=== PATIENT | male | born 1960 | race Caucasian/White ===

== ENCOUNTER 2017-03-04 19:22 | Inpatient (IN) | payer SELFPAY ==
--- NOTE | 2017-03-04 19:57 | C.PDOC ---
History Of Present Illness 56 year old male presents to the ER after family called 911. As per EMS, family states patient has not been taking care of himself for the past few months, only drinking water and ETOH. Patient is awake but not answering any questions. Pt was sen immediately upon arrival fro abnormal vital signs- therefore life threatening illness. Hypoxia with pulse ox 92% on NRB. Heart rate 125. BP 100/ 60. Pt was uncooperative with interview. Family reports to EMS that pt was not eating much for the pat month and drinking etoh and water. Chief Complaint (Nursing): Shortness Of Breath History Per: EMS History/Exam Limitations: clinical condition Onset/Duration Of Symptoms: Days Current Symptoms Are (Timing): Still Present Initiating Event: Other (No known) Past Medical History Reviewed: Historical Data, Nursing Documentation, Vital Signs Vital Signs: Last Vital Signs Temp 98.2 F 03/04/17 22:50 Pulse 91 H 03/05/17 01:00 Resp 26 H 03/05/17 01:00 BP 75/51 L 03/05/17 00:24 Pulse Ox 100 03/05/17 01:00 Surgical History: No Surg Hx Family History: States: Unknown Family Hx - Social History Hx Alcohol Use: Yes Hx Substance Use: (unknown) - Immunization History Hx Tetanus Toxoid Vaccination: (unknown) Hx Influenza Vaccination: (unknown) Hx Pneumococcal Vaccination: (unknown) Review Of Systems Review Of Systems: ROS cannot be obtained secondary to pt's inabilty to answer questions. Physical Exam - Physical Exam Appears: Toxic, Unkempt, Chronically Ill, Other (Cachetic, Poorly kept) Skin: Dry Head: Normacephalic, Abrasion (chin and forehead), Other (Ecchymosis to frontal scalp) Eye(s): bilateral: Normal Inspection, EOMI Ear(s): Left: Normal, Right: Normal Nose: Normal Oral Mucosa: Moist, Dry Tongue: Normal Appearing Lips: Normal Appearing Teeth: Other (poor dentition) Gingiva: Normal Appearing Neck: Normal ROM, Supple Chest: Symmetrical Cardiovascular: Rhythm Regular (Tachycardic) Respiratory: No Rales, Rhonchi (Throughout), No Wheezing Gastrointestinal/Abdominal: Soft, No Tenderness, No Distention Extremity: Normal ROM Extremity: Bilateral: Atraumatic Neurological/Psych: Oriented x3, Normal Speech, Slow To Respond With Command, Other (Awake) ED Course And Treatment - Laboratory Results Result Diagrams: 03/04/17 20:15 03/04/17 20:15 ECG Rhythm: Sinus Rhythm, Sinus Tachycardia ECG Interpretation: Normal, No Acute Changes O2 Sat by Pulse Oximetry: 92 (Non rebreather) Pulse Ox Interpretation: Abnormal Interpretation Of Abnormal: hypoxia - Radiology CXR: Interpreted by Me, Viewed By Me CXR Interpretation: Yes: Other (Right upper lobe pneumonia with cavitary lesion) Progress Note: pt was placed on hi flow nasal cannula with improvement of pulse ox to 100%. abg reviewed. labs reviewed-prerenal azotemia and wbc 41,000 Reassessment Condition: Improved Critical Care Time - Critical Care Note Total Time (in mins): 45 Documented critical care: time excludes all time spent performing seperately billable procedures. Medical Decision Making Medical Decision Making: Plan: * ABG * BNF * CMP * UDS * Mag * TSH * Trop I * CBC * PTT * PT * Flu swab * CXR * EKG * UA * Albuterol neb * Peak flow pre/post CXR showed a right upper lobe pneumonia and white count of 41, will cover with clinda and zosyn. Patient will be admitted to ICU under hospitalist service, Dr. Torres and Dr. Hollingsworth are aware.Pt was evaluated by ICU team. Pt is critically ill. CT chest with contrast ordered and ct head non con ordered. Disposition - Disposition Disposition: HOSPITALIZED Disposition Time: 12:00 Condition: CRITICAL - Clinical Impression Clinical Impression: Dyspnea, Shortness of breath, Right upper lobe pneumonia, Respiratory distress - Scribe Statement The provider has reviewed the documentation as recorded by the Scribyovany Eagle All medical record entries made by the Rubenibyovany were at my direction and personally dictated by me. I have reviewed the chart and agree that the record accurately reflects my personal performance of the history, physical exam, medical decision making, and the department course for this patient. I have also personally directed, reviewed, and agree with the discharge instructions and disposition.
[2017-03-04] MEDS ORDERED: Piperacill/Tazo 4.5gm in Dex 4.5 GM/100 ML BAG IVPB STA (20:07)
[2017-03-04] MEDS ORDERED: Lactated Ringer's 1,000 ML IV ONE (20:08)
[2017-03-04] MEDS ORDERED: Clindamycin 600 MG in Sodium Chloride 0.9% 100 ML IV SCH (20:15)
[2017-03-04 20:18] LABS: BASO # 0.1 K/uL (0.0-0.2); BASO % 0.2 % (0.0-2.0); HEMATOCRIT 40.1 % (35.0-51.0); LYMPH % 4.9 % (20.0-40.0); MEAN CELL VOLUME 80.7 fL (80.0-94.0); MEAN CORPUSCULAR HEMOGLOBIN 25.4 pg (27.0-31.0); MEAN CORPUSCULAR HGB CONC 31.5 g/dL (33.0-37.0); MEAN PLATELET VOLUME 7.4 fL (7.2-11.7); MONO # 1.2 K/uL (0.0-0.8); PLATELET COUNT 457 K/uL (130-400); RED CELL DISTRIBUTION WIDTH 15.4 % (11.5-14.5)
[2017-03-04] MEDS ORDERED: Lactated Ringer's 1,000 ML ONE (20:20)
[2017-03-04] MEDS ORDERED: Clindamycin 600mg/50ml NS 600 MG/50 ML BAG IVPB ONE (20:20)
[2017-03-04] MEDS: Albuterol-Ipratrop 3 mg / 0.5 (3 ml) UD IH SCH ×3 (20:20→20:57)
[2017-03-04 20:33] LABS: WHITE BLOOD COUNT 41.2 K/uL (4.8-10.8)
[2017-03-04 20:34] LABS: ALB/GLOB RATIO 0.7 (1.0-2.1); ALKALINE PHOSPHATASE 93 U/L (38-126); ALT/SGPT 25 U/L (21-72); AST/SGOT 13 U/L (17-59); BILIRUBIN,TOTAL 0.8 mg/dL (0.2-1.3); BLOOD UREA NITROGEN 23 mg/dL (9-20); CALCIUM 12.8 mg/dl (8.6-10.4); CARBON DIOXIDE 29 mmol/L (22-30); CHLORIDE 92 mmol/L (98-107); GFR AFRICAN-AMERICAN > 60; GLUCOSE,RANDOM 106 mg/dL (75-110); MAGNESIUM 2.4 mg/dL (1.6-2.3); POTASSIUM 4.4 mmol/L (3.6-5.2); SODIUM 130 mmol/L (132-148); TOTAL PROTEIN 7.6 g/dL (6.3-8.3)
[2017-03-04] MEDS ORDERED: Albuterol-Ipratrop 3 mg / 0.5 (3 ml) UD ONE (20:36)
[2017-03-04 20:41] LABS: INR 1.3
[2017-03-04 20:54] LABS: ABG ALLEN TEST POS; DRAW SITE RRA
[2017-03-04 21:01] LABS: THYROID STIMULATING HORMONE 2.28 mIU/L (0.46-4.68)
[2017-03-04] MEDS ORDERED: Thiamine 100 mg/ml Inj IV ONE (21:21)
[2017-03-04 21:22] LABS: EOSINOPHIL 1 % (0-4); NEUTROPHIL 86 % (50-75); REACTIVE LYMPHOCYTES 1 % (0-0); TOTAL CELLS COUNTED 100
[2017-03-04] MEDS ORDERED: Iodixanol 320 MG/ML 100 ML BOTTLE IV ONE (21:30)
[2017-03-04] MEDS ORDERED: Potassium Ch 20mEq in D5-1/2NS 1,000 ML IV SCH (21:45)
[2017-03-04] MEDS: Cefepime IV 1 gm in Dextrose 1 GM/50 ML BAG IVPB SCH (22:43)
[2017-03-04 22:51] LABS: RBC URINE < 1 /hpf (0-3); URINE BILIRUBIN NEGATIVE (NEGATIVE); URINE BLOOD NEGATIVE (NEGATIVE); URINE COLOR Yellow (YELLOW); URINE GLUCOSE (UA) NORMAL (Normal); URINE KETONE TRACE mg/dL (NEGATIVE); URINE LEUKOCYTE ESTERASE NEG Leu/uL (Negative); URINE PROTEIN NEGATIVE (NEGATIVE); URINE UROBILINOGEN NORMAL mg/dL (0.2-1.0); WBC URINE 4 /hpf (0-5)
[2017-03-04] MEDS: Clindamycin 600mg/50ml NS 600 MG/50 ML BAG IVPB SCH (22:54)
--- NOTE | 2017-03-04 23:00 | CP.PCM.CON ---
History of Present Illness - History of Present Illness History of Present Illness: 56 M with h/o alcoholism and tobacco abuse, lives alone with his brother's family living upstairs was brought in to the hospital by EMS after he had a fall at home and was too weak to get up and called his nephew to help him. Patient was found short of breath, cachectic, confused, coughing in ER, further w/u showed hypoxia, needing about 50% O2, right upper lobe infiltrate/cavity/ lession, leucocytosis, dehydrated with hypercalcemia,hyponatremia. History obtained from patient's family/ ER notes.Unable to obtain information from patient h/o heavy drinking and smoking . Patient had h/o poor eating and borrowed food from the brother but last few weeks stopped asking for food and not eat the food provided, would recently only drink water and as much as beer available. CT head,Chest and Abdomen- head-mild atrophy,small vessel disease,age indeterminate ischemic changes R basal ganglia.Acute on chronic subdural collection on the left,subacute subdural hygroma right Chest/abdomen-Large 14 x 7.6 RUL mass with infiltration/invasion of chest wall and ribs.Right hilar and mediastinal adenopathy.Splenic lesion probably metastatic Review of Systems - Review of Systems Review of Systems: unable to get history from patient Past Patient History - Past Social History Smoking Status: Heavy Smoker > 10 Cigarettes Daily - CARDIAC Hx Cardiac Disorders: (unknown) - PULMONARY Hx Respiratory Disorders: (unknown) - PSYCHIATRIC Hx Substance Use: (unknown) - SURGICAL HISTORY Hx Surgeries: (unable to obtain) - ANESTHESIA Hx Anesthesia: (unknown) Meds Allergies/Adverse Reactions: Allergies Allergy/AdvReac Type Severity Reaction Status Date / Time No Known Allergies Allergy Verified 03/04/17 21:07 - Medications Medications: Current Medications Heparin Sodium (Porcine) (Heparin) 5,000 units SC Q12 JACK Last Admin: 03/04/17 22:15 Dose: 5,000 units Potassium Chloride/Dextrose/Sod Cl (Potassium Chl 20 Meq In D5-1/2ns) 1,000 mls @ 50 mls/hr IV .Q20H JACK Cefepime HCl (Maxipime Iv 1 Gm Premix) 1 gm in 50 mls @ 100 mls/hr IVPB Q12 JACK Last Admin: 03/04/17 22:43 Dose: 100 mls/hr Clindamycin Phosphate (Cleocin In Normal Saline) 600 mg in 50 mls @ 100 mls/hr IVPB Q8H JACK Last Admin: 03/04/17 22:54 Dose: Not Given Pantoprazole Sodium (Protonix Inj) 40 mg IVP DAILY JACK Thiamine HCl (Vitamin B1 Inj) 100 mg IV DAILY JACK Physical Exam - Constitutional Appears: Unkempt, Cachectic, Chronically Ill Additional comments: coughing unco-operative during exam - Head Exam Head Exam: NORMAL INSPECTION, NORMOCEPHALIC Additional comments: abrasions on forehead/head - Eye Exam Eye Exam: Normal appearance, PERRL. absent: Scleral icterus - ENT Exam ENT Exam: Mucous Membranes Dry, Normal External Ear Exam - Neck Exam Neck exam: Positive for: Normal Inspection - Respiratory Exam Respiratory Exam: absent: Accessory Muscle Use Additional comments: tachypnea on mild exertion bilateral transmitted sounds - Cardiovascular Exam Cardiovascular Exam: REGULAR RHYTHM. absent: JVD - GI/Abdominal Exam GI & Abdominal Exam: Normal Bowel Sounds, Soft. absent: Tenderness - Extremities Exam Extremities exam: Positive for: normal inspection, pedal pulses present. Negative for: calf tenderness, pedal edema - Back Exam Back exam: NORMAL INSPECTION - Neurological Exam Neurological exam: Altered - Skin Skin Exam: Dry, Warm Results - Vital Signs Recent Vital Signs: Last Vital Signs Temp 98.2 F 03/04/17 19:46 Pulse 123 H 03/04/17 19:46 Resp 28 H 03/04/17 21:00 BP 104/66 03/04/17 19:46 Pulse Ox 100 03/04/17 21:09 - Labs Result Diagrams: 03/04/17 20:15 03/04/17 20:15 Labs: Laboratory Results - last 24 hr 03/04/17 03/04/17 03/04/17 19:37 20:05 20:15 WBC 41.2 H* RBC 4.97 Hgb 12.6 Hct 40.1 MCV 80.7 MCH 25.4 L MCHC 31.5 L RDW 15.4 H Plt Count 457 H MPV 7.4 Neut % (Auto) 91.9 H Lymph % (Auto) 4.9 L Pender % (Auto) 3.0 Eos % (Auto) 0.0 Baso % (Auto) 0.2 Neut # 37.8 H Lymph # 2.0 Pender # 1.2 H Eos # 0.0 Baso # 0.1 Neutrophils % (Manual) 86 H Lymphocytes % (Manual) 7 L Reactive Lymphs % 1 H Monocytes % (Manual) 5 Eosinophils % (Manual) 1 Platelet Estimate Normal Poikilocytosis (manual Slight Anisocytosis (manual) Slight Ovalocytes Slight PT INR APTT Puncture Site pCO2 pO2 HCO3 ABG pH ABG Total CO2 ABG O2 Saturation ABG Base Excess Jorge Test ABG Potassium A-a O2 Difference Respiratory Index Glucose Lactate Liter Flow FiO2 Sodium Potassium Chloride Carbon Dioxide Anion Gap BUN Creatinine Est GFR ( Amer) Est GFR (Non-Af Amer) POC Glucose (mg/dL) 94 Random Glucose Calcium Phosphorus Magnesium Total Bilirubin AST ALT Alkaline Phosphatase Troponin I NT-Pro-B Natriuret Pep Total Protein Albumin Globulin Albumin/Globulin Ratio TSH 3rd Generation Arterial Blood Potassium Urine Color Urine Clarity Urine pH Ur Specific [place] Urine Protein Urine Glucose (UA) Urine Ketones Urine Blood Urine Nitrate Urine Bilirubin Urine Urobilinogen Ur Leukocyte Esterase Urine WBC (Auto) Urine RBC (Auto) Ur Squamous Epith Cells Influenza Typ A,B (EIA) Negative for flu a/b 03/04/17 03/04/17 03/04/17 20:15 20:15 20:50 WBC RBC Hgb Hct MCV MCH MCHC RDW Plt Count MPV Neut % (Auto) Lymph % (Auto) Pender % (Auto) Eos % (Auto) Baso % (Auto) Neut # Lymph # Pender # Eos # Baso # Neutrophils % (Manual) Lymphocytes % (Manual) Reactive Lymphs % Monocytes % (Manual) Eosinophils % (Manual) Platelet Estimate Poikilocytosis (manual Anisocytosis (manual) Ovalocytes PT 14.1 H INR 1.3 APTT 35 H Puncture Site Rra pCO2 34 L pO2 160 H HCO3 25.6 ABG pH 7.46 H ABG Total CO2 25.2 ABG O2 Saturation 100.2 H ABG Base Excess 0.8 Jorge Test Pos ABG Potassium 3.2 L A-a O2 Difference 511.0 Respiratory Index 3.2 Glucose 88 Lactate 2.1 Liter Flow 25.0 FiO2 100.0 Sodium 130 L 134.0 Potassium 4.4 Chloride 92 L 102.0 Carbon Dioxide 29 Anion Gap 14 BUN 23 H Creatinine 0.8 Est GFR ( Amer) > 60 Est GFR (Non-Af Amer) > 60 POC Glucose (mg/dL) Random Glucose 106 Calcium 12.8 H Phosphorus Magnesium 2.4 H Total Bilirubin 0.8 AST 13 L ALT 25 Alkaline Phosphatase 93 Troponin I < 0.0120 NT-Pro-B Natriuret Pep 1670 H Total Protein 7.6 Albumin 3.1 L Globulin 4.5 H Albumin/Globulin Ratio 0.7 L TSH 3rd Generation 2.28 Arterial Blood Potassium 3.2 L Urine Color Urine Clarity Urine pH Ur Specific [place] Urine Protein Urine Glucose (UA) Urine Ketones Urine Blood Urine Nitrate Urine Bilirubin Urine Urobilinogen Ur Leukocyte Esterase Urine WBC (Auto) Urine RBC (Auto) Ur Squamous Epith Cells Influenza Typ A,B (EIA) 03/04/17 03/04/17 21:09 22:32 WBC RBC Hgb Hct MCV MCH MCHC RDW Plt Count MPV Neut % (Auto) Lymph % (Auto) Pender % (Auto) Eos % (Auto) Baso % (Auto) Neut # Lymph # Pender # Eos # Baso # Neutrophils % (Manual) Lymphocytes % (Manual) Reactive Lymphs % Monocytes % (Manual) Eosinophils % (Manual) Platelet Estimate Poikilocytosis (manual Anisocytosis (manual) Ovalocytes PT INR APTT Puncture Site pCO2 pO2 HCO3 ABG pH ABG Total CO2 ABG O2 Saturation ABG Base Excess Jorge Test ABG Potassium A-a O2 Difference Respiratory Index Glucose Lactate Liter Flow FiO2 Sodium Potassium Chloride Carbon Dioxide Anion Gap BUN Creatinine Est GFR ( Amer) Est GFR (Non-Af Amer) POC Glucose (mg/dL) Random Glucose Calcium Phosphorus 3.3 Magnesium Total Bilirubin AST ALT Alkaline Phosphatase Troponin I NT-Pro-B Natriuret Pep Total Protein Albumin Globulin Albumin/Globulin Ratio TSH 3rd Generation Arterial Blood Potassium Urine Color Yellow Urine Clarity Clear Urine pH 5.0 Ur Specific [place] 1.017 Urine Protein Negative Urine Glucose (UA) Normal Urine Ketones Trace Urine Blood Negative Urine Nitrate Negative Urine Bilirubin Negative Urine Urobilinogen Normal Ur Leukocyte Esterase Neg Urine WBC (Auto) 4 Urine RBC (Auto) < 1 Ur Squamous Epith Cells < 1 Influenza Typ A,B (EIA) - Imaging and Cardiology Chest x-ray Status: Image reviewed by me CT scan - chest Status: Image reviewed by me, Report reviewed by me CT scan - head Status: Image reviewed by me, Report reviewed by me CT scan - abdomen Status: Image reviewed by me, Report reviewed by me Assessment & Plan - Assessment and Plan (Free Text) Assessment: 89 y/o cachectic male with no known PMH presenting with cough,loss of weight, confusion,Right Upperlobe infiltrate with leucocytosis, thrombocytosishyponatremia,hypercalcemia and dehydration. Most probably has lung malignancy and r/o possible pneumonia /lung abscess. IV antibiotics and IV hydration RUL lesion with cough and loss of weight will place on AFB isolation. will require tissue diagnosis for further management.Family(sister in law) aware of condition and poor prognosis CT head,Chest and Abdomen- head-mild atrophy,small vessel disease,age indeterminate ischemic changes R basal ganglia.Acute on chronic subdural collection on the left,subacute subdural hygroma right Chest/abdomen-Large 14 x 7.6 RUL mass with infiltration/invasion of chest wall and ribs.Right hilar and mediastinal adenopathy.Splenic lesion probably metastatic
[2017-03-04] MEDS ORDERED: Tuberculin 5 Units/0.1 ml Inj ID ONE (23:15)
--- NOTE | 2017-03-04 23:49 | CT ---
EXAM: CT Head Without Intravenous Contrast EXAM DATE/TIME: 03/04/2017 9:21 PM CLINICAL HISTORY: 56 years old, male; Pain and signs and symptoms; Other: Confused; Headache; Additional info: Confusion TECHNIQUE: Axial computed tomography images of the head/brain without intravenous contrast. All CT scans at this facility use one or more dose reduction techniques, viz.: automated exposure control; ma/kV adjustment per patient size (including targeted exams where dose is matched to indication; i.e. head); or iterative reconstruction technique. Coronal and sagittal reformatted images were created and reviewed. COMPARISON: There are no prior studies for comparison. FINDINGS: Artifacts: Motion artifact degrades image quality. Brain: There is prominence of sulci gyri and ventricles. There is no midline shift. There is decreased attenuation in periventricular white matter. There is age-indeterminate ischemic change in the right basal ganglia. There are no focal masses. There are no intra-axial hemorrhages. There is a subacute subdural hygroma on the right. There is acute and subacute/chronic subdural collection on the left.. Bethea-white differentiation is visualized. Ventricles: See above Bones: Cranial vault is intact. Soft tissues: unremarkable Sinuses: There is opacification of the left maxillary sinus. Ears and mastoids: Middle ears and mastoids are unremarkable. Orbits: Orbital contents are unremarkable. IMPRESSION: Mild atrophy and small vessel disease; age indeterminate ischemic changes right basal ganglia; acute on chronic subdural collection on the left; subacute subdural hygroma on the right, no midline shift
[2017-03-05] MEDS ORDERED: Sodium Chloride 0.9% 500 ML IV ONE ×2 (00:15→05:48)
--- NOTE | 2017-03-05 00:26 | CT ---
EXAM: CT Abdomen and Pelvis With Intravenous Contrast EXAM DATE/TIME: 03/04/2017 9:24 PM CLINICAL HISTORY: 56 years old, male; Pain; Abdominal pain; Additional info: Cachexia TECHNIQUE: Axial computed tomography images of the abdomen and pelvis with intravenous contrast. All CT scans at this facility use one or more dose reduction techniques, viz.: automated exposure control; ma/kV adjustment per patient size (including targeted exams where dose is matched to indication; i.e. head); or iterative reconstruction technique. Coronal and sagittal reformatted images were created and reviewed. CONTRAST: 75 mL of [id number] administered intravenously. COMPARISON: There are no prior studies for comparison. FINDINGS: Artifacts: Streak artifact degrades image quality.Motion artifact degrades image quality. Lower thorax: There is a partially imaged cavitary right upper lobe mass. There are multiple right middle and lower lobe nodules. Left base is clear. Heart size is normal. There is hiatal hernia. ABDOMEN: Liver: Streak limits evaluation of the liver. Gallbladder and bile ducts: unremarkable Pancreas: Pancreas is not optimally demonstrated. There is mild prominence of the pancreatic tail. Pancreatic head is difficult to evaluate. Spleen: There is a low attenuation lesion in the spleen. Adrenals: There is diffuse thickening of both adrenals. Kidneys and ureters: unremarkable Stomach and bowel: The stomach is partially distended with an air-fluid level. Rotation is normal. There is no obstruction. There is terminal ileal wall thickening. Appendix is not visualized.Colon is incompletely distended which limits evaluation. There is sigmoid diverticulosis. There is a fecal bolus in the rectum. Appendix: See stomach and bowel PELVIS: Bladder: Bladder is almost empty. Reproductive: Seminal vesicles and prostate are unremarkable. ABDOMEN and PELVIS: Intraperitoneal space: There is no free air. There is no significant fluid. Bones/joints: Bony structures are osteopenic.There are degenerative changes in the osseus structures. Soft tissues: There is a paucity of body fat. There is wasting of soft tissues. Vasculature: There are multiple phleboliths.There are vascular calcifications. Lymph nodes: There is no pathologic adenopathy. IMPRESSION: Partially imaged right upper lobe mass with nodular opacities right middle and lower lobes suspicious for malignancy; splenic lesion possibly metastatic; severe cachexia
--- NOTE | 2017-03-05 00:28 | CT ---
EXAM: CT Angiography Chest With Intravenous Contrast EXAM DATE/TIME: 03/04/2017 9:17 PM CLINICAL HISTORY: 56 years old, male; Pain; Chest pain; Additional info: SOB; malignancy; alcoholism; short of breath TECHNIQUE: Axial computed tomographic angiography images of the chest with intravenous contrast using pulmonary embolism protocol. All CT scans at this facility use one or more dose reduction techniques, viz.: automated exposure control; ma/kV adjustment per patient size (including targeted exams where dose is matched to indication; i.e. head); or iterative reconstruction technique. MIP reconstructed images were created and reviewed. Coronal and sagittal reformatted images were created and reviewed. CONTRAST: 75 mL of [id number] administered intravenously. COMPARISON: There are no prior studies for comparison. FINDINGS: Heart, aorta and Pulmonary arteries: Heart is normal in size. There is no pericardial effusion.There is no aneurysm or dissection. There is perfusion of the 3 arch vessels.There are vascular calcifications. There are no central pulmonary emboli. There are no pulmonary emboli on the left. There is encasement and narrowing of the right upper lobe pulmonary artery. There are no right middle or lower lobe pulmonary emboli. Lungs and pleural spaces: Trachea and main bronchi are patent. Right upper lobe bronchus is difficult to identify. There is distortion of the right hilum. There is mild narrowing of the bronchus intermedius. Left upper and lower lobe bronchi are unremarkable. There is scarring and patchy groundglass opacity in the aerated portions of the right upper lobe. There is a thickwalled large right upper lobe mass with multiple cavities. The mass abuts the major and minor fissures and extends to the right chest wall. Mass measures at least 14 x 7.6 cm in oblique superior-inferior by AP dimension. There is infiltration of the chest wall. There is infiltration and destructive change in the adjacent right upper ribs. There are multiple nodular opacities in the superior segment of the right lower lobe. There are multiple small nodular opacities in the right middle lobe. Left lung is well inflated. There are mild centrilobular emphysematous changes in the left upper lobe. There are no effusions. Thyroid: Thyroid is not optimally demonstrated. Bones/joints: Bony structures are osteopenic. There are degenerative changes in the spine. There are destructive changes in the anterolateral portions of the right third and fourth ribs. Infiltrative change in the adjacent ribs is difficult to exclude. Soft tissues: There is a paucity of subcutaneous fat and tissue. Mediastinum: There is a 3.7 x 2.7 cm poorly defined right hilar mass. There is mediastinal adenopathy. There is no left hilar adenopathy. The esophagus is unremarkable. There is a small hiatal hernia. Upper abdomen: Refer to CT abdomen and pelvis for abdominal findings IMPRESSION: Large cavitary right upper lobe mass with infiltration/invasion of the chest wall and destruction of adjacent ribs, findings are consistent with malignancy; right hilar and mediastinal adenopathy; no aneurysm, dissection or pulmonary embolus
--- NOTE | 2017-03-05 02:36 | CP.PCM.HP ---
History of Present Illness - History of Present Illness History of Present Illness: 56 M with h/o alcoholism and tobacco abuse, lives alone with his brother's family living upstairs was brought in to the hospital by EMS after he had a fall at home and was too wk to get up and called his nephew to help him. Patient was found sob, cachectic, confused in ER, further w/u showed hypoxia, needing about 50% fiow, right upper lobe infiltrate/cavity/lession, leucocytosis , dehydrated. Patient was wk, confused and trying to refuse most of the care being offered. Knew he was in hospital but not which, he knew his name, unsure of his age. Further history obtained from patient's sister in law on phone. As per her he had h/o heavy drinking about 1.75lit vodca bottle 4/wk, active smoking. Patient had h/o poor eating and borrowed food from the brother but last few wks stopped asking for food and not eat the food provided, would recently only drink water and as much as beer available. PMH as above PSH none as per the sister in law Meds none Social lived alone, but brother's family lived upstairs, alcohol and smoking as above Allergies nkda BERGER CT was ordered, started on iv abx and ICU transfer requested. D/w sister in law poor prognosis and survival due to severe cachexia CT done showed left small subdural hemorrhage, lession in lung right upper lobe likely mass as engulfing the ribs, some right lower lobe disease, emphysema Present on Admission - Present on Admission Any Indicators Present on Admission: No History of DVT/PE: No History of Uncontrolled Diabetes: No Urinary Catheter: No Decubitus Ulcer Present: No Review of Systems - Review of Systems All systems: reviewed and no additional remarkable complaints except (HPI) Past Patient History - Past Medical History & Family History Past Medical History?: Yes - Past Social History Smoking Status: Heavy Smoker > 10 Cigarettes Daily Alcohol: > 2 Drinks/Day Home Situation {Lives}: Alone - CARDIAC Hx Cardiac Disorders: (unknown) - PULMONARY Hx Respiratory Disorders: (unknown) - MUSCULOSKELETAL/RHEUMATOLOGICAL Hx Falls: Yes - PSYCHIATRIC Hx Substance Use: (unknown) - SURGICAL HISTORY Hx Surgeries: (unable to obtain) - ANESTHESIA Hx Anesthesia: (unknown) Hx Anesthesia Reactions: No Hx Malignant Hyperthermia: No Has any member of the family had a problem w/ anesthesia?: No Meds Allergies/Adverse Reactions: Allergies Allergy/AdvReac Type Severity Reaction Status Date / Time No Known Allergies Allergy Verified 03/04/17 21:07 Physical Exam - Additional Findings Additional findings: * HEENT ELÍAS, areas of brusies on the head * Neck supple * Chest rattling sound b/l r>l * CVS regular, tachycardia * PA soft, nt bs present * Ext no edema * Skin dry poor turgor * [employer] confused, moving all limbs Results - Vital Signs Recent Vital Signs: Last Vital Signs Temp 98.2 F 03/04/17 22:50 Pulse 91 H 03/05/17 01:00 Resp 26 H 03/05/17 01:00 BP 75/51 L 03/05/17 00:24 Pulse Ox 92 L 03/05/17 01:41 - Labs Result Diagrams: 03/04/17 20:15 03/04/17 20:15 Labs: Laboratory Results - last 24 hr 03/04/17 03/04/17 03/04/17 19:37 20:05 20:15 WBC 41.2 H* RBC 4.97 Hgb 12.6 Hct 40.1 MCV 80.7 MCH 25.4 L MCHC 31.5 L RDW 15.4 H Plt Count 457 H MPV 7.4 Neut % (Auto) 91.9 H Lymph % (Auto) 4.9 L [place] % (Auto) 3.0 Eos % (Auto) 0.0 Baso % (Auto) 0.2 Neut # 37.8 H Lymph # 2.0 [place] # 1.2 H Eos # 0.0 Baso # 0.1 Neutrophils % (Manual) 86 H Lymphocytes % (Manual) 7 L Reactive Lymphs % 1 H Monocytes % (Manual) 5 Eosinophils % (Manual) 1 Platelet Estimate Normal Poikilocytosis (manual Slight Anisocytosis (manual) Slight Ovalocytes Slight PT INR APTT Puncture Site pCO2 pO2 HCO3 ABG pH ABG Total CO2 ABG O2 Saturation ABG Base Excess Jorge Test ABG Potassium A-a O2 Difference Respiratory Index Glucose Lactate Liter Flow FiO2 Sodium Potassium Chloride Carbon Dioxide Anion Gap BUN Creatinine Est GFR ( Amer) Est GFR (Non-Af Amer) POC Glucose (mg/dL) 94 Random Glucose Calcium Phosphorus Magnesium Total Bilirubin AST ALT Alkaline Phosphatase Troponin I NT-Pro-B Natriuret Pep Total Protein Albumin Globulin Albumin/Globulin Ratio TSH 3rd Generation Arterial Blood Potassium Urine Color Urine Clarity Urine pH Ur Specific [place] Urine Protein Urine Glucose (UA) Urine Ketones Urine Blood Urine Nitrate Urine Bilirubin Urine Urobilinogen Ur Leukocyte Esterase Urine WBC (Auto) Urine RBC (Auto) Ur Squamous Epith Cells Urine Opiates Screen Urine Methadone Screen Ur Barbiturates Screen Ur Phencyclidine Scrn Ur Amphetamines Screen U Benzodiazepines Scrn U Oth Cocaine Metabols U Cannabinoids Screen Alcohol, Quantitative Influenza Typ A,B (EIA) Negative for flu a/b 03/04/17 03/04/17 03/04/17 20:15 20:15 20:50 WBC RBC Hgb Hct MCV MCH MCHC RDW Plt Count MPV Neut % (Auto) Lymph % (Auto) [place] % (Auto) Eos % (Auto) Baso % (Auto) Neut # Lymph # [place] # Eos # Baso # Neutrophils % (Manual) Lymphocytes % (Manual) Reactive Lymphs % Monocytes % (Manual) Eosinophils % (Manual) Platelet Estimate Poikilocytosis (manual Anisocytosis (manual) Ovalocytes PT 14.1 H INR 1.3 APTT 35 H Puncture Site Rra pCO2 34 L pO2 160 H HCO3 25.6 ABG pH 7.46 H ABG Total CO2 25.2 ABG O2 Saturation 100.2 H ABG Base Excess 0.8 Jorge Test Pos ABG Potassium 3.2 L A-a O2 Difference 511.0 Respiratory Index 3.2 Glucose 88 Lactate 2.1 Liter Flow 25.0 FiO2 100.0 Sodium 130 L 134.0 Potassium 4.4 Chloride 92 L 102.0 Carbon Dioxide 29 Anion Gap 14 BUN 23 H Creatinine 0.8 Est GFR ( Amer) > 60 Est GFR (Non-Af Amer) > 60 POC Glucose (mg/dL) Random Glucose 106 Calcium 12.8 H Phosphorus Magnesium 2.4 H Total Bilirubin 0.8 AST 13 L ALT 25 Alkaline Phosphatase 93 Troponin I < 0.0120 NT-Pro-B Natriuret Pep 1670 H Total Protein 7.6 Albumin 3.1 L Globulin 4.5 H Albumin/Globulin Ratio 0.7 L TSH 3rd Generation 2.28 Arterial Blood Potassium 3.2 L Urine Color Urine Clarity Urine pH Ur Specific [place] Urine Protein Urine Glucose (UA) Urine Ketones Urine Blood Urine Nitrate Urine Bilirubin Urine Urobilinogen Ur Leukocyte Esterase Urine WBC (Auto) Urine RBC (Auto) Ur Squamous Epith Cells Urine Opiates Screen Urine Methadone Screen Ur Barbiturates Screen Ur Phencyclidine Scrn Ur Amphetamines Screen U Benzodiazepines Scrn U Oth Cocaine Metabols U Cannabinoids Screen Alcohol, Quantitative Influenza Typ A,B (EIA) 03/04/17 03/04/17 03/04/17 21:09 22:32 22:32 WBC RBC Hgb Hct MCV MCH MCHC RDW Plt Count MPV Neut % (Auto) Lymph % (Auto) [place] % (Auto) Eos % (Auto) Baso % (Auto) Neut # Lymph # [place] # Eos # Baso # Neutrophils % (Manual) Lymphocytes % (Manual) Reactive Lymphs % Monocytes % (Manual) Eosinophils % (Manual) Platelet Estimate Poikilocytosis (manual Anisocytosis (manual) Ovalocytes PT INR APTT Puncture Site pCO2 pO2 HCO3 ABG pH ABG Total CO2 ABG O2 Saturation ABG Base Excess Jorge Test ABG Potassium A-a O2 Difference Respiratory Index Glucose Lactate Liter Flow FiO2 Sodium Potassium Chloride Carbon Dioxide Anion Gap BUN Creatinine Est GFR ( Amer) Est GFR (Non-Af Amer) POC Glucose (mg/dL) Random Glucose Calcium Phosphorus 3.3 Magnesium Total Bilirubin AST ALT Alkaline Phosphatase Troponin I NT-Pro-B Natriuret Pep Total Protein Albumin Globulin Albumin/Globulin Ratio TSH 3rd Generation Arterial Blood Potassium Urine Color Yellow Urine Clarity Clear Urine pH 5.0 Ur Specific [place] 1.017 Urine Protein Negative Urine Glucose (UA) Normal Urine Ketones Trace Urine Blood Negative Urine Nitrate Negative Urine Bilirubin Negative Urine Urobilinogen Normal Ur Leukocyte Esterase Neg Urine WBC (Auto) 4 Urine RBC (Auto) < 1 Ur Squamous Epith Cells < 1 Urine Opiates Screen Negative Urine Methadone Screen Negative Ur Barbiturates Screen Negative Ur Phencyclidine Scrn Negative Ur Amphetamines Screen Negative U Benzodiazepines Scrn Negative U Oth Cocaine Metabols Negative U Cannabinoids Screen Negative Alcohol, Quantitative Influenza Typ A,B (EIA) 03/04/17 23:55 WBC RBC Hgb Hct MCV MCH MCHC RDW Plt Count MPV Neut % (Auto) Lymph % (Auto) [place] % (Auto) Eos % (Auto) Baso % (Auto) Neut # Lymph # [place] # Eos # Baso # Neutrophils % (Manual) Lymphocytes % (Manual) Reactive Lymphs % Monocytes % (Manual) Eosinophils % (Manual) Platelet Estimate Poikilocytosis (manual Anisocytosis (manual) Ovalocytes PT INR APTT Puncture Site pCO2 pO2 HCO3 ABG pH ABG Total CO2 ABG O2 Saturation ABG Base Excess Jorge Test ABG Potassium A-a O2 Difference Respiratory Index Glucose Lactate Liter Flow FiO2 Sodium Potassium Chloride Carbon Dioxide Anion Gap BUN Creatinine Est GFR ( Amer) Est GFR (Non-Af Amer) POC Glucose (mg/dL) Random Glucose Calcium Phosphorus Magnesium Total Bilirubin AST ALT Alkaline Phosphatase Troponin I NT-Pro-B Natriuret Pep Total Protein Albumin Globulin Albumin/Globulin Ratio TSH 3rd Generation Arterial Blood Potassium Urine Color Urine Clarity Urine pH Ur Specific [place] Urine Protein Urine Glucose (UA) Urine Ketones Urine Blood Urine Nitrate Urine Bilirubin Urine Urobilinogen Ur Leukocyte Esterase Urine WBC (Auto) Urine RBC (Auto) Ur Squamous Epith Cells Urine Opiates Screen Urine Methadone Screen Ur Barbiturates Screen Ur Phencyclidine Scrn Ur Amphetamines Screen U Benzodiazepines Scrn U Oth Cocaine Metabols U Cannabinoids Screen Alcohol, Quantitative < 20 H Influenza Typ A,B (EIA) Assessment & Plan - Assessment and Plan (Free Text) Assessment: Assessment * Right upper lobe cavity lession, likely lung cancer, right LL pna, emphysema * Cachexia * Severe dehydration * Hypercalcimia * Left subdural hematoma * Spoke to the sister in law about the poor prognosis prior to CT, but CT confirms it due to above Plan: * Clinda, cefepime * IVF * AFB isolation * Hold on anticoagulation due to subdural hematoma * Thiamine * Watch for alcohol withdrawal * Poor prognosis * Will d/w family about poor prognosis and would benefit with palliative care see orders for detail.
[2017-03-05] MEDS ORDERED: Sodium Chloride 0.9% 250 ML IV ONE (03:45)
[2017-03-05] MEDS ORDERED: Potassium Chloride 10 MEQ in Dextrose 5%/0.9% NS 1,000 ML IV ONE (06:10)
[2017-03-05] MEDS: Clindamycin 600mg/50ml NS 600 MG/50 ML BAG IVPB SCH ×3 (06:13→22:30)
[2017-03-05 06:41] LABS: EOS # 0.1 K/uL (0.0-0.7); EOS % 0.4 % (0.0-4.0); HEMATOCRIT 30.5 % (35.0-51.0); LYMPH # 2.3 K/uL (1.0-4.3); LYMPH % 9.7 % (20.0-40.0); MEAN CELL VOLUME 80.8 fL (80.0-94.0); MEAN CORPUSCULAR HEMOGLOBIN 26.1 pg (27.0-31.0); MEAN CORPUSCULAR HGB CONC 32.3 g/dL (33.0-37.0); MEAN PLATELET VOLUME 7.6 fL (7.2-11.7); MONO # 0.8 K/uL (0.0-0.8); MONO % 3.4 % (0.0-10.0); NRBC % 0.1 % (0.0-2.0); PLATELET COUNT 324 K/uL (130-400); RED CELL DISTRIBUTION WIDTH 15.4 % (11.5-14.5); WHITE BLOOD COUNT 23.6 K/uL (4.8-10.8)
[2017-03-05 06:57] LABS: ALB/GLOB RATIO 0.8 (1.0-2.1); ALKALINE PHOSPHATASE 60 U/L (38-126); ALT/SGPT 23 U/L (21-72); AST/SGOT 13 U/L (17-59); BILIRUBIN,TOTAL 0.5 mg/dL (0.2-1.3); BLOOD UREA NITROGEN 18 mg/dL (9-20); CALCIUM 10.6 mg/dl (8.6-10.4); CARBON DIOXIDE 32 mmol/L (22-30); CHLORIDE 99 mmol/L (98-107); GFR AFRICAN-AMERICAN > 60; GLUCOSE,RANDOM 101 mg/dL (75-110); MAGNESIUM 1.9 mg/dL (1.6-2.3); PHOSPHOROUS 2.7 mg/dL (2.5-4.5); SODIUM 132 mmol/L (132-148); TOTAL PROTEIN 4.7 g/dL (6.3-8.3)
[2017-03-05 07:01] LABS: VITAMIN D 25 OH TOTAL < 12.8 NG/ML (30.0-100.0)
[2017-03-05] MEDS ORDERED: Sodium Chloride 0.9% 1,000 ML IV ONE (07:13)
--- NOTE | 2017-03-05 08:29 | RAD ---
HISTORY: Shortness of breath COMPARISON: No prior. FINDINGS: LUNGS: Large cavitary right upper lung mass with a suggestion of infiltration/ invasion of the chest wall and destruction of adjacent ribs concerning for malignancy. Right hilar and suprahilar prominence. Further evaluation with chest CT recommended. PLEURA: As above. CARDIOVASCULAR: Normal. OSSEOUS STRUCTURES: No significant abnormalities. VISUALIZED UPPER ABDOMEN: Normal. OTHER FINDINGS: None. IMPRESSION: Large cavitary right upper lung mass with a suggestion of infiltration/ invasion of the chest wall and destruction of adjacent ribs concerning for malignancy. Right hilar and suprahilar prominence. Further evaluation with chest CT recommended.
[2017-03-05 09:19] LABS: NEUTROPHIL 87 % (50-75); TOTAL CELLS COUNTED 100
[2017-03-05] MEDS ORDERED: Etomidate 20 mg/10ml Inj IV ONE (09:41)
[2017-03-05] MEDS ORDERED: Thiamine 100 mg/ml Inj IV SCH (10:00)
--- NOTE | 2017-03-05 10:15 | CP.PCM.PN ---
Subjective - Date & Time of Evaluation Date of Evaluation: 03/05/17 Time of Evaluation: 10:00 - Subjective Subjective: Hospitalist Progress Note Patient was seen and examined at 10:00 AM 03/05/17 ICU Bed 10. 56 year old male who was brought into ER via EMS on 03/04/17 after he fell at home. Upon arrival to the ER he was found to be confused, cachectic, hypoxic. CT Head showed age indeterminate ischemic changes in righ basal ganglia, acute on chronic subdural collection on left, subdural hygroma on the right. CT Chest showed large cavitary RUL mass with infiltrative/invasion on chest wall and destruction of adjacent ribs consistent with malignancy, right hilar and mediastinal adenopathy. CT Abdomen/Pelvis showed RUL mass with nodular opacities , RML and RLL suspicious for malignancy, splenic lesions possibly metastatic. His respiratory status shortly before my exam declined and he was intubated by the ICU Team after informing patient's brother Holden Abarca [phone] and [id number] Sarah Abarca [phone], both of whom requested that patient be FULL CODE for the time being. Poor prognosis based upon current patient status and workup was explained to both Holden and Sarah. Holden will be by to see patient at 5:30 PM today and Palliative Care Team will be notified. ROS is NOT possible as patient is nonresponsive and intubated. Exam: General: intubated and on vent, cachectic appearance, likely fecal matter found underneath fingernails as per Nurse Red prior to my exam HEENT: Abrasions present on the frontal scalp, Left Pupil is dilated and Right Pupil is pinpoint and both sluggishly reactive to light, Nasal turbinates are dry, NO cervical lymphadenopathy, NO thyromegaly Cardio: NS1 and NS2, NO M/R/G however limited due to loud course breath sounds Resp: Course breath sounds diffusely GI: BSx4, soft, ND, NO HSM Ext: Pulses are strong and equal, NO edema, Capillary Refill is 2 seconds Neuro: NOT possible due to current patient state Assessment and Plan: 1). Acute Respiratory Failure Patient is intubated and on ventilator Status: Acute 2). Lung Cavitary Lesion Likely secondary to malignancy but rule out TB Respiratory Isolation Cefepime 1 gm IV Q12H Clindamycin 600 mg I VQ8H F/U Blood Culture F/U Urine Culture F/U PPD F/U HIV Ab F/U Hepatitis Panel F/U Sputum Culture and AFB F/U MRSA Screen Consult Heme/Onc Dr. Fabienne Pantoja Consult Palliative Care Nurse Reyna Consult ID Dr. Wilberto Sanches Considering findings on HEENT exam, will have to reconsider repeating the CT Head. Poor prognosis explained to both brother Holden Abarca [phone] and Sister- in-Law Sarah Abarca [phone]. He is currently FULL CODE as per their wishes. Holden Abarca will be by at 5:30 today. Obed Anguiano D.O. Objective - Vital Signs/Intake and Output Vital Signs (last 24 hours): Temp Pulse Resp BP Pulse Ox 97.5 F L 97 H 24 150/89 100 03/05/17 08:00 03/05/17 10:00 03/05/17 10:00 03/05/17 10:00 03/05/17 10:00 Intake and Output: 03/05/17 03/05/17 06:59 18:59 Intake Total 1550 1200 Output Total 0 5 Balance 1550 1195 - Medications Medications: Current Medications Cefepime HCl (Maxipime Iv 1 Gm Premix) 1 gm in 50 mls @ 100 mls/hr IVPB Q12 [facility] Last Admin: 03/04/17 22:43 Dose: 100 mls/hr Clindamycin Phosphate (Cleocin In Normal Saline) 600 mg in 50 mls @ 100 mls/hr IVPB Q8H [facility] Last Admin: 03/05/17 06:13 Dose: 100 mls/hr Potassium Chloride 10 meq/ (Dextrose/Sodium Chloride) 1,005 mls @ 50 mls/hr IV .Q20H6M ONE Stop: 03/06/17 02:15 Last Admin: 03/05/17 06:44 Dose: 50 mls/hr Pantoprazole Sodium (Protonix Inj) 40 mg IVP DAILY [facility] Thiamine HCl (Vitamin B1 Inj) 100 mg IV DAILY [facility] - Labs Labs: 03/05/17 06:22 03/05/17 06:22 PT 14.1 SECONDS (9.7-12.2) H 03/04/17 20:15 INR 1.3 03/04/17 20:15 APTT 35 SECONDS (21-34) H 03/04/17 20:15
--- NOTE | 2017-03-05 10:31 | RAD ---
Chest x-ray single frontal view History: Intubated. Comparison: 03/04/2017 Findings: Persistent large cavitary right upper lung mass with a suggestion of infiltration of the right chest wall and destruction of adjacent ribs concerning for malignancy. Right hilar and suprahilar prominence. Interval near complete opacification of the right upper to mid lung zone. Endotracheal tube extending into the mid thoracic trachea. Degenerative changes in the spine and shoulders. Impression: Persistent large cavitary right upper lung mass with a suggestion of infiltration of the right chest wall and destruction of adjacent ribs concerning for malignancy. Right hilar and suprahilar prominence. Interval near complete opacification of the right upper to mid lung zone. Endotracheal tube extending into the mid thoracic trachea.
[2017-03-05] MEDS: Cefepime IV 1 gm in Dextrose 1 GM/50 ML BAG IVPB SCH ×2 (10:55→21:26)
[2017-03-05] MEDS ORDERED: DOPamine 400mg/250ml D5W 400 MG/250 ML BAG IV PRN (11:06)
[2017-03-05] MEDS: Propofol 10 mg/ml 1,000 MG/100 ML VIAL IV PRN (11:17)
[2017-03-05 11:34] LABS: ABG ALLEN TEST P; ARTERIAL BLOOD GAS MODE PRVC; ARTERIAL BLOOD HGB O2 SAT 97.1 % (95.0-98.0); ATERIAL BLOOD GAS PEEP 5; CARBOXYHEMOGLOBIN 1.4 % (0.5-1.5); DRAW SITE LRA; HHB 0.1 % (0.0-5.0); METHEMOGLOBIN 1.4 % (0.0-3.0)
--- NOTE | 2017-03-05 11:34 | CP.PCM.CON ---
History of Present Illness - History of Present Illness History of Present Illness: seen in ICU full consult to follow Past Patient History - Past Medical History & Family History Past Medical History?: Yes - Past Social History Smoking Status: Heavy Smoker > 10 Cigarettes Daily - CARDIAC Hx Cardiac Disorders: (unknown) - PULMONARY Hx Respiratory Disorders: (unknown) - MUSCULOSKELETAL/RHEUMATOLOGICAL Hx Falls: Yes - PSYCHIATRIC Hx Substance Use: (unknown) - SURGICAL HISTORY Hx Surgeries: (unable to obtain) - ANESTHESIA Hx Anesthesia: (unknown) Meds Allergies/Adverse Reactions: Allergies Allergy/AdvReac Type Severity Reaction Status Date / Time No Known Allergies Allergy Verified 03/04/17 21:07 - Medications Medications: Current Medications Cefepime HCl (Maxipime Iv 1 Gm Premix) 1 gm in 50 mls @ 100 mls/hr IVPB Q12 [facility] Last Admin: 03/05/17 10:55 Dose: 100 mls/hr Clindamycin Phosphate (Cleocin In Normal Saline) 600 mg in 50 mls @ 100 mls/hr IVPB Q8H [facility] Last Admin: 03/05/17 06:13 Dose: 100 mls/hr Potassium Chloride 10 meq/ (Dextrose/Sodium Chloride) 1,005 mls @ 50 mls/hr IV .Q20H6M ONE Stop: 03/06/17 02:15 Last Admin: 03/05/17 06:44 Dose: 50 mls/hr Propofol (Diprivan) 1,000 mg in 100 mls @ 0.966 mls/hr IV .Q24H PRN; Protocol; 5 MCG/KG/MIN PRN Reason: TITRATE PER MD ORDER Last Admin: 03/05/17 11:17 Dose: 5 mcg/kg/min, 0.966 mls/hr Dopamine HCl/Dextrose (Dopamine 400mg/250ml D5w) 400 mg in 250 mls @ 6.038 mls/ hr IV .Q24H PRN; Protocol; 5 MCG/KG/MIN PRN Reason: TITRATE PER MD ORDER Last Admin: 03/05/17 11:13 Dose: 5 mcg/kg/min, 6.038 mls/hr Pantoprazole Sodium (Protonix Inj) 40 mg IVP DAILY [facility] Last Admin: 03/05/17 10:54 Dose: 40 mg Thiamine HCl (Vitamin B1 Inj) 100 mg IV DAILY [facility] Last Admin: 03/05/17 10:54 Dose: 100 mg Results - Vital Signs Recent Vital Signs: Last Vital Signs Temp 97.5 F L 03/05/17 08:00 Pulse 94 H 03/05/17 11:13 Resp 20 03/05/17 11:13 BP 74/58 L 03/05/17 11:13 Pulse Ox 100 03/05/17 10:00 - Labs Result Diagrams: 03/05/17 06:22 03/05/17 06:22 Labs: Laboratory Results - last 24 hr 03/04/17 03/04/17 03/04/17 19:37 20:05 20:15 WBC 41.2 H* RBC 4.97 Hgb 12.6 Hct 40.1 MCV 80.7 MCH 25.4 L MCHC 31.5 L RDW 15.4 H Plt Count 457 H MPV 7.4 Neut % (Auto) 91.9 H Lymph % (Auto) 4.9 L [place] % (Auto) 3.0 Eos % (Auto) 0.0 Baso % (Auto) 0.2 Neut # 37.8 H Lymph # 2.0 [place] # 1.2 H Eos # 0.0 Baso # 0.1 Neutrophils % (Manual) 86 H Lymphocytes % (Manual) 7 L Reactive Lymphs % 1 H Monocytes % (Manual) 5 Eosinophils % (Manual) 1 Platelet Estimate Normal Polychromasia Hypochromasia (manual) Poikilocytosis (manual Slight Anisocytosis (manual) Slight Ovalocytes Slight PT INR APTT Puncture Site pCO2 pO2 HCO3 ABG pH ABG Total CO2 ABG O2 Saturation ABG Base Excess Jorge Test ABG Potassium A-a O2 Difference Respiratory Index Glucose Lactate Liter Flow FiO2 Sodium Potassium Chloride Carbon Dioxide Anion Gap BUN Creatinine Est GFR ( Amer) Est GFR (Non-Af Amer) POC Glucose (mg/dL) 94 Random Glucose Calcium Phosphorus Magnesium Total Bilirubin AST ALT Alkaline Phosphatase Troponin I NT-Pro-B Natriuret Pep Total Protein Albumin Globulin Albumin/Globulin Ratio 25-OH Vitamin D Total TSH 3rd Generation Arterial Blood Potassium Urine Color Urine Clarity Urine pH Ur Specific [place] Urine Protein Urine Glucose (UA) Urine Ketones Urine Blood Urine Nitrate Urine Bilirubin Urine Urobilinogen Ur Leukocyte Esterase Urine WBC (Auto) Urine RBC (Auto) Ur Squamous Epith Cells Urine Opiates Screen Urine Methadone Screen Ur Barbiturates Screen Ur Phencyclidine Scrn Ur Amphetamines Screen U Benzodiazepines Scrn U Oth Cocaine Metabols U Cannabinoids Screen Alcohol, Quantitative Hepatitis A IgM Ab Hep Bs Antigen Hep B Core IgM Ab Hepatitis C Antibody HIV 1&2 Antibody Screen Influenza Typ A,B (EIA) Negative for flu a/b 03/04/17 03/04/17 03/04/17 20:15 20:15 20:50 WBC RBC Hgb Hct MCV MCH MCHC RDW Plt Count MPV Neut % (Auto) Lymph % (Auto) [place] % (Auto) Eos % (Auto) Baso % (Auto) Neut # Lymph # [place] # Eos # Baso # Neutrophils % (Manual) Lymphocytes % (Manual) Reactive Lymphs % Monocytes % (Manual) Eosinophils % (Manual) Platelet Estimate Polychromasia Hypochromasia (manual) Poikilocytosis (manual Anisocytosis (manual) Ovalocytes PT 14.1 H INR 1.3 APTT 35 H Puncture Site Rra pCO2 34 L pO2 160 H HCO3 25.6 ABG pH 7.46 H ABG Total CO2 25.2 ABG O2 Saturation 100.2 H ABG Base Excess 0.8 Jorge Test Pos ABG Potassium 3.2 L A-a O2 Difference 511.0 Respiratory Index 3.2 Glucose 88 Lactate 2.1 Liter Flow 25.0 FiO2 100.0 Sodium 130 L 134.0 Potassium 4.4 Chloride 92 L 102.0 Carbon Dioxide 29 Anion Gap 14 BUN 23 H Creatinine 0.8 Est GFR ( Amer) > 60 Est GFR (Non-Af Amer) > 60 POC Glucose (mg/dL) Random Glucose 106 Calcium 12.8 H Phosphorus Magnesium 2.4 H Total Bilirubin 0.8 AST 13 L ALT 25 Alkaline Phosphatase 93 Troponin I < 0.0120 NT-Pro-B Natriuret Pep 1670 H Total Protein 7.6 Albumin 3.1 L Globulin 4.5 H Albumin/Globulin Ratio 0.7 L 25-OH Vitamin D Total TSH 3rd Generation 2.28 Arterial Blood Potassium 3.2 L Urine Color Urine Clarity Urine pH Ur Specific [place] Urine Protein Urine Glucose (UA) Urine Ketones Urine Blood Urine Nitrate Urine Bilirubin Urine Urobilinogen Ur Leukocyte Esterase Urine WBC (Auto) Urine RBC (Auto) Ur Squamous Epith Cells Urine Opiates Screen Urine Methadone Screen Ur Barbiturates Screen Ur Phencyclidine Scrn Ur Amphetamines Screen U Benzodiazepines Scrn U Oth Cocaine Metabols U Cannabinoids Screen Alcohol, Quantitative Hepatitis A IgM Ab Hep Bs Antigen Hep B Core IgM Ab Hepatitis C Antibody HIV 1&2 Antibody Screen Influenza Typ A,B (EIA) 03/04/17 03/04/17 03/04/17 21:09 22:32 22:32 WBC RBC Hgb Hct MCV MCH MCHC RDW Plt Count MPV Neut % (Auto) Lymph % (Auto) [place] % (Auto) Eos % (Auto) Baso % (Auto) Neut # Lymph # [place] # Eos # Baso # Neutrophils % (Manual) Lymphocytes % (Manual) Reactive Lymphs % Monocytes % (Manual) Eosinophils % (Manual) Platelet Estimate Polychromasia Hypochromasia (manual) Poikilocytosis (manual Anisocytosis (manual) Ovalocytes PT INR APTT Puncture Site pCO2 pO2 HCO3 ABG pH ABG Total CO2 ABG O2 Saturation ABG Base Excess Jorge Test ABG Potassium A-a O2 Difference Respiratory Index Glucose Lactate Liter Flow FiO2 Sodium Potassium Chloride Carbon Dioxide Anion Gap BUN Creatinine Est GFR ( Amer) Est GFR (Non-Af Amer) POC Glucose (mg/dL) Random Glucose Calcium Phosphorus 3.3 Magnesium Total Bilirubin AST ALT Alkaline Phosphatase Troponin I NT-Pro-B Natriuret Pep Total Protein Albumin Globulin Albumin/Globulin Ratio 25-OH Vitamin D Total TSH 3rd Generation Arterial Blood Potassium Urine Color Yellow Urine Clarity Clear Urine pH 5.0 Ur Specific [place] 1.017 Urine Protein Negative Urine Glucose (UA) Normal Urine Ketones Trace Urine Blood Negative Urine Nitrate Negative Urine Bilirubin Negative Urine Urobilinogen Normal Ur Leukocyte Esterase Neg Urine WBC (Auto) 4 Urine RBC (Auto) < 1 Ur Squamous Epith Cells < 1 Urine Opiates Screen Negative Urine Methadone Screen Negative Ur Barbiturates Screen Negative Ur Phencyclidine Scrn Negative Ur Amphetamines Screen Negative U Benzodiazepines Scrn Negative U Oth Cocaine Metabols Negative U Cannabinoids Screen Negative Alcohol, Quantitative Hepatitis A IgM Ab Hep Bs Antigen Hep B Core IgM Ab Hepatitis C Antibody HIV 1&2 Antibody Screen Influenza Typ A,B (EIA) 03/04/17 03/05/17 03/05/17 23:55 06:22 06:22 WBC 23.6 H RBC 3.77 L Hgb 9.8 L D Hct 30.5 L MCV 80.8 MCH 26.1 L MCHC 32.3 L RDW 15.4 H Plt Count 324 D MPV 7.6 Neut % (Auto) 86.5 H Lymph % (Auto) 9.7 L [place] % (Auto) 3.4 Eos % (Auto) 0.4 Baso % (Auto) 0.0 Neut # 20.4 H Lymph # 2.3 [place] # 0.8 Eos # 0.1 Baso # 0.0 Neutrophils % (Manual) 87 H Lymphocytes % (Manual) 9 L Reactive Lymphs % Monocytes % (Manual) 4 Eosinophils % (Manual) Platelet Estimate Normal Polychromasia Slight Hypochromasia (manual) Slight Poikilocytosis (manual Anisocytosis (manual) Slight Ovalocytes PT INR APTT Puncture Site pCO2 pO2 HCO3 ABG pH ABG Total CO2 ABG O2 Saturation ABG Base Excess Jorge Test ABG Potassium A-a O2 Difference Respiratory Index Glucose Lactate Liter Flow FiO2 Sodium 132 Potassium 3.0 L Chloride 99 Carbon Dioxide 32 H Anion Gap 4 L BUN 18 Creatinine 0.8 Est GFR ( Amer) > 60 Est GFR (Non-Af Amer) > 60 POC Glucose (mg/dL) Random Glucose 101 Calcium 10.6 H Phosphorus 2.7 Magnesium 1.9 Total Bilirubin 0.5 AST 13 L ALT 23 Alkaline Phosphatase 60 Troponin I NT-Pro-B Natriuret Pep Total Protein 4.7 L Albumin 2.1 L D Globulin 2.6 Albumin/Globulin Ratio 0.8 L 25-OH Vitamin D Total TSH 3rd Generation Arterial Blood Potassium Urine Color Urine Clarity Urine pH Ur Specific [place] Urine Protein Urine Glucose (UA) Urine Ketones Urine Blood Urine Nitrate Urine Bilirubin Urine Urobilinogen Ur Leukocyte Esterase Urine WBC (Auto) Urine RBC (Auto) Ur Squamous Epith Cells Urine Opiates Screen Urine Methadone Screen Ur Barbiturates Screen Ur Phencyclidine Scrn Ur Amphetamines Screen U Benzodiazepines Scrn U Oth Cocaine Metabols U Cannabinoids Screen Alcohol, Quantitative < 20 H Hepatitis A IgM Ab Hep Bs Antigen Hep B Core IgM Ab Hepatitis C Antibody HIV 1&2 Antibody Screen Influenza Typ A,B (EIA) 03/05/17 03/05/17 06:22 06:22 WBC RBC Hgb Hct MCV MCH MCHC RDW Plt Count MPV Neut % (Auto) Lymph % (Auto) [place] % (Auto) Eos % (Auto) Baso % (Auto) Neut # Lymph # [place] # Eos # Baso # Neutrophils % (Manual) Lymphocytes % (Manual) Reactive Lymphs % Monocytes % (Manual) Eosinophils % (Manual) Platelet Estimate Polychromasia Hypochromasia (manual) Poikilocytosis (manual Anisocytosis (manual) Ovalocytes PT INR APTT Puncture Site pCO2 pO2 HCO3 ABG pH ABG Total CO2 ABG O2 Saturation ABG Base Excess Jorge Test ABG Potassium A-a O2 Difference Respiratory Index Glucose Lactate Liter Flow FiO2 Sodium Potassium Chloride Carbon Dioxide Anion Gap BUN Creatinine Est GFR ( Amer) Est GFR (Non-Af Amer) POC Glucose (mg/dL) Random Glucose Calcium Phosphorus Magnesium Total Bilirubin AST ALT Alkaline Phosphatase Troponin I NT-Pro-B Natriuret Pep Total Protein Albumin Globulin Albumin/Globulin Ratio 25-OH Vitamin D Total < 12.8 L TSH 3rd Generation Arterial Blood Potassium Urine Color Urine Clarity Urine pH Ur Specific [place] Urine Protein Urine Glucose (UA) Urine Ketones Urine Blood Urine Nitrate Urine Bilirubin Urine Urobilinogen Ur Leukocyte Esterase Urine WBC (Auto) Urine RBC (Auto) Ur Squamous Epith Cells Urine Opiates Screen Urine Methadone Screen Ur Barbiturates Screen Ur Phencyclidine Scrn Ur Amphetamines Screen U Benzodiazepines Scrn U Oth Cocaine Metabols U Cannabinoids Screen Alcohol, Quantitative Hepatitis A IgM Ab Negative Hep Bs Antigen Negative Hep B Core IgM Ab Negative Hepatitis C Antibody Negative HIV 1&2 Antibody Screen Negative Influenza Typ A,B (EIA)
--- NOTE | 2017-03-05 11:40 | CP.PCM.CON ---
History of Present Illness - History of Present Illness History of Present Illness: Palliative consult requested for goals of care discussion Patient is a 56 yo male admitted from home post fall when he could not get up and called his nephew for help. Patient's brother who lives in the same house called 911. Upon admission, patient was found with O2Sat of 92 %, HR 125, looking very sick and cachectic, only 70 lb. per patient's brother [place] [phone], patient has been drinking extensively for a long time and was smoking as well. Per brother, patient stopped eating the food given to him, and was only drinking water, in addition to drinking alcohol. The brother had called EMS multiple times, as he felt patient needed medical attention, but patient had refused those services. The CT chest suspicious for malignancy, as large mas to RUQ noted, extending to the spleen. WBC of 41.2 dropped to 23.6 after the IV antibiotics. The urine analysis was negative opiates but positive for alcohol. Patient was intubated this morning in respiratory distress and Dopamine drip started for low BP. PMH: unknown Soc. Hx: lives alone , single, brother and sister in law live in same house Fam. Hx: denied Review of Systems - Review of Systems All systems: reviewed and no additional remarkable complaints except Review of Systems: Per nursing, patient was in respiratory distress this moning requireing the assistance from MV. Past Patient History - Past Medical History & Family History Past Medical History?: Yes - Past Social History Smoking Status: Heavy Smoker > 10 Cigarettes Daily - CARDIAC Hx Cardiac Disorders: (unknown) - PULMONARY Hx Respiratory Disorders: (unknown) - MUSCULOSKELETAL/RHEUMATOLOGICAL Hx Falls: Yes - PSYCHIATRIC Hx Substance Use: (unknown) - SURGICAL HISTORY Hx Surgeries: (unable to obtain) - ANESTHESIA Hx Anesthesia: (unknown) Meds Allergies/Adverse Reactions: Allergies Allergy/AdvReac Type Severity Reaction Status Date / Time No Known Allergies Allergy Verified 03/04/17 21:07 - Medications Medications: Current Medications Cefepime HCl (Maxipime Iv 1 Gm Premix) 1 gm in 50 mls @ 100 mls/hr IVPB Q12 JACK Last Admin: 03/05/17 10:55 Dose: 100 mls/hr Clindamycin Phosphate (Cleocin In Normal Saline) 600 mg in 50 mls @ 100 mls/hr IVPB Q8H JACK Last Admin: 03/05/17 06:13 Dose: 100 mls/hr Potassium Chloride 10 meq/ (Dextrose/Sodium Chloride) 1,005 mls @ 50 mls/hr IV .Q20H6M ONE Stop: 03/06/17 02:15 Last Admin: 03/05/17 06:44 Dose: 50 mls/hr Propofol (Diprivan) 1,000 mg in 100 mls @ 0.966 mls/hr IV .Q24H PRN; Protocol; 5 MCG/KG/MIN PRN Reason: TITRATE PER MD ORDER Last Admin: 03/05/17 11:17 Dose: 5 mcg/kg/min, 0.966 mls/hr Dopamine HCl/Dextrose (Dopamine 400mg/250ml D5w) 400 mg in 250 mls @ 6.038 mls/ hr IV .Q24H PRN; Protocol; 5 MCG/KG/MIN PRN Reason: TITRATE PER MD ORDER Last Admin: 03/05/17 11:13 Dose: 5 mcg/kg/min, 6.038 mls/hr Pantoprazole Sodium (Protonix Inj) 40 mg IVP DAILY COUNTS INCLUDE 234 BEDS AT THE [facility] Last Admin: 03/05/17 10:54 Dose: 40 mg Thiamine HCl (Vitamin B1 Inj) 100 mg IV DAILY COUNTS INCLUDE 234 BEDS AT THE [facility] Last Admin: 03/05/17 10:54 Dose: 100 mg Physical Exam - Constitutional Appears: Cachectic, Chronically Ill - Head Exam Head Exam: ATRAUMATIC, NORMAL INSPECTION, NORMOCEPHALIC - Eye Exam Pupil Exam: Fixed, Irregular - ENT Exam ENT Exam: Mucous Membranes Dry Additional comments: ETT tube - Respiratory Exam Respiratory Exam: Respiratory Distress - Cardiovascular Exam Cardiovascular Exam: Tachycardia - GI/Abdominal Exam GI & Abdominal Exam: Diminished Bowel Sounds - Rectal Exam Rectal Exam: Deferred - Extremities Exam Extremities exam: Positive for: normal inspection - Back Exam Back exam: NORMAL INSPECTION - Neurological Exam Neurological exam: Motor Sensory Deficit - Psychiatric Exam Psychiatric exam: Flat Affect - Skin Skin Exam: Pallor Results - Vital Signs Recent Vital Signs: Last Vital Signs Temp 97.5 F L 03/05/17 08:00 Pulse 94 H 03/05/17 11:13 Resp 20 03/05/17 11:13 BP 74/58 L 03/05/17 11:13 Pulse Ox 100 03/05/17 10:00 - Labs Result Diagrams: 03/05/17 06:22 03/05/17 06:22 Labs: Laboratory Results - last 24 hr 03/04/17 03/04/17 03/04/17 19:37 20:05 20:15 WBC 41.2 H* RBC 4.97 Hgb 12.6 Hct 40.1 MCV 80.7 MCH 25.4 L MCHC 31.5 L RDW 15.4 H Plt Count 457 H MPV 7.4 Neut % (Auto) 91.9 H Lymph % (Auto) 4.9 L Jackson % (Auto) 3.0 Eos % (Auto) 0.0 Baso % (Auto) 0.2 Neut # 37.8 H Lymph # 2.0 Jackson # 1.2 H Eos # 0.0 Baso # 0.1 Neutrophils % (Manual) 86 H Lymphocytes % (Manual) 7 L Reactive Lymphs % 1 H Monocytes % (Manual) 5 Eosinophils % (Manual) 1 Platelet Estimate Normal Polychromasia Hypochromasia (manual) Poikilocytosis (manual Slight Anisocytosis (manual) Slight Ovalocytes Slight PT INR APTT Puncture Site pCO2 pO2 HCO3 ABG pH ABG Total CO2 ABG O2 Saturation ABG Base Excess Jorge Test ABG Potassium A-a O2 Difference Respiratory Index Glucose Lactate Liter Flow FiO2 Sodium Potassium Chloride Carbon Dioxide Anion Gap BUN Creatinine Est GFR ( Amer) Est GFR (Non-Af Amer) POC Glucose (mg/dL) 94 Random Glucose Calcium Phosphorus Magnesium Total Bilirubin AST ALT Alkaline Phosphatase Troponin I NT-Pro-B Natriuret Pep Total Protein Albumin Globulin Albumin/Globulin Ratio 25-OH Vitamin D Total TSH 3rd Generation Arterial Blood Potassium Urine Color Urine Clarity Urine pH Ur Specific [place] Urine Protein Urine Glucose (UA) Urine Ketones Urine Blood Urine Nitrate Urine Bilirubin Urine Urobilinogen Ur Leukocyte Esterase Urine WBC (Auto) Urine RBC (Auto) Ur Squamous Epith Cells Urine Opiates Screen Urine Methadone Screen Ur Barbiturates Screen Ur Phencyclidine Scrn Ur Amphetamines Screen U Benzodiazepines Scrn U Oth Cocaine Metabols U Cannabinoids Screen Alcohol, Quantitative Hepatitis A IgM Ab Hep Bs Antigen Hep B Core IgM Ab Hepatitis C Antibody HIV 1&2 Antibody Screen Influenza Typ A,B (EIA) Negative for flu a/b 03/04/17 03/04/17 03/04/17 20:15 20:15 20:50 WBC RBC Hgb Hct MCV MCH MCHC RDW Plt Count MPV Neut % (Auto) Lymph % (Auto) Jackson % (Auto) Eos % (Auto) Baso % (Auto) Neut # Lymph # Jackson # Eos # Baso # Neutrophils % (Manual) Lymphocytes % (Manual) Reactive Lymphs % Monocytes % (Manual) Eosinophils % (Manual) Platelet Estimate Polychromasia Hypochromasia (manual) Poikilocytosis (manual Anisocytosis (manual) Ovalocytes PT 14.1 H INR 1.3 APTT 35 H Puncture Site Rra pCO2 34 L pO2 160 H HCO3 25.6 ABG pH 7.46 H ABG Total CO2 25.2 ABG O2 Saturation 100.2 H ABG Base Excess 0.8 Jorge Test Pos ABG Potassium 3.2 L A-a O2 Difference 511.0 Respiratory Index 3.2 Glucose 88 Lactate 2.1 Liter Flow 25.0 FiO2 100.0 Sodium 130 L 134.0 Potassium 4.4 Chloride 92 L 102.0 Carbon Dioxide 29 Anion Gap 14 BUN 23 H Creatinine 0.8 Est GFR ( Amer) > 60 Est GFR (Non-Af Amer) > 60 POC Glucose (mg/dL) Random Glucose 106 Calcium 12.8 H Phosphorus Magnesium 2.4 H Total Bilirubin 0.8 AST 13 L ALT 25 Alkaline Phosphatase 93 Troponin I < 0.0120 NT-Pro-B Natriuret Pep 1670 H Total Protein 7.6 Albumin 3.1 L Globulin 4.5 H Albumin/Globulin Ratio 0.7 L 25-OH Vitamin D Total TSH 3rd Generation 2.28 Arterial Blood Potassium 3.2 L Urine Color Urine Clarity Urine pH Ur Specific [place] Urine Protein Urine Glucose (UA) Urine Ketones Urine Blood Urine Nitrate Urine Bilirubin Urine Urobilinogen Ur Leukocyte Esterase Urine WBC (Auto) Urine RBC (Auto) Ur Squamous Epith Cells Urine Opiates Screen Urine Methadone Screen Ur Barbiturates Screen Ur Phencyclidine Scrn Ur Amphetamines Screen U Benzodiazepines Scrn U Oth Cocaine Metabols U Cannabinoids Screen Alcohol, Quantitative Hepatitis A IgM Ab Hep Bs Antigen Hep B Core IgM Ab Hepatitis C Antibody HIV 1&2 Antibody Screen Influenza Typ A,B (EIA) 03/04/17 03/04/17 03/04/17 21:09 22:32 22:32 WBC RBC Hgb Hct MCV MCH MCHC RDW Plt Count MPV Neut % (Auto) Lymph % (Auto) Jackson % (Auto) Eos % (Auto) Baso % (Auto) Neut # Lymph # Jackson # Eos # Baso # Neutrophils % (Manual) Lymphocytes % (Manual) Reactive Lymphs % Monocytes % (Manual) Eosinophils % (Manual) Platelet Estimate Polychromasia Hypochromasia (manual) Poikilocytosis (manual Anisocytosis (manual) Ovalocytes PT INR APTT Puncture Site pCO2 pO2 HCO3 ABG pH ABG Total CO2 ABG O2 Saturation ABG Base Excess Jorge Test ABG Potassium A-a O2 Difference Respiratory Index Glucose Lactate Liter Flow FiO2 Sodium Potassium Chloride Carbon Dioxide Anion Gap BUN Creatinine Est GFR ( Amer) Est GFR (Non-Af Amer) POC Glucose (mg/dL) Random Glucose Calcium Phosphorus 3.3 Magnesium Total Bilirubin AST ALT Alkaline Phosphatase Troponin I NT-Pro-B Natriuret Pep Total Protein Albumin Globulin Albumin/Globulin Ratio 25-OH Vitamin D Total TSH 3rd Generation Arterial Blood Potassium Urine Color Yellow Urine Clarity Clear Urine pH 5.0 Ur Specific [place] 1.017 Urine Protein Negative Urine Glucose (UA) Normal Urine Ketones Trace Urine Blood Negative Urine Nitrate Negative Urine Bilirubin Negative Urine Urobilinogen Normal Ur Leukocyte Esterase Neg Urine WBC (Auto) 4 Urine RBC (Auto) < 1 Ur Squamous Epith Cells < 1 Urine Opiates Screen Negative Urine Methadone Screen Negative Ur Barbiturates Screen Negative Ur Phencyclidine Scrn Negative Ur Amphetamines Screen Negative U Benzodiazepines Scrn Negative U Oth Cocaine Metabols Negative U Cannabinoids Screen Negative Alcohol, Quantitative Hepatitis A IgM Ab Hep Bs Antigen Hep B Core IgM Ab Hepatitis C Antibody HIV 1&2 Antibody Screen Influenza Typ A,B (EIA) 03/04/17 03/05/17 03/05/17 23:55 06:22 06:22 WBC 23.6 H RBC 3.77 L Hgb 9.8 L D Hct 30.5 L MCV 80.8 MCH 26.1 L MCHC 32.3 L RDW 15.4 H Plt Count 324 D MPV 7.6 Neut % (Auto) 86.5 H Lymph % (Auto) 9.7 L Jackson % (Auto) 3.4 Eos % (Auto) 0.4 Baso % (Auto) 0.0 Neut # 20.4 H Lymph # 2.3 Jackson # 0.8 Eos # 0.1 Baso # 0.0 Neutrophils % (Manual) 87 H Lymphocytes % (Manual) 9 L Reactive Lymphs % Monocytes % (Manual) 4 Eosinophils % (Manual) Platelet Estimate Normal Polychromasia Slight Hypochromasia (manual) Slight Poikilocytosis (manual Anisocytosis (manual) Slight Ovalocytes PT INR APTT Puncture Site pCO2 pO2 HCO3 ABG pH ABG Total CO2 ABG O2 Saturation ABG Base Excess Jorge Test ABG Potassium A-a O2 Difference Respiratory Index Glucose Lactate Liter Flow FiO2 Sodium 132 Potassium 3.0 L Chloride 99 Carbon Dioxide 32 H Anion Gap 4 L BUN 18 Creatinine 0.8 Est GFR ( Amer) > 60 Est GFR (Non-Af Amer) > 60 POC Glucose (mg/dL) Random Glucose 101 Calcium 10.6 H Phosphorus 2.7 Magnesium 1.9 Total Bilirubin 0.5 AST 13 L ALT 23 Alkaline Phosphatase 60 Troponin I NT-Pro-B Natriuret Pep Total Protein 4.7 L Albumin 2.1 L D Globulin 2.6 Albumin/Globulin Ratio 0.8 L 25-OH Vitamin D Total TSH 3rd Generation Arterial Blood Potassium Urine Color Urine Clarity Urine pH Ur Specific [place] Urine Protein Urine Glucose (UA) Urine Ketones Urine Blood Urine Nitrate Urine Bilirubin Urine Urobilinogen Ur Leukocyte Esterase Urine WBC (Auto) Urine RBC (Auto) Ur Squamous Epith Cells Urine Opiates Screen Urine Methadone Screen Ur Barbiturates Screen Ur Phencyclidine Scrn Ur Amphetamines Screen U Benzodiazepines Scrn U Oth Cocaine Metabols U Cannabinoids Screen Alcohol, Quantitative < 20 H Hepatitis A IgM Ab Hep Bs Antigen Hep B Core IgM Ab Hepatitis C Antibody HIV 1&2 Antibody Screen Influenza Typ A,B (EIA) 03/05/17 03/05/17 06:22 06:22 WBC RBC Hgb Hct MCV MCH MCHC RDW Plt Count MPV Neut % (Auto) Lymph % (Auto) Jackson % (Auto) Eos % (Auto) Baso % (Auto) Neut # Lymph # Jackson # Eos # Baso # Neutrophils % (Manual) Lymphocytes % (Manual) Reactive Lymphs % Monocytes % (Manual) Eosinophils % (Manual) Platelet Estimate Polychromasia Hypochromasia (manual) Poikilocytosis (manual Anisocytosis (manual) Ovalocytes PT INR APTT Puncture Site pCO2 pO2 HCO3 ABG pH ABG Total CO2 ABG O2 Saturation ABG Base Excess Jorge Test ABG Potassium A-a O2 Difference Respiratory Index Glucose Lactate Liter Flow FiO2 Sodium Potassium Chloride Carbon Dioxide Anion Gap BUN Creatinine Est GFR ( Amer) Est GFR (Non-Af Amer) POC Glucose (mg/dL) Random Glucose Calcium Phosphorus Magnesium Total Bilirubin AST ALT Alkaline Phosphatase Troponin I NT-Pro-B Natriuret Pep Total Protein Albumin Globulin Albumin/Globulin Ratio 25-OH Vitamin D Total < 12.8 L TSH 3rd Generation Arterial Blood Potassium Urine Color Urine Clarity Urine pH Ur Specific [place] Urine Protein Urine Glucose (UA) Urine Ketones Urine Blood Urine Nitrate Urine Bilirubin Urine Urobilinogen Ur Leukocyte Esterase Urine WBC (Auto) Urine RBC (Auto) Ur Squamous Epith Cells Urine Opiates Screen Urine Methadone Screen Ur Barbiturates Screen Ur Phencyclidine Scrn Ur Amphetamines Screen U Benzodiazepines Scrn U Oth Cocaine Metabols U Cannabinoids Screen Alcohol, Quantitative Hepatitis A IgM Ab Negative Hep Bs Antigen Negative Hep B Core IgM Ab Negative Hepatitis C Antibody Negative HIV 1&2 Antibody Screen Negative Influenza Typ A,B (EIA) Assessment & Plan - Assessment and Plan (Free Text) Assessment: Palliative consult Code status prior to consult was Full Code, no Advance directive, no living will on chart, PPS 0 % I reviewed medical records, all diagnostic studies, examined patient in the bed and discussed goals of care with his brother Елена. Patient is intubated on life support and Dopamine for BP support, unresponsive to tactile nor verbal stimuli. Patient looks cachectic and very sick. per Doctor Silvio Strauss. on yesterday's exam , pupils were equal and reactive to light, while today, pupils are unequal and one pupil is fixed. Skin is pale, Hb 9.8. BP 72/49, on Dopamine currently. The rest of physical exam reveals chronically ill man with high risks of declining. In phone discussion with patient's brother Holden, I reviewed patient's clinical presentation and cinthia concerns regarding our findings and poor prognosis. Holden stated understanding, as he had a detailed discussion with Doctor Silvio last night. He cried and talked about all actions he put in place to help his brother, but unfortunately, he never accepted it. We discussed quality of life concerns. Code status discussed. Holden was concerned with his brother's comfort. he feels that his brother is not strong any more to fight, and he would like him to be allowed natural if his condition worsens. I discussed the DNR and he said that he would not want his bother to be resuscitated if his heart stops. Елена also said he would be coming in at 5 : 30 pm and will sign the POLST. I shared these with Doctor Clyde Anguiano. Impression * This is a very unfortunate young man, who for unknown reason choose very unhealthy life style, bringing him to very critical condition * Adult failure to thrive * Cachexia * Full dependence of life support with poor prognosis * Patient's wishes for the end of life of care are not known * Patient's brother is concerned with patient's comfort and does not want him to suffer * Patient's brother Holden [phone], chose DNR and is coming this PM to sign POLST Suggestion * Patient would benefit from comfort measures only * Agree with DNR * Would discuss terminal extubation within 72 hr of admission and allow natural Thank you very much for consulting Palliative Care
--- NOTE | 2017-03-05 14:54 | PCM.PROC ---
Procedures Attestation:: I certify that I have explained the specified Operation(s) or Procedure(s), risks, benefits and reasonable alternatives to the Patient and/or other person responsible. The opportunity was given to ask questions and all questions answered - Central Line Placement Right Internal Jugular Triple Lumen Catheter Aseptic technique was employed throughout the procedure: Hand Hygiene done prior to procedure, Full sterile barriers (mask, hair cover, sterile gown, sterile gloves), Full body sterile drape, Chloraprep Antiseptic: 30 second prep for IJ or SC sites CVP Time Out Performed: Yes Pt. Placed on Pulse Ox Monitor: Yes Central Line Prep: Chlorhexidine-Alcohol Combination Local Anesthesia Used: Lidocaine 1% Amount of Anesthesia Used (mls): 3 Ultrasound Used for Placement: Yes Central Line Lumen Inserted: triple Central Line Length: 16 cm Post Procedure: Sutured in Place, Good Blood Return, All Ports Aspirated, Flushed, Capped, Sterile Dressing Applied Secured by: Suture Post procedure dressing: Clear vapor permeable, Chlorhexidine disc (Biopatch) Post Procedure X-Ray: Yes Patient Tolerated Procedure: Well
--- NOTE | 2017-03-05 14:57 | PCM.PROC ---
Procedures Attestation:: I certify that I have explained the specified Operation(s) or Procedure(s), risks, benefits and reasonable alternatives to the Patient and/or other person responsible. The opportunity was given to ask questions and all questions answered - Intubation Time Out Performed: Yes Sedative: Etomidate Mg Given: 20 Laryngoscope: Valorie ET Tube Size: 7.5 ET Tube Uncuffed: No ET Tube Secured at Depth: 22 ET Tube Secured Locarion: Lips ET Tube Placement Confirmation: Visualized Passing Through Cords, Breath Sounds Equal Bilaterally, No Breath Sounds Over Epigastrum, Confirmation w/Capnometry Patient Tolerated Procedure: Well Procedure Immediate Complications: None
--- NOTE | 2017-03-05 15:49 | RAD ---
HISTORY: Right IJ central line COMPARISON: 03/05/2017 at 09:51 hour portable semi-erect chest x-ray ; CT angio chest PE study 03/04/2017 FINDINGS: LUNGS: Large irregular cavitary mass -right upper lobe with contiguous right rib destruction -compatible with malignancy Left lung clear ; right lung base clear PLEURA: No significant pleural effusion identified, no pneumothorax apparent. Cavitary mass -contiguous with right upper lobe pleural surfaces and medial visceral surfaces CARDIOVASCULAR: Normal heart size. Right peritracheal/right hilar nodular coalescing soft tissue opacities compatible with CT referenced lymphadenopathy OSSEOUS STRUCTURES: Right upper lobe rib destruction -associated malignant appearing cavitary right upper lobe lung mass. VISUALIZED UPPER ABDOMEN: Normal. OTHER FINDINGS: Endotracheal tube tip 5 cm cephalad to megan - grossly similar. Right internal jugular vein PICC line insertion- an interval change - tip in superior vena cava. No pneumothorax appreciated. NG tube/ orogastric tube insertion tip in stomach -interval change. 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 Associated right hilar/ right mediastinal lymphadenopathy. No gross pleural effusion. No gross left lung pathology Interval insertions -right PICC line and NG tube/ orogastric tube . Endotracheal tube position - similar
[2017-03-05] MEDS: Phenylephrine 30 MG in Sodium Chloride 0.9% 250 ML IV PRN (17:02)
--- NOTE | 2017-03-05 19:06 | CP.PCM.CON ---
History of Present Illness - History of Present Illness History of Present Illness: 56 year old male with a history of tobacco/alcohol abuse, admitted s/p fall, currently intubated, with cachexia, radiographic evidence of stage IV malignancy. Per the patients brothers, he has been depressed and drinking heavily for several years. He has not been eating much and has lost a lot of weight. Imaging revealed a RUL pulmonary mass, mediastinal lymphadenopathy, and splenic lesions. Past medical, surgical, family, social history cannot be obtained from the patient. Allergies: NKA pr documentation Review of systems cannot be obtained from the patient. Past Patient History - Past Medical History & Family History Past Medical History?: Yes - Past Social History Smoking Status: Heavy Smoker > 10 Cigarettes Daily - CARDIAC Hx Cardiac Disorders: (unknown) - PULMONARY Hx Respiratory Disorders: (unknown) - MUSCULOSKELETAL/RHEUMATOLOGICAL Hx Falls: Yes - PSYCHIATRIC Hx Substance Use: (unknown) - SURGICAL HISTORY Hx Surgeries: (unable to obtain) - ANESTHESIA Hx Anesthesia: (unknown) Meds Allergies/Adverse Reactions: Allergies Allergy/AdvReac Type Severity Reaction Status Date / Time No Known Allergies Allergy Verified 03/04/17 21:07 - Medications Medications: Current Medications Cefepime HCl (Maxipime Iv 1 Gm Premix) 1 gm in 50 mls @ 100 mls/hr IVPB Q12 JACK Last Admin: 03/05/17 10:55 Dose: 100 mls/hr Clindamycin Phosphate (Cleocin In Normal Saline) 600 mg in 50 mls @ 100 mls/hr IVPB Q8H JACK Last Admin: 03/05/17 15:45 Dose: 100 mls/hr Potassium Chloride 10 meq/ (Dextrose/Sodium Chloride) 1,005 mls @ 50 mls/hr IV .Q20H6M ONE Stop: 03/06/17 02:15 Last Admin: 03/05/17 06:44 Dose: 50 mls/hr Propofol (Diprivan) 1,000 mg in 100 mls @ 0.966 mls/hr IV .Q24H PRN; Protocol; 5 MCG/KG/MIN PRN Reason: TITRATE PER MD ORDER Last Titration: 03/05/17 18:42 Dose: 30 mcg/kg/min, 5.797 mls/hr Phenylephrine HCl 30 mg/ (Sodium Chloride) 253 mls @ 10.12 mls/hr IV .Q24H PRN ; Protocol; 20 MCG/MIN PRN Reason: TITRATE PER MD ORDER Last Titration: 03/05/17 18:44 Dose: 50 mcg/min, 25.3 mls/hr Pantoprazole Sodium (Protonix Inj) 40 mg IVP DAILY [facility] Last Admin: 03/05/17 10:54 Dose: 40 mg Thiamine HCl (Vitamin B1 Inj) 100 mg IV DAILY [facility] Last Admin: 03/05/17 10:54 Dose: 100 mg Physical Exam - Constitutional Appears: Cachectic - Head Exam Head Exam: ATRAUMATIC - ENT Exam ENT Exam: Mucous Membranes Dry - Respiratory Exam Respiratory Exam: Decreased Breath Sounds - Cardiovascular Exam Cardiovascular Exam: +S1, +S2 - GI/Abdominal Exam GI & Abdominal Exam: Normal Bowel Sounds - Extremities Exam Extremities exam: Positive for: normal inspection - Skin Skin Exam: Warm Results - Vital Signs Recent Vital Signs: Last Vital Signs Temp 98.3 F 03/05/17 16:00 Pulse 112 H 03/05/17 18:00 Resp 18 03/05/17 18:00 BP 85/49 L 03/05/17 18:00 Pulse Ox 100 03/05/17 18:00 - Labs Result Diagrams: 03/05/17 06:22 03/05/17 06:22 Labs: Laboratory Results - last 24 hr 03/04/17 03/04/17 03/04/17 19:37 20:05 20:15 WBC 41.2 H* RBC 4.97 Hgb 12.6 Hct 40.1 MCV 80.7 MCH 25.4 L MCHC 31.5 L RDW 15.4 H Plt Count 457 H MPV 7.4 Neut % (Auto) 91.9 H Lymph % (Auto) 4.9 L [place] % (Auto) 3.0 Eos % (Auto) 0.0 Baso % (Auto) 0.2 Neut # 37.8 H Lymph # 2.0 [place] # 1.2 H Eos # 0.0 Baso # 0.1 Neutrophils % (Manual) 86 H Lymphocytes % (Manual) 7 L Reactive Lymphs % 1 H Monocytes % (Manual) 5 Eosinophils % (Manual) 1 Platelet Estimate Normal Polychromasia Hypochromasia (manual) Poikilocytosis (manual Slight Anisocytosis (manual) Slight Ovalocytes Slight PT INR APTT Puncture Site pCO2 pO2 HCO3 ABG pH ABG Total CO2 ABG O2 Saturation ABG Base Excess ABG Hemoglobin ABG Carboxyhemoglobin POC ABG HHb (Measured) ABG Methemoglobin Jorge Test ABG Potassium A-a O2 Difference Respiratory Index Hgb O2 Saturation Glucose Lactate Liter Flow Vent Mode FiO2 Tidal Volume PEEP Sodium Potassium Chloride Carbon Dioxide Anion Gap BUN Creatinine Est GFR ( Amer) Est GFR (Non-Af Amer) POC Glucose (mg/dL) 94 Random Glucose Calcium Phosphorus Magnesium Total Bilirubin AST ALT Alkaline Phosphatase Troponin I NT-Pro-B Natriuret Pep Total Protein Albumin Globulin Albumin/Globulin Ratio 25-OH Vitamin D Total TSH 3rd Generation Arterial Blood Potassium Urine Color Urine Clarity Urine pH Ur Specific [place] Urine Protein Urine Glucose (UA) Urine Ketones Urine Blood Urine Nitrate Urine Bilirubin Urine Urobilinogen Ur Leukocyte Esterase Urine WBC (Auto) Urine RBC (Auto) Ur Squamous Epith Cells Urine Opiates Screen Urine Methadone Screen Ur Barbiturates Screen Ur Phencyclidine Scrn Ur Amphetamines Screen U Benzodiazepines Scrn U Oth Cocaine Metabols U Cannabinoids Screen Alcohol, Quantitative Hepatitis A IgM Ab Hep Bs Antigen Hep B Core IgM Ab Hepatitis C Antibody HIV 1&2 Antibody Screen Influenza Typ A,B (EIA) Negative for flu a/b 03/04/17 03/04/17 03/04/17 20:15 20:15 20:50 WBC RBC Hgb Hct MCV MCH MCHC RDW Plt Count MPV Neut % (Auto) Lymph % (Auto) [place] % (Auto) Eos % (Auto) Baso % (Auto) Neut # Lymph # [place] # Eos # Baso # Neutrophils % (Manual) Lymphocytes % (Manual) Reactive Lymphs % Monocytes % (Manual) Eosinophils % (Manual) Platelet Estimate Polychromasia Hypochromasia (manual) Poikilocytosis (manual Anisocytosis (manual) Ovalocytes PT 14.1 H INR 1.3 APTT 35 H Puncture Site Rra pCO2 34 L pO2 160 H HCO3 25.6 ABG pH 7.46 H ABG Total CO2 25.2 ABG O2 Saturation 100.2 H ABG Base Excess 0.8 ABG Hemoglobin ABG Carboxyhemoglobin POC ABG HHb (Measured) ABG Methemoglobin Jorge Test Pos ABG Potassium 3.2 L A-a O2 Difference 511.0 Respiratory Index 3.2 Hgb O2 Saturation Glucose 88 Lactate 2.1 Liter Flow 25.0 Vent Mode FiO2 100.0 Tidal Volume PEEP Sodium 130 L 134.0 Potassium 4.4 Chloride 92 L 102.0 Carbon Dioxide 29 Anion Gap 14 BUN 23 H Creatinine 0.8 Est GFR ( Amer) > 60 Est GFR (Non-Af Amer) > 60 POC Glucose (mg/dL) Random Glucose 106 Calcium 12.8 H Phosphorus Magnesium 2.4 H Total Bilirubin 0.8 AST 13 L ALT 25 Alkaline Phosphatase 93 Troponin I < 0.0120 NT-Pro-B Natriuret Pep 1670 H Total Protein 7.6 Albumin 3.1 L Globulin 4.5 H Albumin/Globulin Ratio 0.7 L 25-OH Vitamin D Total TSH 3rd Generation 2.28 Arterial Blood Potassium 3.2 L Urine Color Urine Clarity Urine pH Ur Specific [place] Urine Protein Urine Glucose (UA) Urine Ketones Urine Blood Urine Nitrate Urine Bilirubin Urine Urobilinogen Ur Leukocyte Esterase Urine WBC (Auto) Urine RBC (Auto) Ur Squamous Epith Cells Urine Opiates Screen Urine Methadone Screen Ur Barbiturates Screen Ur Phencyclidine Scrn Ur Amphetamines Screen U Benzodiazepines Scrn U Oth Cocaine Metabols U Cannabinoids Screen Alcohol, Quantitative Hepatitis A IgM Ab Hep Bs Antigen Hep B Core IgM Ab Hepatitis C Antibody HIV 1&2 Antibody Screen Influenza Typ A,B (EIA) 03/04/17 03/04/17 03/04/17 21:09 22:32 22:32 WBC RBC Hgb Hct MCV MCH MCHC RDW Plt Count MPV Neut % (Auto) Lymph % (Auto) [place] % (Auto) Eos % (Auto) Baso % (Auto) Neut # Lymph # [place] # Eos # Baso # Neutrophils % (Manual) Lymphocytes % (Manual) Reactive Lymphs % Monocytes % (Manual) Eosinophils % (Manual) Platelet Estimate Polychromasia Hypochromasia (manual) Poikilocytosis (manual Anisocytosis (manual) Ovalocytes PT INR APTT Puncture Site pCO2 pO2 HCO3 ABG pH ABG Total CO2 ABG O2 Saturation ABG Base Excess ABG Hemoglobin ABG Carboxyhemoglobin POC ABG HHb (Measured) ABG Methemoglobin Jorge Test ABG Potassium A-a O2 Difference Respiratory Index Hgb O2 Saturation Glucose Lactate Liter Flow Vent Mode FiO2 Tidal Volume PEEP Sodium Potassium Chloride Carbon Dioxide Anion Gap BUN Creatinine Est GFR ( Amer) Est GFR (Non-Af Amer) POC Glucose (mg/dL) Random Glucose Calcium Phosphorus 3.3 Magnesium Total Bilirubin AST ALT Alkaline Phosphatase Troponin I NT-Pro-B Natriuret Pep Total Protein Albumin Globulin Albumin/Globulin Ratio 25-OH Vitamin D Total TSH 3rd Generation Arterial Blood Potassium Urine Color Yellow Urine Clarity Clear Urine pH 5.0 Ur Specific [place] 1.017 Urine Protein Negative Urine Glucose (UA) Normal Urine Ketones Trace Urine Blood Negative Urine Nitrate Negative Urine Bilirubin Negative Urine Urobilinogen Normal Ur Leukocyte Esterase Neg Urine WBC (Auto) 4 Urine RBC (Auto) < 1 Ur Squamous Epith Cells < 1 Urine Opiates Screen Negative Urine Methadone Screen Negative Ur Barbiturates Screen Negative Ur Phencyclidine Scrn Negative Ur Amphetamines Screen Negative U Benzodiazepines Scrn Negative U Oth Cocaine Metabols Negative U Cannabinoids Screen Negative Alcohol, Quantitative Hepatitis A IgM Ab Hep Bs Antigen Hep B Core IgM Ab Hepatitis C Antibody HIV 1&2 Antibody Screen Influenza Typ A,B (EIA) 03/04/17 03/05/17 03/05/17 23:55 06:22 06:22 WBC 23.6 H RBC 3.77 L Hgb 9.8 L D Hct 30.5 L MCV 80.8 MCH 26.1 L MCHC 32.3 L RDW 15.4 H Plt Count 324 D MPV 7.6 Neut % (Auto) 86.5 H Lymph % (Auto) 9.7 L [place] % (Auto) 3.4 Eos % (Auto) 0.4 Baso % (Auto) 0.0 Neut # 20.4 H Lymph # 2.3 [place] # 0.8 Eos # 0.1 Baso # 0.0 Neutrophils % (Manual) 87 H Lymphocytes % (Manual) 9 L Reactive Lymphs % Monocytes % (Manual) 4 Eosinophils % (Manual) Platelet Estimate Normal Polychromasia Slight Hypochromasia (manual) Slight Poikilocytosis (manual Anisocytosis (manual) Slight Ovalocytes PT INR APTT Puncture Site pCO2 pO2 HCO3 ABG pH ABG Total CO2 ABG O2 Saturation ABG Base Excess ABG Hemoglobin ABG Carboxyhemoglobin POC ABG HHb (Measured) ABG Methemoglobin Jorge Test ABG Potassium A-a O2 Difference Respiratory Index Hgb O2 Saturation Glucose Lactate Liter Flow Vent Mode FiO2 Tidal Volume PEEP Sodium 132 Potassium 3.0 L Chloride 99 Carbon Dioxide 32 H Anion Gap 4 L BUN 18 Creatinine 0.8 Est GFR ( Amer) > 60 Est GFR (Non-Af Amer) > 60 POC Glucose (mg/dL) Random Glucose 101 Calcium 10.6 H Phosphorus 2.7 Magnesium 1.9 Total Bilirubin 0.5 AST 13 L ALT 23 Alkaline Phosphatase 60 Troponin I NT-Pro-B Natriuret Pep Total Protein 4.7 L Albumin 2.1 L D Globulin 2.6 Albumin/Globulin Ratio 0.8 L 25-OH Vitamin D Total TSH 3rd Generation Arterial Blood Potassium Urine Color Urine Clarity Urine pH Ur Specific [place] Urine Protein Urine Glucose (UA) Urine Ketones Urine Blood Urine Nitrate Urine Bilirubin Urine Urobilinogen Ur Leukocyte Esterase Urine WBC (Auto) Urine RBC (Auto) Ur Squamous Epith Cells Urine Opiates Screen Urine Methadone Screen Ur Barbiturates Screen Ur Phencyclidine Scrn Ur Amphetamines Screen U Benzodiazepines Scrn U Oth Cocaine Metabols U Cannabinoids Screen Alcohol, Quantitative < 20 H Hepatitis A IgM Ab Hep Bs Antigen Hep B Core IgM Ab Hepatitis C Antibody HIV 1&2 Antibody Screen Influenza Typ A,B (EIA) 03/05/17 03/05/17 03/05/17 06:22 06:22 11:32 WBC RBC Hgb Hct MCV MCH MCHC RDW Plt Count MPV Neut % (Auto) Lymph % (Auto) [place] % (Auto) Eos % (Auto) Baso % (Auto) Neut # Lymph # [place] # Eos # Baso # Neutrophils % (Manual) Lymphocytes % (Manual) Reactive Lymphs % Monocytes % (Manual) Eosinophils % (Manual) Platelet Estimate Polychromasia Hypochromasia (manual) Poikilocytosis (manual Anisocytosis (manual) Ovalocytes PT INR APTT Puncture Site Lra pCO2 40 pO2 285 H HCO3 23.4 ABG pH 7.37 ABG Total CO2 24.3 ABG O2 Saturation 99.9 H ABG Base Excess -2.0 ABG Hemoglobin 9.7 L ABG Carboxyhemoglobin 1.4 POC ABG HHb (Measured) 0.1 ABG Methemoglobin 1.4 Jorge Test P ABG Potassium A-a O2 Difference 378.0 Respiratory Index 1.3 Hgb O2 Saturation 97.1 Glucose Lactate Liter Flow Vent Mode Prvc FiO2 100.0 Tidal Volume 500 PEEP 5 Sodium Potassium Chloride Carbon Dioxide Anion Gap BUN Creatinine Est GFR ( Amer) Est GFR (Non-Af Amer) POC Glucose (mg/dL) Random Glucose Calcium Phosphorus Magnesium Total Bilirubin AST ALT Alkaline Phosphatase Troponin I NT-Pro-B Natriuret Pep Total Protein Albumin Globulin Albumin/Globulin Ratio 25-OH Vitamin D Total < 12.8 L TSH 3rd Generation Arterial Blood Potassium Urine Color Urine Clarity Urine pH Ur Specific [place] Urine Protein Urine Glucose (UA) Urine Ketones Urine Blood Urine Nitrate Urine Bilirubin Urine Urobilinogen Ur Leukocyte Esterase Urine WBC (Auto) Urine RBC (Auto) Ur Squamous Epith Cells Urine Opiates Screen Urine Methadone Screen Ur Barbiturates Screen Ur Phencyclidine Scrn Ur Amphetamines Screen U Benzodiazepines Scrn U Oth Cocaine Metabols U Cannabinoids Screen Alcohol, Quantitative Hepatitis A IgM Ab Negative Hep Bs Antigen Negative Hep B Core IgM Ab Negative Hepatitis C Antibody Negative HIV 1&2 Antibody Screen Negative Influenza Typ A,B (EIA) Assessment & Plan (1) Lung mass Assessment and Plan: imaging concerning for metastatic lung primary cancer cont. supportive care DNR Status: Acute (2) Hypercalcemia Assessment and Plan: ? paraneoplastic from lung cancer improving with hydration will consider bisphosphonate if remains elevated Status: Acute (3) Leukocytosis Assessment and Plan: improving with antibiotics Status: Acute (4) Anemia Assessment and Plan: likely chronic disease will check ferritin, retic count, b12, folate to further characterize Status: Acute (5) Coagulopathy Assessment and Plan: likely nutritional Thank you for this interesting consult. Status: Acute
--- NOTE | 2017-03-05 19:09 | CP.CCUPN ---
<Willian Krishnan - Last Filed: 03/05/17 19:06> CCU Subjective - Physician Review Subjective (Free Text): PGY1 ICU progress note for Dr. Espitia Patient seen and examined at bedside this morning. Patient saturating dropping to low 80's-70's. Decision was made to intubate the patient. His blood pressure dropped and a right IJ central line was placed. He was started on pressers. CCU Objective - Vital Signs / Intake & Output Vital Signs (Last 4 hours): Vital Signs Temp Pulse Resp BP Pulse Ox 03/05/17 19:00 111 H 82/46 L 100 03/05/17 18:00 112 H 18 85/49 L 100 03/05/17 17:02 135 H 19 94/56 L 100 03/05/17 17:00 124 H 19 95/62 L 100 03/05/17 16:00 98.3 F 138 H 20 96/56 L 100 Intake and Output (Last 8hrs): Intake & Output 03/05/17 03/05/17 03/05/17 06:59 14:59 22:59 Intake Total 1550 2497.6 559.9 Output Total 0 65 50 Balance 1550 2432.6 509.9 Weight 71 lb Intake: IV 103 Intake, IV Amount 1550 2477.6 251.9 Left Antecubital 1250 2027.6 Right Antecubital 300 450 Right Distal Port 7.5 Internal Jugular Right Medial Port 200 Internal Jugular Right Proximal Port 44.4 Internal Jugular Oral 0 0 Tube Feeding 20 80 Other 125 Output: Urine 0 65 50 Urethral (Mercedes) 0 65 50 Stool 0 0 Other: Voiding Method Incontinent - Physical Exam Head: Positive for: Abrasion (top of head, heal. no erythema) Pupils: Positive for: Other Conjunctiva: Positive for: Normal Mouth: Positive for: Other (intubated) Respiratory/Chest: Positive for: Decreased Breath Sounds (RUL) Cardiovascular: Positive for: Tachycardic Abdomen: Negative for: Tenderness, Distention, Peritoneal Signs Upper Extremity: Positive for: Normal Inspection, NORMAL PULSES. Negative for: Edema Lower Extremity: Positive for: Normal Inspection, NORMAL PULSES. Negative for: Edema, CALF TENDERNESS Neurological: Positive for: Other (intubated) Skin: Positive for: Warm, Dry Psychiatric: Positive for: Other (intubated) - Medications Active Medications: Active Medications Generic Name Dose Route Start Last Admin Trade Name Freq PRN Reason Stop Dose Admin Cefepime HCl 1 gm in 50 mls @ 100 mls/hr 03/04/17 22:00 03/05/17 10:55 Maxipime Iv 1 Gm Premix IVPB 100 mls/hr Q12 JACK Administration Clindamycin Phosphate 600 mg in 50 mls @ 100 mls/hr 03/04/17 22:45 03/05/17 15:45 Cleocin In Normal Saline IVPB 100 mls/hr Q8H JACK Administration Potassium Chloride 10 meq/ 1,005 mls @ 50 mls/hr 03/05/17 06:10 03/05/17 06: 44 Dextrose/Sodium Chloride IV 03/06/17 02:15 50 mls/hr .[id number] ONE Administration Propofol 1,000 mg in 100 mls @ 0.966 mls/hr 03/05/17 10:56 03/05/17 18:42 Diprivan IV 30 mcg/kg/min .Q24H PRN 5.797 mls/hr TITRATE PER MD ORDER Titration Protocol 5 MCG/KG/MIN Phenylephrine HCl 30 mg/ 253 mls @ 10.12 mls/hr 03/05/17 16:45 03/05/17 18:44 Sodium Chloride IV 50 mcg/min .Q24H PRN 25.3 mls/hr TITRATE PER MD ORDER Titration Protocol 20 MCG/MIN Pantoprazole Sodium 40 mg 03/05/17 10:00 03/05/17 10:54 Protonix Inj IVP 40 mg DAILY JACK Administration Thiamine HCl 100 mg 03/05/17 10:00 03/05/17 10:54 Vitamin B1 Inj IV 100 mg DAILY JACK Administration - Patient Studies Lab Studies: Lab Studies 03/05/17 03/05/17 03/05/17 Range/Units 11:32 06:22 06:22 WBC (4.8-10.8) K/uL RBC (4.40-5.90) Mil/uL Hgb (12.0-18.0) g/dL Hct (35.0-51.0) % MCV (80.0-94.0) fL MCH (27.0-31.0) pg MCHC (33.0-37.0) g/dL RDW (11.5-14.5) % Plt Count (130-400) K/uL MPV (7.2-11.7) fL Neut % (Auto) (50.0-75.0) % Lymph % (Auto) (20.0-40.0) % Cloud % (Auto) (0.0-10.0) % Eos % (Auto) (0.0-4.0) % Baso % (Auto) (0.0-2.0) % Neut # (1.8-7.0) K/uL Lymph # (1.0-4.3) K/uL Cloud # (0.0-0.8) K/uL Eos # (0.0-0.7) K/uL Baso # (0.0-0.2) K/uL Neutrophils % (Manual) (50-75) % Lymphocytes % (Manual) (20-40) % Reactive Lymphs % (0-0) % Monocytes % (Manual) (0-10) % Eosinophils % (Manual) (0-4) % Platelet Estimate (NORMAL) Polychromasia Hypochromasia (manual) Poikilocytosis (manual Anisocytosis (manual) Ovalocytes PT (9.7-12.2) SECONDS INR APTT (21-34) SECONDS Puncture Site Lra pCO2 40 (35-45) mm/Hg pO2 285 H (80-100) mm/Hg HCO3 23.4 (21-28) mmol/L ABG pH 7.37 (7.35-7.45) ABG Total CO2 24.3 (22-28) mmol/L ABG O2 Saturation 99.9 H (95-98) % ABG Base Excess -2.0 (-2.0-3.0) mmol/L ABG Hemoglobin 9.7 L (11.7-17.4) g/dL ABG Carboxyhemoglobin 1.4 (0.5-1.5) % POC ABG HHb (Measured) 0.1 (0.0-5.0) % ABG Methemoglobin 1.4 (0.0-3.0) % Jorge Test P ABG Potassium (3.6-5.2) mmol/L A-a O2 Difference 378.0 mm/Hg Respiratory Index 1.3 Hgb O2 Saturation 97.1 (95.0-98.0) % Glucose (75-110) mg/dl Lactate (0.7-2.1) mmol/L Liter Flow Vent Mode Prvc FiO2 100.0 % Tidal Volume 500 PEEP 5 Sodium (132-148) mmol/L Potassium (3.6-5.2) mmol/L Chloride (98-107) mmol/L Carbon Dioxide (22-30) mmol/L Anion Gap (10-20) BUN (9-20) mg/dL Creatinine (0.8-1.5) mg/dL Est GFR ( Amer) Est GFR (Non-Af Amer) POC Glucose (mg/dL) (65-110) mg/dL Random Glucose (75-110) mg/dL Calcium (8.6-10.4) mg/dl Phosphorus (2.5-4.5) mg/dL Magnesium (1.6-2.3) mg/dL Total Bilirubin (0.2-1.3) mg/dL AST (17-59) U/L ALT (21-72) U/L Alkaline Phosphatase (38-126) U/L Troponin I (0.00-0.120) ng/mL NT-Pro-B Natriuret Pep (0-900) pg/mL Total Protein (6.3-8.3) g/dL Albumin (3.5-5.0) g/dL Globulin (2.2-3.9) gm/dL Albumin/Globulin Ratio (1.0-2.1) 25-OH Vitamin D Total < 12.8 L (30.0-100.0) NG/ML TSH 3rd Generation (0.46-4.68) mIU/L Arterial Blood Potassium (3.6-5.2) mmol/L Urine Color (YELLOW) Urine Clarity (Clear) Urine pH (5.0-8.0) Ur Specific Wilson (1.003-1.030) Urine Protein (NEGATIVE) mg/dL Urine Glucose (UA) (Normal) mg/dL Urine Ketones (NEGATIVE) mg/dL Urine Blood (NEGATIVE) Urine Nitrate (NEGATIVE) Urine Bilirubin (NEGATIVE) Urine Urobilinogen (0.2-1.0) mg/dL Ur Leukocyte Esterase (Negative) Peggy/uL Urine WBC (Auto) (0-5) /hpf Urine RBC (Auto) (0-3) /hpf Ur Squamous Epith Cells (0-5) /hpf Urine Opiates Screen (NEGATIVE) Urine Methadone Screen (NEGATIVE) Ur Barbiturates Screen (NEGATIVE) Ur Phencyclidine Scrn (NEGATIVE) Ur Amphetamines Screen (NEGATIVE) U Benzodiazepines Scrn (NEGATIVE) U Oth Cocaine Metabols (NEGATIVE) U Cannabinoids Screen (NEGATIVE) Alcohol, Quantitative (0-10) mg/dl Hepatitis A IgM Ab Negative (NEGATIVE) Hep Bs Antigen Negative (NEGATIVE) Hep B Core IgM Ab Negative (NEGATIVE) Hepatitis C Antibody Negative (NEGATIVE) HIV 1&2 Antibody Screen Negative (NEGATIVE) Influenza Typ A,B (EIA) (NEGATIVE) 03/05/17 03/05/17 03/04/17 Range/Units 06:22 06:22 23:55 WBC 23.6 H (4.8-10.8) K/uL RBC 3.77 L (4.40-5.90) Mil/uL Hgb 9.8 L D (12.0-18.0) g/dL Hct 30.5 L (35.0-51.0) % MCV 80.8 (80.0-94.0) fL MCH 26.1 L (27.0-31.0) pg MCHC 32.3 L (33.0-37.0) g/dL RDW 15.4 H (11.5-14.5) % Plt Count 324 D (130-400) K/uL MPV 7.6 (7.2-11.7) fL Neut % (Auto) 86.5 H (50.0-75.0) % Lymph % (Auto) 9.7 L (20.0-40.0) % Cloud % (Auto) 3.4 (0.0-10.0) % Eos % (Auto) 0.4 (0.0-4.0) % Baso % (Auto) 0.0 (0.0-2.0) % Neut # 20.4 H (1.8-7.0) K/uL Lymph # 2.3 (1.0-4.3) K/uL Cloud # 0.8 (0.0-0.8) K/uL Eos # 0.1 (0.0-0.7) K/uL Baso # 0.0 (0.0-0.2) K/uL Neutrophils % (Manual) 87 H (50-75) % Lymphocytes % (Manual) 9 L (20-40) % Reactive Lymphs % (0-0) % Monocytes % (Manual) 4 (0-10) % Eosinophils % (Manual) (0-4) % Platelet Estimate Normal (NORMAL) Polychromasia Slight Hypochromasia (manual) Slight Poikilocytosis (manual Anisocytosis (manual) Slight Ovalocytes PT (9.7-12.2) SECONDS INR APTT (21-34) SECONDS Puncture Site pCO2 (35-45) mm/Hg pO2 (80-100) mm/Hg HCO3 (21-28) mmol/L ABG pH (7.35-7.45) ABG Total CO2 (22-28) mmol/L ABG O2 Saturation (95-98) % ABG Base Excess (-2.0-3.0) mmol/L ABG Hemoglobin (11.7-17.4) g/dL ABG Carboxyhemoglobin (0.5-1.5) % POC ABG HHb (Measured) (0.0-5.0) % ABG Methemoglobin (0.0-3.0) % Jorge Test ABG Potassium (3.6-5.2) mmol/L A-a O2 Difference mm/Hg Respiratory Index Hgb O2 Saturation (95.0-98.0) % Glucose (75-110) mg/dl Lactate (0.7-2.1) mmol/L Liter Flow Vent Mode FiO2 % Tidal Volume PEEP Sodium 132 (132-148) mmol/L Potassium 3.0 L (3.6-5.2) mmol/L Chloride 99 (98-107) mmol/L Carbon Dioxide 32 H (22-30) mmol/L Anion Gap 4 L (10-20) BUN 18 (9-20) mg/dL Creatinine 0.8 (0.8-1.5) mg/dL Est GFR ( Amer) > 60 Est GFR (Non-Af Amer) > 60 POC Glucose (mg/dL) (65-110) mg/dL Random Glucose 101 (75-110) mg/dL Calcium 10.6 H (8.6-10.4) mg/dl Phosphorus 2.7 (2.5-4.5) mg/dL Magnesium 1.9 (1.6-2.3) mg/dL Total Bilirubin 0.5 (0.2-1.3) mg/dL AST 13 L (17-59) U/L ALT 23 (21-72) U/L Alkaline Phosphatase 60 (38-126) U/L Troponin I (0.00-0.120) ng/mL NT-Pro-B Natriuret Pep (0-900) pg/mL Total Protein 4.7 L (6.3-8.3) g/dL Albumin 2.1 L D (3.5-5.0) g/dL Globulin 2.6 (2.2-3.9) gm/dL Albumin/Globulin Ratio 0.8 L (1.0-2.1) 25-OH Vitamin D Total (30.0-100.0) NG/ML TSH 3rd Generation (0.46-4.68) mIU/L Arterial Blood Potassium (3.6-5.2) mmol/L Urine Color (YELLOW) Urine Clarity (Clear) Urine pH (5.0-8.0) Ur Specific Wilson (1.003-1.030) Urine Protein (NEGATIVE) mg/dL Urine Glucose (UA) (Normal) mg/dL Urine Ketones (NEGATIVE) mg/dL Urine Blood (NEGATIVE) Urine Nitrate (NEGATIVE) Urine Bilirubin (NEGATIVE) Urine Urobilinogen (0.2-1.0) mg/dL Ur Leukocyte Esterase (Negative) Peggy/uL Urine WBC (Auto) (0-5) /hpf Urine RBC (Auto) (0-3) /hpf Ur Squamous Epith Cells (0-5) /hpf Urine Opiates Screen (NEGATIVE) Urine Methadone Screen (NEGATIVE) Ur Barbiturates Screen (NEGATIVE) Ur Phencyclidine Scrn (NEGATIVE) Ur Amphetamines Screen (NEGATIVE) U Benzodiazepines Scrn (NEGATIVE) U Oth Cocaine Metabols (NEGATIVE) U Cannabinoids Screen (NEGATIVE) Alcohol, Quantitative < 20 H (0-10) mg/dl Hepatitis A IgM Ab (NEGATIVE) Hep Bs Antigen (NEGATIVE) Hep B Core IgM Ab (NEGATIVE) Hepatitis C Antibody (NEGATIVE) HIV 1&2 Antibody Screen (NEGATIVE) Influenza Typ A,B (EIA) (NEGATIVE) 03/04/17 03/04/17 03/04/17 Range/Units 22:32 22:32 21:09 WBC (4.8-10.8) K/uL RBC (4.40-5.90) Mil/uL Hgb (12.0-18.0) g/dL Hct (35.0-51.0) % MCV (80.0-94.0) fL MCH (27.0-31.0) pg MCHC (33.0-37.0) g/dL RDW (11.5-14.5) % Plt Count (130-400) K/uL MPV (7.2-11.7) fL Neut % (Auto) (50.0-75.0) % Lymph % (Auto) (20.0-40.0) % Cloud % (Auto) (0.0-10.0) % Eos % (Auto) (0.0-4.0) % Baso % (Auto) (0.0-2.0) % Neut # (1.8-7.0) K/uL Lymph # (1.0-4.3) K/uL Cloud # (0.0-0.8) K/uL Eos # (0.0-0.7) K/uL Baso # (0.0-0.2) K/uL Neutrophils % (Manual) (50-75) % Lymphocytes % (Manual) (20-40) % Reactive Lymphs % (0-0) % Monocytes % (Manual) (0-10) % Eosinophils % (Manual) (0-4) % Platelet Estimate (NORMAL) Polychromasia Hypochromasia (manual) Poikilocytosis (manual Anisocytosis (manual) Ovalocytes PT (9.7-12.2) SECONDS INR APTT (21-34) SECONDS Puncture Site pCO2 (35-45) mm/Hg pO2 (80-100) mm/Hg HCO3 (21-28) mmol/L ABG pH (7.35-7.45) ABG Total CO2 (22-28) mmol/L ABG O2 Saturation (95-98) % ABG Base Excess (-2.0-3.0) mmol/L ABG Hemoglobin (11.7-17.4) g/dL ABG Carboxyhemoglobin (0.5-1.5) % POC ABG HHb (Measured) (0.0-5.0) % ABG Methemoglobin (0.0-3.0) % Jorge Test ABG Potassium (3.6-5.2) mmol/L A-a O2 Difference mm/Hg Respiratory Index Hgb O2 Saturation (95.0-98.0) % Glucose (75-110) mg/dl Lactate (0.7-2.1) mmol/L Liter Flow Vent Mode FiO2 % Tidal Volume PEEP Sodium (132-148) mmol/L Potassium (3.6-5.2) mmol/L Chloride (98-107) mmol/L Carbon Dioxide (22-30) mmol/L Anion Gap (10-20) BUN (9-20) mg/dL Creatinine (0.8-1.5) mg/dL Est GFR ( Amer) Est GFR (Non-Af Amer) POC Glucose (mg/dL) (65-110) mg/dL Random Glucose (75-110) mg/dL Calcium (8.6-10.4) mg/dl Phosphorus 3.3 (2.5-4.5) mg/dL Magnesium (1.6-2.3) mg/dL Total Bilirubin (0.2-1.3) mg/dL AST (17-59) U/L ALT (21-72) U/L Alkaline Phosphatase (38-126) U/L Troponin I (0.00-0.120) ng/mL NT-Pro-B Natriuret Pep (0-900) pg/mL Total Protein (6.3-8.3) g/dL Albumin (3.5-5.0) g/dL Globulin (2.2-3.9) gm/dL Albumin/Globulin Ratio (1.0-2.1) 25-OH Vitamin D Total (30.0-100.0) NG/ML TSH 3rd Generation (0.46-4.68) mIU/L Arterial Blood Potassium (3.6-5.2) mmol/L Urine Color Yellow (YELLOW) Urine Clarity Clear (Clear) Urine pH 5.0 (5.0-8.0) Ur Specific Wilson 1.017 (1.003-1.030) Urine Protein Negative (NEGATIVE) mg/dL Urine Glucose (UA) Normal (Normal) mg/dL Urine Ketones Trace (NEGATIVE) mg/dL Urine Blood Negative (NEGATIVE) Urine Nitrate Negative (NEGATIVE) Urine Bilirubin Negative (NEGATIVE) Urine Urobilinogen Normal (0.2-1.0) mg/dL Ur Leukocyte Esterase Neg (Negative) Peggy/uL Urine WBC (Auto) 4 (0-5) /hpf Urine RBC (Auto) < 1 (0-3) /hpf Ur Squamous Epith Cells < 1 (0-5) /hpf Urine Opiates Screen Negative (NEGATIVE) Urine Methadone Screen Negative (NEGATIVE) Ur Barbiturates Screen Negative (NEGATIVE) Ur Phencyclidine Scrn Negative (NEGATIVE) Ur Amphetamines Screen Negative (NEGATIVE) U Benzodiazepines Scrn Negative (NEGATIVE) U Oth Cocaine Metabols Negative (NEGATIVE) U Cannabinoids Screen Negative (NEGATIVE) Alcohol, Quantitative (0-10) mg/dl Hepatitis A IgM Ab (NEGATIVE) Hep Bs Antigen (NEGATIVE) Hep B Core IgM Ab (NEGATIVE) Hepatitis C Antibody (NEGATIVE) HIV 1&2 Antibody Screen (NEGATIVE) Influenza Typ A,B (EIA) (NEGATIVE) 03/04/17 03/04/17 03/04/17 Range/Units 20:50 20:15 20:15 WBC (4.8-10.8) K/uL RBC (4.40-5.90) Mil/uL Hgb (12.0-18.0) g/dL Hct (35.0-51.0) % MCV (80.0-94.0) fL MCH (27.0-31.0) pg MCHC (33.0-37.0) g/dL RDW (11.5-14.5) % Plt Count (130-400) K/uL MPV (7.2-11.7) fL Neut % (Auto) (50.0-75.0) % Lymph % (Auto) (20.0-40.0) % Cloud % (Auto) (0.0-10.0) % Eos % (Auto) (0.0-4.0) % Baso % (Auto) (0.0-2.0) % Neut # (1.8-7.0) K/uL Lymph # (1.0-4.3) K/uL Cloud # (0.0-0.8) K/uL Eos # (0.0-0.7) K/uL Baso # (0.0-0.2) K/uL Neutrophils % (Manual) (50-75) % Lymphocytes % (Manual) (20-40) % Reactive Lymphs % (0-0) % Monocytes % (Manual) (0-10) % Eosinophils % (Manual) (0-4) % Platelet Estimate (NORMAL) Polychromasia Hypochromasia (manual) Poikilocytosis (manual Anisocytosis (manual) Ovalocytes PT 14.1 H (9.7-12.2) SECONDS INR 1.3 APTT 35 H (21-34) SECONDS Puncture Site Rra pCO2 34 L (35-45) mm/Hg pO2 160 H (80-100) mm/Hg HCO3 25.6 (21-28) mmol/L ABG pH 7.46 H (7.35-7.45) ABG Total CO2 25.2 (22-28) mmol/L ABG O2 Saturation 100.2 H (95-98) % ABG Base Excess 0.8 (-2.0-3.0) mmol/L ABG Hemoglobin (11.7-17.4) g/dL ABG Carboxyhemoglobin (0.5-1.5) % POC ABG HHb (Measured) (0.0-5.0) % ABG Methemoglobin (0.0-3.0) % Jorge Test Pos ABG Potassium 3.2 L (3.6-5.2) mmol/L A-a O2 Difference 511.0 mm/Hg Respiratory Index 3.2 Hgb O2 Saturation (95.0-98.0) % Glucose 88 (75-110) mg/dl Lactate 2.1 (0.7-2.1) mmol/L Liter Flow 25.0 Vent Mode FiO2 100.0 % Tidal Volume PEEP Sodium 134.0 130 L (132-148) mmol/L Potassium 4.4 (3.6-5.2) mmol/L Chloride 102.0 92 L (98-107) mmol/L Carbon Dioxide 29 (22-30) mmol/L Anion Gap 14 (10-20) BUN 23 H (9-20) mg/dL Creatinine 0.8 (0.8-1.5) mg/dL Est GFR ( Amer) > 60 Est GFR (Non-Af Amer) > 60 POC Glucose (mg/dL) (65-110) mg/dL Random Glucose 106 (75-110) mg/dL Calcium 12.8 H (8.6-10.4) mg/dl Phosphorus (2.5-4.5) mg/dL Magnesium 2.4 H (1.6-2.3) mg/dL Total Bilirubin 0.8 (0.2-1.3) mg/dL AST 13 L (17-59) U/L ALT 25 (21-72) U/L Alkaline Phosphatase 93 (38-126) U/L Troponin I < 0.0120 (0.00-0.120) ng/mL NT-Pro-B Natriuret Pep 1670 H (0-900) pg/mL Total Protein 7.6 (6.3-8.3) g/dL Albumin 3.1 L (3.5-5.0) g/dL Globulin 4.5 H (2.2-3.9) gm/dL Albumin/Globulin Ratio 0.7 L (1.0-2.1) 25-OH Vitamin D Total (30.0-100.0) NG/ML TSH 3rd Generation 2.28 (0.46-4.68) mIU/L Arterial Blood Potassium 3.2 L (3.6-5.2) mmol/L Urine Color (YELLOW) Urine Clarity (Clear) Urine pH (5.0-8.0) Ur Specific Wilson (1.003-1.030) Urine Protein (NEGATIVE) mg/dL Urine Glucose (UA) (Normal) mg/dL Urine Ketones (NEGATIVE) mg/dL Urine Blood (NEGATIVE) Urine Nitrate (NEGATIVE) Urine Bilirubin (NEGATIVE) Urine Urobilinogen (0.2-1.0) mg/dL Ur Leukocyte Esterase (Negative) Peggy/uL Urine WBC (Auto) (0-5) /hpf Urine RBC (Auto) (0-3) /hpf Ur Squamous Epith Cells (0-5) /hpf Urine Opiates Screen (NEGATIVE) Urine Methadone Screen (NEGATIVE) Ur Barbiturates Screen (NEGATIVE) Ur Phencyclidine Scrn (NEGATIVE) Ur Amphetamines Screen (NEGATIVE) U Benzodiazepines Scrn (NEGATIVE) U Oth Cocaine Metabols (NEGATIVE) U Cannabinoids Screen (NEGATIVE) Alcohol, Quantitative (0-10) mg/dl Hepatitis A IgM Ab (NEGATIVE) Hep Bs Antigen (NEGATIVE) Hep B Core IgM Ab (NEGATIVE) Hepatitis C Antibody (NEGATIVE) HIV 1&2 Antibody Screen (NEGATIVE) Influenza Typ A,B (EIA) (NEGATIVE) 03/04/17 03/04/17 03/04/17 Range/Units 20:15 20:05 19:37 WBC 41.2 H* (4.8-10.8) K/uL RBC 4.97 (4.40-5.90) Mil/uL Hgb 12.6 (12.0-18.0) g/dL Hct 40.1 (35.0-51.0) % MCV 80.7 (80.0-94.0) fL MCH 25.4 L (27.0-31.0) pg MCHC 31.5 L (33.0-37.0) g/dL RDW 15.4 H (11.5-14.5) % Plt Count 457 H (130-400) K/uL MPV 7.4 (7.2-11.7) fL Neut % (Auto) 91.9 H (50.0-75.0) % Lymph % (Auto) 4.9 L (20.0-40.0) % Cloud % (Auto) 3.0 (0.0-10.0) % Eos % (Auto) 0.0 (0.0-4.0) % Baso % (Auto) 0.2 (0.0-2.0) % Neut # 37.8 H (1.8-7.0) K/uL Lymph # 2.0 (1.0-4.3) K/uL Cloud # 1.2 H (0.0-0.8) K/uL Eos # 0.0 (0.0-0.7) K/uL Baso # 0.1 (0.0-0.2) K/uL Neutrophils % (Manual) 86 H (50-75) % Lymphocytes % (Manual) 7 L (20-40) % Reactive Lymphs % 1 H (0-0) % Monocytes % (Manual) 5 (0-10) % Eosinophils % (Manual) 1 (0-4) % Platelet Estimate Normal (NORMAL) Polychromasia Hypochromasia (manual) Poikilocytosis (manual Slight Anisocytosis (manual) Slight Ovalocytes Slight PT (9.7-12.2) SECONDS INR APTT (21-34) SECONDS Puncture Site pCO2 (35-45) mm/Hg pO2 (80-100) mm/Hg HCO3 (21-28) mmol/L ABG pH (7.35-7.45) ABG Total CO2 (22-28) mmol/L ABG O2 Saturation (95-98) % ABG Base Excess (-2.0-3.0) mmol/L ABG Hemoglobin (11.7-17.4) g/dL ABG Carboxyhemoglobin (0.5-1.5) % POC ABG HHb (Measured) (0.0-5.0) % ABG Methemoglobin (0.0-3.0) % Jorge Test ABG Potassium (3.6-5.2) mmol/L A-a O2 Difference mm/Hg Respiratory Index Hgb O2 Saturation (95.0-98.0) % Glucose (75-110) mg/dl Lactate (0.7-2.1) mmol/L Liter Flow Vent Mode FiO2 % Tidal Volume PEEP Sodium (132-148) mmol/L Potassium (3.6-5.2) mmol/L Chloride (98-107) mmol/L Carbon Dioxide (22-30) mmol/L Anion Gap (10-20) BUN (9-20) mg/dL Creatinine (0.8-1.5) mg/dL Est GFR ( Amer) Est GFR (Non-Af Amer) POC Glucose (mg/dL) 94 (65-110) mg/dL Random Glucose (75-110) mg/dL Calcium (8.6-10.4) mg/dl Phosphorus (2.5-4.5) mg/dL Magnesium (1.6-2.3) mg/dL Total Bilirubin (0.2-1.3) mg/dL AST (17-59) U/L ALT (21-72) U/L Alkaline Phosphatase (38-126) U/L Troponin I (0.00-0.120) ng/mL NT-Pro-B Natriuret Pep (0-900) pg/mL Total Protein (6.3-8.3) g/dL Albumin (3.5-5.0) g/dL Globulin (2.2-3.9) gm/dL Albumin/Globulin Ratio (1.0-2.1) 25-OH Vitamin D Total (30.0-100.0) NG/ML TSH 3rd Generation (0.46-4.68) mIU/L Arterial Blood Potassium (3.6-5.2) mmol/L Urine Color (YELLOW) Urine Clarity (Clear) Urine pH (5.0-8.0) Ur Specific Wilson (1.003-1.030) Urine Protein (NEGATIVE) mg/dL Urine Glucose (UA) (Normal) mg/dL Urine Ketones (NEGATIVE) mg/dL Urine Blood (NEGATIVE) Urine Nitrate (NEGATIVE) Urine Bilirubin (NEGATIVE) Urine Urobilinogen (0.2-1.0) mg/dL Ur Leukocyte Esterase (Negative) Peggy/uL Urine WBC (Auto) (0-5) /hpf Urine RBC (Auto) (0-3) /hpf Ur Squamous Epith Cells (0-5) /hpf Urine Opiates Screen (NEGATIVE) Urine Methadone Screen (NEGATIVE) Ur Barbiturates Screen (NEGATIVE) Ur Phencyclidine Scrn (NEGATIVE) Ur Amphetamines Screen (NEGATIVE) U Benzodiazepines Scrn (NEGATIVE) U Oth Cocaine Metabols (NEGATIVE) U Cannabinoids Screen (NEGATIVE) Alcohol, Quantitative (0-10) mg/dl Hepatitis A IgM Ab (NEGATIVE) Hep Bs Antigen (NEGATIVE) Hep B Core IgM Ab (NEGATIVE) Hepatitis C Antibody (NEGATIVE) HIV 1&2 Antibody Screen (NEGATIVE) Influenza Typ A,B (EIA) Negative for flu a/b (NEGATIVE) Laboratory Results - last 24 hr 03/04/17 03/04/17 03/04/17 19:37 20:05 20:15 WBC 41.2 H* RBC 4.97 Hgb 12.6 Hct 40.1 MCV 80.7 MCH 25.4 L MCHC 31.5 L RDW 15.4 H Plt Count 457 H MPV 7.4 Neut % (Auto) 91.9 H Lymph % (Auto) 4.9 L Cloud % (Auto) 3.0 Eos % (Auto) 0.0 Baso % (Auto) 0.2 Neut # 37.8 H Lymph # 2.0 Cloud # 1.2 H Eos # 0.0 Baso # 0.1 Neutrophils % (Manual) 86 H Lymphocytes % (Manual) 7 L Reactive Lymphs % 1 H Monocytes % (Manual) 5 Eosinophils % (Manual) 1 Platelet Estimate Normal Polychromasia Hypochromasia (manual) Poikilocytosis (manual Slight Anisocytosis (manual) Slight Ovalocytes Slight PT INR APTT Puncture Site pCO2 pO2 HCO3 ABG pH ABG Total CO2 ABG O2 Saturation ABG Base Excess ABG Hemoglobin ABG Carboxyhemoglobin POC ABG HHb (Measured) ABG Methemoglobin Jorge Test ABG Potassium A-a O2 Difference Respiratory Index Hgb O2 Saturation Glucose Lactate Liter Flow Vent Mode FiO2 Tidal Volume PEEP Sodium Potassium Chloride Carbon Dioxide Anion Gap BUN Creatinine Est GFR ( Amer) Est GFR (Non-Af Amer) POC Glucose (mg/dL) 94 Random Glucose Calcium Phosphorus Magnesium Total Bilirubin AST ALT Alkaline Phosphatase Troponin I NT-Pro-B Natriuret Pep Total Protein Albumin Globulin Albumin/Globulin Ratio 25-OH Vitamin D Total TSH 3rd Generation Arterial Blood Potassium Urine Color Urine Clarity Urine pH Ur Specific Wilson Urine Protein Urine Glucose (UA) Urine Ketones Urine Blood Urine Nitrate Urine Bilirubin Urine Urobilinogen Ur Leukocyte Esterase Urine WBC (Auto) Urine RBC (Auto) Ur Squamous Epith Cells Urine Opiates Screen Urine Methadone Screen Ur Barbiturates Screen Ur Phencyclidine Scrn Ur Amphetamines Screen U Benzodiazepines Scrn U Oth Cocaine Metabols U Cannabinoids Screen Alcohol, Quantitative Hepatitis A IgM Ab Hep Bs Antigen Hep B Core IgM Ab Hepatitis C Antibody HIV 1&2 Antibody Screen Influenza Typ A,B (EIA) Negative for flu a/b 03/04/17 03/04/17 03/04/17 20:15 20:15 20:50 WBC RBC Hgb Hct MCV MCH MCHC RDW Plt Count MPV Neut % (Auto) Lymph % (Auto) Cloud % (Auto) Eos % (Auto) Baso % (Auto) Neut # Lymph # Cloud # Eos # Baso # Neutrophils % (Manual) Lymphocytes % (Manual) Reactive Lymphs % Monocytes % (Manual) Eosinophils % (Manual) Platelet Estimate Polychromasia Hypochromasia (manual) Poikilocytosis (manual Anisocytosis (manual) Ovalocytes PT 14.1 H INR 1.3 APTT 35 H Puncture Site Rra pCO2 34 L pO2 160 H HCO3 25.6 ABG pH 7.46 H ABG Total CO2 25.2 ABG O2 Saturation 100.2 H ABG Base Excess 0.8 ABG Hemoglobin ABG Carboxyhemoglobin POC ABG HHb (Measured) ABG Methemoglobin Jorge Test Pos ABG Potassium 3.2 L A-a O2 Difference 511.0 Respiratory Index 3.2 Hgb O2 Saturation Glucose 88 Lactate 2.1 Liter Flow 25.0 Vent Mode FiO2 100.0 Tidal Volume PEEP Sodium 130 L 134.0 Potassium 4.4 Chloride 92 L 102.0 Carbon Dioxide 29 Anion Gap 14 BUN 23 H Creatinine 0.8 Est GFR ( Amer) > 60 Est GFR (Non-Af Amer) > 60 POC Glucose (mg/dL) Random Glucose 106 Calcium 12.8 H Phosphorus Magnesium 2.4 H Total Bilirubin 0.8 AST 13 L ALT 25 Alkaline Phosphatase 93 Troponin I < 0.0120 NT-Pro-B Natriuret Pep 1670 H Total Protein 7.6 Albumin 3.1 L Globulin 4.5 H Albumin/Globulin Ratio 0.7 L 25-OH Vitamin D Total TSH 3rd Generation 2.28 Arterial Blood Potassium 3.2 L Urine Color Urine Clarity Urine pH Ur Specific Wilson Urine Protein Urine Glucose (UA) Urine Ketones Urine Blood Urine Nitrate Urine Bilirubin Urine Urobilinogen Ur Leukocyte Esterase Urine WBC (Auto) Urine RBC (Auto) Ur Squamous Epith Cells Urine Opiates Screen Urine Methadone Screen Ur Barbiturates Screen Ur Phencyclidine Scrn Ur Amphetamines Screen U Benzodiazepines Scrn U Oth Cocaine Metabols U Cannabinoids Screen Alcohol, Quantitative Hepatitis A IgM Ab Hep Bs Antigen Hep B Core IgM Ab Hepatitis C Antibody HIV 1&2 Antibody Screen Influenza Typ A,B (EIA) 03/04/17 03/04/17 03/04/17 21:09 22:32 22:32 WBC RBC Hgb Hct MCV MCH MCHC RDW Plt Count MPV Neut % (Auto) Lymph % (Auto) Cloud % (Auto) Eos % (Auto) Baso % (Auto) Neut # Lymph # Cloud # Eos # Baso # Neutrophils % (Manual) Lymphocytes % (Manual) Reactive Lymphs % Monocytes % (Manual) Eosinophils % (Manual) Platelet Estimate Polychromasia Hypochromasia (manual) Poikilocytosis (manual Anisocytosis (manual) Ovalocytes PT INR APTT Puncture Site pCO2 pO2 HCO3 ABG pH ABG Total CO2 ABG O2 Saturation ABG Base Excess ABG Hemoglobin ABG Carboxyhemoglobin POC ABG HHb (Measured) ABG Methemoglobin Jorge Test ABG Potassium A-a O2 Difference Respiratory Index Hgb O2 Saturation Glucose Lactate Liter Flow Vent Mode FiO2 Tidal Volume PEEP Sodium Potassium Chloride Carbon Dioxide Anion Gap BUN Creatinine Est GFR ( Amer) Est GFR (Non-Af Amer) POC Glucose (mg/dL) Random Glucose Calcium Phosphorus 3.3 Magnesium Total Bilirubin AST ALT Alkaline Phosphatase Troponin I NT-Pro-B Natriuret Pep Total Protein Albumin Globulin Albumin/Globulin Ratio 25-OH Vitamin D Total TSH 3rd Generation Arterial Blood Potassium Urine Color Yellow Urine Clarity Clear Urine pH 5.0 Ur Specific Wilson 1.017 Urine Protein Negative Urine Glucose (UA) Normal Urine Ketones Trace Urine Blood Negative Urine Nitrate Negative Urine Bilirubin Negative Urine Urobilinogen Normal Ur Leukocyte Esterase Neg Urine WBC (Auto) 4 Urine RBC (Auto) < 1 Ur Squamous Epith Cells < 1 Urine Opiates Screen Negative Urine Methadone Screen Negative Ur Barbiturates Screen Negative Ur Phencyclidine Scrn Negative Ur Amphetamines Screen Negative U Benzodiazepines Scrn Negative U Oth Cocaine Metabols Negative U Cannabinoids Screen Negative Alcohol, Quantitative Hepatitis A IgM Ab Hep Bs Antigen Hep B Core IgM Ab Hepatitis C Antibody HIV 1&2 Antibody Screen Influenza Typ A,B (EIA) 03/04/17 03/05/17 03/05/17 23:55 06:22 06:22 WBC 23.6 H RBC 3.77 L Hgb 9.8 L D Hct 30.5 L MCV 80.8 MCH 26.1 L MCHC 32.3 L RDW 15.4 H Plt Count 324 D MPV 7.6 Neut % (Auto) 86.5 H Lymph % (Auto) 9.7 L Cloud % (Auto) 3.4 Eos % (Auto) 0.4 Baso % (Auto) 0.0 Neut # 20.4 H Lymph # 2.3 Cloud # 0.8 Eos # 0.1 Baso # 0.0 Neutrophils % (Manual) 87 H Lymphocytes % (Manual) 9 L Reactive Lymphs % Monocytes % (Manual) 4 Eosinophils % (Manual) Platelet Estimate Normal Polychromasia Slight Hypochromasia (manual) Slight Poikilocytosis (manual Anisocytosis (manual) Slight Ovalocytes PT INR APTT Puncture Site pCO2 pO2 HCO3 ABG pH ABG Total CO2 ABG O2 Saturation ABG Base Excess ABG Hemoglobin ABG Carboxyhemoglobin POC ABG HHb (Measured) ABG Methemoglobin Jorge Test ABG Potassium A-a O2 Difference Respiratory Index Hgb O2 Saturation Glucose Lactate Liter Flow Vent Mode FiO2 Tidal Volume PEEP Sodium 132 Potassium 3.0 L Chloride 99 Carbon Dioxide 32 H Anion Gap 4 L BUN 18 Creatinine 0.8 Est GFR ( Amer) > 60 Est GFR (Non-Af Amer) > 60 POC Glucose (mg/dL) Random Glucose 101 Calcium 10.6 H Phosphorus 2.7 Magnesium 1.9 Total Bilirubin 0.5 AST 13 L ALT 23 Alkaline Phosphatase 60 Troponin I NT-Pro-B Natriuret Pep Total Protein 4.7 L Albumin 2.1 L D Globulin 2.6 Albumin/Globulin Ratio 0.8 L 25-OH Vitamin D Total TSH 3rd Generation Arterial Blood Potassium Urine Color Urine Clarity Urine pH Ur Specific Wilson Urine Protein Urine Glucose (UA) Urine Ketones Urine Blood Urine Nitrate Urine Bilirubin Urine Urobilinogen Ur Leukocyte Esterase Urine WBC (Auto) Urine RBC (Auto) Ur Squamous Epith Cells Urine Opiates Screen Urine Methadone Screen Ur Barbiturates Screen Ur Phencyclidine Scrn Ur Amphetamines Screen U Benzodiazepines Scrn U Oth Cocaine Metabols U Cannabinoids Screen Alcohol, Quantitative < 20 H Hepatitis A IgM Ab Hep Bs Antigen Hep B Core IgM Ab Hepatitis C Antibody HIV 1&2 Antibody Screen Influenza Typ A,B (EIA) 03/05/17 03/05/17 03/05/17 06:22 06:22 11:32 WBC RBC Hgb Hct MCV MCH MCHC RDW Plt Count MPV Neut % (Auto) Lymph % (Auto) Cloud % (Auto) Eos % (Auto) Baso % (Auto) Neut # Lymph # Cloud # Eos # Baso # Neutrophils % (Manual) Lymphocytes % (Manual) Reactive Lymphs % Monocytes % (Manual) Eosinophils % (Manual) Platelet Estimate Polychromasia Hypochromasia (manual) Poikilocytosis (manual Anisocytosis (manual) Ovalocytes PT INR APTT Puncture Site Lra pCO2 40 pO2 285 H HCO3 23.4 ABG pH 7.37 ABG Total CO2 24.3 ABG O2 Saturation 99.9 H ABG Base Excess -2.0 ABG Hemoglobin 9.7 L ABG Carboxyhemoglobin 1.4 POC ABG HHb (Measured) 0.1 ABG Methemoglobin 1.4 Jorge Test P ABG Potassium A-a O2 Difference 378.0 Respiratory Index 1.3 Hgb O2 Saturation 97.1 Glucose Lactate Liter Flow Vent Mode Prvc FiO2 100.0 Tidal Volume 500 PEEP 5 Sodium Potassium Chloride Carbon Dioxide Anion Gap BUN Creatinine Est GFR ( Amer) Est GFR (Non-Af Amer) POC Glucose (mg/dL) Random Glucose Calcium Phosphorus Magnesium Total Bilirubin AST ALT Alkaline Phosphatase Troponin I NT-Pro-B Natriuret Pep Total Protein Albumin Globulin Albumin/Globulin Ratio 25-OH Vitamin D Total < 12.8 L TSH 3rd Generation Arterial Blood Potassium Urine Color Urine Clarity Urine pH Ur Specific Wilson Urine Protein Urine Glucose (UA) Urine Ketones Urine Blood Urine Nitrate Urine Bilirubin Urine Urobilinogen Ur Leukocyte Esterase Urine WBC (Auto) Urine RBC (Auto) Ur Squamous Epith Cells Urine Opiates Screen Urine Methadone Screen Ur Barbiturates Screen Ur Phencyclidine Scrn Ur Amphetamines Screen U Benzodiazepines Scrn U Oth Cocaine Metabols U Cannabinoids Screen Alcohol, Quantitative Hepatitis A IgM Ab Negative Hep Bs Antigen Negative Hep B Core IgM Ab Negative Hepatitis C Antibody Negative HIV 1&2 Antibody Screen Negative Influenza Typ A,B (EIA) EKG/Cardiology Studies: Cardiology / EKG Studies 03/04/17 19:34 EKG [ELECTROCARDIOGRAM] Stat Comment: Mode Of Transportation: BED Reason For Exam: cp Isolation: Airborne 03/04/17 20:05 ELECTROCARDIOGRAM Stat Comment: Mode Of Transportation: BED Reason For Exam: SOB Fingerstick Blood Sugar Results: 94 Review of Systems - Review of Systems Systems not reviewed;Unavailable: Intubated Assessment/Plan - Assessment and Plan (Free Text) Assessment: 56 year old cachectic male with no known PMH presenting with cough, loss of weight, confusion and right upper lobe infiltrate with leucocytosis, thrombocytosis, hyponatremia, hypercalcemia and dehydration. Most likely has lung malignancy, r/o pneumonia/lung abscess. 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 Associated right hilar/ right mediastinal lymphadenopathy. No gross pleural effusion. No gross left lung pathology. Interval insertions -right PICC line and NG tube/ orogastric tube. Chest CT w/angio - Large cavitary right upper lobe mass with infiltration/ invasion of the chest wall and destruction of adjacent ribs, findings are consistent with malignancy; right hilar and mediastinal adenopathy; no aneurysm, dissection or pulmonary embolus. post intubation ABG - pCO2 40, pO2 285, HCO3 23.4, pH 7.37 Cefepime 1gm IVPB q12h Clindamycin 600mg IVPB q8h f/u sputum culture CV: hypotension Phenylephrine drip Neuro: Propofol drip Prophylactic Care: Protonix 40mg IVP daily SCDs Patient made DNR by brother, Holden (P.O.A) Case discussed with Dr. Omkar Dorsey Eulogio PGY1 <David Espitia - Last Filed: 03/06/17 17:27> CCU Objective - Vital Signs / Intake & Output Vital Signs (Last 4 hours): Vital Signs Pulse Resp BP Pulse Ox 03/06/17 16:24 89 16 86/56 L 100 Intake and Output (Last 8hrs): Intake & Output 03/06/17 03/06/17 03/06/17 06:59 14:59 22:59 Intake Total 1584 2260.9 910.7 Output Total 60 45 10 Balance 1524 2215.9 900.7 Weight 70 lb 6.4 oz Intake: IV 450 403 Intake, IV Amount 874 1577.9 805.7 Right Distal Port 24 259.3 125.0 Internal Jugular Right Forearm 7.6 5.7 Right Medial Port 450 827 450 Internal Jugular Right Proximal Port 400 484 225 Internal Jugular Tube Feeding 260 280 105 Output: Urine 60 45 10 Urethral (Mercedes) 60 45 10 Other: # Bowel Movements 0 0 0 - Medications Active Medications: Active Medications Generic Name Dose Route Start Last Admin Trade Name Freq PRN Reason Stop Dose Admin Albumin Human 12.5 gm 03/06/17 09:45 03/06/17 17:22 Albumin Human 25% (12.5 Gm/50 Ml) IV 03/07/17 01:46 12.5 gm Q8H JACK Administration Cefepime HCl 1 gm in 50 mls @ 100 mls/hr 03/04/17 22:00 03/06/17 10:34 Maxipime Iv 1 Gm Premix IVPB 100 mls/hr Q12 JACK Administration Clindamycin Phosphate 600 mg in 50 mls @ 100 mls/hr 03/04/17 22:45 03/06/17 15:20 Cleocin In Normal Saline IVPB 100 mls/hr Q8H JACK Administration Propofol 1,000 mg in 100 mls @ 0.966 mls/hr 03/05/17 10:56 03/06/17 09:00 Diprivan IV 10 mcg/kg/min .Q24H PRN 1.932 mls/hr TITRATE PER MD ORDER Titration Protocol 5 MCG/KG/MIN Phenylephrine HCl 30 mg/ 253 mls @ 10.12 mls/hr 03/05/17 16:45 03/06/17 16:24 Sodium Chloride IV 150 mcg/min .Q24H PRN 75.9 mls/hr TITRATE PER MD ORDER Administration Protocol 20 MCG/MIN Sodium Chloride 1,000 mls @ 75 mls/hr 03/06/17 10:30 03/06/17 10:36 Sodium Chloride 0.9% IV 75 mls/hr .[id number] JACK Administration Folic Acid 1 mg/ Thiamine HCl 1,011.2 mls @ 75 mls/hr 03/07/17 10:00 100 mg/ Multivitamins/Vitamin IV C 10 ml/ Dextrose DAILY JACK Pantoprazole Sodium 40 mg 03/05/17 10:00 03/06/17 10:32 Protonix Inj IVP 40 mg DAILY JACK Administration - Patient Studies Lab Studies: Microbiology Studies 03/04/17 08:00 MRSA Culture (Admit) - Final Naris MRSA NOT DETECTED 03/04/17 08:00 Urine Culture - Final Urine No Growth (<1,000 CFU/ML) 03/04/17 20:40 Blood Culture - Preliminary Blood NO GROWTH AFTER 24 HOURS 03/04/17 20:10 Blood Culture - Preliminary Blood NO GROWTH AFTER 24 HOURS 03/05/17 22:17 Gram Stain - Final Sputum Induced Lab Studies 03/06/17 03/06/17 03/06/17 Range/Units 10:51 10:51 10:51 WBC (4.8-10.8) K/uL RBC (4.40-5.90) Mil/uL Hgb (12.0-18.0) g/dL Hct (35.0-51.0) % MCV (80.0-94.0) fL MCH (27.0-31.0) pg MCHC (33.0-37.0) g/dL RDW (11.5-14.5) % Plt Count (130-400) K/uL MPV (7.2-11.7) fL Neut % (Auto) (50.0-75.0) % Lymph % (Auto) (20.0-40.0) % Cloud % (Auto) (0.0-10.0) % Eos % (Auto) (0.0-4.0) % Baso % (Auto) (0.0-2.0) % Neut # (1.8-7.0) K/uL Lymph # (1.0-4.3) K/uL Cloud # (0.0-0.8) K/uL Eos # (0.0-0.7) K/uL Baso # (0.0-0.2) K/uL Retic Count 0.9 (0.5-1.5) % Puncture Site pCO2 (35-45) mm/Hg pO2 (80-100) mm/Hg HCO3 (21-28) mmol/L ABG pH (7.35-7.45) ABG Total CO2 (22-28) mmol/L ABG O2 Saturation (95-98) % ABG Base Excess (-2.0-3.0) mmol/L ABG Hemoglobin (11.7-17.4) g/dL ABG Carboxyhemoglobin (0.5-1.5) % POC ABG HHb (Measured) (0.0-5.0) % ABG Methemoglobin (0.0-3.0) % Jorge Test A-a O2 Difference mm/Hg Respiratory Index Hgb O2 Saturation (95.0-98.0) % Vent Mode Mechanical Rate FiO2 % Tidal Volume PEEP Sodium (132-148) mmol/L Potassium (3.6-5.2) mmol/L Chloride (98-107) mmol/L Carbon Dioxide (22-30) mmol/L Anion Gap (10-20) BUN (9-20) mg/dL Creatinine (0.8-1.5) mg/dL Est GFR ( Amer) Est GFR (Non-Af Amer) Random Glucose (75-110) mg/dL Calcium (8.6-10.4) mg/dl Phosphorus (2.5-4.5) mg/dL Magnesium (1.6-2.3) mg/dL Iron 10 L (49-181) ug/dL TIBC 134 L (250-450) ug/dL % Saturation 7.46 L (20-55) Ferritin 407.0 ng/mL Total Bilirubin (0.2-1.3) mg/dL AST (17-59) U/L ALT (21-72) U/L Alkaline Phosphatase (38-126) U/L Total Protein (6.3-8.3) g/dL Albumin (3.5-5.0) g/dL Globulin (2.2-3.9) gm/dL Albumin/Globulin Ratio (1.0-2.1) Vitamin B12 > 1000 H (239-931) pg/mL Folate 3.5 ng/mL Procalcitonin (0.19-0.49) NG/ML 03/06/17 03/06/17 03/06/17 Range/Units 10:51 06:26 06:23 WBC 37.5 H* D (4.8-10.8) K/uL RBC 3.88 L (4.40-5.90) Mil/uL Hgb 9.9 L (12.0-18.0) g/dL Hct 31.4 L (35.0-51.0) % MCV 80.8 (80.0-94.0) fL MCH 25.5 L (27.0-31.0) pg MCHC 31.6 L (33.0-37.0) g/dL RDW 15.6 H (11.5-14.5) % Plt Count 379 (130-400) K/uL MPV 7.7 (7.2-11.7) fL Neut % (Auto) 77.9 H (50.0-75.0) % Lymph % (Auto) 17.5 L (20.0-40.0) % Cloud % (Auto) 3.7 (0.0-10.0) % Eos % (Auto) 0.7 (0.0-4.0) % Baso % (Auto) 0.2 (0.0-2.0) % Neut # 29.3 H (1.8-7.0) K/uL Lymph # 6.6 H (1.0-4.3) K/uL Cloud # 1.4 H (0.0-0.8) K/uL Eos # 0.3 (0.0-0.7) K/uL Baso # 0.1 (0.0-0.2) K/uL Retic Count (0.5-1.5) % Puncture Site pCO2 (35-45) mm/Hg pO2 (80-100) mm/Hg HCO3 (21-28) mmol/L ABG pH (7.35-7.45) ABG Total CO2 (22-28) mmol/L ABG O2 Saturation (95-98) % ABG Base Excess (-2.0-3.0) mmol/L ABG Hemoglobin (11.7-17.4) g/dL ABG Carboxyhemoglobin (0.5-1.5) % POC ABG HHb (Measured) (0.0-5.0) % ABG Methemoglobin (0.0-3.0) % Jorge Test A-a O2 Difference mm/Hg Respiratory Index Hgb O2 Saturation (95.0-98.0) % Vent Mode Mechanical Rate FiO2 % Tidal Volume PEEP Sodium 137 (132-148) mmol/L Potassium 3.4 L (3.6-5.2) mmol/L Chloride 110 H (98-107) mmol/L Carbon Dioxide 26 (22-30) mmol/L Anion Gap 5 L (10-20) BUN 17 (9-20) mg/dL Creatinine 1.2 (0.8-1.5) mg/dL Est GFR ( Amer) > 60 Est GFR (Non-Af Amer) > 60 Random Glucose 92 (75-110) mg/dL Calcium 11.2 H (8.6-10.4) mg/dl Phosphorus 1.8 L (2.5-4.5) mg/dL Magnesium 1.8 (1.6-2.3) mg/dL Iron (49-181) ug/dL TIBC (250-450) ug/dL % Saturation (20-55) Ferritin ng/mL Total Bilirubin 0.6 (0.2-1.3) mg/dL AST 15 L (17-59) U/L ALT 28 (21-72) U/L Alkaline Phosphatase 77 (38-126) U/L Total Protein 5.6 L (6.3-8.3) g/dL Albumin 2.0 L (3.5-5.0) g/dL Globulin 3.6 (2.2-3.9) gm/dL Albumin/Globulin Ratio 0.6 L (1.0-2.1) Vitamin B12 (239-931) pg/mL Folate ng/mL Procalcitonin 6.05 H (0.19-0.49) NG/ML 03/06/17 Range/Units 05:22 WBC (4.8-10.8) K/uL RBC (4.40-5.90) Mil/uL Hgb (12.0-18.0) g/dL Hct (35.0-51.0) % MCV (80.0-94.0) fL MCH (27.0-31.0) pg MCHC (33.0-37.0) g/dL RDW (11.5-14.5) % Plt Count (130-400) K/uL MPV (7.2-11.7) fL Neut % (Auto) (50.0-75.0) % Lymph % (Auto) (20.0-40.0) % Cloud % (Auto) (0.0-10.0) % Eos % (Auto) (0.0-4.0) % Baso % (Auto) (0.0-2.0) % Neut # (1.8-7.0) K/uL Lymph # (1.0-4.3) K/uL Cloud # (0.0-0.8) K/uL Eos # (0.0-0.7) K/uL Baso # (0.0-0.2) K/uL Retic Count (0.5-1.5) % Puncture Site Rr pCO2 36 (35-45) mm/Hg pO2 161 H (80-100) mm/Hg HCO3 23.8 (21-28) mmol/L ABG pH 7.41 (7.35-7.45) ABG Total CO2 23.9 (22-28) mmol/L ABG O2 Saturation 99.9 H (95-98) % ABG Base Excess -1.5 (-2.0-3.0) mmol/L ABG Hemoglobin 10.2 L (11.7-17.4) g/dL ABG Carboxyhemoglobin 1.7 H (0.5-1.5) % POC ABG HHb (Measured) 0.1 (0.0-5.0) % ABG Methemoglobin 0.9 (0.0-3.0) % Jorge Test Pos A-a O2 Difference 293.0 mm/Hg Respiratory Index 1.8 Hgb O2 Saturation 97.4 (95.0-98.0) % Vent Mode Prvc Mechanical Rate 14 FiO2 70.0 % Tidal Volume 500 PEEP 5 Sodium (132-148) mmol/L Potassium (3.6-5.2) mmol/L Chloride (98-107) mmol/L Carbon Dioxide (22-30) mmol/L Anion Gap (10-20) BUN (9-20) mg/dL Creatinine (0.8-1.5) mg/dL Est GFR ( Amer) Est GFR (Non-Af Amer) Random Glucose (75-110) mg/dL Calcium (8.6-10.4) mg/dl Phosphorus (2.5-4.5) mg/dL Magnesium (1.6-2.3) mg/dL Iron (49-181) ug/dL TIBC (250-450) ug/dL % Saturation (20-55) Ferritin ng/mL Total Bilirubin (0.2-1.3) mg/dL AST (17-59) U/L ALT (21-72) U/L Alkaline Phosphatase (38-126) U/L Total Protein (6.3-8.3) g/dL Albumin (3.5-5.0) g/dL Globulin (2.2-3.9) gm/dL Albumin/Globulin Ratio (1.0-2.1) Vitamin B12 (239-931) pg/mL Folate ng/mL Procalcitonin (0.19-0.49) NG/ML Laboratory Results - last 24 hr 03/06/17 03/06/17 03/06/17 05:22 06:23 06:26 WBC 37.5 H* D RBC 3.88 L Hgb 9.9 L Hct 31.4 L MCV 80.8 MCH 25.5 L MCHC 31.6 L RDW 15.6 H Plt Count 379 MPV 7.7 Neut % (Auto) 77.9 H Lymph % (Auto) 17.5 L Cloud % (Auto) 3.7 Eos % (Auto) 0.7 Baso % (Auto) 0.2 Neut # 29.3 H Lymph # 6.6 H Cloud # 1.4 H Eos # 0.3 Baso # 0.1 Retic Count Puncture Site Rr pCO2 36 pO2 161 H HCO3 23.8 ABG pH 7.41 ABG Total CO2 23.9 ABG O2 Saturation 99.9 H ABG Base Excess -1.5 ABG Hemoglobin 10.2 L ABG Carboxyhemoglobin 1.7 H POC ABG HHb (Measured) 0.1 ABG Methemoglobin 0.9 Jorge Test Pos A-a O2 Difference 293.0 Respiratory Index 1.8 Hgb O2 Saturation 97.4 Vent Mode Prvc Mechanical Rate 14 FiO2 70.0 Tidal Volume 500 PEEP 5 Sodium 137 Potassium 3.4 L Chloride 110 H Carbon Dioxide 26 Anion Gap 5 L BUN 17 Creatinine 1.2 Est GFR ( Amer) > 60 Est GFR (Non-Af Amer) > 60 Random Glucose 92 Calcium 11.2 H Phosphorus 1.8 L Magnesium 1.8 Iron TIBC % Saturation Ferritin Total Bilirubin 0.6 AST 15 L ALT 28 Alkaline Phosphatase 77 Total Protein 5.6 L Albumin 2.0 L Globulin 3.6 Albumin/Globulin Ratio 0.6 L Vitamin B12 Folate Procalcitonin 03/06/17 03/06/17 03/06/17 10:51 10:51 10:51 WBC RBC Hgb Hct MCV MCH MCHC RDW Plt Count MPV Neut % (Auto) Lymph % (Auto) Cloud % (Auto) Eos % (Auto) Baso % (Auto) Neut # Lymph # Cloud # Eos # Baso # Retic Count Puncture Site pCO2 pO2 HCO3 ABG pH ABG Total CO2 ABG O2 Saturation ABG Base Excess ABG Hemoglobin ABG Carboxyhemoglobin POC ABG HHb (Measured) ABG Methemoglobin Jorge Test A-a O2 Difference Respiratory Index Hgb O2 Saturation Vent Mode Mechanical Rate FiO2 Tidal Volume PEEP Sodium Potassium Chloride Carbon Dioxide Anion Gap BUN Creatinine Est GFR ( Amer) Est GFR (Non-Af Amer) Random Glucose Calcium Phosphorus Magnesium Iron 10 L TIBC 134 L % Saturation 7.46 L Ferritin 407.0 Total Bilirubin AST ALT Alkaline Phosphatase Total Protein Albumin Globulin Albumin/Globulin Ratio Vitamin B12 > 1000 H Folate 3.5 Procalcitonin 6.05 H 03/06/17 10:51 WBC RBC Hgb Hct MCV MCH MCHC RDW Plt Count MPV Neut % (Auto) Lymph % (Auto) Cloud % (Auto) Eos % (Auto) Baso % (Auto) Neut # Lymph # Cloud # Eos # Baso # Retic Count 0.9 Puncture Site pCO2 pO2 HCO3 ABG pH ABG Total CO2 ABG O2 Saturation ABG Base Excess ABG Hemoglobin ABG Carboxyhemoglobin POC ABG HHb (Measured) ABG Methemoglobin Jorge Test A-a O2 Difference Respiratory Index Hgb O2 Saturation Vent Mode Mechanical Rate FiO2 Tidal Volume PEEP Sodium Potassium Chloride Carbon Dioxide Anion Gap BUN Creatinine Est GFR ( Amer) Est GFR (Non-Af Amer) Random Glucose Calcium Phosphorus Magnesium Iron TIBC % Saturation Ferritin Total Bilirubin AST ALT Alkaline Phosphatase Total Protein Albumin Globulin Albumin/Globulin Ratio Vitamin B12 Folate Procalcitonin Attending/Attestation - Attestation I have personally seen and examined this patient.: Yes I have fully participated in the care of the patient.: Yes I have reviewed all pertinent clinical information: Yes Notes (Text): patient seen and examined Patient intubated for respiratory distress, not tolerating BiPAP iV antibiotics Fluid resuscitation IV sedation discussed with family at length Family requesting DNR
[2017-03-05] MEDS ORDERED: Potassium Chloride 20 mEq/15 ml LIQ UD NG ONE (19:30)
--- NOTE | 2017-03-05 20:57 | CARD ---
APPROVED REPORT EKG Measurement Heart [id number] IL 112P [id number] <Conclusion> Sinus tachycardia Prolonged QT Abnormal ECG
[2017-03-06] MEDS: Phenylephrine 30 MG in Sodium Chloride 0.9% 250 ML IV PRN ×6 (00:31→23:45)
[2017-03-06 05:58] LABS: ABG ALLEN TEST POS; ABG MECHANICAL RATE 14; ARTERIAL BLOOD GAS MODE PRVC; ARTERIAL BLOOD HGB O2 SAT 97.4 % (95.0-98.0); ATERIAL BLOOD GAS PEEP 5; CARBOXYHEMOGLOBIN 1.7 % (0.5-1.5); DRAW SITE RR; HHB 0.1 % (0.0-5.0); METHEMOGLOBIN 0.9 % (0.0-3.0)
[2017-03-06] MEDS: Clindamycin 600mg/50ml NS 600 MG/50 ML BAG IVPB SCH ×3 (06:32→22:00)
[2017-03-06 06:34] LABS: BASO # 0.1 K/uL (0.0-0.2); BASO % 0.2 % (0.0-2.0); EOS # 0.3 K/uL (0.0-0.7); EOS % 0.7 % (0.0-4.0); HEMATOCRIT 31.4 % (35.0-51.0); LYMPH # 6.6 K/uL (1.0-4.3); LYMPH % 17.5 % (20.0-40.0); MEAN CELL VOLUME 80.8 fL (80.0-94.0); MEAN CORPUSCULAR HEMOGLOBIN 25.5 pg (27.0-31.0); MEAN CORPUSCULAR HGB CONC 31.6 g/dL (33.0-37.0); MEAN PLATELET VOLUME 7.7 fL (7.2-11.7); MONO # 1.4 K/uL (0.0-0.8); MONO % 3.7 % (0.0-10.0); RED CELL DISTRIBUTION WIDTH 15.6 % (11.5-14.5)
[2017-03-06 06:44] LABS: WHITE BLOOD COUNT 37.5 K/uL (4.8-10.8)
[2017-03-06 06:49] LABS: ALB/GLOB RATIO 0.6 (1.0-2.1); ALKALINE PHOSPHATASE 77 U/L (38-126); ALT/SGPT 28 U/L (21-72); AST/SGOT 15 U/L (17-59); BILIRUBIN,TOTAL 0.6 mg/dL (0.2-1.3); BLOOD UREA NITROGEN 17 mg/dL (9-20); CALCIUM 11.2 mg/dl (8.6-10.4); CARBON DIOXIDE 26 mmol/L (22-30); CHLORIDE 110 mmol/L (98-107); GFR AFRICAN-AMERICAN > 60; GLUCOSE,RANDOM 92 mg/dL (75-110); MAGNESIUM 1.8 mg/dL (1.6-2.3); PHOSPHOROUS 1.8 mg/dL (2.5-4.5); POTASSIUM 3.4 mmol/L (3.6-5.2); SODIUM 137 mmol/L (132-148); TOTAL PROTEIN 5.6 g/dL (6.3-8.3)
--- NOTE | 2017-03-06 09:43 | CP.PCM.PN ---
Subjective - Date & Time of Evaluation Date of Evaluation: 03/06/17 Time of Evaluation: 09:30 - Subjective Subjective: Hospitalist Progress Note Patient was seen and examined at 9:30 AM 03/06/17 ICU Bed 10. 56 year old male who was brought into ER via EMS on 03/04/17 after he fell at home. Upon arrival to the ER he was found to be confused, cachectic, hypoxic. CT Head showed age indeterminate ischemic changes in righ basal ganglia, acute on chronic subdural collection on left, subdural hygroma on the right. CT Chest showed large cavitary RUL mass with infiltrative/invasion on chest wall and destruction of adjacent ribs consistent with malignancy, right hilar and mediastinal adenopathy. CT Abdomen/Pelvis showed RUL mass with nodular opacities , RML and RLL suspicious for malignancy, splenic lesions possibly metastatic. His respiratory status shortly before exam on 03/05/17 declined and he was intubated by the ICU Team after informing patient's brother Holden Abarca and [id number] Sarah Abarca [phone], both of whom requested that patient be FULL CODE for the time being. Poor prognosis based upon current patient status and workup was explained to both Holden and Sarah 03/05/17. Holden spoke with Palliative Care Nurse Reyna and patient was subsequently made DNR with Limited Treatment (IV antibiotics and non-invasive positive airway pressure) as per GREGOR, a copy of which is in patient chart. ROS is NOT possible as patient is nonresponsive and intubated. Exam: General: intubated and on vent, cachectic appearance, likely fecal matter found underneath fingernails as per Nurse Red prior to my exam HEENT: Abrasions present on the frontal scalp, Left Pupil is dilated and Right Pupil is pinpoint and both sluggishly reactive to light, Nasal turbinates are dry, NO cervical lymphadenopathy, NO thyromegaly Cardio: NS1 and NS2, NO M/R/G however limited due to loud course breath sounds Resp: Course breath sounds diffusely GI: BSx4, soft, ND, NO HSM Ext: Pulses are strong and equal, NO edema, Capillary Refill is 2 seconds Neuro: NOT possible due to current patient state Assessment and Plan: 1). Acute Respiratory Failure Patient is intubated and on ventilator Phenylephrine 20 mcg/min Propofol 5 mcg/kg/min Continue NS @ 75 ml/hr Status: Acute 2). Lung Cavitary Lesion with Elevated WBC Likely secondary to malignancy but rule out TB Respiratory Isolation Cefepime 1 gm IV Q12H Clindamycin 600 mg I VQ8H Blood Culture 03/04/17 negative to date Urine Culture 03/04/17 no growth F/U PPD HIV Ab is negative Hepatitis Panel negative Sputum Culture and AFB 03/05/17 preliminary is negative MRSA Screen is negative Heme/Onc Dr. Fabienne Pantoja Palliative Care Nurse [place] ID Dr. Wilberto Sanches Status: Acute 3). Anemia Likely chronic considering his history of alcohol abuse F/U Iron Studies F/U Reticulocyte count F/U Vitamin B12 F/U Folate F/U Peripheral Smear Status: Chronic 4). Hypophosphotemia and Hypokalemia KPhos 15mmol IV x 1dose 5). Alcohol Abuse Bannana Bag @ 75 ml/hour 6). Hypercalcemia Secondary to Lung CA? IVF for now and if NO improvement then consider IV Zoledronic Acid 7). Possible CVA CT Head w/o contrast Consult Neurology Dr. Moore 8). Prophylaxis Pulmcare via NGT Protonix 40 mg IV 1x/day NO anticoagulation considering the anemia: Bilateral SCDs Poor prognosis explained to both brother Holden Abarca [phone] and Sister- in-Law Sarah Abarca [phone] on 03/05/17. He is currently DNR and POLST is in the chart: Limited Treatment (IV antibiotics and non-invasive positive airway pressure). Holden Abarca was updated as to the above today 03/06/17. Obed Anguiano D.O. Objective - Vital Signs/Intake and Output Vital Signs (last 24 hours): Temp Pulse Resp BP Pulse Ox 99.7 F H 105 H 17 85/52 L 98 03/06/17 00:00 03/06/17 08:00 03/06/17 08:00 03/06/17 07:45 03/06/17 08:00 Intake and Output: 03/06/17 03/06/17 06:59 18:59 Intake Total 2213.8 241 Output Total 105 0 Balance 2108.8 241 - Medications Medications: Current Medications Albumin Human (Albumin Human 25% (12.5 Gm/50 Ml)) .5 gm IV Q8H [facility] Stop: 03/07/17 01:46 Cefepime HCl (Maxipime Iv 1 Gm Premix) 1 gm in 50 mls @ 100 mls/hr IVPB Q12 [facility] Last Admin: 03/05/17 21:26 Dose: 100 mls/hr Clindamycin Phosphate (Cleocin In Normal Saline) 600 mg in 50 mls @ 100 mls/hr IVPB Q8H [facility] Last Admin: 03/06/17 06:32 Dose: 100 mls/hr Propofol (Diprivan) 1,000 mg in 100 mls @ 0.966 mls/hr IV .Q24H PRN; Protocol; 5 MCG/KG/MIN PRN Reason: TITRATE PER MD ORDER Last Titration: 03/05/17 18:42 Dose: 30 mcg/kg/min, 5.797 mls/hr Phenylephrine HCl 30 mg/ (Sodium Chloride) 253 mls @ 10.12 mls/hr IV .Q24H PRN ; Protocol; 20 MCG/MIN PRN Reason: TITRATE PER MD ORDER Last Admin: 03/06/17 06:33 Dose: 98.81 mcg/min, 50 mls/hr Sodium Chloride (Sodium Chloride 0.9%) 1,000 mls @ 100 mls/hr IV .Q10H [facility] Pantoprazole Sodium (Protonix Inj) 40 mg IVP DAILY [facility] Last Admin: 03/05/17 10:54 Dose: 40 mg Thiamine HCl (Vitamin B1 Inj) 100 mg IV DAILY [facility] Last Admin: 03/05/17 10:54 Dose: 100 mg - Labs Labs: 03/06/17 06:26 03/06/17 06:23 PT 14.1 SECONDS (9.7-12.2) H 03/04/17 20:15 INR 1.3 03/04/17 20:15 APTT 35 SECONDS (21-34) H 03/04/17 20:15
[2017-03-06] MEDS ORDERED: Sodium Chloride 0.9% 1,000 ML IV SCH (09:45)
[2017-03-06] MEDS ORDERED: Potassium Phosphate 15 MMOLE in Dextrose 5% In Water 250 ML IVPB ONE (10:00)
[2017-03-06] MEDS ORDERED: Folic Acid 1 MG, Thiamine 100 MG, Multivitamin (MVI) 10 ML in Dextrose 5% In Water 1,00... IV SCH ×2 (10:00→11:00)
[2017-03-06] MEDS: Albumin Human 25% (12.5 gm/50 ml) IV SCH ×2 (10:34→17:22)
[2017-03-06] MEDS: Cefepime IV 1 gm in Dextrose 1 GM/50 ML BAG IVPB SCH ×2 (10:34→22:30)
[2017-03-06] MEDS: Sodium Chloride 0.9% 1,000 ML IV SCH ×2 (10:36→23:30)
--- NOTE | 2017-03-06 12:09 | RAD ---
HISTORY: intubated COMPARISON: No prior. FINDINGS: In situ ETT, tip of which lies approximately 6.58 cm above megan. NGT is present, tip of which overlies left upper quadrant of the abdomen. Right IJ central line with tip in the SVC. LUNGS: Lobular pleural-based opacity with eccentric presumed air-filled cavitary changes right upper lobe. Areas of presumed cystic bronchiectasis with blebs and small bullous changes in the right lung apex. Centrilobular emphysematous changes left upper lobe are less well seen on this study as compared to high-resolution CT scan. PLEURA: No significant pleural effusion identified, no pneumothorax apparent. CARDIOVASCULAR: Normal. OSSEOUS STRUCTURES: No significant abnormalities. VISUALIZED UPPER ABDOMEN: Normal. OTHER FINDINGS: None. IMPRESSION: Lobular pleural-based opacity with eccentric presumed air-filled cavitary changes right upper lobe. Areas of presumed cystic bronchiectasis with blebs and small bullous changes in the right lung apex. Centrilobular emphysematous changes left upper lobe are less well seen on this study as compared to high-resolution CT scan.
[2017-03-06 12:12] LABS: FOLATE 3.5 ng/mL
--- NOTE | 2017-03-06 13:45 | CP.CCUPN ---
<Willian Krishnan - Last Filed: 03/06/17 13:41> CCU Subjective - Physician Review Subjective (Free Text): PGY1 ICU progress note for Dr. Espitia Patient seen and examined at bedside this morning. No acute events overnight. Patient is intubated. ROS unattainable. CCU Objective - Vital Signs / Intake & Output Vital Signs (Last 4 hours): Vital Signs Pulse Resp BP Pulse Ox 03/06/17 11:04 106 H 16 92/58 L 98 03/06/17 11:02 106 H 14 92/58 L 99 03/06/17 11:00 105 H 17 98 03/06/17 10:02 107 H 18 83/59 L 97 03/06/17 10:00 106 H 18 98 Intake and Output (Last 8hrs): Intake & Output 03/05/17 03/06/17 03/06/17 22:59 06:59 14:59 Intake Total 1189.7 1584 1360.1 Output Total 95 60 40 Balance 1094.7 1524 1320.1 Weight 70 lb 6.4 oz Intake: IV 103 450 153 Intake, IV Amount 671.7 874 997.1 Right Distal Port 22.3 24 134.3 Internal Jugular Right Forearm 3.8 Right Medial Port 450 450 525 Internal Jugular Right Proximal Port 199.4 400 334 Internal Jugular Tube Feeding 190 260 210 Other 225 Output: Urine 95 60 40 Urethral (Mercedes) 95 60 40 Other: # Bowel Movements 0 0 0 - Physical Exam Head: Positive for: Abrasion (top of head, heal. no erythema) Pupils: Positive for: Sluggish, Other (uneven, left larger than right.) Conjunctiva: Positive for: Normal Mouth: Positive for: Other (intubated) Respiratory/Chest: Positive for: Decreased Breath Sounds (RUL) Cardiovascular: Positive for: Tachycardic Abdomen: Negative for: Tenderness, Distention, Peritoneal Signs Upper Extremity: Positive for: Normal Inspection, NORMAL PULSES. Negative for: Edema Lower Extremity: Positive for: Normal Inspection, NORMAL PULSES. Negative for: Edema, CALF TENDERNESS Neurological: Positive for: Other (intubated) Skin: Positive for: Warm, Dry Psychiatric: Positive for: Other (intubated) - Medications Active Medications: Active Medications Generic Name Dose Route Start Last Admin Trade Name Freq PRN Reason Stop Dose Admin Albumin Human 12.5 gm 03/06/17 09:45 03/06/17 10:34 Albumin Human 25% (12.5 Gm/50 Ml) IV 03/07/17 01:46 12.5 gm Q8H JACK Administration Cefepime HCl 1 gm in 50 mls @ 100 mls/hr 03/04/17 22:00 03/06/17 10:34 Maxipime Iv 1 Gm Premix IVPB 100 mls/hr Q12 JACK Administration Clindamycin Phosphate 600 mg in 50 mls @ 100 mls/hr 03/04/17 22:45 03/06/17 06:32 Cleocin In Normal Saline IVPB 100 mls/hr Q8H JACK Administration Propofol 1,000 mg in 100 mls @ 0.966 mls/hr 03/05/17 10:56 03/06/17 09:00 Diprivan IV 10 mcg/kg/min .Q24H PRN 1.932 mls/hr TITRATE PER MD ORDER Titration Protocol 5 MCG/KG/MIN Phenylephrine HCl 30 mg/ 253 mls @ 10.12 mls/hr 03/05/17 16:45 03/06/17 11:06 Sodium Chloride IV 150 mcg/min .Q24H PRN 75.9 mls/hr TITRATE PER MD ORDER Titration Protocol 20 MCG/MIN Potassium Phosphate 15 mmole/ 255 mls @ 42.5 mls/hr 03/06/17 10:00 03/06/17 10:37 Dextrose IVPB 03/06/17 15:59 42.5 mls/hr ONCE ONE Administration Folic Acid 1 mg/ Thiamine HCl 1,011.2 mls @ 75 mls/hr 03/06/17 11:00 11:06 100 mg/ Multivitamins/Vitamin IV 75 mls/hr C 10 ml/ Dextrose .[id number] JACK Administration Sodium Chloride 1,000 mls @ 75 mls/hr 03/06/17 10:30 03/06/17 10:36 Sodium Chloride 0.9% IV 75 mls/hr .[id number] JACK Administration Pantoprazole Sodium 40 mg 03/05/17 10:00 03/06/17 10:32 Protonix Inj IVP 40 mg DAILY JACK Administration - Patient Studies Lab Studies: Microbiology Studies 03/04/17 08:00 MRSA Culture (Admit) - Final Naris MRSA NOT DETECTED 03/04/17 08:00 Urine Culture - Final Urine No Growth (<1,000 CFU/ML) 03/04/17 20:40 Blood Culture - Preliminary Blood NO GROWTH AFTER 24 HOURS 03/04/17 20:10 Blood Culture - Preliminary Blood NO GROWTH AFTER 24 HOURS 03/05/17 22:17 Gram Stain - Final Sputum Induced Lab Studies 03/06/17 03/06/17 03/06/17 Range/Units 10:51 10:51 10:51 WBC (4.8-10.8) K/uL RBC (4.40-5.90) Mil/uL Hgb (12.0-18.0) g/dL Hct (35.0-51.0) % MCV (80.0-94.0) fL MCH (27.0-31.0) pg MCHC (33.0-37.0) g/dL RDW (11.5-14.5) % Plt Count (130-400) K/uL MPV (7.2-11.7) fL Neut % (Auto) (50.0-75.0) % Lymph % (Auto) (20.0-40.0) % Dewitt % (Auto) (0.0-10.0) % Eos % (Auto) (0.0-4.0) % Baso % (Auto) (0.0-2.0) % Neut # (1.8-7.0) K/uL Lymph # (1.0-4.3) K/uL Dewitt # (0.0-0.8) K/uL Eos # (0.0-0.7) K/uL Baso # (0.0-0.2) K/uL Retic Count 0.9 (0.5-1.5) % Puncture Site pCO2 (35-45) mm/Hg pO2 (80-100) mm/Hg HCO3 (21-28) mmol/L ABG pH (7.35-7.45) ABG Total CO2 (22-28) mmol/L ABG O2 Saturation (95-98) % ABG Base Excess (-2.0-3.0) mmol/L ABG Hemoglobin (11.7-17.4) g/dL ABG Carboxyhemoglobin (0.5-1.5) % POC ABG HHb (Measured) (0.0-5.0) % ABG Methemoglobin (0.0-3.0) % Jorge Test A-a O2 Difference mm/Hg Respiratory Index Hgb O2 Saturation (95.0-98.0) % Vent Mode Mechanical Rate FiO2 % Tidal Volume PEEP Sodium (132-148) mmol/L Potassium (3.6-5.2) mmol/L Chloride (98-107) mmol/L Carbon Dioxide (22-30) mmol/L Anion Gap (10-20) BUN (9-20) mg/dL Creatinine (0.8-1.5) mg/dL Est GFR ( Amer) Est GFR (Non-Af Amer) Random Glucose (75-110) mg/dL Calcium (8.6-10.4) mg/dl Phosphorus (2.5-4.5) mg/dL Magnesium (1.6-2.3) mg/dL Iron 10 L (49-181) ug/dL TIBC 134 L (250-450) ug/dL % Saturation 7.46 L (20-55) Ferritin 407.0 ng/mL Total Bilirubin (0.2-1.3) mg/dL AST (17-59) U/L ALT (21-72) U/L Alkaline Phosphatase (38-126) U/L Total Protein (6.3-8.3) g/dL Albumin (3.5-5.0) g/dL Globulin (2.2-3.9) gm/dL Albumin/Globulin Ratio (1.0-2.1) Folate 3.5 ng/mL 03/06/17 03/06/17 03/06/17 Range/Units 06:26 06:23 05:22 WBC 37.5 H* D (4.8-10.8) K/uL RBC 3.88 L (4.40-5.90) Mil/uL Hgb 9.9 L (12.0-18.0) g/dL Hct 31.4 L (35.0-51.0) % MCV 80.8 (80.0-94.0) fL MCH 25.5 L (27.0-31.0) pg MCHC 31.6 L (33.0-37.0) g/dL RDW 15.6 H (11.5-14.5) % Plt Count 379 (130-400) K/uL MPV 7.7 (7.2-11.7) fL Neut % (Auto) 77.9 H (50.0-75.0) % Lymph % (Auto) 17.5 L (20.0-40.0) % Dewitt % (Auto) 3.7 (0.0-10.0) % Eos % (Auto) 0.7 (0.0-4.0) % Baso % (Auto) 0.2 (0.0-2.0) % Neut # 29.3 H (1.8-7.0) K/uL Lymph # 6.6 H (1.0-4.3) K/uL Dewitt # 1.4 H (0.0-0.8) K/uL Eos # 0.3 (0.0-0.7) K/uL Baso # 0.1 (0.0-0.2) K/uL Retic Count (0.5-1.5) % Puncture Site Rr pCO2 36 (35-45) mm/Hg pO2 161 H (80-100) mm/Hg HCO3 23.8 (21-28) mmol/L ABG pH 7.41 (7.35-7.45) ABG Total CO2 23.9 (22-28) mmol/L ABG O2 Saturation 99.9 H (95-98) % ABG Base Excess -1.5 (-2.0-3.0) mmol/L ABG Hemoglobin 10.2 L (11.7-17.4) g/dL ABG Carboxyhemoglobin 1.7 H (0.5-1.5) % POC ABG HHb (Measured) 0.1 (0.0-5.0) % ABG Methemoglobin 0.9 (0.0-3.0) % Jorge Test Pos A-a O2 Difference 293.0 mm/Hg Respiratory Index 1.8 Hgb O2 Saturation 97.4 (95.0-98.0) % Vent Mode Prvc Mechanical Rate 14 FiO2 70.0 % Tidal Volume 500 PEEP 5 Sodium 137 (132-148) mmol/L Potassium 3.4 L (3.6-5.2) mmol/L Chloride 110 H (98-107) mmol/L Carbon Dioxide 26 (22-30) mmol/L Anion Gap 5 L (10-20) BUN 17 (9-20) mg/dL Creatinine 1.2 (0.8-1.5) mg/dL Est GFR ( Amer) > 60 Est GFR (Non-Af Amer) > 60 Random Glucose 92 (75-110) mg/dL Calcium 11.2 H (8.6-10.4) mg/dl Phosphorus 1.8 L (2.5-4.5) mg/dL Magnesium 1.8 (1.6-2.3) mg/dL Iron (49-181) ug/dL TIBC (250-450) ug/dL % Saturation (20-55) Ferritin ng/mL Total Bilirubin 0.6 (0.2-1.3) mg/dL AST 15 L (17-59) U/L ALT 28 (21-72) U/L Alkaline Phosphatase 77 (38-126) U/L Total Protein 5.6 L (6.3-8.3) g/dL Albumin 2.0 L (3.5-5.0) g/dL Globulin 3.6 (2.2-3.9) gm/dL Albumin/Globulin Ratio 0.6 L (1.0-2.1) Folate ng/mL Laboratory Results - last 24 hr 03/06/17 03/06/17 03/06/17 05:22 06:23 06:26 WBC 37.5 H* D RBC 3.88 L Hgb 9.9 L Hct 31.4 L MCV 80.8 MCH 25.5 L MCHC 31.6 L RDW 15.6 H Plt Count 379 MPV 7.7 Neut % (Auto) 77.9 H Lymph % (Auto) 17.5 L Dewitt % (Auto) 3.7 Eos % (Auto) 0.7 Baso % (Auto) 0.2 Neut # 29.3 H Lymph # 6.6 H Dewitt # 1.4 H Eos # 0.3 Baso # 0.1 Retic Count Puncture Site Rr pCO2 36 pO2 161 H HCO3 23.8 ABG pH 7.41 ABG Total CO2 23.9 ABG O2 Saturation 99.9 H ABG Base Excess -1.5 ABG Hemoglobin 10.2 L ABG Carboxyhemoglobin 1.7 H POC ABG HHb (Measured) 0.1 ABG Methemoglobin 0.9 Jorge Test Pos A-a O2 Difference 293.0 Respiratory Index 1.8 Hgb O2 Saturation 97.4 Vent Mode Prvc Mechanical Rate 14 FiO2 70.0 Tidal Volume 500 PEEP 5 Sodium 137 Potassium 3.4 L Chloride 110 H Carbon Dioxide 26 Anion Gap 5 L BUN 17 Creatinine 1.2 Est GFR ( Amer) > 60 Est GFR (Non-Af Amer) > 60 Random Glucose 92 Calcium 11.2 H Phosphorus 1.8 L Magnesium 1.8 Iron TIBC % Saturation Ferritin Total Bilirubin 0.6 AST 15 L ALT 28 Alkaline Phosphatase 77 Total Protein 5.6 L Albumin 2.0 L Globulin 3.6 Albumin/Globulin Ratio 0.6 L Folate 03/06/17 03/06/17 03/06/17 10:51 10:51 10:51 WBC RBC Hgb Hct MCV MCH MCHC RDW Plt Count MPV Neut % (Auto) Lymph % (Auto) Dewitt % (Auto) Eos % (Auto) Baso % (Auto) Neut # Lymph # Dewitt # Eos # Baso # Retic Count 0.9 Puncture Site pCO2 pO2 HCO3 ABG pH ABG Total CO2 ABG O2 Saturation ABG Base Excess ABG Hemoglobin ABG Carboxyhemoglobin POC ABG HHb (Measured) ABG Methemoglobin Jorge Test A-a O2 Difference Respiratory Index Hgb O2 Saturation Vent Mode Mechanical Rate FiO2 Tidal Volume PEEP Sodium Potassium Chloride Carbon Dioxide Anion Gap BUN Creatinine Est GFR ( Amer) Est GFR (Non-Af Amer) Random Glucose Calcium Phosphorus Magnesium Iron 10 L TIBC 134 L % Saturation 7.46 L Ferritin 407.0 Total Bilirubin AST ALT Alkaline Phosphatase Total Protein Albumin Globulin Albumin/Globulin Ratio Folate 3.5 Fingerstick Blood Sugar Results: 94 Review of Systems - Review of Systems Systems not reviewed;Unavailable: Intubated Assessment/Plan - Assessment and Plan (Free Text) Assessment: 56 year old cachectic male with no known PMH presenting with cough, loss of weight, confusion and right upper lobe infiltrate with leucocytosis, thrombocytosis, hyponatremia, hypercalcemia and dehydration. Most likely has lung malignancy, r/o pneumonia/lung abscess. Plan: Pulmonary: intubated RUL infiltrate WBC 37.5 (23.6 on 03/05) CXR 03/06 - Lobular pleural-based opacity with eccentric presumed air-filled cavitary changes right upper lobe. Areas of presumed cystic bronchiectasis with blebs and small bullous changes in the right lung apex. Centrilobular emphysematous changes left upper lobe are less well seen on this study as compared to high-resolution CT scan Chest CT w/angio - Large cavitary right upper lobe mass with infiltration/ invasion of the chest wall and destruction of adjacent ribs, findings are consistent with malignancy; right hilar and mediastinal adenopathy; no aneurysm, dissection or pulmonary embolus. ABG - pCO2 36, pO2 161, HCO3 23.8, pH 7.41 vent settings 500/70/14/5 - decrease FiO2 50% Cefepime 1gm IVPB q12h Clindamycin 600mg IVPB q8h f/u sputum culture f/u procalcitonin Blood cultures negative at 24 hours x2 Urine culture negative CV: hypotension Phenylephrine drip NS @75mL/hr Neuro: sedated hx of alcohol abuse Head CT 03/04 - Mild atrophy and small vessel disease; age indeterminate ischemic changes right basal ganglia; acute on chronic subdural collection on the left; subacute subdural hygroma on the right, no midline shift f/u head CT - r/o stroke Propofol drip D5W with Folic Acid/Thiamine/Multivitamin added @75 mL/hr (both NS and banana bag are both running at the same time.) Prophylactic Care: Protonix 40mg IVP daily SCDs Patient made DNR by brotherHolden (P.O.A) Case discussed with Dr. Omkar Velascon PGY1 <David Espitia - Last Filed: 03/06/17 17:26> CCU Objective - Vital Signs / Intake & Output Vital Signs (Last 4 hours): Vital Signs Pulse Resp BP Pulse Ox 03/06/17 16:24 89 16 86/56 L 100 Intake and Output (Last 8hrs): Intake & Output 03/06/17 03/06/17 03/06/17 06:59 14:59 22:59 Intake Total 1584 2260.9 910.7 Output Total 60 45 10 Balance 1524 2215.9 900.7 Weight 70 lb 6.4 oz Intake: IV 450 403 Intake, IV Amount 874 1577.9 805.7 Right Distal Port 24 259.3 125.0 Internal Jugular Right Forearm 7.6 5.7 Right Medial Port 450 827 450 Internal Jugular Right Proximal Port 400 484 225 Internal Jugular Tube Feeding 260 280 105 Output: Urine 60 45 10 Urethral (Mercedes) 60 45 10 Other: # Bowel Movements 0 0 0 - Medications Active Medications: Active Medications Generic Name Dose Route Start Last Admin Trade Name Freq PRN Reason Stop Dose Admin Albumin Human 12.5 gm 03/06/17 09:45 03/06/17 17:22 Albumin Human 25% (12.5 Gm/50 Ml) IV 03/07/17 01:46 12.5 gm Q8H JACK Administration Cefepime HCl 1 gm in 50 mls @ 100 mls/hr 03/04/17 22:00 03/06/17 10:34 Maxipime Iv 1 Gm Premix IVPB 100 mls/hr Q12 JACK Administration Clindamycin Phosphate 600 mg in 50 mls @ 100 mls/hr 03/04/17 22:45 03/06/17 15:20 Cleocin In Normal Saline IVPB 100 mls/hr Q8H JACK Administration Propofol 1,000 mg in 100 mls @ 0.966 mls/hr 03/05/17 10:56 03/06/17 09:00 Diprivan IV 10 mcg/kg/min .Q24H PRN 1.932 mls/hr TITRATE PER MD ORDER Titration Protocol 5 MCG/KG/MIN Phenylephrine HCl 30 mg/ 253 mls @ 10.12 mls/hr 03/05/17 16:45 03/06/17 16:24 Sodium Chloride IV 150 mcg/min .Q24H PRN 75.9 mls/hr TITRATE PER MD ORDER Administration Protocol 20 MCG/MIN Sodium Chloride 1,000 mls @ 75 mls/hr 03/06/17 10:30 03/06/17 10:36 Sodium Chloride 0.9% IV 75 mls/hr .[id number] JACK Administration Folic Acid 1 mg/ Thiamine HCl 1,011.2 mls @ 75 mls/hr 03/07/17 10:00 100 mg/ Multivitamins/Vitamin IV C 10 ml/ Dextrose DAILY JACK Pantoprazole Sodium 40 mg 03/05/17 10:00 03/06/17 10:32 Protonix Inj IVP 40 mg DAILY JACK Administration - Patient Studies Lab Studies: Microbiology Studies 03/04/17 08:00 MRSA Culture (Admit) - Final Naris MRSA NOT DETECTED 03/04/17 08:00 Urine Culture - Final Urine No Growth (<1,000 CFU/ML) 03/04/17 20:40 Blood Culture - Preliminary Blood NO GROWTH AFTER 24 HOURS 03/04/17 20:10 Blood Culture - Preliminary Blood NO GROWTH AFTER 24 HOURS 03/05/17 22:17 Gram Stain - Final Sputum Induced Lab Studies 03/06/17 03/06/17 03/06/17 Range/Units 10:51 10:51 10:51 WBC (4.8-10.8) K/uL RBC (4.40-5.90) Mil/uL Hgb (12.0-18.0) g/dL Hct (35.0-51.0) % MCV (80.0-94.0) fL MCH (27.0-31.0) pg MCHC (33.0-37.0) g/dL RDW (11.5-14.5) % Plt Count (130-400) K/uL MPV (7.2-11.7) fL Neut % (Auto) (50.0-75.0) % Lymph % (Auto) (20.0-40.0) % Dewitt % (Auto) (0.0-10.0) % Eos % (Auto) (0.0-4.0) % Baso % (Auto) (0.0-2.0) % Neut # (1.8-7.0) K/uL Lymph # (1.0-4.3) K/uL Dewitt # (0.0-0.8) K/uL Eos # (0.0-0.7) K/uL Baso # (0.0-0.2) K/uL Retic Count 0.9 (0.5-1.5) % Puncture Site pCO2 (35-45) mm/Hg pO2 (80-100) mm/Hg HCO3 (21-28) mmol/L ABG pH (7.35-7.45) ABG Total CO2 (22-28) mmol/L ABG O2 Saturation (95-98) % ABG Base Excess (-2.0-3.0) mmol/L ABG Hemoglobin (11.7-17.4) g/dL ABG Carboxyhemoglobin (0.5-1.5) % POC ABG HHb (Measured) (0.0-5.0) % ABG Methemoglobin (0.0-3.0) % Jorge Test A-a O2 Difference mm/Hg Respiratory Index Hgb O2 Saturation (95.0-98.0) % Vent Mode Mechanical Rate FiO2 % Tidal Volume PEEP Sodium (132-148) mmol/L Potassium (3.6-5.2) mmol/L Chloride (98-107) mmol/L Carbon Dioxide (22-30) mmol/L Anion Gap (10-20) BUN (9-20) mg/dL Creatinine (0.8-1.5) mg/dL Est GFR ( Amer) Est GFR (Non-Af Amer) Random Glucose (75-110) mg/dL Calcium (8.6-10.4) mg/dl Phosphorus (2.5-4.5) mg/dL Magnesium (1.6-2.3) mg/dL Iron 10 L (49-181) ug/dL TIBC 134 L (250-450) ug/dL % Saturation 7.46 L (20-55) Ferritin 407.0 ng/mL Total Bilirubin (0.2-1.3) mg/dL AST (17-59) U/L ALT (21-72) U/L Alkaline Phosphatase (38-126) U/L Total Protein (6.3-8.3) g/dL Albumin (3.5-5.0) g/dL Globulin (2.2-3.9) gm/dL Albumin/Globulin Ratio (1.0-2.1) Vitamin B12 > 1000 H (239-931) pg/mL Folate 3.5 ng/mL Procalcitonin (0.19-0.49) NG/ML 03/06/17 03/06/17 03/06/17 Range/Units 10:51 06:26 06:23 WBC 37.5 H* D (4.8-10.8) K/uL RBC 3.88 L (4.40-5.90) Mil/uL Hgb 9.9 L (12.0-18.0) g/dL Hct 31.4 L (35.0-51.0) % MCV 80.8 (80.0-94.0) fL MCH 25.5 L (27.0-31.0) pg MCHC 31.6 L (33.0-37.0) g/dL RDW 15.6 H (11.5-14.5) % Plt Count 379 (130-400) K/uL MPV 7.7 (7.2-11.7) fL Neut % (Auto) 77.9 H (50.0-75.0) % Lymph % (Auto) 17.5 L (20.0-40.0) % Dewitt % (Auto) 3.7 (0.0-10.0) % Eos % (Auto) 0.7 (0.0-4.0) % Baso % (Auto) 0.2 (0.0-2.0) % Neut # 29.3 H (1.8-7.0) K/uL Lymph # 6.6 H (1.0-4.3) K/uL Dewitt # 1.4 H (0.0-0.8) K/uL Eos # 0.3 (0.0-0.7) K/uL Baso # 0.1 (0.0-0.2) K/uL Retic Count (0.5-1.5) % Puncture Site pCO2 (35-45) mm/Hg pO2 (80-100) mm/Hg HCO3 (21-28) mmol/L ABG pH (7.35-7.45) ABG Total CO2 (22-28) mmol/L ABG O2 Saturation (95-98) % ABG Base Excess (-2.0-3.0) mmol/L ABG Hemoglobin (11.7-17.4) g/dL ABG Carboxyhemoglobin (0.5-1.5) % POC ABG HHb (Measured) (0.0-5.0) % ABG Methemoglobin (0.0-3.0) % Jorge Test A-a O2 Difference mm/Hg Respiratory Index Hgb O2 Saturation (95.0-98.0) % Vent Mode Mechanical Rate FiO2 % Tidal Volume PEEP Sodium 137 (132-148) mmol/L Potassium 3.4 L (3.6-5.2) mmol/L Chloride 110 H (98-107) mmol/L Carbon Dioxide 26 (22-30) mmol/L Anion Gap 5 L (10-20) BUN 17 (9-20) mg/dL Creatinine 1.2 (0.8-1.5) mg/dL Est GFR ( Amer) > 60 Est GFR (Non-Af Amer) > 60 Random Glucose 92 (75-110) mg/dL Calcium 11.2 H (8.6-10.4) mg/dl Phosphorus 1.8 L (2.5-4.5) mg/dL Magnesium 1.8 (1.6-2.3) mg/dL Iron (49-181) ug/dL TIBC (250-450) ug/dL % Saturation (20-55) Ferritin ng/mL Total Bilirubin 0.6 (0.2-1.3) mg/dL AST 15 L (17-59) U/L ALT 28 (21-72) U/L Alkaline Phosphatase 77 (38-126) U/L Total Protein 5.6 L (6.3-8.3) g/dL Albumin 2.0 L (3.5-5.0) g/dL Globulin 3.6 (2.2-3.9) gm/dL Albumin/Globulin Ratio 0.6 L (1.0-2.1) Vitamin B12 (239-931) pg/mL Folate ng/mL Procalcitonin 6.05 H (0.19-0.49) NG/ML 03/06/17 Range/Units 05:22 WBC (4.8-10.8) K/uL RBC (4.40-5.90) Mil/uL Hgb (12.0-18.0) g/dL Hct (35.0-51.0) % MCV (80.0-94.0) fL MCH (27.0-31.0) pg MCHC (33.0-37.0) g/dL RDW (11.5-14.5) % Plt Count (130-400) K/uL MPV (7.2-11.7) fL Neut % (Auto) (50.0-75.0) % Lymph % (Auto) (20.0-40.0) % Dewitt % (Auto) (0.0-10.0) % Eos % (Auto) (0.0-4.0) % Baso % (Auto) (0.0-2.0) % Neut # (1.8-7.0) K/uL Lymph # (1.0-4.3) K/uL Dewitt # (0.0-0.8) K/uL Eos # (0.0-0.7) K/uL Baso # (0.0-0.2) K/uL Retic Count (0.5-1.5) % Puncture Site Rr pCO2 36 (35-45) mm/Hg pO2 161 H (80-100) mm/Hg HCO3 23.8 (21-28) mmol/L ABG pH 7.41 (7.35-7.45) ABG Total CO2 23.9 (22-28) mmol/L ABG O2 Saturation 99.9 H (95-98) % ABG Base Excess -1.5 (-2.0-3.0) mmol/L ABG Hemoglobin 10.2 L (11.7-17.4) g/dL ABG Carboxyhemoglobin 1.7 H (0.5-1.5) % POC ABG HHb (Measured) 0.1 (0.0-5.0) % ABG Methemoglobin 0.9 (0.0-3.0) % Jorge Test Pos A-a O2 Difference 293.0 mm/Hg Respiratory Index 1.8 Hgb O2 Saturation 97.4 (95.0-98.0) % Vent Mode Prvc Mechanical Rate 14 FiO2 70.0 % Tidal Volume 500 PEEP 5 Sodium (132-148) mmol/L Potassium (3.6-5.2) mmol/L Chloride (98-107) mmol/L Carbon Dioxide (22-30) mmol/L Anion Gap (10-20) BUN (9-20) mg/dL Creatinine (0.8-1.5) mg/dL Est GFR ( Amer) Est GFR (Non-Af Amer) Random Glucose (75-110) mg/dL Calcium (8.6-10.4) mg/dl Phosphorus (2.5-4.5) mg/dL Magnesium (1.6-2.3) mg/dL Iron (49-181) ug/dL TIBC (250-450) ug/dL % Saturation (20-55) Ferritin ng/mL Total Bilirubin (0.2-1.3) mg/dL AST (17-59) U/L ALT (21-72) U/L Alkaline Phosphatase (38-126) U/L Total Protein (6.3-8.3) g/dL Albumin (3.5-5.0) g/dL Globulin (2.2-3.9) gm/dL Albumin/Globulin Ratio (1.0-2.1) Vitamin B12 (239-931) pg/mL Folate ng/mL Procalcitonin (0.19-0.49) NG/ML Laboratory Results - last 24 hr 03/06/17 03/06/17 03/06/17 05:22 06:23 06:26 WBC 37.5 H* D RBC 3.88 L Hgb 9.9 L Hct 31.4 L MCV 80.8 MCH 25.5 L MCHC 31.6 L RDW 15.6 H Plt Count 379 MPV 7.7 Neut % (Auto) 77.9 H Lymph % (Auto) 17.5 L Dewitt % (Auto) 3.7 Eos % (Auto) 0.7 Baso % (Auto) 0.2 Neut # 29.3 H Lymph # 6.6 H Dewitt # 1.4 H Eos # 0.3 Baso # 0.1 Retic Count Puncture Site Rr pCO2 36 pO2 161 H HCO3 23.8 ABG pH 7.41 ABG Total CO2 23.9 ABG O2 Saturation 99.9 H ABG Base Excess -1.5 ABG Hemoglobin 10.2 L ABG Carboxyhemoglobin 1.7 H POC ABG HHb (Measured) 0.1 ABG Methemoglobin 0.9 Jorge Test Pos A-a O2 Difference 293.0 Respiratory Index 1.8 Hgb O2 Saturation 97.4 Vent Mode Prvc Mechanical Rate 14 FiO2 70.0 Tidal Volume 500 PEEP 5 Sodium 137 Potassium 3.4 L Chloride 110 H Carbon Dioxide 26 Anion Gap 5 L BUN 17 Creatinine 1.2 Est GFR ( Amer) > 60 Est GFR (Non-Af Amer) > 60 Random Glucose 92 Calcium 11.2 H Phosphorus 1.8 L Magnesium 1.8 Iron TIBC % Saturation Ferritin Total Bilirubin 0.6 AST 15 L ALT 28 Alkaline Phosphatase 77 Total Protein 5.6 L Albumin 2.0 L Globulin 3.6 Albumin/Globulin Ratio 0.6 L Vitamin B12 Folate Procalcitonin 03/06/17 03/06/17 03/06/17 10:51 10:51 10:51 WBC RBC Hgb Hct MCV MCH MCHC RDW Plt Count MPV Neut % (Auto) Lymph % (Auto) Dewitt % (Auto) Eos % (Auto) Baso % (Auto) Neut # Lymph # Dewitt # Eos # Baso # Retic Count Puncture Site pCO2 pO2 HCO3 ABG pH ABG Total CO2 ABG O2 Saturation ABG Base Excess ABG Hemoglobin ABG Carboxyhemoglobin POC ABG HHb (Measured) ABG Methemoglobin Jorge Test A-a O2 Difference Respiratory Index Hgb O2 Saturation Vent Mode Mechanical Rate FiO2 Tidal Volume PEEP Sodium Potassium Chloride Carbon Dioxide Anion Gap BUN Creatinine Est GFR ( Amer) Est GFR (Non-Af Amer) Random Glucose Calcium Phosphorus Magnesium Iron 10 L TIBC 134 L % Saturation 7.46 L Ferritin 407.0 Total Bilirubin AST ALT Alkaline Phosphatase Total Protein Albumin Globulin Albumin/Globulin Ratio Vitamin B12 > 1000 H Folate 3.5 Procalcitonin 6.05 H 03/06/17 10:51 WBC RBC Hgb Hct MCV MCH MCHC RDW Plt Count MPV Neut % (Auto) Lymph % (Auto) Dewitt % (Auto) Eos % (Auto) Baso % (Auto) Neut # Lymph # Dewitt # Eos # Baso # Retic Count 0.9 Puncture Site pCO2 pO2 HCO3 ABG pH ABG Total CO2 ABG O2 Saturation ABG Base Excess ABG Hemoglobin ABG Carboxyhemoglobin POC ABG HHb (Measured) ABG Methemoglobin Jorge Test A-a O2 Difference Respiratory Index Hgb O2 Saturation Vent Mode Mechanical Rate FiO2 Tidal Volume PEEP Sodium Potassium Chloride Carbon Dioxide Anion Gap BUN Creatinine Est GFR ( Amer) Est GFR (Non-Af Amer) Random Glucose Calcium Phosphorus Magnesium Iron TIBC % Saturation Ferritin Total Bilirubin AST ALT Alkaline Phosphatase Total Protein Albumin Globulin Albumin/Globulin Ratio Vitamin B12 Folate Procalcitonin Attending/Attestation - Attestation I have personally seen and examined this patient.: Yes I have fully participated in the care of the patient.: Yes I have reviewed all pertinent clinical information: Yes Notes (Text): 03/06/17 17:24 patient seen and examined in the intensive care unit. Case discussed with STAFF in the morning around. Patient remains intubated on ventilatory support Sedated On phenylephrine drip Continue IV fluids Banana bag CAT scan of the head to rule out metastases Patient DNR Continue antibiotics oGT feeding prognosis poor
[2017-03-06] MEDS ORDERED: (Novolin R) Insulin Human Regular 100 units/ml vial SC ONE (14:15)
--- NOTE | 2017-03-06 14:18 | CT ---
PROCEDURE: CT HEAD WITHOUT CONTRAST. HISTORY: Possible CVA. Dilated Left Pupil. Pinpoint R Pupil COMPARISON: Non comparison made with prior study dated 03/04/2017. TECHNIQUE: Axial computed tomography images were obtained through the head/brain without intravenous contrast. Radiation dose: Total exam DLP = 1000.95 mGy-cm. This CT exam was performed using one or more of the following dose reduction techniques: Automated exposure control, adjustment of the mA and/or kV according to patient size, and/or use of iterative reconstruction technique. FINDINGS: HEMORRHAGE: There are bilateral of predominant chronic subdural hematomas of left side slightly larger than right. There is a small left-sided acute/subacute subdural component possibly by some membrane formation. Less hyperdense subacute component also felt to be present within the right-sided subdural collection is well. . The collections exert relatively symmetric offsetting mass effect with compression of the cerebral hemispheres bilaterally and lateral ventricles. No significant midline shift. . BRAIN: Mild to moderate diffuse/ confluent chronic white matter ischemic changes. VENTRICLES: No obstructive hydrocephalus. CALVARIUM: There are no acute calvarial fractures PARANASAL SINUSES: Re- demonstrated is cut complete opacification of the left maxillary antrum with some bowing of the medial wall. Rule out mucocele formation. Minor mucosal thickening also noted within a few ethmoid air cells. . There is also complete opacification with left chamber sphenoid sinus with minimal mucosal thickening right chamber sphenoid sinus. MASTOID AIR CELLS: Partial opacification both mastoid air complexes possibly related to prolonged intubation OTHER FINDINGS: None. IMPRESSION: Chronic bilateral subdural hematomas left larger than right. There is also a very small sliver of a hyperdense hemorrhage within the left sided collection possibly by the larger hypodense subdural component by membrane. . The collections exert relatively symmetrical offsetting mass effect with compression of both cerebral hemispheres and ventricular system with no significant midline shift. Chronic white matter ischemic changes. Partial opacification both mastoid air complexes. Mucoperiosteal inflammatory changes within the aforementioned paranasal sinuses as above
--- NOTE | 2017-03-06 18:31 | CP.PCM.PN ---
Subjective - Date & Time of Evaluation Date of Evaluation: 03/06/17 Time of Evaluation: 08:00 - Subjective Subjective: INTUBATED SEDATED IV RX IN PROGRESS CULTURES REVIEWED Objective - Vital Signs/Intake and Output Vital Signs (last 24 hours): Temp Pulse Resp BP Pulse Ox 99.7 F H 90 15 86/54 L 99 03/06/17 00:00 03/06/17 18:00 03/06/17 18:00 03/06/17 18:00 03/06/17 18:00 Intake and Output: 03/06/17 03/06/17 06:59 18:59 Intake Total 2213.8 3176.6 Output Total 105 65 Balance 2108.8 3111.6 - Medications Medications: Current Medications Albumin Human (Albumin Human 25% (12.5 Gm/50 Ml)) 12.5 gm IV Q8H [facility] Stop: 03/07/17 01:46 Last Admin: 03/06/17 17:22 Dose: 12.5 gm Cefepime HCl (Maxipime Iv 1 Gm Premix) 1 gm in 50 mls @ 100 mls/hr IVPB Q12 [facility] Last Admin: 03/06/17 10:34 Dose: 100 mls/hr Clindamycin Phosphate (Cleocin In Normal Saline) 600 mg in 50 mls @ 100 mls/hr IVPB Q8H [facility] Last Admin: 03/06/17 15:20 Dose: 100 mls/hr Propofol (Diprivan) 1,000 mg in 100 mls @ 0.966 mls/hr IV .Q24H PRN; Protocol; 5 MCG/KG/MIN PRN Reason: TITRATE PER MD ORDER Last Titration: 03/06/17 09:00 Dose: 10 mcg/kg/min, 1.932 mls/hr Phenylephrine HCl 30 mg/ (Sodium Chloride) 253 mls @ 10.12 mls/hr IV .Q24H PRN ; Protocol; 20 MCG/MIN PRN Reason: TITRATE PER MD ORDER Last Admin: 03/06/17 16:24 Dose: 150 mcg/min, 75.9 mls/hr Sodium Chloride (Sodium Chloride 0.9%) 1,000 mls @ 75 mls/hr IV .[id number] [facility] Last Admin: 03/06/17 10:36 Dose: 75 mls/hr Folic Acid 1 mg/ Thiamine HCl 100 mg/ Multivitamins/Vitamin C 10 ml/ Dextrose 1 ,011.2 mls @ 75 mls/hr IV DAILY J[facility] Pantoprazole Sodium (Protonix Inj) 40 mg IVP DAILY [facility] Last Admin: 03/06/17 10:32 Dose: 40 mg - Labs Labs: 03/06/17 06:26 03/06/17 06:23 PT 14.1 SECONDS (9.7-12.2) H 03/04/17 20:15 INR 1.3 03/04/17 20:15 APTT 35 SECONDS (21-34) H 03/04/17 20:15 - Constitutional Appears: Cachectic, Chronically Ill - Head Exam Head Exam: NORMOCEPHALIC - Eye Exam Eye Exam: absent: Scleral icterus - ENT Exam ENT Exam: Mucous Membranes Dry - Neck Exam Neck Exam: absent: Lymphadenopathy - Respiratory Exam Respiratory Exam: Decreased Breath Sounds, Rhonchi - Cardiovascular Exam Cardiovascular Exam: REGULAR RHYTHM - GI/Abdominal Exam GI & Abdominal Exam: Distended, Soft - Rectal Exam Rectal Exam: Deferred - Exam Exam: NORMAL INSPECTION - Extremities Exam Extremities Exam: absent: Pedal Edema - Back Exam Back Exam: absent: CVA tenderness (L), CVA tenderness (R) - Neurological Exam Neurological Exam: Altered Assessment and Plan (1) Anemia Status: Acute (2) Coagulopathy Status: Acute (3) Dyspnea Status: Acute (4) Leukocytosis Status: Acute (5) Lung mass Status: Acute (6) Respiratory distress Status: Acute (7) Right upper lobe pneumonia Status: Acute - Assessment and Plan (Free Text) Assessment: LIKELY MALIGNANCY WORK UP IN PROGRESS INTUBATED / VENT DEPENDANT AWAIT CULTURES POOR PROGNOSIS
[2017-03-07] MEDS: Albumin Human 25% (12.5 gm/50 ml) IV SCH (01:40)
[2017-03-07] MEDS: Phenylephrine 30 MG in Sodium Chloride 0.9% 250 ML IV PRN ×5 (02:40→21:45)
[2017-03-07] MEDS: Clindamycin 600mg/50ml NS 600 MG/50 ML BAG IVPB SCH ×3 (05:59→21:48)
[2017-03-07 06:09] LABS: ABG ALLEN TEST POS; ABG MECHANICAL RATE 14; ARTERIAL BLOOD GAS MODE PRVC; ARTERIAL BLOOD HGB O2 SAT 96.5 % (95.0-98.0); ATERIAL BLOOD GAS PEEP 5; CARBOXYHEMOGLOBIN 1.5 % (0.5-1.5); DRAW SITE RR; HHB 0.6 % (0.0-5.0); METHEMOGLOBIN 1.3 % (0.0-3.0)
[2017-03-07 06:23] LABS: BASO # 0.1 K/uL (0.0-0.2); BASO % 0.2 % (0.0-2.0); EOS # 0.2 K/uL (0.0-0.7); EOS % 0.8 % (0.0-4.0); HEMATOCRIT 27.4 % (35.0-51.0); LYMPH % 9.9 % (20.0-40.0); MEAN CORPUSCULAR HEMOGLOBIN 25.1 pg (27.0-31.0); MEAN CORPUSCULAR HGB CONC 30.9 g/dL (33.0-37.0); MEAN PLATELET VOLUME 7.5 fL (7.2-11.7); MONO % 3.2 % (0.0-10.0); PLATELET COUNT 289 K/uL (130-400); RED CELL DISTRIBUTION WIDTH 16.4 % (11.5-14.5); WHITE BLOOD COUNT 29.9 K/uL (4.8-10.8)
[2017-03-07 06:51] LABS: ALB/GLOB RATIO 0.9 (1.0-2.1); BILIRUBIN,TOTAL 0.7 mg/dL (0.2-1.3); CALCIUM 9.9 mg/dl (8.6-10.4); MAGNESIUM 1.6 mg/dL (1.6-2.3); PHOSPHOROUS 3.4 mg/dL (2.5-4.5); POTASSIUM 3.5 mmol/L (3.6-5.2); TOTAL PROTEIN 4.4 g/dL (6.3-8.3)
[2017-03-07] MEDS ORDERED: Potassium Chloride 20 mEq/15 ml LIQ UD NG ONE (07:30)
--- NOTE | 2017-03-07 07:34 | CP.PCM.CON ---
History of Present Illness - History of Present Illness History of Present Illness: CONSULT DICTATED BILAT CEREBRAL DYSFUNTION LEFT HEMIPARESIS SUBDURAL HYGROMA - OLD CHECK EEG AND FOLLOW UP CAT HEAD PROGNOSIS POOR WORK UP FOR LUNG MASS Past Patient History - Past Medical History & Family History Past Medical History?: Yes - Past Social History Smoking Status: Heavy Smoker > 10 Cigarettes Daily - CARDIAC Hx Cardiac Disorders: (unknown) - PULMONARY Hx Respiratory Disorders: (unknown) - MUSCULOSKELETAL/RHEUMATOLOGICAL Hx Falls: Yes - PSYCHIATRIC Hx Substance Use: (unknown) - SURGICAL HISTORY Hx Surgeries: (unable to obtain) - ANESTHESIA Hx Anesthesia: (unknown) Meds Allergies/Adverse Reactions: Allergies Allergy/AdvReac Type Severity Reaction Status Date / Time No Known Allergies Allergy Verified 03/04/17 21:07 - Medications Medications: Current Medications Cefepime HCl (Maxipime Iv 1 Gm Premix) 1 gm in 50 mls @ 100 mls/hr IVPB Q12 [facility] Last Admin: 03/06/17 22:30 Dose: 100 mls/hr Clindamycin Phosphate (Cleocin In Normal Saline) 600 mg in 50 mls @ 100 mls/hr IVPB Q8H [facility] Last Admin: 03/07/17 05:59 Dose: 100 mls/hr Propofol (Diprivan) 1,000 mg in 100 mls @ 0.966 mls/hr IV .Q24H PRN; Protocol; 5 MCG/KG/MIN PRN Reason: TITRATE PER MD ORDER Last Titration: 03/06/17 09:00 Dose: 10 mcg/kg/min, 1.932 mls/hr Phenylephrine HCl 30 mg/ (Sodium Chloride) 253 mls @ 10.12 mls/hr IV .Q24H PRN ; Protocol; 20 MCG/MIN PRN Reason: TITRATE PER MD ORDER Last Admin: 03/07/17 06:15 Dose: 170 mcg/min, 86.02 mls/hr Sodium Chloride (Sodium Chloride 0.9%) 1,000 mls @ 75 mls/hr IV .[id number] [facility] Last Admin: 03/06/17 23:30 Dose: 75 mls/hr Folic Acid 1 mg/ Thiamine HCl 100 mg/ Multivitamins/Vitamin C 10 ml/ Dextrose 1 ,011.2 mls @ 75 mls/hr IV DAILY [facility] Pantoprazole Sodium (Protonix Inj) 40 mg IVP DAILY [facility] Last Admin: 03/06/17 10:32 Dose: 40 mg Results - Vital Signs Recent Vital Signs: Last Vital Signs Temp 97.7 F 03/07/17 00:00 Pulse 80 03/07/17 06:15 Resp 15 03/07/17 06:15 BP 105/70 03/07/17 06:15 Pulse Ox 100 03/07/17 06:15 - Labs Result Diagrams: 03/07/17 06:16 03/07/17 06:16 Labs: Laboratory Results - last 24 hr 03/06/17 03/06/17 03/06/17 10:51 10:51 10:51 WBC RBC Hgb Hct MCV MCH MCHC RDW Plt Count MPV Neut % (Auto) Lymph % (Auto) Park % (Auto) Eos % (Auto) Baso % (Auto) Neut # Lymph # Park # Eos # Baso # Retic Count Puncture Site pCO2 pO2 HCO3 ABG pH ABG Total CO2 ABG O2 Saturation ABG Base Excess ABG Hemoglobin ABG Carboxyhemoglobin POC ABG HHb (Measured) ABG Methemoglobin Jorge Test A-a O2 Difference Respiratory Index Hgb O2 Saturation Vent Mode Mechanical Rate FiO2 Tidal Volume PEEP Sodium Potassium Chloride Carbon Dioxide Anion Gap BUN Creatinine Est GFR ( Amer) Est GFR (Non-Af Amer) Random Glucose Calcium Phosphorus Magnesium Iron 10 L TIBC 134 L % Saturation 7.46 L Ferritin 407.0 Total Bilirubin AST ALT Alkaline Phosphatase Total Protein Albumin Globulin Albumin/Globulin Ratio Vitamin B12 > 1000 H Folate 3.5 Procalcitonin 6.05 H 03/06/17 03/07/17 03/07/17 10:51 05:21 06:16 WBC 29.9 H RBC 3.38 L Hgb 8.5 L Hct 27.4 L MCV 81.0 MCH 25.1 L MCHC 30.9 L RDW 16.4 H Plt Count 289 MPV 7.5 Neut % (Auto) 85.9 H Lymph % (Auto) 9.9 L Park % (Auto) 3.2 Eos % (Auto) 0.8 Baso % (Auto) 0.2 Neut # 25.6 H Lymph # 3.0 Park # 1.0 H Eos # 0.2 Baso # 0.1 Retic Count 0.9 Puncture Site Rr pCO2 33 L pO2 131 H HCO3 19.3 L ABG pH 7.34 L ABG Total CO2 18.8 L ABG O2 Saturation 99.4 H ABG Base Excess -7.2 L ABG Hemoglobin 8.9 L ABG Carboxyhemoglobin 1.5 POC ABG HHb (Measured) 0.6 ABG Methemoglobin 1.3 Jorge Test Pos A-a O2 Difference 184.0 Respiratory Index 1.4 Hgb O2 Saturation 96.5 Vent Mode Prvc Mechanical Rate 14 FiO2 50.0 Tidal Volume 500 PEEP 5 Sodium Potassium Chloride Carbon Dioxide Anion Gap BUN Creatinine Est GFR ( Amer) Est GFR (Non-Af Amer) Random Glucose Calcium Phosphorus Magnesium Iron TIBC % Saturation Ferritin Total Bilirubin AST ALT Alkaline Phosphatase Total Protein Albumin Globulin Albumin/Globulin Ratio Vitamin B12 Folate Procalcitonin 03/07/17 06:16 WBC RBC Hgb Hct MCV MCH MCHC RDW Plt Count MPV Neut % (Auto) Lymph % (Auto) Park % (Auto) Eos % (Auto) Baso % (Auto) Neut # Lymph # Park # Eos # Baso # Retic Count Puncture Site pCO2 pO2 HCO3 ABG pH ABG Total CO2 ABG O2 Saturation ABG Base Excess ABG Hemoglobin ABG Carboxyhemoglobin POC ABG HHb (Measured) ABG Methemoglobin Jorge Test A-a O2 Difference Respiratory Index Hgb O2 Saturation Vent Mode Mechanical Rate FiO2 Tidal Volume PEEP Sodium 135 Potassium 3.5 L Chloride 110 H Carbon Dioxide 16 L Anion Gap 12 BUN 23 H Creatinine 1.6 H Est GFR ( Amer) 54 Est GFR (Non-Af Amer) 45 Random Glucose 100 Calcium 9.9 Phosphorus 3.4 Magnesium 1.6 Iron TIBC % Saturation Ferritin Total Bilirubin 0.7 AST 36 ALT 27 Alkaline Phosphatase 110 Total Protein 4.4 L Albumin 2.2 L Globulin 2.3 Albumin/Globulin Ratio 0.9 L Vitamin B12 Folate Procalcitonin
[2017-03-07 08:24] LABS: NEUTROPHIL 85 % (50-75); TOTAL CELLS COUNTED 100
[2017-03-07 08:25] LABS: LARGE PLATELETS PRESENT
--- NOTE | 2017-03-07 08:56 | RAD ---
Chest x-ray single frontal view History: Intubated. Comparison: 03/06/2017 Findings: Lines and tubes in stable position. Elevated right hemidiaphragm. Persistent large pleural-based opacity with eccentric presumed air-filled cavitary changes within the right upper lobe. Areas of presumed cystic bronchiectasis with blebs and small bullous changes at the right lung apex. Centrilobular emphysematous changes in the left upper lobe. Heart size within normal limits. Degenerative changes spine and shoulders. Deformity of the mid right clavicle. Impression: No significant interval change.
[2017-03-07] MEDS: Folic Acid 1 MG, Thiamine 100 MG, Multivitamin (MVI) 10 ML in Dextrose 5% In Water 1,00... IV SCH (09:50)
[2017-03-07] MEDS: Cefepime IV 1 gm in Dextrose 1 GM/50 ML BAG IVPB SCH ×2 (09:53→21:49)
[2017-03-07] MEDS ORDERED: Potassium Chloride 20 mEq/15 ml LIQ UD PO ONE (14:00)
[2017-03-07] MEDS: Propofol 10 mg/ml 1,000 MG/100 ML VIAL IV PRN (14:07)
--- NOTE | 2017-03-07 14:11 | CP.PCM.PN ---
Subjective - Date & Time of Evaluation Date of Evaluation: 03/07/17 Time of Evaluation: 14:00 - Subjective Subjective: Hospitalist Progress Note Patient was seen and examined at 2:00 PM 03/07/17 ICU Bed 10. 56 year old male who was brought into ER via EMS on 03/04/17 after he fell at home. Upon arrival to the ER he was found to be confused, cachectic, hypoxic. CT Head showed age indeterminate ischemic changes in righ basal ganglia, acute on chronic subdural collection on left, subdural hygroma on the right. CT Chest showed large cavitary RUL mass with infiltrative/invasion on chest wall and destruction of adjacent ribs consistent with malignancy, right hilar and mediastinal adenopathy. CT Abdomen/Pelvis showed RUL mass with nodular opacities , RML and RLL suspicious for malignancy, splenic lesions possibly metastatic. His respiratory status shortly before exam on 03/05/17 declined and he was intubated by the ICU Team after informing patient's brother Holden Abarca and [id number] Sarah Abarca [phone], both of whom requested that patient be FULL CODE for the time being. Poor prognosis based upon current patient status and workup was explained to both Holden and Sarah 03/05/17. Holden spoke with Palliative Care Nurse Reyna and patient was subsequently made DNR with Limited Treatment (IV antibiotics and non-invasive positive airway pressure) as per POL, a copy of which is in patient chart. EEG was performed 03/07/17 and results are pending. ROS is NOT possible as patient is nonresponsive and intubated. Exam: General: intubated and on vent, cachectic appearance HEENT: Abrasions present on the frontal scalp, Left Pupil is dilated and sluggishly reactive to light and Right Pupil is dilated and fixed, Nasal turbinates are dry, NO cervical lymphadenopathy, NO thyromegaly Cardio: NS1 and NS2, NO M/R/G however limited due to loud course breath sounds Resp: Course breath sounds diffusely GI: BSx4, soft, ND, NO HSM Ext: Pulses are strong and equal, NO edema, Capillary Refill is 2 seconds Neuro: NOT possible due to current patient state Assessment and Plan: 1). Acute Respiratory Failure Patient is intubated and on ventilator Phenylephrine 20 mcg/min Propofol 5 mcg/kg/min Continue NS @ 75 ml/hr Status: Acute 2). Lung Cavitary Lesion with Elevated WBC Likely secondary to malignancy but rule out TB Respiratory Isolation Cefepime 1 gm IV Q12H Clindamycin 600 mg I VQ8H Blood Culture 03/04/17 negative to date Urine Culture 03/04/17 no growth PPD on left lower anterior arm is NEGATIVE as per my read 03/07/17 HIV Ab is negative Hepatitis Panel negative Sputum Culture and AFB 03/05/17 preliminary is negative MRSA Screen is negative Heme/Onc Dr. Fabienne Pantoja Palliative Care Nurse [place] ID Dr. Wilberto Sanches Status: Acute 3). Anemia Worsening Likely chronic considering his history of alcohol abuse Iron level is low: Ferrous Sulfate 300 mg via NG 2x/day Reticulocyte count normal at 0.9 Vitamin B12 elevated above 1000 F/U Folate F/U Peripheral Smear Status: Chronic 4). Hypophosphotemia and Hypokalemia KPhos 15mmol IV x 1dose given 03/06/17 Phos normalized K still low at 3.5 and 40 mEQ given 03/07/17 5). Alcohol Abuse Bannana Bag @ 75 ml/hour once a day 6). Hypercalcemia This is fluctuating between high and low Secondary to Lung CA? IVF for now and if NO improvement then consider IV Zoledronic Acid 7). Possible CVA CT Head w/o contrast 03/06/17: chronic bilateral subdural hematomas left larger than right. There is also a very small sliver of a hyperdense hemorrhage within the left sided collection possibly by the larger hypodense subdural component by membrane. The collections exert relatively symmetrical offsetting mass effect with compression of both cerebral hemispheres and ventricular system with no significant midline shift. F/U EEG from 03/07/[address] Moore 8). Acute Kidney Injury Could this be secondary to the consistently low blood pressure despite Pheylephrine Drip? Could this be secondary to contrast from the CT Abdomen/Pelvis performed on admission? F/U further recommendations from Nephrology 9). Prophylaxis Pulmcare via NGT Protonix 40 mg IV 1x/day Low Vitamin D: 50,000 units once a week starting 03/08/17 and end 04/26/17 NO anticoagulation considering the anemia: Bilateral SCDs Poor prognosis explained to both brother Holden Abarca [phone] and Sister- in-Law Sarah Abarca [phone] on 03/05/17. He is currently DNR and POLST is in the chart: Limited Treatment (IV antibiotics and non-invasive positive airway pressure). Holden Abarca was updated as to the above today 03/07/17: worsening renal function, drop in hgb, continued low blood pressure despite pressure/fluid support. Explained plan for now is to follow up Sputum for AFB and if negative then Bronchoscopy by Pulmonary for tissue diagnosis of Right Lung Mass. Explained to brother the poor prognosis for this patient and for him to consider the extent to which he would like for continued treatment and evaluation. Obed Anguiano D.O. Objective - Vital Signs/Intake and Output Vital Signs (last 24 hours): Temp Pulse Resp BP Pulse Ox 96.7 F L 77 19 88/56 L 100 03/07/17 08:00 03/07/17 14:03 03/07/17 14:03 03/07/17 14:03 03/07/17 14:03 Intake and Output: 03/07/17 03/07/17 06:59 18:59 Intake Total 2394.9 1279 Output Total 135 25 Balance 2259.9 1254 - Medications Medications: Current Medications Cefepime HCl (Maxipime Iv 1 Gm Premix) 1 gm in 50 mls @ 100 mls/hr IVPB Q12 [facility] Last Admin: 03/07/17 09:53 Dose: 100 mls/hr Clindamycin Phosphate (Cleocin In Normal Saline) 600 mg in 50 mls @ 100 mls/hr IVPB Q8H [facility] Last Admin: 03/07/17 14:07 Dose: 100 mls/hr Propofol (Diprivan) 1,000 mg in 100 mls @ 0.966 mls/hr IV .Q24H PRN; Protocol; 5 MCG/KG/MIN PRN Reason: TITRATE PER MD ORDER Last Titration: 03/06/17 09:00 Dose: 10 mcg/kg/min, 1.932 mls/hr Phenylephrine HCl 30 mg/ (Sodium Chloride) 253 mls @ 10.12 mls/hr IV .Q24H PRN ; Protocol; 20 MCG/MIN PRN Reason: TITRATE PER MD ORDER Last Titration: 03/07/17 14:04 Dose: 138.33 mcg/min, 70 mls/hr Sodium Chloride (Sodium Chloride 0.9%) 1,000 mls @ 75 mls/hr IV .[id number] [facility] Last Admin: 03/06/17 23:30 Dose: 75 mls/hr Folic Acid 1 mg/ Thiamine HCl 100 mg/ Multivitamins/Vitamin C 10 ml/ Dextrose 1 ,011.2 mls @ 75 mls/hr IV DAILY [facility] Last Admin: 03/07/17 09:50 Dose: 75 mls/hr Pantoprazole Sodium (Protonix Inj) 40 mg IVP DAILY [facility] Last Admin: 03/07/17 09:58 Dose: 40 mg - Labs Labs: 03/07/17 06:16 03/07/17 06:16 PT 14.1 SECONDS (9.7-12.2) H 03/04/17 20:15 INR 1.3 03/04/17 20:15 APTT 35 SECONDS (21-34) H 03/04/17 20:15
--- NOTE | 2017-03-07 14:39 | CP.CCUPN ---
<Willian Krishnan - Last Filed: 03/07/17 19:22> CCU Subjective - Physician Review Subjective (Free Text): PGY1 ICU progress note for Dr. Ellison Patient seen and examined at bedside this morning. No acute events overnight. Patient is intubated. ROS unattainable. CCU Objective - Vital Signs / Intake & Output Vital Signs (Last 4 hours): Vital Signs Pulse Resp BP Pulse Ox 03/07/17 14:03 77 19 88/56 L 100 03/07/17 11:00 78 21 92/41 L 99 Intake and Output (Last 8hrs): Intake & Output 03/06/17 03/07/17 03/07/17 22:59 06:59 14:59 Intake Total 2342.5 1285 1329 Output Total 50 105 25 Balance 2292.5 1180 1304 Weight 74 lb Intake: IV 338 240 559 Intake, IV Amount 1694.5 725 650 Right Distal Port 175.0 Internal Jugular Right Forearm 9.5 0 Right Medial Port 900 75 300 Internal Jugular Right Proximal Port 610 650 350 Internal Jugular Tube Feeding 310 320 120 Output: Urine 50 105 25 Urethral (Mercedes) 50 105 25 Other: # Bowel Movements 0 - Physical Exam Head: Positive for: Abrasion (top of head, heal. no erythema) Pupils: Positive for: Sluggish (Left eye), Other (Right eye dilated 3mm, fixed.) Conjunctiva: Positive for: Normal Mouth: Positive for: Other (intubated) Respiratory/Chest: Positive for: Decreased Breath Sounds (RUL) Cardiovascular: Positive for: Tachycardic Abdomen: Negative for: Tenderness, Distention, Peritoneal Signs Upper Extremity: Positive for: Normal Inspection, NORMAL PULSES. Negative for: Edema Lower Extremity: Positive for: Normal Inspection, NORMAL PULSES. Negative for: Edema, CALF TENDERNESS Neurological: Positive for: Other (intubated) Skin: Positive for: Warm, Dry Psychiatric: Positive for: Other (intubated) - Medications Active Medications: Active Medications Generic Name Dose Route Start Last Admin Trade Name Freq PRN Reason Stop Dose Admin Ferrous Sulfate 300 mg 03/07/17 18:00 Feosol Liq NG BID JACK Cefepime HCl 1 gm in 50 mls @ 100 mls/hr 03/04/17 22:00 03/07/17 09:53 Maxipime Iv 1 Gm Premix IVPB 100 mls/hr Q12 JACK Administration Clindamycin Phosphate 600 mg in 50 mls @ 100 mls/hr 03/04/17 22:45 03/07/17 14:07 Cleocin In Normal Saline IVPB 100 mls/hr Q8H JACK Administration Propofol 1,000 mg in 100 mls @ 0.966 mls/hr 03/05/17 10:56 03/07/17 14:07 Diprivan IV 10.35 mcg/kg/min .Q24H PRN 2 mls/hr TITRATE PER MD ORDER Administration Protocol 5 MCG/KG/MIN Phenylephrine HCl 30 mg/ 253 mls @ 10.12 mls/hr 03/05/17 16:45 03/07/17 14:04 Sodium Chloride IV 138.33 mcg/min .Q24H PRN 70 mls/hr TITRATE PER MD ORDER Titration Protocol 20 MCG/MIN Sodium Chloride 1,000 mls @ 75 mls/hr 03/06/17 10:30 03/06/17 23:30 Sodium Chloride 0.9% IV 75 mls/hr .[id number] JACK Administration Folic Acid 1 mg/ Thiamine HCl 1,011.2 mls @ 75 mls/hr 03/07/17 10:00 09:50 100 mg/ Multivitamins/Vitamin IV 75 mls/hr C 10 ml/ Dextrose DAILY JACK Administration Pantoprazole Sodium 40 mg 03/05/17 10:00 03/07/17 09:58 Protonix Inj IVP 40 mg DAILY JACK Administration - Patient Studies Lab Studies: Microbiology Studies 03/04/17 20:40 Blood Culture - Preliminary Blood NO GROWTH AFTER 48 HOURS 03/04/17 20:10 Blood Culture - Preliminary Blood NO GROWTH AFTER 48 HOURS 03/04/17 08:00 MRSA Culture (Admit) - Final Naris MRSA NOT DETECTED Lab Studies 03/07/17 03/07/17 03/07/17 Range/Units 06:16 06:16 05:21 WBC 29.9 H (4.8-10.8) K/uL RBC 3.38 L (4.40-5.90) Mil/uL Hgb 8.5 L (12.0-18.0) g/dL Hct 27.4 L (35.0-51.0) % MCV 81.0 (80.0-94.0) fL MCH 25.1 L (27.0-31.0) pg MCHC 30.9 L (33.0-37.0) g/dL RDW 16.4 H (11.5-14.5) % Plt Count 289 (130-400) K/uL MPV 7.5 (7.2-11.7) fL Neut % (Auto) 85.9 H (50.0-75.0) % Lymph % (Auto) 9.9 L (20.0-40.0) % [place] % (Auto) 3.2 (0.0-10.0) % Eos % (Auto) 0.8 (0.0-4.0) % Baso % (Auto) 0.2 (0.0-2.0) % Neut # 25.6 H (1.8-7.0) K/uL Lymph # 3.0 (1.0-4.3) K/uL [place] # 1.0 H (0.0-0.8) K/uL Eos # 0.2 (0.0-0.7) K/uL Baso # 0.1 (0.0-0.2) K/uL Neutrophils % (Manual) 85 H (50-75) % Band Neutrophils % 7 H (0-2) % Lymphocytes % (Manual) 7 L (20-40) % Monocytes % (Manual) 1 (0-10) % Platelet Estimate Normal (NORMAL) Large Platelets Present Hypochromasia (manual) Slight Poikilocytosis (manual Slight Anisocytosis (manual) Slight Enrique Cells Slight Puncture Site Rr pCO2 33 L (35-45) mm/Hg pO2 131 H (80-100) mm/Hg HCO3 19.3 L (21-28) mmol/L ABG pH 7.34 L (7.35-7.45) ABG Total CO2 18.8 L (22-28) mmol/L ABG O2 Saturation 99.4 H (95-98) % ABG Base Excess -7.2 L (-2.0-3.0) mmol/L ABG Hemoglobin 8.9 L (11.7-17.4) g/dL ABG Carboxyhemoglobin 1.5 (0.5-1.5) % POC ABG HHb (Measured) 0.6 (0.0-5.0) % ABG Methemoglobin 1.3 (0.0-3.0) % Jorge Test Pos A-a O2 Difference 184.0 mm/Hg Respiratory Index 1.4 Hgb O2 Saturation 96.5 (95.0-98.0) % Vent Mode Prvc Mechanical Rate 14 FiO2 50.0 % Tidal Volume 500 PEEP 5 Sodium 135 (132-148) mmol/L Potassium 3.5 L (3.6-5.2) mmol/L Chloride 110 H (98-107) mmol/L Carbon Dioxide 16 L (22-30) mmol/L Anion Gap 12 (10-20) BUN 23 H (9-20) mg/dL Creatinine 1.6 H (0.8-1.5) mg/dL Est GFR ( Amer) 54 Est GFR (Non-Af Amer) 45 Random Glucose 100 (75-110) mg/dL Calcium 9.9 (8.6-10.4) mg/dl Phosphorus 3.4 (2.5-4.5) mg/dL Magnesium 1.6 (1.6-2.3) mg/dL Total Bilirubin 0.7 (0.2-1.3) mg/dL AST 36 (17-59) U/L ALT 27 (21-72) U/L Alkaline Phosphatase 110 (38-126) U/L Total Protein 4.4 L (6.3-8.3) g/dL Albumin 2.2 L (3.5-5.0) g/dL Globulin 2.3 (2.2-3.9) gm/dL Albumin/Globulin Ratio 0.9 L (1.0-2.1) Laboratory Results - last 24 hr 03/07/17 03/07/17 03/07/17 05:21 06:16 06:16 WBC 29.9 H RBC 3.38 L Hgb 8.5 L Hct 27.4 L MCV 81.0 MCH 25.1 L MCHC 30.9 L RDW 16.4 H Plt Count 289 MPV 7.5 Neut % (Auto) 85.9 H Lymph % (Auto) 9.9 L [place] % (Auto) 3.2 Eos % (Auto) 0.8 Baso % (Auto) 0.2 Neut # 25.6 H Lymph # 3.0 [place] # 1.0 H Eos # 0.2 Baso # 0.1 Neutrophils % (Manual) 85 H Band Neutrophils % 7 H Lymphocytes % (Manual) 7 L Monocytes % (Manual) 1 Platelet Estimate Normal Large Platelets Present Hypochromasia (manual) Slight Poikilocytosis (manual Slight Anisocytosis (manual) Slight Enrique Cells Slight Puncture Site Rr pCO2 33 L pO2 131 H HCO3 19.3 L ABG pH 7.34 L ABG Total CO2 18.8 L ABG O2 Saturation 99.4 H ABG Base Excess -7.2 L ABG Hemoglobin 8.9 L ABG Carboxyhemoglobin 1.5 POC ABG HHb (Measured) 0.6 ABG Methemoglobin 1.3 Jorge Test Pos A-a O2 Difference 184.0 Respiratory Index 1.4 Hgb O2 Saturation 96.5 Vent Mode Prvc Mechanical Rate 14 FiO2 50.0 Tidal Volume 500 PEEP 5 Sodium 135 Potassium 3.5 L Chloride 110 H Carbon Dioxide 16 L Anion Gap 12 BUN 23 H Creatinine 1.6 H Est GFR ( Amer) 54 Est GFR (Non-Af Amer) 45 Random Glucose 100 Calcium 9.9 Phosphorus 3.4 Magnesium 1.6 Total Bilirubin 0.7 AST 36 ALT 27 Alkaline Phosphatase 110 Total Protein 4.4 L Albumin 2.2 L Globulin 2.3 Albumin/Globulin Ratio 0.9 L Fingerstick Blood Sugar Results: 94 Review of Systems - Review of Systems Systems not reviewed;Unavailable: Intubated Assessment/Plan - Assessment and Plan (Free Text) Assessment: 56 year old cachectic male with no known PMH presenting with cough, loss of weight, confusion and right upper lobe infiltrate with leucocytosis, thrombocytosis, hyponatremia, hypercalcemia and dehydration. Most likely has lung malignancy, r/o pneumonia/lung abscess. Plan: Pulmonary: Pulm consult, Dr. Cleveland, help appreciated intubated - While patient was being transported back from [place], an event occurred which cause the patient to become extubated. He was quickly re-intubated using a glidescope. The original ET tube was switched out from a 7.5 to 8.0 Fr. RUL infiltrate WBC 29.9 (37.5 on 03/06); 7 bands CXR 03/06 - Lobular pleural-based opacity with eccentric presumed air-filled cavitary changes right upper lobe. Areas of presumed cystic bronchiectasis with blebs and small bullous changes in the right lung apex. Centrilobular emphysematous changes left upper lobe are less well seen on this study as compared to high-resolution CT scan CXR 03/07 - No significant interval change. Chest CT w/angio - Large cavitary right upper lobe mass with infiltration/ invasion of the chest wall and destruction of adjacent ribs, findings are consistent with malignancy; right hilar and mediastinal adenopathy; no aneurysm, dissection or pulmonary embolus. ABG - pCO2 33, pO2 131, HCO3 19.3, pH 7.34 vent settings 500/50/14/5 f/u sputum culture - r/o TB procalcitonin 6.05 Cefepime 1gm IVPB q12h Clindamycin 600mg IVPB q8h Duoneb 3mL INH q6h Blood cultures negative at 48 hours x2 f/u sputum cultures f/u AFB sputum (2 sent out so far) - airborne precautions Urine culture negative CV: hypotension Phenylephrine drip NS @75mL/hr Neuro: sedated hx of alcohol abuse Head CT 03/04 - Mild atrophy and small vessel disease; age indeterminate ischemic changes right basal ganglia; acute on chronic subdural collection on the left; subacute subdural hygroma on the right, no midline shift f/u head CT - r/o stroke f/u EEG Propofol drip D5W with Folic Acid/Thiamine/Multivitamin added @100 mL/hr (both NS and banana bag are both running at the same time.) Renal: Dr. Nassar Consulted, help appreciated (Dr. Blanc covering) Cr worsening 0.8 (03/05) to 1.2 (03/06) to 1.6 (03/07) I's & O's - plus 5 liters both 03/06 and 03/07. ID: Hep panel, HIV screen and Influenza - all negative Prophylactic Care: Protonix 40mg IVP daily SCDs Patient made DNR by brother, Holden (P.O.A) Case discussed with Dr. Scot Krishnan PGY1 <Tien Ellison - Last Filed: 03/07/17 19:59> CCU Objective - Vital Signs / Intake & Output Vital Signs (Last 4 hours): Vital Signs Temp Pulse Resp BP Pulse Ox 03/07/17 19:00 83 19 90/57 L 100 03/07/17 18:00 81 21 95/68 L 100 03/07/17 17:00 78 19 86/56 L 99 03/07/17 16:00 98.5 F 75 21 87/55 L 100 Intake and Output (Last 8hrs): Intake & Output 03/07/17 03/07/17 03/07/17 06:59 14:59 22:59 Intake Total 1285 2214 844.0 Output Total 105 275 185 Balance 1180 1939 659.0 Weight 74 lb Intake: IV 240 559 Intake, IV Amount 725 1185 764.0 Right Distal Port 100 29.0 Internal Jugular Right Forearm 0 Right Medial Port 75 525 375 Internal Jugular Right Proximal Port 650 560 360 Internal Jugular Tube Feeding 320 320 80 Other 150 Output: Urine 105 275 185 Urethral (Mercedes) 105 275 185 - Medications Active Medications: Active Medications Generic Name Dose Route Start Last Admin Trade Name Freq PRN Reason Stop Dose Admin Albuterol/Ipratropium 3 ml 03/07/17 20:00 Duoneb 3 Mg/0.5 Mg (3 Ml) Ud INH RQ6 JACK Ergocalciferol 1 cap 03/08/17 10:00 Drisdol 50,000 Intl Units Cap PO 04/26/17 10:00 QWK JACK Ferrous Sulfate 300 mg 03/07/17 18:00 03/07/17 17:39 Feosol Liq NG 300 mg BID JACK Administration Cefepime HCl 1 gm in 50 mls @ 100 mls/hr 03/04/17 22:00 03/07/17 09:53 Maxipime Iv 1 Gm Premix IVPB 100 mls/hr Q12 JACK Administration Clindamycin Phosphate 600 mg in 50 mls @ 100 mls/hr 03/04/17 22:45 03/07/17 14:07 Cleocin In Normal Saline IVPB 100 mls/hr Q8H JACK Administration Propofol 1,000 mg in 100 mls @ 0.966 mls/hr 03/05/17 10:56 03/07/17 14:07 Diprivan IV 10.35 mcg/kg/min .Q24H PRN 2 mls/hr TITRATE PER MD ORDER Administration Protocol 5 MCG/KG/MIN Phenylephrine HCl 30 mg/ 253 mls @ 10.12 mls/hr 03/05/17 16:45 03/07/17 14:04 Sodium Chloride IV 138.33 mcg/min .Q24H PRN 70 mls/hr TITRATE PER MD ORDER Titration Protocol 20 MCG/MIN Sodium Chloride 1,000 mls @ 75 mls/hr 03/06/17 10:30 03/07/17 17:29 Sodium Chloride 0.9% IV Not Given .[id number] JACK Folic Acid 1 mg/ Thiamine HCl 1,011.2 mls @ 75 mls/hr 03/07/17 10:00 09:50 100 mg/ Multivitamins/Vitamin IV 75 mls/hr C 10 ml/ Dextrose DAILY JACK Administration Pantoprazole Sodium 40 mg 03/05/17 10:00 03/07/17 09:58 Protonix Inj IVP 40 mg DAILY JACK Administration - Patient Studies Lab Studies: Microbiology Studies 03/05/17 21:58 Mycobacterial Culture - Preliminary Other: Please Indicate 03/04/17 20:40 Blood Culture - Preliminary Blood NO GROWTH AFTER 48 HOURS 03/04/17 20:10 Blood Culture - Preliminary Blood NO GROWTH AFTER 48 HOURS Lab Studies 03/07/17 03/07/17 03/07/17 Range/Units 06:16 06:16 05:21 WBC 29.9 H (4.8-10.8) K/uL RBC 3.38 L (4.40-5.90) Mil/uL Hgb 8.5 L (12.0-18.0) g/dL Hct 27.4 L (35.0-51.0) % MCV 81.0 (80.0-94.0) fL MCH 25.1 L (27.0-31.0) pg MCHC 30.9 L (33.0-37.0) g/dL RDW 16.4 H (11.5-14.5) % Plt Count 289 (130-400) K/uL MPV 7.5 (7.2-11.7) fL Neut % (Auto) 85.9 H (50.0-75.0) % Lymph % (Auto) 9.9 L (20.0-40.0) % [place] % (Auto) 3.2 (0.0-10.0) % Eos % (Auto) 0.8 (0.0-4.0) % Baso % (Auto) 0.2 (0.0-2.0) % Neut # 25.6 H (1.8-7.0) K/uL Lymph # 3.0 (1.0-4.3) K/uL [place] # 1.0 H (0.0-0.8) K/uL Eos # 0.2 (0.0-0.7) K/uL Baso # 0.1 (0.0-0.2) K/uL Neutrophils % (Manual) 85 H (50-75) % Band Neutrophils % 7 H (0-2) % Lymphocytes % (Manual) 7 L (20-40) % Monocytes % (Manual) 1 (0-10) % Platelet Estimate Normal (NORMAL) Large Platelets Present Hypochromasia (manual) Slight Poikilocytosis (manual Slight Anisocytosis (manual) Slight [place] Cells Slight Puncture Site Rr pCO2 33 L (35-45) mm/Hg pO2 131 H (80-100) mm/Hg HCO3 19.3 L (21-28) mmol/L ABG pH 7.34 L (7.35-7.45) ABG Total CO2 18.8 L (22-28) mmol/L ABG O2 Saturation 99.4 H (95-98) % ABG Base Excess -7.2 L (-2.0-3.0) mmol/L ABG Hemoglobin 8.9 L (11.7-17.4) g/dL ABG Carboxyhemoglobin 1.5 (0.5-1.5) % POC ABG HHb (Measured) 0.6 (0.0-5.0) % ABG Methemoglobin 1.3 (0.0-3.0) % Jorge Test Pos A-a O2 Difference 184.0 mm/Hg Respiratory Index 1.4 Hgb O2 Saturation 96.5 (95.0-98.0) % Vent Mode Prvc Mechanical Rate 14 FiO2 50.0 % Tidal Volume 500 PEEP 5 Sodium 135 (132-148) mmol/L Potassium 3.5 L (3.6-5.2) mmol/L Chloride 110 H (98-107) mmol/L Carbon Dioxide 16 L (22-30) mmol/L Anion Gap 12 (10-20) BUN 23 H (9-20) mg/dL Creatinine 1.6 H (0.8-1.5) mg/dL Est GFR ( Amer) 54 Est GFR (Non-Af Amer) 45 Random Glucose 100 (75-110) mg/dL Calcium 9.9 (8.6-10.4) mg/dl Phosphorus 3.4 (2.5-4.5) mg/dL Magnesium 1.6 (1.6-2.3) mg/dL Total Bilirubin 0.7 (0.2-1.3) mg/dL AST 36 (17-59) U/L ALT 27 (21-72) U/L Alkaline Phosphatase 110 (38-126) U/L Total Protein 4.4 L (6.3-8.3) g/dL Albumin 2.2 L (3.5-5.0) g/dL Globulin 2.3 (2.2-3.9) gm/dL Albumin/Globulin Ratio 0.9 L (1.0-2.1) Laboratory Results - last 24 hr 03/07/17 03/07/17 03/07/17 05:21 06:16 06:16 WBC 29.9 H RBC 3.38 L Hgb 8.5 L Hct 27.4 L MCV 81.0 MCH 25.1 L MCHC 30.9 L RDW 16.4 H Plt Count 289 MPV 7.5 Neut % (Auto) 85.9 H Lymph % (Auto) 9.9 L [place] % (Auto) 3.2 Eos % (Auto) 0.8 Baso % (Auto) 0.2 Neut # 25.6 H Lymph # 3.0 [place] # 1.0 H Eos # 0.2 Baso # 0.1 Neutrophils % (Manual) 85 H Band Neutrophils % 7 H Lymphocytes % (Manual) 7 L Monocytes % (Manual) 1 Platelet Estimate Normal Large Platelets Present Hypochromasia (manual) Slight Poikilocytosis (manual Slight Anisocytosis (manual) Slight Enrique Cells Slight Puncture Site Rr pCO2 33 L pO2 131 H HCO3 19.3 L ABG pH 7.34 L ABG Total CO2 18.8 L ABG O2 Saturation 99.4 H ABG Base Excess -7.2 L ABG Hemoglobin 8.9 L ABG Carboxyhemoglobin 1.5 POC ABG HHb (Measured) 0.6 ABG Methemoglobin 1.3 Jorge Test Pos A-a O2 Difference 184.0 Respiratory Index 1.4 Hgb O2 Saturation 96.5 Vent Mode Prvc Mechanical Rate 14 FiO2 50.0 Tidal Volume 500 PEEP 5 Sodium 135 Potassium 3.5 L Chloride 110 H Carbon Dioxide 16 L Anion Gap 12 BUN 23 H Creatinine 1.6 H Est GFR ( Amer) 54 Est GFR (Non-Af Amer) 45 Random Glucose 100 Calcium 9.9 Phosphorus 3.4 Magnesium 1.6 Total Bilirubin 0.7 AST 36 ALT 27 Alkaline Phosphatase 110 Total Protein 4.4 L Albumin 2.2 L Globulin 2.3 Albumin/Globulin Ratio 0.9 L Attending/Attestation - Attestation I have personally seen and examined this patient.: Yes I have fully participated in the care of the patient.: Yes I have reviewed all pertinent clinical information: Yes Notes (Text): 03/07/17 19:59 Today: February The Patient was seen and examined at the bedside, Medical records reviewed, and management issues were discussed and formulated with the house staff. I have reviewed all the relevant clinical, laboratory, hemodynamic, radiographic data and medications Events reviewed Pain issues, skin care, head of the bed elevation, glycemic control were addressed. Agree with above resident's assessment and treatment plans of care as transcribed in Dr. Krishnan note.
--- NOTE | 2017-03-07 16:28 | CP.PCM.CON ---
History of Present Illness - History of Present Illness History of Present Illness: Initial Nephrology Consultation: Assessment: critical Acute Kidney Injury (N17.9) likely due to low BP/sepsis with shock ? 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 pt DNR, palliative care involved. overall poor prognosis. He will not be a candidate for BUSINESS INFORMATION MANAGER even if needed maintain hemodynamics stable. no ACEI/ARB due to JESSI Monitor Input/Output, daily weights and renal function with basic metabolic panel IV fluids as ordered consider IV thiamine supplementation 100-200 mg q 8 would give calcitonin sq if Ca remains high. can consider Zometa or pamidronate once GFR better. supplement electrolytes as needed Dose meds/antibiotics for reduced GFR. Avoid fleets enema/magnesium based laxatives. Avoid nephrotoxins/NSAIDs/ iodinated contrast (unless needed emergently) Glycemic control Further work up/management as per primary team Thanks for allowing me to participate in care of your patient. Will follow patient with you. Please call if any Qs. d/w ICU team Dr Francisco Blanc Office: [phone] Chief Complaint; unable reason for consult; JESSI and hypercalcemia HPI: Pt is a 56 M with hx of chronic alcoholism and smoking presented with complaints of fall at home. He was found to have severe cachexia, large Rt lung mass and hypercalcemia. Also with low BP, sepsis, requiring pressors meds and renal consult for JESSI. unable to obtain any hx had recent iodinated contrast exposure 02/03/17. noted episodes of low BP. ROS: unable Physical Examination: General Appearance: ill appearing, malnourished and cachexic. intubated Vitals reviewed and noted as below Head; Atraumatic, normocephalic ENT: orally intubated EYES: Rt pupil fixed, left sluggish. Sclera is anicteric. Neck; supple no lymphadenopathy, no thyromegaly or bruit Lungs: Increased respiratory rate/effort. Breath sounds decreased at Rt side and with b/l rales + Heart: Increased rate. s1s2 normal. No rub or gallop. Extremities: no edema. No varicose veins Neurological: Patient is intubated Skin: Warm and dry. Normal turgor. No rash. Palpitation: Normal elasticity for age Abdomen: Abdomen is soft. Bowel sounds +. There is no abdominal tenderness, no guarding/rigidity no organomegaly Psych: unable MSK: no joint tenderness or swelling. Digits and nails normal, no deformity : kidney or bladder not palpable Labs/imaging reviewed. Past medical history, past surgical history, family history, social history, allergy reviewed and noted as below Family hx: no hx of CKD. Rest non-contributory Past Patient History - Past Medical History & Family History Past Medical History?: Yes - Past Social History Smoking Status: Heavy Smoker > 10 Cigarettes Daily - CARDIAC Hx Cardiac Disorders: (unknown) - PULMONARY Hx Respiratory Disorders: (unknown) - MUSCULOSKELETAL/RHEUMATOLOGICAL Hx Falls: Yes - PSYCHIATRIC Hx Substance Use: (unknown) - SURGICAL HISTORY Hx Surgeries: (unable to obtain) - ANESTHESIA Hx Anesthesia: (unknown) Meds Allergies/Adverse Reactions: Allergies Allergy/AdvReac Type Severity Reaction Status Date / Time No Known Allergies Allergy Verified 03/04/17 21:07 - Medications Medications: Current Medications Ferrous Sulfate (Feosol Liq) 300 mg NG BID JACK Cefepime HCl (Maxipime Iv 1 Gm Premix) 1 gm in 50 mls @ 100 mls/hr IVPB Q12 JACK Last Admin: 03/07/17 09:53 Dose: 100 mls/hr Clindamycin Phosphate (Cleocin In Normal Saline) 600 mg in 50 mls @ 100 mls/hr IVPB Q8H [facility] Last Admin: 03/07/17 14:07 Dose: 100 mls/hr Propofol (Diprivan) 1,000 mg in 100 mls @ 0.966 mls/hr IV .Q24H PRN; Protocol; 5 MCG/KG/MIN PRN Reason: TITRATE PER MD ORDER Last Admin: 03/07/17 14:07 Dose: 10.35 mcg/kg/min, 2 mls/hr Phenylephrine HCl 30 mg/ (Sodium Chloride) 253 mls @ 10.12 mls/hr IV .Q24H PRN ; Protocol; 20 MCG/MIN PRN Reason: TITRATE PER MD ORDER Last Titration: 03/07/17 14:04 Dose: 138.33 mcg/min, 70 mls/hr Sodium Chloride (Sodium Chloride 0.9%) 1,000 mls @ 75 mls/hr IV .[id number] [facility] Last Admin: 03/06/17 23:30 Dose: 75 mls/hr Folic Acid 1 mg/ Thiamine HCl 100 mg/ Multivitamins/Vitamin C 10 ml/ Dextrose 1 ,011.2 mls @ 75 mls/hr IV DAILY [facility] Last Admin: 03/07/17 09:50 Dose: 75 mls/hr Pantoprazole Sodium (Protonix Inj) 40 mg IVP DAILY [facility] Last Admin: 03/07/17 09:58 Dose: 40 mg Results - Vital Signs Recent Vital Signs: Last Vital Signs Temp 96.8 F L 03/07/17 12:00 Pulse 77 03/07/17 14:03 Resp 19 03/07/17 14:03 BP 88/56 L 03/07/17 14:03 Pulse Ox 100 03/07/17 14:03 - Labs Result Diagrams: 03/07/17 06:16 03/07/17 06:16 Labs: Laboratory Results - last 24 hr 03/07/17 03/07/17 03/07/17 05:21 06:16 06:16 WBC 29.9 H RBC 3.38 L Hgb 8.5 L Hct 27.4 L MCV 81.0 MCH 25.1 L MCHC 30.9 L RDW 16.4 H Plt Count 289 MPV 7.5 Neut % (Auto) 85.9 H Lymph % (Auto) 9.9 L [place] % (Auto) 3.2 Eos % (Auto) 0.8 Baso % (Auto) 0.2 Neut # 25.6 H Lymph # 3.0 [place] # 1.0 H Eos # 0.2 Baso # 0.1 Neutrophils % (Manual) 85 H Band Neutrophils % 7 H Lymphocytes % (Manual) 7 L Monocytes % (Manual) 1 Platelet Estimate Normal Large Platelets Present Hypochromasia (manual) Slight Poikilocytosis (manual Slight Anisocytosis (manual) Slight [place] Cells Slight Puncture Site Rr pCO2 33 L pO2 131 H HCO3 19.3 L ABG pH 7.34 L ABG Total CO2 18.8 L ABG O2 Saturation 99.4 H ABG Base Excess -7.2 L ABG Hemoglobin 8.9 L ABG Carboxyhemoglobin 1.5 POC ABG HHb (Measured) 0.6 ABG Methemoglobin 1.3 Jorge Test Pos A-a O2 Difference 184.0 Respiratory Index 1.4 Hgb O2 Saturation 96.5 Vent Mode Prvc Mechanical Rate 14 FiO2 50.0 Tidal Volume 500 PEEP 5 Sodium 135 Potassium 3.5 L Chloride 110 H Carbon Dioxide 16 L Anion Gap 12 BUN 23 H Creatinine 1.6 H Est GFR ( Amer) 54 Est GFR (Non-Af Amer) 45 Random Glucose 100 Calcium 9.9 Phosphorus 3.4 Magnesium 1.6 Total Bilirubin 0.7 AST 36 ALT 27 Alkaline Phosphatase 110 Total Protein 4.4 L Albumin 2.2 L Globulin 2.3 Albumin/Globulin Ratio 0.9 L
--- NOTE | 2017-03-07 16:44 | CON ---
DATE: 03/07/2017 TIME OF EVALUATION: 06:45 a.m. REASON FOR THE CONSULTATION: Change in mental status. CHIEF COMPLAINT: The patient was brought into [facility] with history of declining his intake of food and change in mental status. From neurological point of view, I was called in to evaluate him for further management. HISTORY OF PRESENTING ILLNESS: Mr. Iggy Abarca is a 56-year-old cachectic male with a significant history of alcoholism and tobacco abuse, lives alone with his brother, brought in to [facility] with a history of poor intake and change in mental status. The patient was found to have respiratory distress with impending respiratory failure. The patient was intubated. The patient was hydrated because of significant dehydration at the time of admission. The patient also found to have hypercalcemia and hyponatremia. His workup, CT of the head reviewed showed subdural hygroma with possible epidural hematoma over right frontal subdural region. PERSONAL HISTORY: History of smoking, alcohol use. REVIEW OF SYSTEMS: As per the chart. MEDICATIONS: Clindamycin, propofol, thiamine, Maxipime, phenylephrine, potassium chloride, and Protonix. PHYSICAL EXAMINATION: VITAL SIGNS: Blood pressure 105/70, mean artery pressure of 72, pulse rate is 80, respiratory rate is 16 on vent. GENERAL: The patient on sedation; however, the patient is lethargic, seems to be obtunded. HEENT: Eyes are open. NECK: Supple. No carotid bruits. HEART: Sounds are regular. EXTREMITIES: Trace edema. NEUROLOGIC: Pupils react to light. Extraocular movement, rolling conjugate gaze noted. Good corneal reflex. On manipulating the endotracheal tube, the patient does show the gag. Spontaneous movement on the right lower extremity noted. Tone is decreased in all four extremities. Deep tendon reflexes are absent, less responsive to left side on noxious stimuli to compare with the right side. Plantars are upgoing. Coordination and gait is deferred at this time. WORKUP: 1. CT of the head showed lung mass. 2. CT of the head shows subdural hygroma with subdural hematoma, competence also noted. Diffuse atrophy. BLOOD WORKUP: WBC 79.9, hemoglobin 8.5, hematocrit 27.4, platelet 289,000. Sodium 135, potassium 3.5, chloride 110, bicarbonate 16, BUN of 23, creatinine 1.6. Iron shows 10, TIBC 134, total protein 4.4, globulin 2.2. B12 more than 1000. Procalcitonin 6.05. CONCLUSIONS: Mr. Iggy Abarca presenting with possible occult malignancy due to his clinical picture as well as workup. The patient does show some subdural hygroma as per the CAT scan, which may be the chronic issue. The current examination shows bilateral cerebral dysfunction with left hemiparesis. RECOMMENDATIONS: 1. Continue the present management, supportive care. The patient can be benefited of repeating the CAT scan to assess the bleed. 2. Electroencephalogram to rule out any nonconvulsive seizures. I do not want any antiepileptic drugs for now. Continue the present management. Bhavesh Moore MD
--- NOTE | 2017-03-07 17:05 | RAD ---
HISTORY: desat while intubated COMPARISON: Chest x-ray performed 03/07/17 TECHNIQUE: Chest, one view. FINDINGS: Right-sided MediPort extends to the SVC. Distal tip of the endotracheal tube terminates approximately 4.4 cm above the megan. Nasogastric tube extends expected location of the stomach. Numerous external wires and leads obscure evaluation of the underlying parenchyma. LUNGS: Persistent right upper lobe pleural based opacity re-identified within the centric presumed air-filled cavitary changes re-identified within the right upper lobe. She probable blebs and small bullous changes as well as presumed areas of cystic bronchiectasis re-identified within the right upper lobe. Emphysematous changes. No definite pneumothorax. CARDIOVASCULAR: Heart size appears within normal limits. OSSEOUS STRUCTURES: Degenerative changes. VISUALIZED UPPER ABDOMEN: Unremarkable. OTHER FINDINGS: None. IMPRESSION: Right-sided MediPort extends to the SVC. Distal tip of the endotracheal tube terminates approximately 4.4 cm above the megan. Nasogastric tube extends expected location of the stomach. Additional findings as above, similar to prior study.
--- NOTE | 2017-03-07 17:19 | CP.PCM.PN ---
Subjective - Date & Time of Evaluation Date of Evaluation: 03/07/17 Time of Evaluation: 07:00 - Subjective Subjective: intubated no new positive cultures Objective - Vital Signs/Intake and Output Vital Signs (last 24 hours): Temp Pulse Resp BP Pulse Ox 98.5 F 78 19 86/56 L 99 03/07/17 16:00 03/07/17 17:00 03/07/17 17:00 03/07/17 17:00 03/07/17 17:00 Intake and Output: 03/07/17 03/07/17 06:59 18:59 Intake Total 2394.9 2299 Output Total 135 25 Balance 2259.9 2274 - Medications Medications: Current Medications Ferrous Sulfate (Feosol Liq) 300 mg NG BID [facility] Cefepime HCl (Maxipime Iv 1 Gm Premix) 1 gm in 50 mls @ 100 mls/hr IVPB Q12 [facility] Last Admin: 03/07/17 09:53 Dose: 100 mls/hr Clindamycin Phosphate (Cleocin In Normal Saline) 600 mg in 50 mls @ 100 mls/hr IVPB Q8H [facility] Last Admin: 03/07/17 14:07 Dose: 100 mls/hr Propofol (Diprivan) 1,000 mg in 100 mls @ 0.966 mls/hr IV .Q24H PRN; Protocol; 5 MCG/KG/MIN PRN Reason: TITRATE PER MD ORDER Last Admin: 03/07/17 14:07 Dose: 10.35 mcg/kg/min, 2 mls/hr Phenylephrine HCl 30 mg/ (Sodium Chloride) 253 mls @ 10.12 mls/hr IV .Q24H PRN ; Protocol; 20 MCG/MIN PRN Reason: TITRATE PER MD ORDER Last Titration: 03/07/17 14:04 Dose: 138.33 mcg/min, 70 mls/hr Sodium Chloride (Sodium Chloride 0.9%) 1,000 mls @ 75 mls/hr IV .[id number] [facility] Last Admin: 03/06/17 23:30 Dose: 75 mls/hr Folic Acid 1 mg/ Thiamine HCl 100 mg/ Multivitamins/Vitamin C 10 ml/ Dextrose 1 ,011.2 mls @ 75 mls/hr IV DAILY [facility] Last Admin: 03/07/17 09:50 Dose: 75 mls/hr Pantoprazole Sodium (Protonix Inj) 40 mg IVP DAILY [facility] Last Admin: 03/07/17 09:58 Dose: 40 mg - Labs Labs: 03/07/17 06:16 03/07/17 06:16 PT 14.1 SECONDS (9.7-12.2) H 03/04/17 20:15 INR 1.3 03/04/17 20:15 APTT 35 SECONDS (21-34) H 03/04/17 20:15 Assessment and Plan (1) Anemia Status: Acute (2) Coagulopathy Status: Acute (3) Dyspnea Status: Acute (4) Leukocytosis Status: Acute (5) Lung mass Status: Acute (6) Respiratory distress Status: Acute (7) Right upper lobe pneumonia Status: Acute
[2017-03-07] MEDS: Sodium Chloride 0.9% 1,000 ML IV SCH ×2 (17:29→22:27)
[2017-03-07] MEDS: Ferrous Sulfate 300 mg/5 mL Liq UD NG SCH (17:39)
--- NOTE | 2017-03-07 19:12 | CP.PCM.CON ---
History of Present Illness - History of Present Illness History of Present Illness: admitted with progressive weakness and respiratory compromise, intubated on vent support, severe cachexia h/o alcoholism, smoker CT chest with cavitary lesion in right lung, mass and rib involvement now DNR status due to very poor prognosis Review of Systems - Review of Systems Systems not reviewed;Unavailable: Altered Mental Status, Intubated Past Patient History - Past Medical History & Family History Past Medical History?: Yes - Past Social History Smoking Status: Heavy Smoker > 10 Cigarettes Daily - CARDIAC Hx Cardiac Disorders: (unknown) - PULMONARY Hx Respiratory Disorders: (unknown) - MUSCULOSKELETAL/RHEUMATOLOGICAL Hx Falls: Yes - PSYCHIATRIC Hx Substance Use: (unknown) - SURGICAL HISTORY Hx Surgeries: (unable to obtain) - ANESTHESIA Hx Anesthesia: (unknown) Meds Allergies/Adverse Reactions: Allergies Allergy/AdvReac Type Severity Reaction Status Date / Time No Known Allergies Allergy Verified 03/04/17 21:07 - Medications Medications: Current Medications Ferrous Sulfate (Feosol Liq) 300 mg NG BID [facility] Last Admin: 03/07/17 17:39 Dose: 300 mg Cefepime HCl (Maxipime Iv 1 Gm Premix) 1 gm in 50 mls @ 100 mls/hr IVPB Q12 [facility] Last Admin: 03/07/17 09:53 Dose: 100 mls/hr Clindamycin Phosphate (Cleocin In Normal Saline) 600 mg in 50 mls @ 100 mls/hr IVPB Q8H [facility] Last Admin: 03/07/17 14:07 Dose: 100 mls/hr Propofol (Diprivan) 1,000 mg in 100 mls @ 0.966 mls/hr IV .Q24H PRN; Protocol; 5 MCG/KG/MIN PRN Reason: TITRATE PER MD ORDER Last Admin: 03/07/17 14:07 Dose: 10.35 mcg/kg/min, 2 mls/hr Phenylephrine HCl 30 mg/ (Sodium Chloride) 253 mls @ 10.12 mls/hr IV .Q24H PRN ; Protocol; 20 MCG/MIN PRN Reason: TITRATE PER MD ORDER Last Titration: 03/07/17 14:04 Dose: 138.33 mcg/min, 70 mls/hr Sodium Chloride (Sodium Chloride 0.9%) 1,000 mls @ 75 mls/hr IV .[id number] [facility] Last Admin: 03/07/17 17:29 Dose: Not Given Folic Acid 1 mg/ Thiamine HCl 100 mg/ Multivitamins/Vitamin C 10 ml/ Dextrose 1 ,011.2 mls @ 75 mls/hr IV DAILY [facility] Last Admin: 03/07/17 09:50 Dose: 75 mls/hr Pantoprazole Sodium (Protonix Inj) 40 mg IVP DAILY [facility] Last Admin: 03/07/17 09:58 Dose: 40 mg Physical Exam - Constitutional Appears: Older Than Stated Age, Cachectic, Chronically Ill - Head Exam Head Exam: ATRAUMATIC, NORMOCEPHALIC - Respiratory Exam Respiratory Exam: Decreased Breath Sounds - Cardiovascular Exam Cardiovascular Exam: Tachycardia, +S1, +S2 - GI/Abdominal Exam GI & Abdominal Exam: Diminished Bowel Sounds - Rectal Exam Rectal Exam: Deferred Results - Vital Signs Recent Vital Signs: Last Vital Signs Temp 98.5 F 03/07/17 16:00 Pulse 81 03/07/17 18:00 Resp 21 03/07/17 18:00 BP 95/68 L 03/07/17 18:00 Pulse Ox 100 03/07/17 18:00 - Labs Result Diagrams: 03/07/17 06:16 03/07/17 06:16 Labs: Laboratory Results - last 24 hr 03/07/17 03/07/17 03/07/17 05:21 06:16 06:16 WBC 29.9 H RBC 3.38 L Hgb 8.5 L Hct 27.4 L MCV 81.0 MCH 25.1 L MCHC 30.9 L RDW 16.4 H Plt Count 289 MPV 7.5 Neut % (Auto) 85.9 H Lymph % (Auto) 9.9 L Mineral % (Auto) 3.2 Eos % (Auto) 0.8 Baso % (Auto) 0.2 Neut # 25.6 H Lymph # 3.0 Mineral # 1.0 H Eos # 0.2 Baso # 0.1 Neutrophils % (Manual) 85 H Band Neutrophils % 7 H Lymphocytes % (Manual) 7 L Monocytes % (Manual) 1 Platelet Estimate Normal Large Platelets Present Hypochromasia (manual) Slight Poikilocytosis (manual Slight Anisocytosis (manual) Slight Robbins Cells Slight Puncture Site Rr pCO2 33 L pO2 131 H HCO3 19.3 L ABG pH 7.34 L ABG Total CO2 18.8 L ABG O2 Saturation 99.4 H ABG Base Excess -7.2 L ABG Hemoglobin 8.9 L ABG Carboxyhemoglobin 1.5 POC ABG HHb (Measured) 0.6 ABG Methemoglobin 1.3 Jorge Test Pos A-a O2 Difference 184.0 Respiratory Index 1.4 Hgb O2 Saturation 96.5 Vent Mode Prvc Mechanical Rate 14 FiO2 50.0 Tidal Volume 500 PEEP 5 Sodium 135 Potassium 3.5 L Chloride 110 H Carbon Dioxide 16 L Anion Gap 12 BUN 23 H Creatinine 1.6 H Est GFR ( Amer) 54 Est GFR (Non-Af Amer) 45 Random Glucose 100 Calcium 9.9 Phosphorus 3.4 Magnesium 1.6 Total Bilirubin 0.7 AST 36 ALT 27 Alkaline Phosphatase 110 Total Protein 4.4 L Albumin 2.2 L Globulin 2.3 Albumin/Globulin Ratio 0.9 L Assessment & Plan (1) Cavitary lesion of lung Status: Acute Comment: probable malignancy (2) Respiratory failure, acute Status: Acute (3) Lung mass Status: Acute (4) Leukocytosis Status: Acute (5) Lung abscess Status: Suspected (6) DNR no code (do not resuscitate) Status: Acute Comment: family agreed to DNR status as per hospitalist; prognosis very poor
--- NOTE | 2017-03-07 20:02 | PCM.PROC ---
Procedures Attestation:: I certify that I have explained the specified Operation(s) or Procedure(s), risks, benefits and reasonable alternatives to the Patient and/or other person responsible. The opportunity was given to ask questions and all questions answered - Intubation Time Out Performed: Yes (4:15PM) Sedative: Other (Propofol) Laryngoscope: Fiber Optic Video Scope Assist Device Used: Fiber Optic Device ET Tube Size: 8.0 ET Tube Uncuffed: No ET Tube Secured at Depth: 25 ET Tube Secured Locarion: Lips (25) ET Tube Placement Confirmation: Visualized Passing Through Cords, Breath Sounds Equal Bilaterally, No Breath Sounds Over Epigastrum, Confirmation w/Capnometry Patient Tolerated Procedure: Well Procedure Immediate Complications: None
--- NOTE | 2017-03-07 20:25 | CT ---
EXAM: CT Head Without Intravenous Contrast EXAM DATE/TIME: 03/06/2017 7:07 PM CLINICAL HISTORY: 56 years old, male; Condition or disease; Other: Sdh; Additional info: Sdh follow up in 03/07/2017 am; intubated patient TECHNIQUE: Axial computed tomography images of the head/brain without intravenous contrast. All CT scans at this facility use one or more dose reduction techniques, viz.: automated exposure control; ma/kV adjustment per patient size (including targeted exams where dose is matched to indication; i.e. head); or iterative reconstruction technique. Coronal and sagittal reformatted images were created and reviewed. COMPARISON: CT - HEAD W/O CONTRAST 2017-03-06 13:41, CT head 03/04/17 FINDINGS: Brain: Ventricles are normal in size. There is no midline shift. There is mild prominence of sulci and gyri. There are no intra-axial or extra-axial mass lesions. There is no intra-axial hemorrhage. There are bilateral acute on chronic subdural collections. There is old ischemic change in the right basal ganglia.. Bethea-white differentiation is maintained. Ventricles: See above Bones/joints: Bones: Cranial vault is intact. Soft tissues: unremarkable Sinuses: There is continued opacification of the left maxillary sinus. There is minimal mucosal thickening in ethmoid air cell. Mastoid air cells: Ears and mastoids: Middle ears and mastoids are unremarkable Orbits: Orbital contents are unremarkable. IMPRESSION: Bilateral acute on chronic subdural collections similar to those seen on the prior study 03/06/17; normal ventricular size, no midline shift
[2017-03-08] MEDS: Albuterol-Ipratrop 3 mg / 0.5 (3 ml) UD INH SCH ×4 (01:20→19:33)
[2017-03-08] MEDS: Phenylephrine 30 MG in Sodium Chloride 0.9% 250 ML IV PRN ×4 (01:30→14:57)
[2017-03-08] MEDS: Sodium Chloride 0.9% 1,000 ML IV SCH ×2 (02:30→17:22)
[2017-03-08 05:59] LABS: ABG ALLEN TEST POS; ABG MECHANICAL RATE 14; ARTERIAL BLOOD GAS MODE PRVC; ARTERIAL BLOOD HGB O2 SAT 95.5 % (95.0-98.0); ATERIAL BLOOD GAS PEEP 5; CARBOXYHEMOGLOBIN 1.8 % (0.5-1.5); DRAW SITE RR; HHB 1.2 % (0.0-5.0); METHEMOGLOBIN 1.5 % (0.0-3.0)
[2017-03-08] MEDS: Clindamycin 600mg/50ml NS 600 MG/50 ML BAG IVPB SCH ×3 (06:20→22:17)
[2017-03-08 06:33] LABS: BASO % 0.1 % (0.0-2.0); EOS # 0.2 K/uL (0.0-0.7); EOS % 0.6 % (0.0-4.0); HEMATOCRIT 31.8 % (35.0-51.0); LYMPH # 2.7 K/uL (1.0-4.3); LYMPH % 9.6 % (20.0-40.0); MEAN CELL VOLUME 81.6 fL (80.0-94.0); MEAN CORPUSCULAR HGB CONC 30.6 g/dL (33.0-37.0); MONO # 0.8 K/uL (0.0-0.8); PLATELET COUNT 253 K/uL (130-400); RED CELL DISTRIBUTION WIDTH 16.6 % (11.5-14.5); WHITE BLOOD COUNT 27.9 K/uL (4.8-10.8)
[2017-03-08 07:16] LABS: ALB/GLOB RATIO 0.6 (1.0-2.1); BILIRUBIN,TOTAL 0.5 mg/dL (0.2-1.3); MAGNESIUM 1.6 mg/dL (1.6-2.3); PHOSPHOROUS 3.7 mg/dL (2.5-4.5); POTASSIUM 4.2 mmol/L (3.6-5.2); TOTAL PROTEIN 5.3 g/dL (6.3-8.3)
[2017-03-08 08:34] LABS: BASOPHIL 1 % (0-2); EOSINOPHIL 1 % (0-4); NEUTROPHIL 81 % (50-75); TOTAL CELLS COUNTED 100
[2017-03-08 08:54] LABS: ERYTHROCYTE SEDIMENTATION RATE 26 mm/hr (0-15)
[2017-03-08] MEDS ORDERED: Ergocalciferol 50,000 Intl Units Cap PO SCH (10:00)
[2017-03-08] MEDS ORDERED: Multiple Vitamins Oral Solution PO SCH (10:00)
[2017-03-08] MEDS ORDERED: Calcitonin 400 Intl Units/2mL Inj SC SCH (10:00)
[2017-03-08] MEDS: Folic Acid 1 MG, Thiamine 100 MG, Multivitamin (MVI) 10 ML in Dextrose 5% In Water 1,00... IV SCH (10:32)
[2017-03-08] MEDS: Cefepime IV 1 gm in Dextrose 1 GM/50 ML BAG IVPB SCH ×2 (10:32→22:12)
--- NOTE | 2017-03-08 10:43 | RAD ---
HISTORY: intubated COMPARISON: Comparison made with chest radiograph dated 03/07/[address] scan of the chest dated 03/04/2017 FINDINGS: Re- demonstrated is in situ ETT, tip of which lies approximately 4.1 cm above megan. NGT is present, the tip of which overlies left upper quadrant of the abdomen. No change right IJ central venous line with tip in the SVC. LUNGS: No significant interval change in the appearance of a lobular elliptical shaped pleural-based mass density with eccentric cavitary changes. . Presumed cystic bronchiectasis blebs and small bullous changes in the right lung apex less well seen as compared to prior CT scan. Central lobular emphysematous changes left upper lobe also less well seen as compared the CT scan. . PLEURA: No significant pleural effusion identified, no pneumothorax apparent. CARDIOVASCULAR: Normal. OSSEOUS STRUCTURES: No significant abnormalities. VISUALIZED UPPER ABDOMEN: Normal. OTHER FINDINGS: None. IMPRESSION: Support lines and tubes as above. No significant interval change in the appearance of a lobular elliptical shaped pleural-based mass density with eccentric cavitary changes. . Presumed cystic bronchiectasis blebs and small bullous changes in the right lung apex less well seen as compared to prior CT scan. Central lobular emphysematous changes left upper lobe also less well seen as compared the CT scan. .
[2017-03-08] MEDS: Albumin Human 25% (12.5 gm/50 ml) IV SCH ×3 (11:07→22:19)
[2017-03-08] MEDS: Ferrous Sulfate 300 mg/5 mL Liq UD NG SCH ×2 (11:11→17:21)
[2017-03-08] MEDS: metroNIDAZOLE IV 500 mg/100 ml 500 MG/100 ML BAG IVPB SCH ×3 (11:24→22:17)
--- NOTE | 2017-03-08 11:41 | CP.PCM.PN ---
Subjective - Date & Time of Evaluation Date of Evaluation: 03/08/17 Time of Evaluation: 11:20 - Subjective Subjective: Hospitalist Progress Note Patient was seen and examined at 11:20 AM 03/08/17 ICU Bed 10. 56 year old male who was brought into ER via EMS on 03/04/17 after he fell at home. Upon arrival to the ER he was found to be confused, cachectic, hypoxic. CT Head showed age indeterminate ischemic changes in righ basal ganglia, acute on chronic subdural collection on left, subdural hygroma on the right. CT Chest showed large cavitary RUL mass with infiltrative/invasion on chest wall and destruction of adjacent ribs consistent with malignancy, right hilar and mediastinal adenopathy. CT Abdomen/Pelvis showed RUL mass with nodular opacities , RML and RLL suspicious for malignancy, splenic lesions possibly metastatic. His respiratory status shortly before exam on 03/05/17 declined and he was intubated by the ICU Team after informing patient's brother Holden Abarca and wnqjei-ld-nal Sarah Abarca [phone], both of whom requested that patient be FULL CODE for the time being. Poor prognosis based upon current patient status and workup was explained to both Holden and Sarah 03/05/17. Holden spoke with Palliative Care Nurse Reyna and patient was subsequently made DNR with Limited Treatment (IV antibiotics and non-invasive positive airway pressure) as per POL, a copy of which is in patient chart. EEG was performed 03/07/17 and results are pending. PPD read on 03/07/17 was negative. However, only 1 Sputum AFB 03/05/17 is negative so far therefore will continue respiratory isolation. ROS is NOT possible as patient is nonresponsive and intubated. NO bowel movement yet Exam: General: intubated and on vent, cachectic appearance HEENT: Abrasions present on the frontal scalp, Left Pupil is dilated and sluggishly reactive to light and Right Pupil is dilated and fixed, Nasal turbinates are dry, NO cervical lymphadenopathy, NO thyromegaly, Poor Dentition Cardio: NS1 and NS2, NO M/R/G however limited due to loud course breath sounds Resp: Course breath sounds diffusely GI: BSx4, soft, ND, NO HSM Ext: Pulses are strong and equal, NO edema, Capillary Refill is 2 seconds Neuro: NOT possible due to current patient state Skin: Nonblanchable erythema sacral base Assessment and Plan: 1). Acute Respiratory Failure Patient is intubated and on ventilator Propofol 5 mcg/kg/min Status: Acute 2). Right Lung Cavitary Lesion with Sepsis Likely secondary to malignancy but rule out TB Respiratory Isolation Cefepime 1 gm IV Q12H (03/04/17) Clindamycin 600 mg I VQ8H (03/04/17) Metronidazole 500 mg IV Q8H (03/08/17) Phenylephrine 20 mcg/min Albumin 25 g IV Q6H x 4 doses starting 03/08/17 Continue NS @ 75 ml/hr Blood Culture 03/04/17 negative to date Urine Culture 03/04/17 no growth HIV Ab is negative Hepatitis Panel negative Sputum Culture [id number] shows S. aureus (he is on Clindamycin as above) AFB 03/05/17 preliminary is negative: will need 3 negative to discontinue respiratory isolation PPD on left lower anterior arm is NEGATIVE 03/07/17 F/U Quanteferon Gold MRSA Screen is negative Heme/Onc Dr. Fabienne Pantoja Palliative Care Nurse Obradovic ID Dr. Wilberto Sanches Status: Acute 3). Anemia Likely chronic considering his history of alcohol abuse Iron level is low: Ferrous Sulfate 300 mg via NG 2x/day (03/07/17) Reticulocyte count normal at 0.9 Vitamin B12 elevated above 1000 Folate normal at 3.5 F/U Peripheral Smear Status: Chronic 4). Hypophosphotemia and Hypokalemia KPhos 15mmol IV x 1dose given 03/06/17 Phos normalized and K have normalized Status: Acute 5). Alcohol Abuse Bannana Bag @ 75 ml/hour once a day Status: Chronic 6). Hypercalcemia This is fluctuating between high and low Secondary to Lung CA? Calcitonin [place] 200 IU SC BID x 6 dose starting 03/08/17 Status: Acute 7). Possible CVA CT Head w/o contrast 03/06/17: chronic bilateral subdural hematomas left larger than right. There is also a very small sliver of a hyperdense hemorrhage within the left sided collection possibly by the larger hypodense subdural component by membrane. The collections exert relatively symmetrical offsetting mass effect with compression of both cerebral hemispheres and ventricular system with no significant midline shift. F/U EEG from 03/07/[address] Moore Status: Acute 8). Acute Kidney Injury Could this be secondary to the consistently low blood pressure despite Pheylephrine Drip? Could this be secondary to contrast from the CT Abdomen/Pelvis performed on admission? Nephrology Status: Acute 9). Stage I Sacral Ulcer Optifoam Dressing Status: Acute 10). Prophylaxis Pulmcare via NGT Protonix 40 mg IV 1x/day Low Vitamin D: 50,000 units once a week starting 03/08/17 and end 04/26/17 NO anticoagulation considering the anemia: Bilateral SCDs Status: Acute Poor prognosis explained to both brother Holden Abarca [phone] and Sister- in-Law Sarah Abarca [phone] on 03/05/17. He is currently DNR and POLST is in the chart: Limited Treatment (IV antibiotics and non-invasive positive airway pressure). 03/07/17: Updated Brother Holden bAarca concerning worsening renal function, drop in hgb, continued low blood pressure despite pressure/fluid support. Explained plan for now is to follow up Sputum for AFB and if negative then Bronchoscopy by Pulmonary for tissue diagnosis of Right Lung Mass. Explained to brother the poor prognosis for this patient and for him to consider the extent to which he would like for continued treatment and evaluation. 03/08/17: Attempted to call Holden Abarca at requested number [phone] however there was NO answer and NO voicemail could be left. Patient's two other brothers were at bedside. Explained at length to Brother Felipe, the above diagnosises and workup results and plan. Also explained the unfortunate poor prognosis. Family to discuss the extent to which they want to continue treatment and further evaluation. Obed Anguiano D.O. Objective - Vital Signs/Intake and Output Vital Signs (last 24 hours): Temp Pulse Resp BP Pulse Ox 96.8 F L 70 24 96/59 L 100 03/08/17 08:00 03/08/17 10:00 03/08/17 10:00 03/08/17 10:00 03/08/17 10:00 Intake and Output: 03/08/17 03/08/17 06:59 18:59 Intake Total 2345.6 837.6 Output Total 300 55 Balance 2045.6 782.6 - Medications Medications: Current Medications Albumin Human (Albumin Human 25% (12.5 Gm/50 Ml)) 25 gm IV Q6H [facility] Stop: 03/09/17 04:01 Last Admin: 03/08/17 11:07 Dose: 25 gm Albuterol/Ipratropium (Duoneb 3 Mg/0.5 Mg (3 Ml) Ud) 3 ml INH RQ6 [facility] Last Admin: 03/08/17 07:51 Dose: 3 ml Ascorbic Acid (Vitamin C 500 Mg Tab) 500 mg PO Q12H [facility] Last Admin: 03/08/17 11:11 Dose: 500 mg Calcitonin [place] (Miacalcin) 200 iu SC BID [facility] Stop: 03/10/17 18:01 Ergocalciferol (Drisdol 50,000 Intl Units Cap) 1 cap PO QWK [facility] Stop: 04/26/17 10:00 Ferrous Sulfate (Feosol Liq) 300 mg NG BID [facility] Last Admin: 03/08/17 11:11 Dose: 300 mg Cefepime HCl (Maxipime Iv 1 Gm Premix) 1 gm in 50 mls @ 100 mls/hr IVPB Q12 [facility] Last Admin: 03/08/17 10:32 Dose: 100 mls/hr Clindamycin Phosphate (Cleocin In Normal Saline) 600 mg in 50 mls @ 100 mls/hr IVPB Q8H [facility] Last Admin: 03/08/17 06:20 Dose: 100 mls/hr Propofol (Diprivan) 1,000 mg in 100 mls @ 0.966 mls/hr IV .Q24H PRN; Protocol; 5 MCG/KG/MIN PRN Reason: TITRATE PER MD ORDER Last Titration: 03/08/17 08:00 Dose: 15 mcg/kg/min, 2.898 mls/hr Phenylephrine HCl 30 mg/ (Sodium Chloride) 253 mls @ 10.12 mls/hr IV .Q24H PRN ; Protocol; 20 MCG/MIN PRN Reason: TITRATE PER MD ORDER Last Admin: 03/08/17 10:00 Dose: 138.33 mcg/min, 69.99 mls/hr Sodium Chloride (Sodium Chloride 0.9%) 1,000 mls @ 75 mls/hr IV .[id number] [facility] Last Admin: 03/08/17 02:30 Dose: Not Given Folic Acid 1 mg/ Thiamine HCl 100 mg/ Multivitamins/Vitamin C 10 ml/ Dextrose 1 ,011.2 mls @ 75 mls/hr IV DAILY [facility] Last Admin: 03/08/17 10:32 Dose: 75 mls/hr Metronidazole (Flagyl) 500 mg in 100 mls @ 100 mls/hr IVPB Q8 [facility] Last Admin: 03/08/17 11:24 Dose: 100 mls/hr Multivitamins/Vitamin C (Multi-Delyn Liquid) 30 ml PO DAILY [facility] Pantoprazole Sodium (Protonix Inj) 40 mg IVP DAILY [facility] Last Admin: 03/08/17 11:09 Dose: 40 mg - Labs Labs: 03/08/17 06:18 03/08/17 06:18 PT 14.1 SECONDS (9.7-12.2) H 03/04/17 20:15 INR 1.3 03/04/17 20:15 APTT 35 SECONDS (21-34) H 03/04/17 20:15
--- NOTE | 2017-03-08 14:33 | CP.CCUPN ---
<Willian Krishnan - Last Filed: 03/08/17 14:28> CCU Subjective - Physician Review Subjective (Free Text): PGY1 ICU progress note for Dr. Elida Anguiano Patient seen and examined at bedside this morning. No acute events overnight. Patient is intubated. ROS unattainable. CCU Objective - Vital Signs / Intake & Output Intake and Output (Last 8hrs): Intake & Output 03/07/17 03/08/17 03/08/17 22:59 06:59 14:59 Intake Total 1606.4 1497.4 1267.6 Output Total 240 210 105 Balance 1366.4 1287.4 1162.6 Weight 78 lb Intake: IV 70 140 323 Intake, IV Amount 1456.4 1357.4 784.6 Right Distal Port 225 600 75 Right Distal Port 46.4 42.4 59.6 Internal Jugular Right Medial Port 600 150 300 Internal Jugular Right Proximal Port 585 565 350 Internal Jugular Tube Feeding 80 160 Output: Urine 240 210 105 Urethral (Mercedes) 240 210 105 - Physical Exam Head: Positive for: Abrasion (top of head, heal. no erythema) Pupils: Positive for: Sluggish (Left eye), Other (Right eye dilated 3mm, fixed.) Conjunctiva: Positive for: Normal Mouth: Positive for: Other (intubated) Respiratory/Chest: Positive for: Decreased Breath Sounds (RUL) Cardiovascular: Positive for: Tachycardic Abdomen: Negative for: Tenderness, Distention, Peritoneal Signs Upper Extremity: Positive for: Normal Inspection, NORMAL PULSES. Negative for: Edema Lower Extremity: Positive for: Normal Inspection, NORMAL PULSES. Negative for: Edema, CALF TENDERNESS Neurological: Positive for: Other (intubated) Skin: Positive for: Warm, Dry Psychiatric: Positive for: Other (intubated) - Medications Active Medications: Active Medications Generic Name Dose Route Start Last Admin Trade Name Freq PRN Reason Stop Dose Admin Albumin Human 25 gm 03/08/17 10:00 03/08/17 11:07 Albumin Human 25% (12.5 Gm/50 Ml) IV 03/09/17 04:01 25 gm Q6H JACK Administration Albuterol/Ipratropium 3 ml 03/07/17 20:00 03/08/17 13:12 Duoneb 3 Mg/0.5 Mg (3 Ml) Ud INH 3 ml RQ6 JACK Administration Ascorbic Acid 500 mg 03/08/17 10:00 03/08/17 11:11 Vitamin C 500 Mg Tab PO 500 mg Q12H JACK Administration Ergocalciferol 1 cap 03/08/17 10:00 03/08/17 11:48 Drisdol 50,000 Intl Units Cap PO 04/26/17 10:00 1 cap QWK JACK Administration Ferrous Sulfate 300 mg 03/07/17 18:00 03/08/17 11:11 Feosol Liq NG 300 mg BID JACK Administration Cefepime HCl 1 gm in 50 mls @ 100 mls/hr 03/04/17 22:00 03/08/17 10:32 Maxipime Iv 1 Gm Premix IVPB 100 mls/hr Q12 JACK Administration Clindamycin Phosphate 600 mg in 50 mls @ 100 mls/hr 03/04/17 22:45 03/08/17 14:07 Cleocin In Normal Saline IVPB 100 mls/hr Q8H JACK Administration Propofol 1,000 mg in 100 mls @ 0.966 mls/hr 03/05/17 10:56 03/08/17 10:00 Diprivan IV 0 mcg/kg/min .Q24H PRN 0 mls/hr TITRATE PER MD ORDER Titration Protocol 5 MCG/KG/MIN Phenylephrine HCl 30 mg/ 253 mls @ 10.12 mls/hr 03/05/17 16:45 03/08/17 10:00 Sodium Chloride IV 138.33 mcg/min .Q24H PRN 69.99 mls/hr TITRATE PER MD ORDER Administration Protocol 20 MCG/MIN Sodium Chloride 1,000 mls @ 75 mls/hr 03/06/17 10:30 03/08/17 02:30 Sodium Chloride 0.9% IV Not Given .[id number] JACK Folic Acid 1 mg/ Thiamine HCl 1,011.2 mls @ 75 mls/hr 03/07/17 10:00 10:32 100 mg/ Multivitamins/Vitamin IV 75 mls/hr C 10 ml/ Dextrose DAILY JACK Administration Metronidazole 500 mg in 100 mls @ 100 mls/hr 03/08/17 10:00 03/08/17 11:24 Flagyl IVPB 100 mls/hr Q8 JACK Administration Multivitamins 1 tab 03/08/17 14:00 Hexavitamin PO DAILY JACK Pantoprazole Sodium 40 mg 03/05/17 10:00 03/08/17 11:09 Protonix Inj IVP 40 mg DAILY JACK Administration - Patient Studies Lab Studies: Microbiology Studies 03/05/17 22:17 Gram Stain - Final Sputum Induced Sputum Culture - Final Staphylococcus Aureus 03/04/17 20:40 Blood Culture - Preliminary Blood NO GROWTH AFTER 3 DAYS 03/04/17 20:10 Blood Culture - Preliminary Blood NO GROWTH AFTER 3 DAYS 03/05/17 21:58 Mycobacterial Culture - Preliminary Other: Please Indicate Lab Studies 03/08/17 03/08/17 03/08/17 Range/Units 12:43 06:18 06:18 WBC 27.9 H (4.8-10.8) K/uL RBC 3.89 L (4.40-5.90) Mil/uL Hgb 9.7 L (12.0-18.0) g/dL Hct 31.8 L (35.0-51.0) % MCV 81.6 (80.0-94.0) fL MCH 25.0 L (27.0-31.0) pg MCHC 30.6 L (33.0-37.0) g/dL RDW 16.6 H (11.5-14.5) % Plt Count 253 (130-400) K/uL MPV 8.0 (7.2-11.7) fL Neut % (Auto) 86.7 H (50.0-75.0) % Lymph % (Auto) 9.6 L (20.0-40.0) % [place] % (Auto) 3.0 (0.0-10.0) % Eos % (Auto) 0.6 (0.0-4.0) % Baso % (Auto) 0.1 (0.0-2.0) % Neut # 24.2 H (1.8-7.0) K/uL Lymph # 2.7 (1.0-4.3) K/uL [place] # 0.8 (0.0-0.8) K/uL Eos # 0.2 (0.0-0.7) K/uL Baso # 0.0 (0.0-0.2) K/uL Neutrophils % (Manual) 81 H (50-75) % Band Neutrophils % 8 H (0-2) % Lymphocytes % (Manual) 7 L (20-40) % Monocytes % (Manual) 2 (0-10) % Eosinophils % (Manual) 1 (0-4) % Basophils % (Manual) 1 (0-2) % Toxic Granulation Present Platelet Estimate Normal (NORMAL) Hypochromasia (manual) Slight Anisocytosis (manual) Slight Enrique Cells Moderate ESR 26 H (0-15) mm/hr Puncture Site pCO2 (35-45) mm/Hg pO2 (80-100) mm/Hg HCO3 (21-28) mmol/L ABG pH (7.35-7.45) ABG Total CO2 (22-28) mmol/L ABG O2 Saturation (95-98) % ABG Base Excess (-2.0-3.0) mmol/L ABG Hemoglobin (11.7-17.4) g/dL ABG Carboxyhemoglobin (0.5-1.5) % POC ABG HHb (Measured) (0.0-5.0) % ABG Methemoglobin (0.0-3.0) % Jorge Test A-a O2 Difference mm/Hg Respiratory Index Hgb O2 Saturation (95.0-98.0) % Vent Mode Mechanical Rate FiO2 % Tidal Volume PEEP Sodium 134 (132-148) mmol/L Potassium 4.2 (3.6-5.2) mmol/L Chloride 114 H (98-107) mmol/L Carbon Dioxide 16 L (22-30) mmol/L Anion Gap 9 L (10-20) BUN 28 H (9-20) mg/dL Creatinine 1.7 H (0.8-1.5) mg/dL Est GFR ( Amer) 50 Est GFR (Non-Af Amer) 42 Random Glucose 94 (75-110) mg/dL Lactic Acid 1.5 (0.7-2.1) mmol/L Calcium 10.0 (8.6-10.4) mg/dl Phosphorus 3.7 (2.5-4.5) mg/dL Magnesium 1.6 (1.6-2.3) mg/dL Total Bilirubin 0.5 (0.2-1.3) mg/dL AST 16 L D (17-59) U/L ALT 35 (21-72) U/L Alkaline Phosphatase 93 (38-126) U/L Total Protein 5.3 L (6.3-8.3) g/dL Albumin 2.0 L (3.5-5.0) g/dL Globulin 3.3 (2.2-3.9) gm/dL Albumin/Globulin Ratio 0.6 L (1.0-2.1) 03/08/ Range/Units 05:23 WBC (4.8-10.8) K/uL RBC (4.40-5.90) Mil/uL Hgb (12.0-18.0) g/dL Hct (35.0-51.0) % MCV (80.0-94.0) fL MCH (27.0-31.0) pg MCHC (33.0-37.0) g/dL RDW (11.5-14.5) % Plt Count (130-400) K/uL MPV (7.2-11.7) fL Neut % (Auto) (50.0-75.0) % Lymph % (Auto) (20.0-40.0) % [place] % (Auto) (0.0-10.0) % Eos % (Auto) (0.0-4.0) % Baso % (Auto) (0.0-2.0) % Neut # (1.8-7.0) K/uL Lymph # (1.0-4.3) K/uL [place] # (0.0-0.8) K/uL Eos # (0.0-0.7) K/uL Baso # (0.0-0.2) K/uL Neutrophils % (Manual) (50-75) % Band Neutrophils % (0-2) % Lymphocytes % (Manual) (20-40) % Monocytes % (Manual) (0-10) % Eosinophils % (Manual) (0-4) % Basophils % (Manual) (0-2) % Toxic Granulation Platelet Estimate (NORMAL) Hypochromasia (manual) Anisocytosis (manual) [place] Cells ESR (0-15) mm/hr Puncture Site Rr pCO2 25 L (35-45) mm/Hg pO2 85 (80-100) mm/Hg HCO3 16.1 L (21-28) mmol/L ABG pH 7.33 L (7.35-7.45) ABG Total CO2 14.0 L (22-28) mmol/L ABG O2 Saturation 98.8 H (95-98) % ABG Base Excess -11.3 L (-2.0-3.0) mmol/L ABG Hemoglobin 9.9 L (11.7-17.4) g/dL ABG Carboxyhemoglobin 1.8 H (0.5-1.5) % POC ABG HHb (Measured) 1.2 (0.0-5.0) % ABG Methemoglobin 1.5 (0.0-3.0) % Jorge Test Pos A-a O2 Difference 169.0 mm/Hg Respiratory Index 2.0 Hgb O2 Saturation 95.5 (95.0-98.0) % Vent Mode Prvc Mechanical Rate 14 FiO2 40.0 % Tidal Volume 500 PEEP 5 Sodium (132-148) mmol/L Potassium (3.6-5.2) mmol/L Chloride (98-107) mmol/L Carbon Dioxide (22-30) mmol/L Anion Gap (10-20) BUN (9-20) mg/dL Creatinine (0.8-1.5) mg/dL Est GFR ( Amer) Est GFR (Non-Af Amer) Random Glucose (75-110) mg/dL Lactic Acid (0.7-2.1) mmol/L Calcium (8.6-10.4) mg/dl Phosphorus (2.5-4.5) mg/dL Magnesium (1.6-2.3) mg/dL Total Bilirubin (0.2-1.3) mg/dL AST (17-59) U/L ALT (21-72) U/L Alkaline Phosphatase (38-126) U/L Total Protein (6.3-8.3) g/dL Albumin (3.5-5.0) g/dL Globulin (2.2-3.9) gm/dL Albumin/Globulin Ratio (1.0-2.1) Laboratory Results - last 24 hr 03/08/17 03/08/17 03/08/17 05:23 06:18 06:18 WBC 27.9 H RBC 3.89 L Hgb 9.7 L Hct 31.8 L MCV 81.6 MCH 25.0 L MCHC 30.6 L RDW 16.6 H Plt Count 253 MPV 8.0 Neut % (Auto) 86.7 H Lymph % (Auto) 9.6 L [place] % (Auto) 3.0 Eos % (Auto) 0.6 Baso % (Auto) 0.1 Neut # 24.2 H Lymph # 2.7 [place] # 0.8 Eos # 0.2 Baso # 0.0 Neutrophils % (Manual) 81 H Band Neutrophils % 8 H Lymphocytes % (Manual) 7 L Monocytes % (Manual) 2 Eosinophils % (Manual) 1 Basophils % (Manual) 1 Toxic Granulation Present Platelet Estimate Normal Hypochromasia (manual) Slight Anisocytosis (manual) Slight [place] Cells Moderate ESR 26 H Puncture Site Rr pCO2 25 L pO2 85 HCO3 16.1 L ABG pH 7.33 L ABG Total CO2 14.0 L ABG O2 Saturation 98.8 H ABG Base Excess -11.3 L ABG Hemoglobin 9.9 L ABG Carboxyhemoglobin 1.8 H POC ABG HHb (Measured) 1.2 ABG Methemoglobin 1.5 Jorge Test Pos A-a O2 Difference 169.0 Respiratory Index 2.0 Hgb O2 Saturation 95.5 Vent Mode Prvc Mechanical Rate 14 FiO2 40.0 Tidal Volume 500 PEEP 5 Sodium 134 Potassium 4.2 Chloride 114 H Carbon Dioxide 16 L Anion Gap 9 L BUN 28 H Creatinine 1.7 H Est GFR ( Amer) 50 Est GFR (Non-Af Amer) 42 Random Glucose 94 Lactic Acid Calcium 10.0 Phosphorus 3.7 Magnesium 1.6 Total Bilirubin 0.5 AST 16 L D ALT 35 Alkaline Phosphatase 93 Total Protein 5.3 L Albumin 2.0 L Globulin 3.3 Albumin/Globulin Ratio 0.6 L 03/08/17 12:43 WBC RBC Hgb Hct MCV MCH MCHC RDW Plt Count MPV Neut % (Auto) Lymph % (Auto) [place] % (Auto) Eos % (Auto) Baso % (Auto) Neut # Lymph # [place] # Eos # Baso # Neutrophils % (Manual) Band Neutrophils % Lymphocytes % (Manual) Monocytes % (Manual) Eosinophils % (Manual) Basophils % (Manual) Toxic Granulation Platelet Estimate Hypochromasia (manual) Anisocytosis (manual) Enrique Cells ESR Puncture Site pCO2 pO2 HCO3 ABG pH ABG Total CO2 ABG O2 Saturation ABG Base Excess ABG Hemoglobin ABG Carboxyhemoglobin POC ABG HHb (Measured) ABG Methemoglobin Jorge Test A-a O2 Difference Respiratory Index Hgb O2 Saturation Vent Mode Mechanical Rate FiO2 Tidal Volume PEEP Sodium Potassium Chloride Carbon Dioxide Anion Gap BUN Creatinine Est GFR ( Amer) Est GFR (Non-Af Amer) Random Glucose Lactic Acid 1.5 Calcium Phosphorus Magnesium Total Bilirubin AST ALT Alkaline Phosphatase Total Protein Albumin Globulin Albumin/Globulin Ratio Fingerstick Blood Sugar Results: 94 Review of Systems - Review of Systems Systems not reviewed;Unavailable: Intubated Assessment/Plan - Assessment and Plan (Free Text) Assessment: 56 year old cachectic male with no known PMH presenting with cough, loss of weight, confusion and right upper lobe infiltrate with leucocytosis, thrombocytosis, hyponatremia, hypercalcemia and dehydration. Most likely has lung malignancy, r/o pneumonia/lung abscess/fungal infection Plan: Pulmonary: Pulm consult, Dr. Cleveland, help appreciated Hem/Onc Consult, Dr. Pantoja, help appreciated intubated RUL infiltrate WBC 27.9 (29.9 on 03/07); 7 bands CXR 03/06 - Lobular pleural-based opacity with eccentric presumed air-filled cavitary changes right upper lobe. Areas of presumed cystic bronchiectasis with blebs and small bullous changes in the right lung apex. Centrilobular emphysematous changes left upper lobe are less well seen on this study as compared to high-resolution CT scan CXR 03/08 - No significant interval change in the appearance of a lobular elliptical shaped pleural-based mass density with eccentric cavitary changes. Presumed cystic bronchiectasis blebs and small bullous changes in the right lung apex less well seen as compared to prior CT scan. Central lobular emphysematous changes left upper lobe also less well seen as compared the CT scan. Chest CT w/angio 03/04 - Large cavitary right upper lobe mass with infiltration/ invasion of the chest wall and destruction of adjacent ribs, findings are consistent with malignancy; right hilar and mediastinal adenopathy; no aneurysm, dissection or pulmonary embolus. ABG - pCO2 25, pO2 85, HCO3 16.1, pH 7.33 vent settings 500/40/14/5 procalcitonin 6.05 Cefepime 1gm IVPB q12h Clindamycin 600mg IVPB q8h Duoneb 3mL INH q6h Vitamin C 500mg PO q12h Multivitamins 1 tab PO daily Blood cultures negative at 3 days x2 sputum culture - grew Staph Aureus - continue current abx f/u sputum cultures f/u AFB sputum (3 sent out) - airborne precautions f/u quantiferon - gold Urine culture negative CV: hypotension Phenylephrine drip NS @75mL/hr Albumin 2.0 - albumin 25gm IV q6h x 4 doses Neuro: sedated hx of alcohol abuse Head CT 03/04 - Mild atrophy and small vessel disease; age indeterminate ischemic changes right basal ganglia; acute on chronic subdural collection on the left; subacute subdural hygroma on the right, no midline shift head CT 03/08 - Bilateral acute on chronic subdural collections similar to those seen on the prior study 03/06/17; normal ventricular size, no midline shift f/u EEG Propofol drip D5W with Folic Acid/Thiamine/Multivitamin added @100 mL/hr Renal: Dr. Nassar Consulted, help appreciated (Dr. Blanc covering) Cr worsening 0.8 (03/05) to 1.2 (03/06) to 1.6 (03/07) to 1.7 (03/08) poor urine output I's & O's - plus 5 liters both 03/06 and 03/07 ID: Hep panel, HIV screen and Influenza - all negative Prophylactic Care: Protonix 40mg IVP daily SCDs Patient made DNR by brotherHolden (P.O.A) Case discussed with Dr. Elida Krishnan PGY1 <Eitan Anguiano - Last Filed: 03/08/17 18:47> CCU Subjective - Physician Review Critical Care Time Spent (in minutes): 35 CCU Objective - Vital Signs / Intake & Output Vital Signs (Last 4 hours): Vital Signs Temp Pulse Resp BP Pulse Ox 03/08/17 16:00 97.7 F 81 16 85/57 L 100 03/08/17 15:00 77 26 H 80/52 L 98 03/08/17 14:57 77 26 H 80/52 L 100 Intake and Output (Last 8hrs): Intake & Output 03/08/17 03/08/17 03/08/17 06:59 14:59 22:59 Intake Total 1497.4 2550.6 907 Output Total 210 150 90 Balance 1287.4 2400.6 817 Weight 78 lb Intake: IV 140 576 2 Intake, IV Amount 1357.4 1694.6 785 Right Distal IJ - Distal 100 100 Port Right Distal Port 600 75 Right Distal Port 42.4 384.6 225 Internal Jugular Right Medial Port 150 575 250 Internal Jugular Right Proximal Port 565 560 210 Internal Jugular Tube Feeding 280 120 Output: Urine 210 150 90 Urethral (Mercedes) 210 150 90 - Medications Active Medications: Active Medications Generic Name Dose Route Start Last Admin Trade Name Freq PRN Reason Stop Dose Admin Albumin Human 25 gm 03/08/17 10:00 03/08/17 15:38 Albumin Human 25% (12.5 Gm/50 Ml) IV 03/09/17 04:01 25 gm Q6H JACK Administration Albuterol/Ipratropium 3 ml 03/07/17 20:00 03/08/17 13:12 Duoneb 3 Mg/0.5 Mg (3 Ml) Ud INH 3 ml RQ6 JACK Administration Ascorbic Acid 500 mg 03/08/17 10:00 03/08/17 11:11 Vitamin C 500 Mg Tab PO 500 mg Q12H JACK Administration Ergocalciferol 1 cap 03/08/17 10:00 03/08/17 11:48 Drisdol 50,000 Intl Units Cap PO 04/26/17 10:00 1 cap QWK JACK Administration Ferrous Sulfate 300 mg 03/07/17 18:00 03/08/17 17:21 Feosol Liq NG 300 mg BID JACK Administration Cefepime HCl 1 gm in 50 mls @ 100 mls/hr 03/04/17 22:00 03/08/17 10:32 Maxipime Iv 1 Gm Premix IVPB 100 mls/hr Q12 JACK Administration Clindamycin Phosphate 600 mg in 50 mls @ 100 mls/hr 03/04/17 22:45 03/08/17 14:07 Cleocin In Normal Saline IVPB 100 mls/hr Q8H JACK Administration Propofol 1,000 mg in 100 mls @ 0.966 mls/hr 03/05/17 10:56 03/08/17 18:37 Diprivan IV 20 mcg/kg/min .Q24H PRN 3.865 mls/hr TITRATE PER MD ORDER Titration Protocol 5 MCG/KG/MIN Sodium Chloride 1,000 mls @ 75 mls/hr 03/06/17 10:30 03/08/17 17:22 Sodium Chloride 0.9% IV 75 mls/hr .[id number] JACK Administration Folic Acid 1 mg/ Thiamine HCl 1,011.2 mls @ 75 mls/hr 03/07/17 10:00 10:32 100 mg/ Multivitamins/Vitamin IV 75 mls/hr C 10 ml/ Dextrose DAILY JACK Administration Metronidazole 500 mg in 100 mls @ 100 mls/hr 03/08/17 10:00 03/08/17 14:47 Flagyl IVPB 100 mls/hr Q8 JACK Administration Phenylephrine HCl 60 mg/ 256 mls @ 5.11 mls/hr 03/08/17 18:45 Dextrose IV .Q24H PRN TITRATE PER MD ORDER Protocol 20 MCG/MIN Vancomycin HCl 1 gm in 250 mls @ 167 mls/hr 03/08/17 18:39 Vancomycin 1gm In Normal Saline Addvantage IVPB 03/08/17 20:08 STAT STA Multivitamins 1 tab 03/08/17 14:00 03/08/17 14:47 Hexavitamin PO 1 tab DAILY JACK Administration Pantoprazole Sodium 40 mg 03/05/17 10:00 03/08/17 11:09 Protonix Inj IVP 40 mg DAILY JACK Administration - Patient Studies Lab Studies: Microbiology Studies 03/05/17 22:17 Gram Stain - Final Sputum Induced Sputum Culture - Final Staphylococcus Aureus 03/04/17 20:40 Blood Culture - Preliminary Blood NO GROWTH AFTER 3 DAYS 03/04/17 20:10 Blood Culture - Preliminary Blood NO GROWTH AFTER 3 DAYS 03/05/17 21:58 Mycobacterial Culture - Preliminary Other: Please Indicate Lab Studies 03/08/17 03/08/17 03/08/17 Range/Units 12:43 06:18 06:18 WBC 27.9 H (4.8-10.8) K/uL RBC 3.89 L (4.40-5.90) Mil/uL Hgb 9.7 L (12.0-18.0) g/dL Hct 31.8 L (35.0-51.0) % MCV 81.6 (80.0-94.0) fL MCH 25.0 L (27.0-31.0) pg MCHC 30.6 L (33.0-37.0) g/dL RDW 16.6 H (11.5-14.5) % Plt Count 253 (130-400) K/uL MPV 8.0 (7.2-11.7) fL Neut % (Auto) 86.7 H (50.0-75.0) % Lymph % (Auto) 9.6 L (20.0-40.0) % [place] % (Auto) 3.0 (0.0-10.0) % Eos % (Auto) 0.6 (0.0-4.0) % Baso % (Auto) 0.1 (0.0-2.0) % Neut # 24.2 H (1.8-7.0) K/uL Lymph # 2.7 (1.0-4.3) K/uL [place] # 0.8 (0.0-0.8) K/uL Eos # 0.2 (0.0-0.7) K/uL Baso # 0.0 (0.0-0.2) K/uL Neutrophils % (Manual) 81 H (50-75) % Band Neutrophils % 8 H (0-2) % Lymphocytes % (Manual) 7 L (20-40) % Monocytes % (Manual) 2 (0-10) % Eosinophils % (Manual) 1 (0-4) % Basophils % (Manual) 1 (0-2) % Toxic Granulation Present Platelet Estimate Normal (NORMAL) Hypochromasia (manual) Slight Anisocytosis (manual) Slight [place] Cells Moderate ESR 26 H (0-15) mm/hr Puncture Site pCO2 (35-45) mm/Hg pO2 (80-100) mm/Hg HCO3 (21-28) mmol/L ABG pH (7.35-7.45) ABG Total CO2 (22-28) mmol/L ABG O2 Saturation (95-98) % ABG Base Excess (-2.0-3.0) mmol/L ABG Hemoglobin (11.7-17.4) g/dL ABG Carboxyhemoglobin (0.5-1.5) % POC ABG HHb (Measured) (0.0-5.0) % ABG Methemoglobin (0.0-3.0) % Jorge Test A-a O2 Difference mm/Hg Respiratory Index Hgb O2 Saturation (95.0-98.0) % Vent Mode Mechanical Rate FiO2 % Tidal Volume PEEP Sodium 134 (132-148) mmol/L Potassium 4.2 (3.6-5.2) mmol/L Chloride 114 H (98-107) mmol/L Carbon Dioxide 16 L (22-30) mmol/L Anion Gap 9 L (10-20) BUN 28 H (9-20) mg/dL Creatinine 1.7 H (0.8-1.5) mg/dL Est GFR ( Amer) 50 Est GFR (Non-Af Amer) 42 Random Glucose 94 (75-110) mg/dL Lactic Acid 1.5 (0.7-2.1) mmol/L Calcium 10.0 (8.6-10.4) mg/dl Phosphorus 3.7 (2.5-4.5) mg/dL Magnesium 1.6 (1.6-2.3) mg/dL Total Bilirubin 0.5 (0.2-1.3) mg/dL AST 16 L D (17-59) U/L ALT 35 (21-72) U/L Alkaline Phosphatase 93 (38-126) U/L Total Protein 5.3 L (6.3-8.3) g/dL Albumin 2.0 L (3.5-5.0) g/dL Globulin 3.3 (2.2-3.9) gm/dL Albumin/Globulin Ratio 0.6 L (1.0-2.1) 03/08/17 Range/Units 05:23 WBC (4.8-10.8) K/uL RBC (4.40-5.90) Mil/uL Hgb (12.0-18.0) g/dL Hct (35.0-51.0) % MCV (80.0-94.0) fL MCH (27.0-31.0) pg MCHC (33.0-37.0) g/dL RDW (11.5-14.5) % Plt Count (130-400) K/uL MPV (7.2-11.7) fL Neut % (Auto) (50.0-75.0) % Lymph % (Auto) (20.0-40.0) % [place] % (Auto) (0.0-10.0) % Eos % (Auto) (0.0-4.0) % Baso % (Auto) (0.0-2.0) % Neut # (1.8-7.0) K/uL Lymph # (1.0-4.3) K/uL [place] # (0.0-0.8) K/uL Eos # (0.0-0.7) K/uL Baso # (0.0-0.2) K/uL Neutrophils % (Manual) (50-75) % Band Neutrophils % (0-2) % Lymphocytes % (Manual) (20-40) % Monocytes % (Manual) (0-10) % Eosinophils % (Manual) (0-4) % Basophils % (Manual) (0-2) % Toxic Granulation Platelet Estimate (NORMAL) Hypochromasia (manual) Anisocytosis (manual) [place]rique Cells ESR (0-15) mm/hr Puncture Site Rr pCO2 25 L (35-45) mm/Hg pO2 85 (80-100) mm/Hg HCO3 16.1 L (21-28) mmol/L ABG pH 7.33 L (7.35-7.45) ABG Total CO2 14.0 L (22-28) mmol/L ABG O2 Saturation 98.8 H (95-98) % ABG Base Excess -11.3 L (-2.0-3.0) mmol/L ABG Hemoglobin 9.9 L (11.7-17.4) g/dL ABG Carboxyhemoglobin 1.8 H (0.5-1.5) % POC ABG HHb (Measured) 1.2 (0.0-5.0) % ABG Methemoglobin 1.5 (0.0-3.0) % Jorge Test Pos A-a O2 Difference 169.0 mm/Hg Respiratory Index 2.0 Hgb O2 Saturation 95.5 (95.0-98.0) % Vent Mode Prvc Mechanical Rate 14 FiO2 40.0 % Tidal Volume 500 PEEP 5 Sodium (132-148) mmol/L Potassium (3.6-5.2) mmol/L Chloride (98-107) mmol/L Carbon Dioxide (22-30) mmol/L Anion Gap (10-20) BUN (9-20) mg/dL Creatinine (0.8-1.5) mg/dL Est GFR ( Amer) Est GFR (Non-Af Amer) Random Glucose (75-110) mg/dL Lactic Acid (0.7-2.1) mmol/L Calcium (8.6-10.4) mg/dl Phosphorus (2.5-4.5) mg/dL Magnesium (1.6-2.3) mg/dL Total Bilirubin (0.2-1.3) mg/dL AST (17-59) U/L ALT (21-72) U/L Alkaline Phosphatase (38-126) U/L Total Protein (6.3-8.3) g/dL Albumin (3.5-5.0) g/dL Globulin (2.2-3.9) gm/dL Albumin/Globulin Ratio (1.0-2.1) Laboratory Results - last 24 hr 03/08/17 03/08/17 03/08/17 05:23 06:18 06:18 WBC 27.9 H RBC 3.89 L Hgb 9.7 L Hct 31.8 L MCV 81.6 MCH 25.0 L MCHC 30.6 L RDW 16.6 H Plt Count 253 MPV 8.0 Neut % (Auto) 86.7 H Lymph % (Auto) 9.6 L [place]oshone % (Auto) 3.0 Eos % (Auto) 0.6 Baso % (Auto) 0.1 Neut # 24.2 H Lymph # 2.7 Shoshone # 0.8 Eos # 0.2 Baso # 0.0 Neutrophils % (Manual) 81 H Band Neutrophils % 8 H Lymphocytes % (Manual) 7 L Monocytes % (Manual) 2 Eosinophils % (Manual) 1 Basophils % (Manual) 1 Toxic Granulation Present Platelet Estimate Normal Hypochromasia (manual) Slight Anisocytosis (manual) Slight Enrique Cells Moderate ESR 26 H Puncture Site Rr pCO2 25 L pO2 85 HCO3 16.1 L ABG pH 7.33 L ABG Total CO2 14.0 L ABG O2 Saturation 98.8 H ABG Base Excess -11.3 L ABG Hemoglobin 9.9 L ABG Carboxyhemoglobin 1.8 H POC ABG HHb (Measured) 1.2 ABG Methemoglobin 1.5 Jorge Test Pos A-a O2 Difference 169.0 Respiratory Index 2.0 Hgb O2 Saturation 95.5 Vent Mode Prvc Mechanical Rate 14 FiO2 40.0 Tidal Volume 500 PEEP 5 Sodium 134 Potassium 4.2 Chloride 114 H Carbon Dioxide 16 L Anion Gap 9 L BUN 28 H Creatinine 1.7 H Est GFR ( Amer) 50 Est GFR (Non-Af Amer) 42 Random Glucose 94 Lactic Acid Calcium 10.0 Phosphorus 3.7 Magnesium 1.6 Total Bilirubin 0.5 AST 16 L D ALT 35 Alkaline Phosphatase 93 Total Protein 5.3 L Albumin 2.0 L Globulin 3.3 Albumin/Globulin Ratio 0.6 L 03/08/17 12:43 WBC RBC Hgb Hct MCV MCH MCHC RDW Plt Count MPV Neut % (Auto) Lymph % (Auto) [place]osh[place] % (Auto) Eos % (Auto) Baso % (Auto) Neut # Lymph # [place]oshone # Eos # Baso # Neutrophils % (Manual) Band Neutrophils % Lymphocytes % (Manual) Monocytes % (Manual) Eosinophils % (Manual) Basophils % (Manual) Toxic Granulation Platelet Estimate Hypochromasia (manual) Anisocytosis (manual) Enrique Cells ESR Puncture Site pCO2 pO2 HCO3 ABG pH ABG Total CO2 ABG O2 Saturation ABG Base Excess ABG Hemoglobin ABG Carboxyhemoglobin POC ABG HHb (Measured) ABG Methemoglobin Jorge Test A-a O2 Difference Respiratory Index Hgb O2 Saturation Vent Mode Mechanical Rate FiO2 Tidal Volume PEEP Sodium Potassium Chloride Carbon Dioxide Anion Gap BUN Creatinine Est GFR ( Amer) Est GFR (Non-Af Amer) Random Glucose Lactic Acid 1.5 Calcium Phosphorus Magnesium Total Bilirubin AST ALT Alkaline Phosphatase Total Protein Albumin Globulin Albumin/Globulin Ratio Assessment/Plan - Assessment and Plan (Free Text) Plan: Patient seen and examiend at bedside. Patient sedated on propofol. CT chest reveals cavitary lesion right upper lobe. -dx includes bacterial (staph), fungal(aspergillus/cocci), AFB (MTB/NMBTB), AFB neg x2, pending last AFB -send off fungal culture and bacterial culture -signficant secretions from ET tube -cannot tolerate CPAP -shock: possible cardiogenic + septic shock, serial lactic, keep MAP >65 -continue current management, de-escalate abx as per culture results -JESSI: etiology unknown, possible contrast induced JESSI -continue DVt/PUD ppx -cc time 35 minutes -family requested DNR -prognosis poor given severe mannutrition and multiorgan dysfunction -ID follow up requested - Date & Time Date: 03/08/17 Time: 18:46
[2017-03-08] MEDS: Multiple Vitamins Tab PO SCH (14:47)
--- NOTE | 2017-03-08 15:00 | CP.PCM.PN ---
Subjective - Date & Time of Evaluation Date of Evaluation: 03/08/17 Time of Evaluation: 14:52 - Subjective Subjective: Follow up Nephrology Consultation: Assessment: critical Acute Kidney Injury (N17.9) likely due to low BP/sepsis with shock ? 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 pt DNR, palliative care involved. overall poor prognosis. maintain hemodynamics stable. no ACEI/ARB due to JESSI Monitor Input/Output, daily weights and renal function with basic metabolic panel IV fluids as ordered continue with thiamine supplementation ordered calcitonin sq but not available. can consider Zometa or pamidronate once GFR better (GFR likely to be low considering low urine output) supplement electrolytes as needed can check PTH-rp Dose meds/antibiotics for reduced GFR. Avoid fleets enema/magnesium based laxatives. Avoid nephrotoxins/NSAIDs/ iodinated contrast (unless needed emergently) Glycemic control Further work up/management as per primary team Thanks for allowing me to participate in care of your patient. Will follow patient with you. Please call if any Qs. d/w ICU team Dr Francisco Blanc Office: [phone] Chief Complaint; unable reason for consult; JESSI and hypercalcemia HPI: Pt is a 56 M with hx of chronic alcoholism and smoking presented with complaints of fall at home. He was found to have severe cachexia, large Rt lung mass and hypercalcemia. Also with low BP, sepsis, requiring pressors meds and renal consult for JESSI. unable to obtain any hx had recent iodinated contrast exposure 02/03/17. noted episodes of low BP. remains on pressor Physical Examination: General Appearance: ill appearing, severly malnourished and cachexic. intubated Vitals reviewed and noted as below Head; Atraumatic, normocephalic ENT: orally intubated EYES: Rt pupil fixed, left sluggish. Sclera is anicteric. Neck; supple no lymphadenopathy, no thyromegaly or bruit Lungs: Increased respiratory rate/effort. Breath sounds decreased at Rt side and with b/l rales + Heart: Increased rate. s1s2 normal. No rub or gallop. Extremities: 1+ edema. No varicose veins Neurological: Patient is intubated Skin: Warm and dry. Normal turgor. No rash. Palpitation: Normal elasticity for age Abdomen: Abdomen is soft. Bowel sounds +. There is no abdominal tenderness, no guarding/rigidity no organomegaly Psych: unable MSK: no joint tenderness or swelling. Digits and nails normal, no deformity : kidney or bladder not palpable Labs/imaging reviewed. Past medical history, past surgical history, family history, social history, allergy reviewed and noted as below Family hx: no hx of CKD. Rest non-contributory Objective - Vital Signs/Intake and Output Vital Signs (last 24 hours): Temp Pulse Resp BP Pulse Ox 96.8 F L 70 24 96/59 L 100 03/08/17 08:00 03/08/17 10:00 03/08/17 10:00 03/08/17 10:00 03/08/17 10:00 Intake and Output: 03/08/17 03/08/17 06:59 18:59 Intake Total 2345.6 1267.6 Output Total 300 105 Balance 2045.6 1162.6 - Medications Medications: Current Medications Albumin Human (Albumin Human 25% (12.5 Gm/50 Ml)) 25 gm IV Q6H [facility] Stop: 03/09/17 04:01 Last Admin: 03/08/17 11:07 Dose: 25 gm Albuterol/Ipratropium (Duoneb 3 Mg/0.5 Mg (3 Ml) Ud) 3 ml INH RQ6 [facility] Last Admin: 03/08/17 13:12 Dose: 3 ml Ascorbic Acid (Vitamin C 500 Mg Tab) 500 mg PO Q12H [facility] Last Admin: 03/08/17 11:11 Dose: 500 mg Ergocalciferol (Drisdol 50,000 Intl Units Cap) 1 cap PO QWK [facility] Stop: 04/26/17 10:00 Last Admin: 03/08/17 11:48 Dose: 1 cap Ferrous Sulfate (Feosol Liq) 300 mg NG BID [facility] Last Admin: 03/08/17 11:11 Dose: 300 mg Cefepime HCl (Maxipime Iv 1 Gm Premix) 1 gm in 50 mls @ 100 mls/hr IVPB Q12 [facility] Last Admin: 12/15/17 10:32 Dose: 100 mls/hr Clindamycin Phosphate (Cleocin In Normal Saline) 600 mg in 50 mls @ 100 mls/hr IVPB Q8H [facility] Last Admin: 03/08/17 14:07 Dose: 100 mls/hr Propofol (Diprivan) 1,000 mg in 100 mls @ 0.966 mls/hr IV .Q24H PRN; Protocol; 5 MCG/KG/MIN PRN Reason: TITRATE PER MD ORDER Last Titration: 03/08/17 10:00 Dose: 0 mcg/kg/min, 0 mls/hr Phenylephrine HCl 30 mg/ (Sodium Chloride) 253 mls @ 10.12 mls/hr IV .Q24H PRN ; Protocol; 20 MCG/MIN PRN Reason: TITRATE PER MD ORDER Last Admin: 03/08/17 10:00 Dose: 138.33 mcg/min, 69.99 mls/hr Sodium Chloride (Sodium Chloride 0.9%) 1,000 mls @ 75 mls/hr IV .[id number] [facility] Last Admin: 03/08/17 02:30 Dose: Not Given Folic Acid 1 mg/ Thiamine HCl 100 mg/ Multivitamins/Vitamin C 10 ml/ Dextrose 1 ,011.2 mls @ 75 mls/hr IV DAILY [facility] Last Admin: 03/08/17 10:32 Dose: 75 mls/hr Metronidazole (Flagyl) 500 mg in 100 mls @ 100 mls/hr IVPB Q8 [facility] Last Admin: 03/08/17 14:47 Dose: 100 mls/hr Multivitamins (Hexavitamin) 1 tab PO DAILY [facility] Last Admin: 03/08/17 14:47 Dose: 1 tab Pantoprazole Sodium (Protonix Inj) 40 mg IVP DAILY [facility] Last Admin: 03/08/17 11:09 Dose: 40 mg - Labs Labs: 03/08/17 06:18 03/08/17 06:18 PT 14.1 SECONDS (9.7-12.2) H 03/04/17 20:15 INR 1.3 03/04/17 20:15 APTT 35 SECONDS (21-34) H 03/04/17 20:15
--- NOTE | 2017-03-08 17:18 | CP.PCM.PN ---
Subjective - Date & Time of Evaluation Date of Evaluation: 03/08/17 Time of Evaluation: 10:00 - Subjective Subjective: intubated sedated NAD Objective - Vital Signs/Intake and Output Vital Signs (last 24 hours): Temp Pulse Resp BP Pulse Ox 97.1 F L 81 16 85/57 L 100 03/08/17 12:00 03/08/17 16:00 03/08/17 16:00 03/08/17 16:00 03/08/17 16:00 Intake and Output: 03/08/17 03/08/17 06:59 18:59 Intake Total 2345.6 2835.6 Output Total 300 165 Balance 2045.6 2670.6 - Medications Medications: Current Medications Albumin Human (Albumin Human 25% (12.5 Gm/50 Ml)) 25 gm IV Q6H [facility] Stop: 03/09/17 04:01 Last Admin: 03/08/17 15:38 Dose: 25 gm Albuterol/Ipratropium (Duoneb 3 Mg/0.5 Mg (3 Ml) Ud) 3 ml INH RQ6 [facility] Last Admin: 03/08/17 13:12 Dose: 3 ml Ascorbic Acid (Vitamin C 500 Mg Tab) 500 mg PO Q12H [facility] Last Admin: 03/08/17 11:11 Dose: 500 mg Ergocalciferol (Drisdol 50,000 Intl Units Cap) 1 cap PO QWK [facility] Stop: 04/26/17 10:00 Last Admin: 03/08/17 11:48 Dose: 1 cap Ferrous Sulfate (Feosol Liq) 300 mg NG BID [facility] Last Admin: 03/08/17 11:11 Dose: 300 mg Cefepime HCl (Maxipime Iv 1 Gm Premix) 1 gm in 50 mls @ 100 mls/hr IVPB Q12 [facility] Last Admin: 03/08/17 10:32 Dose: 100 mls/hr Clindamycin Phosphate (Cleocin In Normal Saline) 600 mg in 50 mls @ 100 mls/hr IVPB Q8H [facility] Last Admin: 03/08/17 14:07 Dose: 100 mls/hr Propofol (Diprivan) 1,000 mg in 100 mls @ 0.966 mls/hr IV .Q24H PRN; Protocol; 5 MCG/KG/MIN PRN Reason: TITRATE PER MD ORDER Last Titration: 03/08/17 10:00 Dose: 0 mcg/kg/min, 0 mls/hr Phenylephrine HCl 30 mg/ (Sodium Chloride) 253 mls @ 10.12 mls/hr IV .Q24H PRN ; Protocol; 20 MCG/MIN PRN Reason: TITRATE PER MD ORDER Last Admin: 03/08/17 14:57 Dose: 138.33 mcg/min, 69.99 mls/hr Sodium Chloride (Sodium Chloride 0.9%) 1,000 mls @ 75 mls/hr IV .[id number] [facility] Last Admin: 03/08/17 02:30 Dose: Not Given Folic Acid 1 mg/ Thiamine HCl 100 mg/ Multivitamins/Vitamin C 10 ml/ Dextrose 1 ,011.2 mls @ 75 mls/hr IV DAILY [facility] Last Admin: 03/08/17 10:32 Dose: 75 mls/hr Metronidazole (Flagyl) 500 mg in 100 mls @ 100 mls/hr IVPB Q8 [facility] Last Admin: 03/08/17 14:47 Dose: 100 mls/hr Multivitamins (Hexavitamin) 1 tab PO DAILY [facility] Last Admin: 03/08/17 14:47 Dose: 1 tab Pantoprazole Sodium (Protonix Inj) 40 mg IVP DAILY [facility] Last Admin: 03/08/17 11:09 Dose: 40 mg - Labs Labs: 03/08/17 06:18 03/08/17 06:18 PT 14.1 SECONDS (9.7-12.2) H 03/04/17 20:15 INR 1.3 03/04/17 20:15 APTT 35 SECONDS (21-34) H 03/04/17 20:15 - Constitutional Appears: Non-toxic, Confused, Cachectic, Chronically Ill - Head Exam Head Exam: NORMOCEPHALIC - Eye Exam Eye Exam: PERRL - ENT Exam ENT Exam: Mucous Membranes Dry - Neck Exam Neck Exam: absent: Lymphadenopathy - Respiratory Exam Respiratory Exam: Decreased Breath Sounds - Cardiovascular Exam Cardiovascular Exam: REGULAR RHYTHM, +S1, +S2 - GI/Abdominal Exam GI & Abdominal Exam: Distended, Soft - Rectal Exam Rectal Exam: Deferred Assessment and Plan (1) Anemia Status: Acute (2) Coagulopathy Status: Acute (3) Dyspnea Status: Acute (4) Leukocytosis Status: Acute (5) Lung mass Status: Acute (6) Respiratory distress Status: Acute (7) Right upper lobe pneumonia Status: Acute
[2017-03-08] MEDS: Propofol 10 mg/ml 1,000 MG/100 ML VIAL IV PRN (17:42)
[2017-03-08] MEDS ORDERED: Vancomycin 1 GM 1 GM/250 ML BAG IVPB STA (18:39)
[2017-03-08] MEDS ORDERED: Phenylephrine 60 MG in Sodium Chloride 0.9% 250 ML IV PRN (18:45)
[2017-03-08] MEDS ORDERED: Vancomycin 1 gm/NS 200 ml 1 GM/200 ML BAG IVPB ONE (19:00)
[2017-03-08] MEDS: DEXTROSE 5% IV PRN (19:02)
[2017-03-08] MEDS: PHENYLEPHRINE IV PRN (19:02)
[2017-03-08] MEDS: WATER IV PRN (19:02)
[2017-03-09] MEDS: Albuterol-Ipratrop 3 mg / 0.5 (3 ml) UD INH SCH ×4 (01:22→19:36)
[2017-03-09] MEDS: Albumin Human 25% (12.5 gm/50 ml) IV SCH (04:00)
[2017-03-09] MEDS: metroNIDAZOLE IV 500 mg/100 ml 500 MG/100 ML BAG IVPB SCH ×3 (05:05→21:26)
[2017-03-09] MEDS: Clindamycin 600mg/50ml NS 600 MG/50 ML BAG IVPB SCH ×3 (06:10→22:09)
[2017-03-09] MEDS: Sodium Chloride 0.9% 1,000 ML IV SCH ×2 (06:10→18:01)
[2017-03-09 06:15] LABS: BASO # 0.1 K/uL (0.0-0.2); BASO % 0.3 % (0.0-2.0); EOS # 0.2 K/uL (0.0-0.7); EOS % 0.7 % (0.0-4.0); HEMATOCRIT 26.9 % (35.0-51.0); LYMPH % 12.7 % (20.0-40.0); MEAN CELL VOLUME 81.4 fL (80.0-94.0); MEAN CORPUSCULAR HEMOGLOBIN 25.6 pg (27.0-31.0); MEAN CORPUSCULAR HGB CONC 31.4 g/dL (33.0-37.0); MEAN PLATELET VOLUME 8.7 fL (7.2-11.7); MONO # 0.7 K/uL (0.0-0.8); NRBC % 0.1 % (0.0-2.0); RED CELL DISTRIBUTION WIDTH 16.7 % (11.5-14.5); WHITE BLOOD COUNT 23.8 K/uL (4.8-10.8)
[2017-03-09 06:15] LABS: ABG ALLEN TEST POS; ABG MECHANICAL RATE 14; ARTERIAL BLOOD GAS MODE PRVC; ARTERIAL BLOOD HGB O2 SAT 96.5 % (95.0-98.0); ATERIAL BLOOD GAS PEEP 5; CARBOXYHEMOGLOBIN 1.6 % (0.5-1.5); DRAW SITE RR; HHB 0.7 % (0.0-5.0); METHEMOGLOBIN 1.2 % (0.0-3.0)
[2017-03-09 06:26] LABS: ALB/GLOB RATIO 0.9 (1.0-2.1); BILIRUBIN,TOTAL 0.5 mg/dL (0.2-1.3); CALCIUM 9.3 mg/dl (8.6-10.4); MAGNESIUM 1.5 mg/dL (1.6-2.3); PHOSPHOROUS 2.7 mg/dL (2.5-4.5); POTASSIUM 3.6 mmol/L (3.6-5.2); TOTAL PROTEIN 5.6 g/dL (6.3-8.3)
--- NOTE | 2017-03-09 07:57 | RAD ---
Chest x-ray single frontal view History: Intubated. Comparison: 03/08/2017 Findings: Lines and tubes in stable position. No significant interval change in the appearance of the lobular elliptical shaped pleural-based mass with eccentric cavitary changes. Presumed cystic bronchiectasis and small bullous changes in the right lung apex. Centrilobular emphysematous changes in the left upper lobe. Impression: No significant interval change.
[2017-03-09] MEDS: Ferrous Sulfate 300 mg/5 mL Liq UD NG SCH ×2 (09:18→18:09)
[2017-03-09] MEDS: Cefepime IV 1 gm in Dextrose 1 GM/50 ML BAG IVPB SCH ×2 (09:19→21:26)
[2017-03-09] MEDS: Multiple Vitamins Tab PO SCH (09:19)
[2017-03-09] MEDS: Folic Acid 1 MG, Thiamine 100 MG, Multivitamin (MVI) 10 ML in Dextrose 5% In Water 1,00... IV SCH (09:19)
[2017-03-09] MEDS: PHENYLEPHRINE IV PRN ×3 (09:20→22:48)
[2017-03-09] MEDS: DEXTROSE 5% IV PRN ×3 (09:20→22:48)
[2017-03-09] MEDS: WATER IV PRN ×3 (09:20→22:48)
[2017-03-09] MEDS ORDERED: Magnesium Sulfate 1 gm in D5W 1 GM/100 ML BAG IVPB ONE ×2 (10:38→14:15)
[2017-03-09] MEDS ORDERED: Potassium Chloride 20 mEq/15 ml LIQ UD PO ONE (10:45)
--- NOTE | 2017-03-09 11:51 | CP.PCM.PN ---
Subjective - Date & Time of Evaluation Date of Evaluation: 03/09/17 Time of Evaluation: 11:30 - Subjective Subjective: Hospitalist Progress Note Patient was seen and examined at 11:30 AM 03/09/17 ICU Bed 10. 56 year old male who was brought into ER via EMS on 03/04/17 after he fell at home. Upon arrival to the ER he was found to be confused, cachectic, hypoxic. CT Head showed age indeterminate ischemic changes in righ basal ganglia, acute on chronic subdural collection on left, subdural hygroma on the right. CT Chest showed large cavitary RUL mass with infiltrative/invasion on chest wall and destruction of adjacent ribs consistent with malignancy, right hilar and mediastinal adenopathy. CT Abdomen/Pelvis showed RUL mass with nodular opacities , RML and RLL suspicious for malignancy, splenic lesions possibly metastatic. His respiratory status shortly before exam on 03/05/17 declined and he was intubated by the ICU Team after informing patient's brother Holden Abarca and [id number] Sarah Abarca [phone], both of whom requested that patient be FULL CODE for the time being. Poor prognosis based upon current patient status and workup was explained to both Holden and Sarah 03/05/17. Holden spoke with Palliative Care Nurse Reyna and patient was subsequently made DNR with Limited Treatment (IV antibiotics and non-invasive positive airway pressure) as per POL, a copy of which is in patient chart. EEG was performed 03/07/17 and results are pending. PPD read on 03/07/17 was negative. However, only 1 Sputum AFB 03/05/17 is negative so far therefore will continue respiratory isolation. Sputum for AFB also sent to 03/08/17 and 03/09/17. ROS is NOT possible as patient is nonresponsive and intubated. Bowel movement that was hard last night as per Nurse Eri Producing urine Exam: General: intubated and on vent, cachectic appearance HEENT: Abrasions present on the frontal scalp, Bilateral Pupils are equal and sluggishly reactive to light, Nasal turbinates are dry, NO cervical lymphadenopathy, NO thyromegaly, Poor Dentition Cardio: NS1 and NS2, NO M/R/G however limited due to loud course breath sounds Resp: Course breath sounds diffusely GI: BSx4, soft, ND, NO HSM Ext: Pulses are strong and equal, NO edema, Capillary Refill is 2 seconds Neuro: NOT possible due to current patient state Skin: Nonblanchable erythema sacral base Assessment and Plan: 1). Acute Respiratory Failure Patient is intubated and on ventilator Propofol 5 mcg/kg/min Status: Acute 2). Right Lung Cavitary Lesion with Sepsis Likely secondary to malignancy but rule out TB Respiratory Isolation Cefepime 1 gm IV Q12H (03/04/17) Clindamycin 600 mg I VQ8H (03/04/17) Metronidazole 500 mg IV Q8H (03/08/17) Phenylephrine 20 mcg/min Albumin 25 g IV Q6H x 4 doses given 03/08/17 Continue NS @ 75 ml/hr Blood Culture 03/04/17 negative to date Urine Culture 03/04/17 no growth HIV Ab is negative Hepatitis Panel negative Sputum Culture [id number] shows S. aureus (he is on Clindamycin as above) AFB 03/05/17 preliminary is negative: will need 3 negative to discontinue respiratory isolation PPD on left lower anterior arm is NEGATIVE 03/07/17 F/U Quanteferon Gold MRSA Screen is negative Heme/Onc Dr. Fabienne Pantoja Palliative Care Nurse Obradovic ID Dr. Wilberto Sanches Status: Acute 3). Anemia Likely chronic considering his history of alcohol abuse Iron level is low: Ferrous Sulfate 300 mg via NG 2x/day (03/07/17) Reticulocyte count normal at 0.9 Vitamin B12 elevated above 1000 Folate normal at 3.5 F/U Peripheral Smear Status: Chronic 4). Hypophosphotemia and Hypokalemia KPhos 15mmol IV x 1dose given 03/06/17 Phos normalized and K have normalized Status: Acute 5). Alcohol Abuse Bannana Bag @ 75 ml/hour once a day Status: Chronic 6). Hypercalcemia This is fluctuating between high and low Secondary to Lung CA? Calcitonin [place] 200 IU SC BID x 6 dose was ordered 03/08/17 however not carried here by pharmacy. Nephrology recommends Zometa or Pamidronate once GFR improves Status: Acute 7). Possible CVA CT Head w/o contrast 03/06/17: chronic bilateral subdural hematomas left larger than right. There is also a very small sliver of a hyperdense hemorrhage within the left sided collection possibly by the larger hypodense subdural component by membrane. The collections exert relatively symmetrical offsetting mass effect with compression of both cerebral hemispheres and ventricular system with no significant midline shift. F/U EEG from 03/07/[address] Moore Status: Acute 8). Acute Kidney Injury Could this be secondary to the consistently low blood pressure despite Pheylephrine Drip? Could this be secondary to contrast from the CT Abdomen/Pelvis performed on admission? Nephrology Status: Acute 9). Stage I Sacral Ulcer Optifoam Dressing Status: Acute 10). Prophylaxis Pulmcare via NGT Protonix 40 mg IV 1x/day Low Vitamin D: 50,000 units once a week starting 03/08/17 and end 04/26/17 NO anticoagulation considering the anemia: Bilateral SCDs Colace 100 mg PO 2x/day Status: Acute Poor prognosis explained to both brother Holden Abarca (cell: [phone]) and [id number] Sarah Abarca [phone] on 03/05/17. He is currently DNR and POLST is in the chart: Limited Treatment (IV antibiotics and non-invasive positive airway pressure). 03/07/17: Updated Brother Holden Abarca concerning worsening renal function, drop in hgb, continued low blood pressure despite pressure/fluid support. Explained plan for now is to follow up Sputum for AFB and if negative then Bronchoscopy by Pulmonary for tissue diagnosis of Right Lung Mass. Explained to brother the poor prognosis for this patient and for him to consider the extent to which he would like for continued treatment and evaluation. 03/08/17: Attempted to call Holden Abarca at requested number at work [phone] however there was NO answer and NO voicemail could be left. Patient's two other brothers (Felipe and Bill) were at bedside. Explained at length to Brother Felipe, the above diagnosises and workup results and plan. Also explained the unfortunate poor prognosis. Family to discuss the extent to which they want to continue treatment and further evaluation. 03/09/17: Spoke with primary decision maker Holden Abarca and informed him that patient's status was unchanged. He is still discussing whether to allow bronchoscopy for tissue diagnosis once AFBs are negative, with his family. Obed Anguiano D.O. Objective - Vital Signs/Intake and Output Vital Signs (last 24 hours): Temp Pulse Resp BP Pulse Ox 98.6 F 91 H 21 101/69 100 03/09/17 08:00 03/09/17 10:50 03/09/17 10:50 03/09/17 10:50 03/09/17 10:50 Intake and Output: 03/09/17 03/09/17 06:59 18:59 Intake Total 2684.6 610.2 Output Total 385 150 Balance 2299.6 460.2 - Medications Medications: Current Medications Albuterol/Ipratropium (Duoneb 3 Mg/0.5 Mg (3 Ml) Ud) 3 ml INH RQ6 [facility] Last Admin: 03/09/17 07:45 Dose: 3 ml Ascorbic Acid (Vitamin C 500 Mg Tab) 500 mg PO Q12H [facility] Last Admin: 03/09/17 09:23 Dose: 500 mg Ergocalciferol (Drisdol 50,000 Intl Units Cap) 1 cap PO QWK [facility] Stop: 04/26/17 10:00 Last Admin: 03/08/17 11:48 Dose: 1 cap Ferrous Sulfate (Feosol Liq) 300 mg NG BID [facility] Last Admin: 03/09/17 09:18 Dose: 300 mg Cefepime HCl (Maxipime Iv 1 Gm Premix) 1 gm in 50 mls @ 100 mls/hr IVPB Q12 [facility] Last Admin: 03/09/17 09:19 Dose: 100 mls/hr Clindamycin Phosphate (Cleocin In Normal Saline) 600 mg in 50 mls @ 100 mls/hr IVPB Q8H [facility] Last Admin: 03/09/17 06:10 Dose: 100 mls/hr Propofol (Diprivan) 1,000 mg in 100 mls @ 0.966 mls/hr IV .Q24H PRN; Protocol; 5 MCG/KG/MIN PRN Reason: TITRATE PER MD ORDER Last Titration: 03/08/17 18:37 Dose: 20 mcg/kg/min, 3.865 mls/hr Sodium Chloride (Sodium Chloride 0.9%) 1,000 mls @ 75 mls/hr IV .[id number] [facility] Last Admin: 03/09/17 06:10 Dose: Not Given Folic Acid 1 mg/ Thiamine HCl 100 mg/ Multivitamins/Vitamin C 10 ml/ Dextrose 1 ,011.2 mls @ 75 mls/hr IV DAILY [facility] Last Admin: 03/09/17 09:19 Dose: 75 mls/hr Metronidazole (Flagyl) 500 mg in 100 mls @ 100 mls/hr IVPB Q8 [facility] Last Admin: 03/09/17 05:05 Dose: 100 mls/hr Phenylephrine HCl 60 mg/ (Dextrose) 256 mls @ 5.11 mls/hr IV .Q24H PRN; Protocol; 20 MCG/MIN PRN Reason: TITRATE PER MD ORDER Last Admin: 03/09/17 09:20 Dose: 156.24 mcg/min, 40 mls/hr Multivitamins (Hexavitamin) 1 tab PO DAILY [facility] Last Admin: 03/09/17 09:19 Dose: 1 tab Pantoprazole Sodium (Protonix Inj) 40 mg IVP DAILY [facility] Last Admin: 03/09/17 09:23 Dose: 40 mg - Labs Labs: 03/09/17 06:00 03/09/17 06:00 PT 14.1 SECONDS (9.7-12.2) H 03/04/17 20:15 INR 1.3 03/04/17 20:15 APTT 35 SECONDS (21-34) H 03/04/17 20:15
--- NOTE | 2017-03-09 13:35 | CP.PCM.PN ---
Subjective - Date & Time of Evaluation Date of Evaluation: 03/09/17 Time of Evaluation: 13:32 - Subjective Subjective: Follow up Nephrology Consultation: Assessment: critical Acute Kidney Injury (N17.9) likely due to low BP/sepsis with shock ? 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 pt DNR, palliative care involved. overall poor prognosis. UOP remains relatively low but slightly higher than prior day remains in shock etiology not clear ? cirrhosis, could consider vasopressin for pressor ca wnl a this time will start oral bicarbonate discussed w/ observation nurse. S: pt intubated and sedated, no acute events o/n . Physical Examination: General Appearance: ill appearing, severly malnourished and cachexic. intubated Vitals reviewed and noted as below Head; Atraumatic, normocephalic ENT: orally intubated EYES: Rt pupil fixed, left sluggish. Sclera is anicteric. Neck; supple no lymphadenopathy, no thyromegaly or bruit Lungs: Increased respiratory rate/effort. Breath sounds decreased at Rt side and with b/l rales + Heart: Increased rate. s1s2 normal. No rub or gallop. Extremities: 1+ edema. No varicose veins Neurological: Patient is intubated Skin: Warm and dry. Normal turgor. No rash. Palpitation: Normal elasticity for age Abdomen: Abdomen is soft. Bowel sounds +. There is no abdominal tenderness, no guarding/rigidity no organomegaly Psych: unable MSK: no joint tenderness or swelling. Digits and nails normal, no deformity : kidney or bladder not palpable Labs/imaging reviewed. Objective - Vital Signs/Intake and Output Vital Signs (last 24 hours): Temp Pulse Resp BP Pulse Ox 98.6 F 93 H 28 H 91/57 L 99 03/09/17 08:00 03/09/17 13:00 03/09/17 13:00 03/09/17 12:50 03/09/17 13:00 Intake and Output: 03/09/17 03/09/17 06:59 18:59 Intake Total 2684.6 1153.2 Output Total 385 315 Balance 2299.6 838.2 - Medications Medications: Current Medications Albuterol/Ipratropium (Duoneb 3 Mg/0.5 Mg (3 Ml) Ud) 3 ml INH RQ6 [facility] Last Admin: 03/09/17 07:45 Dose: 3 ml Ascorbic Acid (Vitamin C 500 Mg Tab) 500 mg PO Q12H [facility] Last Admin: 03/09/17 09:23 Dose: 500 mg Docusate Sodium (Colace) 100 mg NG BID [facility] Ergocalciferol (Drisdol 50,000 Intl Units Cap) 1 cap PO QWK [facility] Stop: 04/26/17 10:00 Last Admin: 03/08/17 11:48 Dose: 1 cap Ferrous Sulfate (Feosol Liq) 300 mg NG BID [facility] Last Admin: 03/09/17 09:18 Dose: 300 mg Cefepime HCl (Maxipime Iv 1 Gm Premix) 1 gm in 50 mls @ 100 mls/hr IVPB Q12 [facility] Last Admin: 03/09/17 09:19 Dose: 100 mls/hr Clindamycin Phosphate (Cleocin In Normal Saline) 600 mg in 50 mls @ 100 mls/hr IVPB Q8H [facility] Last Admin: 03/09/17 06:10 Dose: 100 mls/hr Propofol (Diprivan) 1,000 mg in 100 mls @ 0.966 mls/hr IV .Q24H PRN; Protocol; 5 MCG/KG/MIN PRN Reason: TITRATE PER MD ORDER Last Titration: 03/09/17 11:00 Dose: 0 mcg/kg/min, 0 mls/hr Sodium Chloride (Sodium Chloride 0.9%) 1,000 mls @ 75 mls/hr IV .[id number] [facility] Last Admin: 03/09/17 06:10 Dose: Not Given Folic Acid 1 mg/ Thiamine HCl 100 mg/ Multivitamins/Vitamin C 10 ml/ Dextrose 1 ,011.2 mls @ 75 mls/hr IV DAILY [facility] Last Admin: 03/09/17 09:19 Dose: 75 mls/hr Metronidazole (Flagyl) 500 mg in 100 mls @ 100 mls/hr IVPB Q8 [facility] Last Admin: 03/09/17 05:05 Dose: 100 mls/hr Phenylephrine HCl 60 mg/ (Dextrose) 256 mls @ 5.11 mls/hr IV .Q24H PRN; Protocol; 20 MCG/MIN PRN Reason: TITRATE PER MD ORDER Last Admin: 03/09/17 09:20 Dose: 156.24 mcg/min, 40 mls/hr Multivitamins (Hexavitamin) 1 tab PO DAILY [facility] Last Admin: 03/09/17 09:19 Dose: 1 tab Pantoprazole Sodium (Protonix Inj) 40 mg IVP DAILY [facility] Last Admin: 03/09/17 09:23 Dose: 40 mg - Labs Labs: 03/09/17 06:00 03/09/17 06:00 PT 14.1 SECONDS (9.7-12.2) H 03/04/17 20:15 INR 1.3 03/04/17 20:15 APTT 35 SECONDS (21-34) H 03/04/17 20:15
[2017-03-09] MEDS: Propofol 10 mg/ml 1,000 MG/100 ML VIAL IV PRN (14:30)
--- NOTE | 2017-03-09 18:31 | CP.CCUPN ---
CCU Subjective - Physician Review Subjective (Free Text): Patient pressore requirement decreasing. Tolerating oral diet, urine output ~50 ml/hr, CPAP trial reveals consistent vegetative state, not following commands Critical Care Time Spent (in minutes): 40 CCU Objective - Vital Signs / Intake & Output Vital Signs (Last 4 hours): Vital Signs Temp Pulse Resp BP Pulse Ox 03/09/17 17:10 94 H 26 H 85/57 L 100 03/09/17 16:30 94 H 26 H 86/55 L 99 03/09/17 16:00 88 22 84/50 L 100 03/09/17 15:54 96 H 27 H 75/46 L 98 03/09/17 15:41 99.3 F 03/09/17 15:00 92 H 26 H 100 03/09/17 14:54 92 H 28 H 94/60 L 100 Intake and Output (Last 8hrs): Intake & Output 03/09/17 03/09/17 03/09/17 06:59 14:59 22:59 Intake Total 1520.4 1153.2 258 Output Total 250 315 Balance 1270.4 838.2 258 Weight 107 lb 1 oz Intake: IV 200 78 258 Intake, IV Amount 1000.4 795.2 Right Distal IJ - Distal 30.4 Port Right Distal Port 500 500 Internal Jugular Right Medial Port 320 280 Internal Jugular Right Proximal Port 150 15.2 Internal Jugular Tube Feeding 320 280 Output: Urine 250 315 Urethral (Mercedes) 250 315 Other: # Bowel Movements 1 - Physical Exam Physical Exam Limitations: Positive for: Altered Mental Status Head: Positive for: Atraumatic, Normocephalic, Abrasion (top of head, heal. no erythema), Other (temporalis atrophy) Pupils: Positive for: Sluggish (Left eye), Other (Right eye dilated 3mm, fixed.) Conjunctiva: Positive for: Normal Mouth: Positive for: Moist Mucous Membranes, Other (intubated) Respiratory/Chest: Positive for: Decreased Breath Sounds (RUL), Rhonchi Cardiovascular: Positive for: Regular Rate and Rhythm, Murmurs, Normal S1, S2, Tachycardic Abdomen: Negative for: Tenderness, Distention, Peritoneal Signs Upper Extremity: Positive for: Normal Inspection, NORMAL PULSES. Negative for: Edema Lower Extremity: Positive for: Normal Inspection, NORMAL PULSES. Negative for: Edema, CALF TENDERNESS Neurological: Positive for: Other (intubated) Skin: Positive for: Warm, Dry Psychiatric: Positive for: Other (intubated) - Medications Active Medications: Active Medications Generic Name Dose Route Start Last Admin Trade Name Freq PRN Reason Stop Dose Admin Albuterol/Ipratropium 3 ml 03/07/17 20:00 03/09/17 14:54 Duoneb 3 Mg/0.5 Mg (3 Ml) Ud INH 3 ml RQ6 JACK Administration Ascorbic Acid 500 mg 03/08/17 10:00 03/09/17 09:23 Vitamin C 500 Mg Tab PO 500 mg Q12H JACK Administration Docusate Sodium 100 mg 03/09/17 18:00 03/09/17 18:08 Colace NG 100 mg BID JACK Administration Ergocalciferol 1 cap 03/08/17 10:00 03/08/17 11:48 Drisdol 50,000 Intl Units Cap PO 04/26/17 10:00 1 cap QWK JACK Administration Ferrous Sulfate 300 mg 03/07/17 18:00 03/09/17 18:09 Feosol Liq NG 300 mg BID JACK Administration Cefepime HCl 1 gm in 50 mls @ 100 mls/hr 03/04/17 22:00 03/09/17 09:19 Maxipime Iv 1 Gm Premix IVPB 100 mls/hr Q12 JACK Administration Clindamycin Phosphate 600 mg in 50 mls @ 100 mls/hr 03/04/17 22:45 03/09/17 14:30 Cleocin In Normal Saline IVPB 100 mls/hr Q8H JACK Administration Propofol 1,000 mg in 100 mls @ 0.966 mls/hr 03/05/17 10:56 03/09/17 15:30 Diprivan IV 20 mcg/kg/min .Q24H PRN 3.865 mls/hr TITRATE PER MD ORDER Titration Protocol 5 MCG/KG/MIN Sodium Chloride 1,000 mls @ 75 mls/hr 03/06/17 10:30 03/09/17 18:01 Sodium Chloride 0.9% IV Not Given .[id number] JACK Folic Acid 1 mg/ Thiamine HCl 1,011.2 mls @ 75 mls/hr 03/07/17 10:00 09:19 100 mg/ Multivitamins/Vitamin IV 75 mls/hr C 10 ml/ Dextrose DAILY JACK Administration Metronidazole 500 mg in 100 mls @ 100 mls/hr 03/08/17 10:00 03/09/17 13:32 Flagyl IVPB 100 mls/hr Q8 JACK Administration Phenylephrine HCl 60 mg/ 256 mls @ 5.11 mls/hr 03/08/17 18:45 03/09/17 16:00 Dextrose IV 175.78 mcg/min .Q24H PRN 45 mls/hr TITRATE PER MD ORDER Administration Protocol 20 MCG/MIN Multivitamins 1 tab 03/08/17 14:00 03/09/17 09:19 Hexavitamin PO 1 tab DAILY JACK Administration Pantoprazole Sodium 40 mg 03/05/17 10:00 03/09/17 09:23 Protonix Inj IVP 40 mg DAILY JACK Administration Sodium Bicarbonate 1,300 mg 03/09/17 14:00 03/09/17 18:09 Sodium Bicarbonate Tab PO 1,300 mg TID JACK Administration - Patient Studies Lab Studies: Microbiology Studies 03/08/17 11:26 Mycobacterial Culture - Preliminary Other: Please Indicate 03/05/17 21:58 Mycobacterial Culture - Preliminary Other: Please Indicate 03/04/17 20:40 Blood Culture - Preliminary Blood NO GROWTH AFTER 4 DAYS 03/04/17 20:10 Blood Culture - Preliminary Blood NO GROWTH AFTER 4 DAYS Lab Studies 03/09/17 03/09/17 03/09/17 Range/Units 06:00 06:00 05:31 WBC 23.8 H (4.8-10.8) K/uL RBC 3.30 L (4.40-5.90) Mil/uL Hgb 8.4 L (12.0-18.0) g/dL Hct 26.9 L (35.0-51.0) % MCV 81.4 (80.0-94.0) fL MCH 25.6 L (27.0-31.0) pg MCHC 31.4 L (33.0-37.0) g/dL RDW 16.7 H (11.5-14.5) % Plt Count 214 (130-400) K/uL MPV 8.7 (7.2-11.7) fL Neut % (Auto) 83.3 H (50.0-75.0) % Lymph % (Auto) 12.7 L (20.0-40.0) % Antelope % (Auto) 3.0 (0.0-10.0) % Eos % (Auto) 0.7 (0.0-4.0) % Baso % (Auto) 0.3 (0.0-2.0) % Neut # 19.8 H (1.8-7.0) K/uL Lymph # 3.0 (1.0-4.3) K/uL Antelope # 0.7 (0.0-0.8) K/uL Eos # 0.2 (0.0-0.7) K/uL Baso # 0.1 (0.0-0.2) K/uL Differential Comment Puncture Site Rr pCO2 24 L (35-45) mm/Hg pO2 111 H (80-100) mm/Hg HCO3 15.0 L (21-28) mmol/L ABG pH 7.31 L (7.35-7.45) ABG Total CO2 12.8 L (22-28) mmol/L ABG O2 Saturation 99.3 H (95-98) % ABG Base Excess -12.8 L (-2.0-3.0) mmol/L ABG Hemoglobin 8.5 L (11.7-17.4) g/dL ABG Carboxyhemoglobin 1.6 H (0.5-1.5) % POC ABG HHb (Measured) 0.7 (0.0-5.0) % ABG Methemoglobin 1.2 (0.0-3.0) % Jorge Test Pos A-a O2 Difference 144.0 mm/Hg Respiratory Index 1.3 Hgb O2 Saturation 96.5 (95.0-98.0) % Vent Mode Prvc Mechanical Rate 14 FiO2 40.0 % Tidal Volume 500 PEEP 5 Sodium 135 (132-148) mmol/L Potassium 3.6 (3.6-5.2) mmol/L Chloride 113 H (98-107) mmol/L Carbon Dioxide 14 L (22-30) mmol/L Anion Gap 12 (10-20) BUN 29 H (9-20) mg/dL Creatinine 1.7 H (0.8-1.5) mg/dL Est GFR ( Amer) 50 Est GFR (Non-Af Amer) 42 Random Glucose 101 (75-110) mg/dL Calcium 9.3 (8.6-10.4) mg/dl Phosphorus 2.7 (2.5-4.5) mg/dL Magnesium 1.5 L (1.6-2.3) mg/dL Total Bilirubin 0.5 (0.2-1.3) mg/dL AST 11 L D (17-59) U/L ALT 34 (21-72) U/L Alkaline Phosphatase 142 H D (38-126) U/L Total Protein 5.6 L (6.3-8.3) g/dL Albumin 2.6 L D (3.5-5.0) g/dL Globulin 3.0 (2.2-3.9) gm/dL Albumin/Globulin Ratio 0.9 L (1.0-2.1) Laboratory Results - last 24 hr 03/09/17 03/09/17 03/09/17 05:31 06:00 06:00 WBC 23.8 H RBC 3.30 L Hgb 8.4 L Hct 26.9 L MCV 81.4 MCH 25.6 L MCHC 31.4 L RDW 16.7 H Plt Count 214 MPV 8.7 Neut % (Auto) 83.3 H Lymph % (Auto) 12.7 L Antelope % (Auto) 3.0 Eos % (Auto) 0.7 Baso % (Auto) 0.3 Neut # 19.8 H Lymph # 3.0 Antelope # 0.7 Eos # 0.2 Baso # 0.1 Differential Comment Puncture Site Rr pCO2 24 L pO2 111 H HCO3 15.0 L ABG pH 7.31 L ABG Total CO2 12.8 L ABG O2 Saturation 99.3 H ABG Base Excess -12.8 L ABG Hemoglobin 8.5 L ABG Carboxyhemoglobin 1.6 H POC ABG HHb (Measured) 0.7 ABG Methemoglobin 1.2 Jorge Test Pos A-a O2 Difference 144.0 Respiratory Index 1.3 Hgb O2 Saturation 96.5 Vent Mode Prvc Mechanical Rate 14 FiO2 40.0 Tidal Volume 500 PEEP 5 Sodium 135 Potassium 3.6 Chloride 113 H Carbon Dioxide 14 L Anion Gap 12 BUN 29 H Creatinine 1.7 H Est GFR ( Amer) 50 Est GFR (Non-Af Amer) 42 Random Glucose 101 Calcium 9.3 Phosphorus 2.7 Magnesium 1.5 L Total Bilirubin 0.5 AST 11 L D ALT 34 Alkaline Phosphatase 142 H D Total Protein 5.6 L Albumin 2.6 L D Globulin 3.0 Albumin/Globulin Ratio 0.9 L Fingerstick Blood Sugar Results: 94 Critical Care Progress Note - Ventilator Checklist Daily Sedation Vacation: Yes Daily Assessment of Readiness to Wean: Yes Daily Spontaneous Breathing Trial: Yes PUD Prophalyxis: Yes DVT Prophylaxis: Yes Oral Care with Chlorhexidine Gluconate {CHG}: Yes - Extremities/Vascular Does the Patient have a Central Venous Catheter?: Yes Assessment/Plan - Assessment and Plan (Free Text) Plan: 56 year old cachectic male with no known PMH presenting with cough, loss of weight, confusion and right upper lobe infiltrate with leucocytosis, thrombocytosis, hyponatremia, hypercalcemia and dehydration with diagnosis of lung cavitation and respiratory failure -Hypoxic and hypercapneic respiratory failure: continue ventilation to keep spo2 >92 and pH b/w 7.35-7.45, continue bronchodialtors to help mucociliary escalators -Right upper lobe cavitatry lesion: significant improvement culutre (+)MSSA, AFB neg, fungal pending, descalate abx as per sensitivity, continue pulmonary toilet -Septic shock: continue pressors to keep MAP >65, serial lactic to check perfusion -encephalopathy: off sedation, no purposeful movement -JESSI: today UO ~50 ml/hr, continue gentle hydration -continue DVT/PUD ppx Protonix 40mg IVP daily SCDs Code status: DNR Severe malnutrition and multiorgan dysfunction cc time 40 minutes - Date & Time Date: 03/09/17 Time: 18:36
--- NOTE | 2017-03-09 21:15 | CP.PCM.PN ---
Subjective - Date & Time of Evaluation Date of Evaluation: 03/09/17 Time of Evaluation: 17:00 - Subjective Subjective: Vented Objective - Vital Signs/Intake and Output Vital Signs (last 24 hours): Temp Pulse Resp BP Pulse Ox 98.5 F 93 H 24 91/58 L 100 03/09/17 20:00 03/09/17 20:10 03/09/17 20:10 03/09/17 20:10 03/09/17 20:10 Intake and Output: 03/09/17 03/10/17 18:59 06:59 Intake Total 2218.3 327.6 Output Total 665 Balance 1553.3 327.6 - Medications Medications: Current Medications Albuterol/Ipratropium (Duoneb 3 Mg/0.5 Mg (3 Ml) Ud) 3 ml INH RQ6 [facility] Last Admin: 03/09/17 19:36 Dose: 3 ml Ascorbic Acid (Vitamin C 500 Mg Tab) 500 mg PO Q12H [facility] Last Admin: 03/09/17 09:23 Dose: 500 mg Docusate Sodium (Colace) 100 mg NG BID [facility] Last Admin: 03/09/17 18:08 Dose: 100 mg Ergocalciferol (Drisdol 50,000 Intl Units Cap) 1 cap PO QWK [facility] Stop: 04/26/17 10:00 Last Admin: 03/08/17 11:48 Dose: 1 cap Ferrous Sulfate (Feosol Liq) 300 mg NG BID [facility] Last Admin: 03/09/17 18:09 Dose: 300 mg Hydrocortisone Sodium Succinate (Solu-Cortef) 100 mg IV Q8H [facility] Last Admin: 03/09/17 19:03 Dose: Not Given Cefepime HCl (Maxipime Iv 1 Gm Premix) 1 gm in 50 mls @ 100 mls/hr IVPB Q12 [facility] Last Admin: 03/09/17 09:19 Dose: 100 mls/hr Clindamycin Phosphate (Cleocin In Normal Saline) 600 mg in 50 mls @ 100 mls/hr IVPB Q8H [facility] Last Admin: 03/09/17 14:30 Dose: 100 mls/hr Propofol (Diprivan) 1,000 mg in 100 mls @ 0.966 mls/hr IV .Q24H PRN; Protocol; 5 MCG/KG/MIN PRN Reason: TITRATE PER MD ORDER Last Titration: 03/09/17 15:30 Dose: 20 mcg/kg/min, 3.865 mls/hr Sodium Chloride (Sodium Chloride 0.9%) 1,000 mls @ 75 mls/hr IV .[id number] [facility] Last Admin: 03/09/17 18:01 Dose: Not Given Folic Acid 1 mg/ Thiamine HCl 100 mg/ Multivitamins/Vitamin C 10 ml/ Dextrose 1 ,011.2 mls @ 75 mls/hr IV DAILY JACK Last Admin: 03/09/17 09:19 Dose: 75 mls/hr Metronidazole (Flagyl) 500 mg in 100 mls @ 100 mls/hr IVPB Q8 [facility] Last Admin: 03/09/17 13:32 Dose: 100 mls/hr Phenylephrine HCl 60 mg/ (Dextrose) 256 mls @ 5.11 mls/hr IV .Q24H PRN; Protocol; 20 MCG/MIN PRN Reason: TITRATE PER MD ORDER Last Admin: 03/09/17 16:00 Dose: 175.78 mcg/min, 45 mls/hr Multivitamins (Hexavitamin) 1 tab PO DAILY [facility] Last Admin: 03/09/17 09:19 Dose: 1 tab Multivitamins/Vitamin C (Multi-Delyn Liquid) 5 ml PO DAILY [facility] Pantoprazole Sodium (Protonix Inj) 40 mg IVP DAILY [facility] Last Admin: 03/09/17 09:23 Dose: 40 mg Sodium Bicarbonate (Sodium Bicarbonate Tab) 1,300 mg PO TID [facility] Last Admin: 03/09/17 18:09 Dose: 1,300 mg - Labs Labs: 03/09/17 06:00 03/09/17 06:00 PT 14.1 SECONDS (9.7-12.2) H 03/04/17 20:15 INR 1.3 03/04/17 20:15 APTT 35 SECONDS (21-34) H 03/04/17 20:15 - Constitutional Appears: Cachectic - ENT Exam ENT Exam: Mucous Membranes Dry - Respiratory Exam Respiratory Exam: Decreased Breath Sounds - Cardiovascular Exam Cardiovascular Exam: +S1, +S2 - GI/Abdominal Exam GI & Abdominal Exam: Normal Bowel Sounds Assessment and Plan (1) Lung mass Assessment & Plan: imaging concerning for metastatic lung primary cancer cont. supportive care DNR Status: Acute (2) Hypercalcemia Assessment & Plan: ? paraneoplastic from lung cancer improving with hydration will consider bisphosphonate if remains elevated Status: Acute (3) Leukocytosis Assessment & Plan: improving with antibiotics Status: Acute (4) Anemia Assessment & Plan: likely chronic disease Status: Acute (5) Coagulopathy Assessment & Plan: nutritional Status: Acute
[2017-03-10] MEDS: Albuterol-Ipratrop 3 mg / 0.5 (3 ml) UD INH SCH ×4 (01:37→19:59)
[2017-03-10] MEDS: metroNIDAZOLE IV 500 mg/100 ml 500 MG/100 ML BAG IVPB SCH (05:28)
[2017-03-10] MEDS: Clindamycin 600mg/50ml NS 600 MG/50 ML BAG IVPB SCH (06:29)
[2017-03-10] MEDS: DEXTROSE 5% IV PRN ×2 (06:31→20:47)
[2017-03-10] MEDS: WATER IV PRN ×2 (06:31→20:47)
[2017-03-10] MEDS: PHENYLEPHRINE IV PRN ×2 (06:31→20:47)
[2017-03-10 06:33] LABS: BASO % 0.1 % (0.0-2.0); HEMATOCRIT 30.3 % (35.0-51.0); LYMPH # 0.6 K/uL (1.0-4.3); LYMPH % 2.2 % (20.0-40.0); MEAN CELL VOLUME 81.7 fL (80.0-94.0); MEAN CORPUSCULAR HEMOGLOBIN 25.9 pg (27.0-31.0); MEAN CORPUSCULAR HGB CONC 31.7 g/dL (33.0-37.0); MONO # 0.2 K/uL (0.0-0.8); MONO % 0.7 % (0.0-10.0); PLATELET COUNT 199 K/uL (130-400); RED CELL DISTRIBUTION WIDTH 17.1 % (11.5-14.5); WHITE BLOOD COUNT 26.8 K/uL (4.8-10.8)
[2017-03-10 06:38] LABS: ABG ALLEN TEST POS; ABG MECHANICAL RATE 14; ARTERIAL BLOOD GAS MODE PRVC; ARTERIAL BLOOD HGB O2 SAT 96.7 % (95.0-98.0); ATERIAL BLOOD GAS PEEP 5; CARBOXYHEMOGLOBIN 1.8 % (0.5-1.5); DRAW SITE RRADIAL; HHB 0.8 % (0.0-5.0); METHEMOGLOBIN 0.7 % (0.0-3.0)
[2017-03-10] MEDS ORDERED: Sodium Bicarbonate (8.4%) 50 Meq Syringe IVP ONE (06:44)
[2017-03-10 06:57] LABS: BILIRUBIN,TOTAL 0.5 mg/dL (0.2-1.3); CALCIUM 8.5 mg/dl (8.6-10.4); MAGNESIUM 1.9 mg/dL (1.6-2.3); PHOSPHOROUS 3.5 mg/dL (2.5-4.5); POTASSIUM 5.1 mmol/L (3.6-5.2); TOTAL PROTEIN 4.8 g/dL (6.3-8.3)
[2017-03-10] MEDS: Lactated Ringer's 1,000 ML IV SCH ×2 (07:15→20:51)
--- NOTE | 2017-03-10 08:25 | RAD ---
Chest x-ray single frontal view History: Follow-up. Comparison: 03/09/2017 Findings: Lines and tubes in stable position. Worsening opacification of the right keny thorax. Persistent lobular elliptical shaped pleural-based mass with eccentric cavitary changes seen within the right upper to mid lung zone. Persistent cystic bronchiectasis and small bullous changes at the right lung apex. Centrilobular emphysematous changes in the left upper lobe. Impression: Worsening opacification the right keny thorax. Additional findings as above.
[2017-03-10 08:31] LABS: NEUTROPHIL 96 % (50-75); TOTAL CELLS COUNTED 100
[2017-03-10 08:32] LABS: LARGE PLATELETS PRESENT
--- NOTE | 2017-03-10 09:19 | PN ---
DATE: 03/08/2017 NEUROLOGICAL PROBLEMS: Change in mental status and abnormal CAT scan. PHYSICAL EXAMINATION: The patient is lethargic, responds to pain, eyes are open, rolling conjugate gaze noted, pupils reactive to light. Gag impaired. Responds to pain on both sides. Rest of the examination is unchanged. BLOOD WORKUP: WBC 27.9, hemoglobin 9.7, hematocrit 31.8, platelet 153,000. His manual neutrophils are 85, bands are 7. ABGs, pH is 7.33, pCO2 of 25, pO2 of 85, bicarbonate 14.0, saturation is 98.8. Sodium 134, potassium 4.2, chloride 114, bicarbonate 16, BUN 28, creatinine 1.7. GFR 42. The patient was seen by [facility] and workup is on progress. Considering her presenting picture, the overall prognosis is poor. Continue the present management. Bhavesh Moore MD
[2017-03-10] MEDS: Ferrous Sulfate 300 mg/5 mL Liq UD NG SCH ×2 (09:31→18:16)
[2017-03-10] MEDS: Multiple Vitamins Tab PO SCH (09:32)
[2017-03-10] MEDS: Folic Acid 1 MG, Thiamine 100 MG, Multivitamin (MVI) 10 ML in Dextrose 5% In Water 1,00... IV SCH (09:33)
[2017-03-10] MEDS: Cefepime IV 1 gm in Dextrose 1 GM/50 ML BAG IVPB SCH ×2 (09:34→21:44)
--- NOTE | 2017-03-10 09:48 | CP.CCUPN ---
CCU Subjective - Physician Review Events Since Last Encounter (Free Text): 03/10/17 09:48 56-year-old male with no significant past medical history, but history of smoking came to the intensive care unit after the patient was found on the floor , and had a fall. He was short of breath, cachectic and confused, severe hypoxemia, intubated. He has a significant history of drinking and smoking. Currently patient is on ventilator. Initial x-ray, imaging study showing evidence of right lung cavitary lung lesion , the thick-walled cavitation. The sputum culture currently showing evidence of Staphylococcus aureus. Patient currently on clindamycin, Flagyl, cefepime Vital signs reviewed No neck vein distention noted Reduced air entry in the right lung CVS regular heart sound, no murmur noted Abdomen soft, nontender. Deep tissue injury in the back noted Patient is currently sedated and evaluating noted Labs reviewed Elevated WBC. Chest x-ray cavitary lung lesion. Overall condition is remains the same Assessment and recommendation: 56-year-old male with a chronic smoking and alcoholism, admitted with acute respiratory failure. Cavitary lung lesion. Most likely a Staphylococcus infection. Patient also has hygromas, chronic bleeding cannot be ruled out. Will start the patient on vancomycin. Less likely tuberculosis. DVT GI prophylaxis Patient is not a candidate for weaning today CCU Objective - Vital Signs / Intake & Output Vital Signs (Last 4 hours): Vital Signs Temp Pulse Resp BP Pulse Ox 03/10/17 07:54 98.9 F 03/10/17 07:11 78 15 122/79 100 03/10/17 07:00 81 17 100 03/10/17 06:41 79 19 93/68 L 100 03/10/17 06:31 82 20 94/61 L 100 03/10/17 06:10 81 21 94/61 L 98 03/10/17 06:00 83 100 Intake and Output (Last 8hrs): Intake & Output 03/09/17 03/10/17 03/10/17 22:59 06:59 14:59 Intake Total 1994.4 1391.4 163.8 Output Total 280 600 Balance 1714.4 791.4 163.8 Weight 112 lb Intake: IV 514 256 Intake, IV Amount 1160.4 815.4 123.8 Right Distal IJ - Distal 150 50 Port Right Distal Port 625 375 75 Internal Jugular Right Medial Port 355 360 45 Internal Jugular Right Proximal Port 30.4 30.4 3.8 Internal Jugular Tube Feeding 320 320 40 Output: Urine 280 600 Urethral (Mercedes) 280 600 Other: # Bowel Movements 1 1 0 - Physical Exam Head: Positive for: Atraumatic, Normocephalic, Abrasion (top of head, heal. no erythema), Other (temporalis atrophy) Pupils: Positive for: Sluggish (Left eye), Other (Right eye dilated 3mm, fixed.) Conjunctiva: Positive for: Normal Mouth: Positive for: Moist Mucous Membranes, Other (intubated) Respiratory/Chest: Positive for: Decreased Breath Sounds (RUL), Rhonchi Cardiovascular: Positive for: Regular Rate and Rhythm, Murmurs, Normal S1, S2, Tachycardic Abdomen: Negative for: Tenderness, Distention, Peritoneal Signs Upper Extremity: Positive for: Normal Inspection, NORMAL PULSES. Negative for: Edema Lower Extremity: Positive for: Normal Inspection, NORMAL PULSES. Negative for: Edema, CALF TENDERNESS Neurological: Positive for: Other (intubated) Skin: Positive for: Warm, Dry Psychiatric: Positive for: Other (intubated) - Medications Active Medications: Active Medications Generic Name Dose Route Start Last Admin Trade Name Freq PRN Reason Stop Dose Admin Albuterol/Ipratropium 3 ml 03/07/17 20:00 03/10/17 07:25 Duoneb 3 Mg/0.5 Mg (3 Ml) Ud INH 3 ml RQ6 JACK Administration Ascorbic Acid 500 mg 03/08/17 10:00 03/10/17 09:32 Vitamin C 500 Mg Tab PO 500 mg Q12H JACK Administration Docusate Sodium 100 mg 03/09/17 18:00 03/10/17 09:32 Colace NG 100 mg BID JACK Administration Ergocalciferol 1 cap 03/08/17 10:00 03/08/17 11:48 Drisdol 50,000 Intl Units Cap PO 04/26/17 10:00 1 cap QWK JACK Administration Ferrous Sulfate 300 mg 03/07/17 18:00 03/10/17 09:31 Feosol Liq NG 300 mg BID JACK Administration Hydrocortisone Sodium Succinate 100 mg 03/09/17 18:45 03/10/17 02:06 Solu-Cortef IV 100 mg Q8H JACK Administration Cefepime HCl 1 gm in 50 mls @ 100 mls/hr 03/04/17 22:00 03/10/17 09:34 Maxipime Iv 1 Gm Premix IVPB 100 mls/hr Q12 JACK Administration Clindamycin Phosphate 600 mg in 50 mls @ 100 mls/hr 03/04/17 22:45 03/10/17 06:29 Cleocin In Normal Saline IVPB 100 mls/hr Q8H JACK Administration Propofol 1,000 mg in 100 mls @ 0.966 mls/hr 03/05/17 10:56 03/09/17 15:30 Diprivan IV 20 mcg/kg/min .Q24H PRN 3.865 mls/hr TITRATE PER MD ORDER Titration Protocol 5 MCG/KG/MIN Folic Acid 1 mg/ Thiamine HCl 1,011.2 mls @ 75 mls/hr 03/07/17 10:00 09:33 100 mg/ Multivitamins/Vitamin IV 75 mls/hr C 10 ml/ Dextrose DAILY JACK Administration Metronidazole 500 mg in 100 mls @ 100 mls/hr 03/08/17 10:00 03/10/17 05:28 Flagyl IVPB 100 mls/hr Q8 JACK Administration Phenylephrine HCl 60 mg/ 256 mls @ 5.11 mls/hr 03/08/17 18:45 03/10/17 06:31 Dextrose IV 175.78 mcg/min .Q24H PRN 44.99 mls/hr TITRATE PER MD ORDER Administration Protocol 20 MCG/MIN Lactated Ringer's 1,000 mls @ 75 mls/hr 03/10/17 06:45 03/10/17 07:15 Lactated Ringer's IV 75 mls/hr .[id number] JACK Administration Multivitamins 1 tab 03/08/17 14:00 03/10/17 09:32 Hexavitamin PO 1 tab DAILY JACK Administration Multivitamins/Vitamin C 5 ml 03/10/17 10:00 Multi-Delyn Liquid PO DAILY JACK Pantoprazole Sodium 40 mg 03/05/17 10:00 03/10/17 09:31 Protonix Inj IVP 40 mg DAILY JACK Administration Sodium Bicarbonate 1,300 mg 03/09/17 14:00 03/10/17 09:32 Sodium Bicarbonate Tab PO 1,300 mg TID JACK Administration - Patient Studies Lab Studies: Microbiology Studies 03/04/17 20:40 Blood Culture - Final Blood NO GROWTH AFTER 5 DAYS Gram Stain - Final TEST NOT PERFORMED 03/04/17 20:10 Blood Culture - Final Blood NO GROWTH AFTER 5 DAYS Gram Stain - Final TEST NOT PERFORMED 03/08/17 11:26 Mycobacterial Culture - Preliminary Other: Please Indicate 03/05/17 21:58 Mycobacterial Culture - Preliminary Other: Please Indicate Lab Studies 03/10/17 03/10/17 03/10/17 Range/Units 06:28 06:28 06:22 WBC 26.8 H (4.8-10.8) K/uL RBC 3.71 L (4.40-5.90) Mil/uL Hgb 9.6 L (12.0-18.0) g/dL Hct 30.3 L (35.0-51.0) % MCV 81.7 (80.0-94.0) fL MCH 25.9 L (27.0-31.0) pg MCHC 31.7 L (33.0-37.0) g/dL RDW 17.1 H (11.5-14.5) % Plt Count 199 (130-400) K/uL MPV 9.0 (7.2-11.7) fL Neut % (Auto) 97.0 H (50.0-75.0) % Lymph % (Auto) 2.2 L (20.0-40.0) % Cooper % (Auto) 0.7 (0.0-10.0) % Eos % (Auto) 0.0 (0.0-4.0) % Baso % (Auto) 0.1 (0.0-2.0) % Neut # 26.0 H (1.8-7.0) K/uL Lymph # 0.6 L (1.0-4.3) K/uL Cooper # 0.2 (0.0-0.8) K/uL Eos # 0.0 (0.0-0.7) K/uL Baso # 0.0 (0.0-0.2) K/uL Neutrophils % (Manual) 96 H (50-75) % Band Neutrophils % 2 (0-2) % Lymphocytes % (Manual) 2 L (20-40) % Monocytes % (Manual) TEST NOT PERFORMED Differential Comment Platelet Estimate Normal (NORMAL) Large Platelets Present Hypochromasia (manual) Slight Anisocytosis (manual) Slight Monroe Cells Slight Puncture Site Rradial pCO2 27 L (35-45) mm/Hg pO2 97 (80-100) mm/Hg HCO3 14.0 L (21-28) mmol/L ABG pH 7.25 L (7.35-7.45) ABG Total CO2 12.6 L (22-28) mmol/L ABG O2 Saturation 99.2 H (95-98) % ABG Base Excess -14.0 L (-2.0-3.0) mmol/L ABG Hemoglobin 9.3 L (11.7-17.4) g/dL ABG Carboxyhemoglobin 1.8 H (0.5-1.5) % POC ABG HHb (Measured) 0.8 (0.0-5.0) % ABG Methemoglobin 0.7 (0.0-3.0) % Jorge Test Pos A-a O2 Difference 154.0 mm/Hg Respiratory Index 1.6 Hgb O2 Saturation 96.7 (95.0-98.0) % Vent Mode Prvc Mechanical Rate 14 FiO2 40.0 % Tidal Volume 500 PEEP 5 Sodium 132 (132-148) mmol/L Potassium 5.1 (3.6-5.2) mmol/L Chloride 109 H (98-107) mmol/L Carbon Dioxide 13 L (22-30) mmol/L Anion Gap 14 (10-20) BUN 32 H (9-20) mg/dL Creatinine 1.7 H (0.8-1.5) mg/dL Est GFR ( Amer) 50 Est GFR (Non-Af Amer) 42 POC Glucose (mg/dL) (65-110) mg/dL Random Glucose 179 H (75-110) mg/dL Calcium 8.5 L (8.6-10.4) mg/dl Phosphorus 3.5 (2.5-4.5) mg/dL Magnesium 1.9 (1.6-2.3) mg/dL Total Bilirubin 0.5 (0.2-1.3) mg/dL AST 11 L (17-59) U/L ALT 27 (21-72) U/L Alkaline Phosphatase 130 H (38-126) U/L Total Protein 4.8 L (6.3-8.3) g/dL Albumin 2.3 L (3.5-5.0) g/dL Globulin 2.4 (2.2-3.9) gm/dL Albumin/Globulin Ratio 1.0 (1.0-2.1) 03/09/17 03/09/17 Range/Units 23:54 06:00 WBC (4.8-10.8) K/uL RBC (4.40-5.90) Mil/uL Hgb (12.0-18.0) g/dL Hct (35.0-51.0) % MCV (80.0-94.0) fL MCH (27.0-31.0) pg MCHC (33.0-37.0) g/dL RDW (11.5-14.5) % Plt Count (130-400) K/uL MPV (7.2-11.7) fL Neut % (Auto) (50.0-75.0) % Lymph % (Auto) (20.0-40.0) % Cooper % (Auto) (0.0-10.0) % Eos % (Auto) (0.0-4.0) % Baso % (Auto) (0.0-2.0) % Neut # (1.8-7.0) K/uL Lymph # (1.0-4.3) K/uL Cooper # (0.0-0.8) K/uL Eos # (0.0-0.7) K/uL Baso # (0.0-0.2) K/uL Neutrophils % (Manual) (50-75) % Band Neutrophils % (0-2) % Lymphocytes % (Manual) (20-40) % Monocytes % (Manual) Differential Comment Platelet Estimate (NORMAL) Large Platelets Hypochromasia (manual) Anisocytosis (manual) Enrique Cells Puncture Site pCO2 (35-45) mm/Hg pO2 (80-100) mm/Hg HCO3 (21-28) mmol/L ABG pH (7.35-7.45) ABG Total CO2 (22-28) mmol/L ABG O2 Saturation (95-98) % ABG Base Excess (-2.0-3.0) mmol/L ABG Hemoglobin (11.7-17.4) g/dL ABG Carboxyhemoglobin (0.5-1.5) % POC ABG HHb (Measured) (0.0-5.0) % ABG Methemoglobin (0.0-3.0) % Jorge Test A-a O2 Difference mm/Hg Respiratory Index Hgb O2 Saturation (95.0-98.0) % Vent Mode Mechanical Rate FiO2 % Tidal Volume PEEP Sodium (132-148) mmol/L Potassium (3.6-5.2) mmol/L Chloride (98-107) mmol/L Carbon Dioxide (22-30) mmol/L Anion Gap (10-20) BUN (9-20) mg/dL Creatinine (0.8-1.5) mg/dL Est GFR ( Amer) Est GFR (Non-Af Amer) POC Glucose (mg/dL) 181 H (65-110) mg/dL Random Glucose (75-110) mg/dL Calcium (8.6-10.4) mg/dl Phosphorus (2.5-4.5) mg/dL Magnesium (1.6-2.3) mg/dL Total Bilirubin (0.2-1.3) mg/dL AST (17-59) U/L ALT (21-72) U/L Alkaline Phosphatase (38-126) U/L Total Protein (6.3-8.3) g/dL Albumin (3.5-5.0) g/dL Globulin (2.2-3.9) gm/dL Albumin/Globulin Ratio (1.0-2.1) Laboratory Results - last 24 hr 03/09/17 03/09/17 03/10/17 06:00 23:54 06:22 WBC RBC Hgb Hct MCV MCH MCHC RDW Plt Count MPV Neut % (Auto) Lymph % (Auto) Cooper % (Auto) Eos % (Auto) Baso % (Auto) Neut # Lymph # Cooper # Eos # Baso # Neutrophils % (Manual) Band Neutrophils % Lymphocytes % (Manual) Monocytes % (Manual) Differential Comment Platelet Estimate Large Platelets Hypochromasia (manual) Anisocytosis (manual) Enrique Cells Puncture Site Rradial pCO2 27 L pO2 97 HCO3 14.0 L ABG pH 7.25 L ABG Total CO2 12.6 L ABG O2 Saturation 99.2 H ABG Base Excess -14.0 L ABG Hemoglobin 9.3 L ABG Carboxyhemoglobin 1.8 H POC ABG HHb (Measured) 0.8 ABG Methemoglobin 0.7 Jorge Test Pos A-a O2 Difference 154.0 Respiratory Index 1.6 Hgb O2 Saturation 96.7 Vent Mode Prvc Mechanical Rate 14 FiO2 40.0 Tidal Volume 500 PEEP 5 Sodium Potassium Chloride Carbon Dioxide Anion Gap BUN Creatinine Est GFR ( Amer) Est GFR (Non-Af Amer) POC Glucose (mg/dL) 181 H Random Glucose Calcium Phosphorus Magnesium Total Bilirubin AST ALT Alkaline Phosphatase Total Protein Albumin Globulin Albumin/Globulin Ratio 03/10/17 03/10/17 06:28 06:28 WBC 26.8 H RBC 3.71 L Hgb 9.6 L Hct 30.3 L MCV 81.7 MCH 25.9 L MCHC 31.7 L RDW 17.1 H Plt Count 199 MPV 9.0 Neut % (Auto) 97.0 H Lymph % (Auto) 2.2 L Cooper % (Auto) 0.7 Eos % (Auto) 0.0 Baso % (Auto) 0.1 Neut # 26.0 H Lymph # 0.6 L Cooper # 0.2 Eos # 0.0 Baso # 0.0 Neutrophils % (Manual) 96 H Band Neutrophils % 2 Lymphocytes % (Manual) 2 L Monocytes % (Manual) TEST NOT PERFORMED Differential Comment Platelet Estimate Normal Large Platelets Present Hypochromasia (manual) Slight Anisocytosis (manual) Slight Enrique Cells Slight Puncture Site pCO2 pO2 HCO3 ABG pH ABG Total CO2 ABG O2 Saturation ABG Base Excess ABG Hemoglobin ABG Carboxyhemoglobin POC ABG HHb (Measured) ABG Methemoglobin Jorge Test A-a O2 Difference Respiratory Index Hgb O2 Saturation Vent Mode Mechanical Rate FiO2 Tidal Volume PEEP Sodium 132 Potassium 5.1 Chloride 109 H Carbon Dioxide 13 L Anion Gap 14 BUN 32 H Creatinine 1.7 H Est GFR ( Amer) 50 Est GFR (Non-Af Amer) 42 POC Glucose (mg/dL) Random Glucose 179 H Calcium 8.5 L Phosphorus 3.5 Magnesium 1.9 Total Bilirubin 0.5 AST 11 L ALT 27 Alkaline Phosphatase 130 H Total Protein 4.8 L Albumin 2.3 L Globulin 2.4 Albumin/Globulin Ratio 1.0 Fingerstick Blood Sugar Results: 94
[2017-03-10] MEDS: Propofol 10 mg/ml 1,000 MG/100 ML VIAL IV PRN (09:51)
[2017-03-10] MEDS: Vancomycin 1 gm/NS 200 ml 1 GM/200 ML BAG IVPB SCH (12:29)
[2017-03-10] MEDS: Multiple Vitamins Oral Solution PO SCH (12:29)
--- NOTE | 2017-03-10 16:10 | CP.PCM.PN ---
Subjective - Date & Time of Evaluation Date of Evaluation: 03/10/17 Time of Evaluation: 15:45 - Subjective Subjective: Hospitalist Progress Note Patient was seen and examined at 3:45 PM 03/10/17 ICU Bed 10. 56 year old male who was brought into ER via EMS on 03/04/17 after he fell at home. Upon arrival to the ER he was found to be confused, cachectic, hypoxic. CT Head showed age indeterminate ischemic changes in righ basal ganglia, acute on chronic subdural collection on left, subdural hygroma on the right. CT Chest showed large cavitary RUL mass with infiltrative/invasion on chest wall and destruction of adjacent ribs consistent with malignancy, right hilar and mediastinal adenopathy. CT Abdomen/Pelvis showed RUL mass with nodular opacities , RML and RLL suspicious for malignancy, splenic lesions possibly metastatic. His respiratory status shortly before exam on 03/05/17 declined and he was intubated by the ICU Team after informing patient's brother Holden Abarca [phone] and [id number] Sarah Abarca [phone], both of whom requested that patient be FULL CODE for the time being. Poor prognosis based upon current patient status and workup was explained to both Holden and Sarah 03/05/17. Holden spoke with Palliative Care Nurse Reyna and patient was subsequently made DNR with Limited Treatment (IV antibiotics and non-invasive positive airway pressure) as per POL, a copy of which is in patient chart. EEG was performed 03/07/17 and results are pending. PPD read on 03/07/17 was negative. Sputum for AFB 03/05/17 x2, 03/08/17, are negative. Quanteferon GOLD is negative. Therefore respiratory isolation was discontinued 03/10/17. Primary Decision Maker Holden Abarca will have last rites administered at 5-5:30 PM on 03/12/17 and then will be holding family meeting here in the ICU on 03/12/17 6 PM with the other brothers of patient, after which he will decide on whether to terminaly extubate patient. ROS is NOT possible as patient is nonresponsive and intubated. Exam: General: intubated and on vent, cachectic appearance HEENT: Abrasions present on the frontal scalp, Bilateral Pupils are equal and sluggishly reactive to light, Nasal turbinates are dry, NO cervical lymphadenopathy, NO thyromegaly, Poor Dentition Cardio: NS1 and NS2, NO M/R/G however limited due to loud course breath sounds Resp: Course breath sounds diffusely GI: BSx4, soft, ND, NO HSM Ext: Pulses are strong and equal, NO edema, Capillary Refill is 2 seconds Neuro: NOT possible due to current patient state Skin: Nonblanchable erythema sacral base Assessment and Plan: 1). Acute Respiratory Failure Patient is intubated and on ventilator Propofol 5 mcg/kg/min Status: Acute 2). Right Lung Cavitary Lesion with Sepsis Likely secondary to malignancy but rule out TB Respiratory Isolation Cefepime 1 gm IV Q12H (03/04/17 through present) Vancomycin 1 gm IV Q24 H (03/10/17 through present) Clindamycin 600 mg I VQ8H (03/04/17 through 03/09/17) Metronidazole 500 mg IV Q8H (03/08/17 through 03/09/17) Phenylephrine 45 mcg/min Hydrocortisone 100 mg IV Q8H Albumin 25 g IV Q6H x 4 doses given 03/08/17 LR @ 75 ml/hr Blood Culture 03/04/17 negative to date Urine Culture 03/04/17 no growth HIV Ab is negative Hepatitis Panel negative Sputum Culture 03/05/17 shows S. aureus (he is on Vancomycin as above) AFB 03/05/17 x 2,03/08/17: preliminary is negative: respiratory isolation discontinued 03/10/17 PPD on left lower anterior arm is NEGATIVE 03/07/17 Quanteferon Gold is negative MRSA Screen is negative Heme/Onc Dr. Fabienne Pantoja Palliative Care Nurse Obradtrice ID Dr. Wilberto Sanches Status: Acute 3). Anemia Likely chronic considering his history of alcohol abuse Iron level is low: Ferrous Sulfate 300 mg via NG 2x/day (03/07/17) Reticulocyte count normal at 0.9 Vitamin B12 elevated above 1000 Folate normal at 3.5 F/U Peripheral Smear Status: Chronic 4). Hypophosphotemia and Hypokalemia KPhos 15mmol IV x 1dose given 03/06/17 Phos normalized and K have normalized Status: Acute 5). Alcohol Abuse Bannana Bag @ 75 ml/hour once a day Status: Chronic 6). Hypercalcemia This is fluctuating between high and low Secondary to Lung CA? Calcitonin [place] 200 IU SC BID x 6 dose was ordered 03/08/17 however not carried here by pharmacy. Nephrology recommends Zometa or Pamidronate once GFR improves if Ca remaines elevated Status: Acute 7). Possible CVA CT Head w/o contrast 03/06/17: chronic bilateral subdural hematomas left larger than right. There is also a very small sliver of a hyperdense hemorrhage within the left sided collection possibly by the larger hypodense subdural component by membrane. The collections exert relatively symmetrical offsetting mass effect with compression of both cerebral hemispheres and ventricular system with no significant midline shift. F/U EEG from 03/07/[address] Moore Status: Acute 8). Acute Kidney Injury Could this be secondary to the consistently low blood pressure despite Pheylephrine Drip? Could this be secondary to contrast from the CT Abdomen/Pelvis performed on admission? Nephrology Status: Acute 9). Stage I Sacral Ulcer Optifoam Dressing Status: Acute 10). Prophylaxis Pulmcare via NGT Protonix 40 mg IV 1x/day Low Vitamin D: 50,000 units once a week starting 03/08/17 and end 04/26/17 NO anticoagulation considering the anemia: Bilateral SCDs Colace 100 mg PO 2x/day Status: Acute Poor prognosis explained to both brother Holden Abarca (cell: [phone]) and [id number] Sarah Abarca [phone] on 03/05/17. He is currently DNR and POLST is in the chart: Limited Treatment (IV antibiotics and non-invasive positive airway pressure). 03/07/17: Updated Brother Holden Abarca concerning worsening renal function, drop in hgb, continued low blood pressure despite pressure/fluid support. Explained plan for now is to follow up Sputum for AFB and if negative then Bronchoscopy by Pulmonary for tissue diagnosis of Right Lung Mass. Explained to brother the poor prognosis for this patient and for him to consider the extent to which he would like for continued treatment and evaluation. 03/08/17: Attempted to call Holden Abarca at requested number at work [phone] however there was NO answer and NO voicemail could be left. Patient's two other brothers (Felipe and Bill) were at bedside. Explained at length to Brother Felipe, the above diagnosises and workup results and plan. Also explained the unfortunate poor prognosis. Family to discuss the extent to which they want to continue treatment and further evaluation. 03/09/17: Spoke with primary decision maker Holden Abarca and informed him that patient's status was unchanged. He is still discussing whether to allow bronchoscopy for tissue diagnosis once AFBs are negative, with his family. 03/10/17: Spoke with primary decision maker Holden Abarca and his Crystal, who were at bedside. Holden will have last rites administered on 03/12/17 at 5-5:30 PM and then will hold family meeting at 6 PM with other brothers of patient and determine at that time whether to terminally extubate patient. Obed Anguiano D.O. Objective - Vital Signs/Intake and Output Vital Signs (last 24 hours): Temp Pulse Resp BP Pulse Ox 98.4 F 77 21 88/54 L 97 03/10/17 12:00 03/10/17 13:10 03/10/17 13:10 03/10/17 13:10 03/10/17 13:10 Intake and Output: 03/10/17 03/10/17 06:59 18:59 Intake Total 2452.6 1244.6 Output Total 600 370 Balance 1852.6 874.6 - Medications Medications: Current Medications Albuterol/Ipratropium (Duoneb 3 Mg/0.5 Mg (3 Ml) Ud) 3 ml INH RQ6 [facility] Last Admin: 03/10/17 13:28 Dose: 3 ml Ascorbic Acid (Vitamin C 500 Mg Tab) 500 mg PO Q12H [facility] Last Admin: 03/10/17 09:32 Dose: 500 mg Docusate Sodium (Colace) 100 mg NG BID [facility] Last Admin: 03/10/17 09:32 Dose: 100 mg Ergocalciferol (Drisdol 50,000 Intl Units Cap) 1 cap PO QWK [facility] Stop: 04/26/17 10:00 Last Admin: 03/08/17 11:48 Dose: 1 cap Ferrous Sulfate (Feosol Liq) 300 mg NG BID [facility] Last Admin: 03/10/17 09:31 Dose: 300 mg Hydrocortisone Sodium Succinate (Solu-Cortef) 100 mg IV Q8H [facility] Last Admin: 03/10/17 10:45 Dose: 100 mg Cefepime HCl (Maxipime Iv 1 Gm Premix) 1 gm in 50 mls @ 100 mls/hr IVPB Q12 JACK Last Admin: 03/10/17 09:34 Dose: 100 mls/hr Propofol (Diprivan) 1,000 mg in 100 mls @ 0.966 mls/hr IV .Q24H PRN; Protocol; 5 MCG/KG/MIN PRN Reason: TITRATE PER MD ORDER Last Admin: 03/10/17 09:51 Dose: 20 mcg/kg/min, 3.865 mls/hr Folic Acid 1 mg/ Thiamine HCl 100 mg/ Multivitamins/Vitamin C 10 ml/ Dextrose 1 ,011.2 mls @ 75 mls/hr IV DAILY JACK Last Admin: 03/10/17 09:33 Dose: 75 mls/hr Phenylephrine HCl 60 mg/ (Dextrose) 256 mls @ 5.11 mls/hr IV .Q24H PRN; Protocol; 20 MCG/MIN PRN Reason: TITRATE PER MD ORDER Last Admin: 03/10/17 06:31 Dose: 175.78 mcg/min, 44.99 mls/hr Lactated Ringer's (Lactated Ringer's) 1,000 mls @ 75 mls/hr IV .[id number] [facility] Last Admin: 03/10/17 07:15 Dose: 75 mls/hr Vancomycin/Sodium Chloride (Vancomycin 1 Gm/Ns 200 Ml) 1 gm in 200 mls @ 133.333 mls/hr IVPB Q24H JACK Stop: 03/15/17 10:01 Last Admin: 03/10/17 12:29 Dose: 133.333 mls/hr Multivitamins (Hexavitamin) 1 tab PO DAILY JACK Last Admin: 03/10/17 09:32 Dose: 1 tab Multivitamins/Vitamin C (Multi-Delyn Liquid) 5 ml PO DAILY JACK Last Admin: 03/10/17 12:29 Dose: 5 ml Pantoprazole Sodium (Protonix Inj) 40 mg IVP DAILY JACK Last Admin: 03/10/17 09:31 Dose: 40 mg Sodium Bicarbonate (Sodium Bicarbonate Tab) 1,300 mg PO TID JACK Last Admin: 03/10/17 14:00 Dose: 1,300 mg - Labs Labs: 03/10/17 06:28 03/10/17 06:28 PT 14.1 SECONDS (9.7-12.2) H 03/04/17 20:15 INR 1.3 03/04/17 20:15 APTT 35 SECONDS (21-34) H 03/04/17 20:15
[2017-03-11] MEDS: Albuterol-Ipratrop 3 mg / 0.5 (3 ml) UD INH SCH ×4 (02:10→19:45)
--- NOTE | 2017-03-11 08:18 | CP.PCM.PN ---
Subjective - Date & Time of Evaluation Date of Evaluation: 03/11/17 Time of Evaluation: 08:15 - Subjective Subjective: Medical Attending Note: Patient seen and examined at bedside. No family present at bedside. Patient is off sedation since 6:15Am this morning. Patient appears awake and alert. Patient is extremely weak. Patient is intubated connected to vent. patient is breathing outside the vent. Patient appears to respond to name, withdraws to pain, and weak movements. Unclear if I can review ROS, since patient does not appear to answer to clear cut yes or not to ROS. Objective - Vital Signs/Intake and Output Vital Signs (last 24 hours): Temp Pulse Resp BP Pulse Ox 98.5 F 88 21 112/74 98 03/11/17 04:00 03/11/17 06:41 03/11/17 06:41 03/11/17 06:41 03/11/17 06:41 Intake and Output: 03/11/17 03/11/17 06:59 18:59 Intake Total 2029.1 95 Output Total 840 Balance 1189.1 95 - Medications Medications: Current Medications Albuterol/Ipratropium (Duoneb 3 Mg/0.5 Mg (3 Ml) Ud) 3 ml INH RQ6 [facility] Last Admin: 03/11/17 08:05 Dose: 3 ml Ascorbic Acid (Vitamin C 500 Mg Tab) 500 mg PO Q12H [facility] Last Admin: 03/11/17 00:00 Dose: 500 mg Docusate Sodium (Colace) 100 mg NG BID [facility] Last Admin: 03/10/17 17:25 Dose: Not Given Ergocalciferol (Drisdol 50,000 Intl Units Cap) 1 cap PO QWK [facility] Stop: 04/26/17 10:00 Last Admin: 03/08/17 11:48 Dose: 1 cap Ferrous Sulfate (Feosol Liq) 300 mg NG BID [facility] Last Admin: 03/10/17 18:16 Dose: 300 mg Hydrocortisone Sodium Succinate (Solu-Cortef) 100 mg IV Q8H [facility] Last Admin: 03/11/17 01:48 Dose: 100 mg Cefepime HCl (Maxipime Iv 1 Gm Premix) 1 gm in 50 mls @ 100 mls/hr IVPB Q12 [facility] Last Admin: 03/10/17 21:44 Dose: 100 mls/hr Propofol (Diprivan) 1,000 mg in 100 mls @ 0.966 mls/hr IV .Q24H PRN; Protocol; 5 MCG/KG/MIN PRN Reason: TITRATE PER MD ORDER Last Titration: 03/11/17 05:00 Dose: 0 mcg/kg/min, 0 mls/hr Folic Acid 1 mg/ Thiamine HCl 100 mg/ Multivitamins/Vitamin C 10 ml/ Dextrose 1 ,011.2 mls @ 75 mls/hr IV DAILY [facility] Last Admin: 03/10/17 09:33 Dose: 75 mls/hr Phenylephrine HCl 60 mg/ (Dextrose) 256 mls @ 5.11 mls/hr IV .Q24H PRN; Protocol; 20 MCG/MIN PRN Reason: TITRATE PER MD ORDER Last Titration: 03/11/17 05:00 Dose: 78.12 mcg/min, 20 mls/hr Lactated Ringer's (Lactated Ringer's) 1,000 mls @ 75 mls/hr IV .[id number] [facility] Last Admin: 03/10/17 20:51 Dose: 75 mls/hr Vancomycin/Sodium Chloride (Vancomycin 1 Gm/Ns 200 Ml) 1 gm in 200 mls @ 133.333 mls/hr IVPB Q24H [facility] Stop: 03/15/17 10:01 Last Admin: 03/10/17 12:29 Dose: 133.333 mls/hr Multivitamins (Hexavitamin) 1 tab PO DAILY [facility] Last Admin: 03/10/17 09:32 Dose: 1 tab Multivitamins/Vitamin C (Multi-Delyn Liquid) 5 ml PO DAILY [facility] Last Admin: 03/10/17 12:29 Dose: 5 ml Pantoprazole Sodium (Protonix Inj) 40 mg IVP DAILY [facility] Last Admin: 03/10/17 09:31 Dose: 40 mg Sodium Bicarbonate (Sodium Bicarbonate Tab) 1,300 mg PO TID [facility] Last Admin: 03/10/17 18:16 Dose: 1,300 mg - Labs Labs: 03/10/17 06:28 03/10/17 06:28 PT 14.1 SECONDS (9.7-12.2) H 03/04/17 20:15 INR 1.3 03/04/17 20:15 APTT 35 SECONDS (21-34) H 03/04/17 20:15 - Constitutional Appears: Unkempt, Confused, Cachectic, Chronically Ill - Head Exam Head Exam: NORMAL INSPECTION Additional comments: Abrasion over frontal intubated had has IJ over right side of neck - Eye Exam Eye Exam: absent: Nystagmus, Scleral icterus Pupil Exam: PERRL. absent: Unequal Additional comments: sluggish but reactive - ENT Exam ENT Exam: Mucous Membranes Dry - Respiratory Exam Respiratory Exam: Decreased Breath Sounds, NORMAL BREATHING PATTERN. absent: Stridor - Cardiovascular Exam Cardiovascular Exam: REGULAR RHYTHM, +S1, +S2 - GI/Abdominal Exam GI & Abdominal Exam: Soft, Normal Bowel Sounds. absent: Distended, Firm, Guarding, Rigid, Tenderness, Rebound - Extremities Exam Extremities Exam: Joint Swelling (bilateral upper extremities). absent: Pedal Edema, Tenderness - Neurological Exam Neurological Exam: Awake Neuro motor strength exam: Left Upper Extremity: 2/1, Right Upper Extremity: 2/1 , Left Lower Extremity: 3, Right Lower Extremity: 3 - Skin Skin Exam: Dry, Normal Color, Warm Assessment and Plan - Assessment and Plan (Free Text) Assessment: 1). Acute Respiratory Failure * Patient is intubated and on ventilator * Off sedation since this 03/11 AM * Further management per ICU Status: Acute 2). Sepsis Right Lung Cavitary Lesion Possible Pneumonia? Cancer? * Criteria: WBC: 41.2, tachycardia * Procalcitonin: 6.05-->order for repeat * Chest Xray (03/10): lines and tubes in stable position. Worsening opacification of the right keny-thorax. Persistent lobular ellipitcal shaped pleural based mass with eccentic cavitary changes seen within the right upper to mid lung zone. Persistent cystic bronchiestasis and small bullous changes at the right lung apex. Centrilobular emphysematous changes in the left upper lobe * Sputum Culture 03/05/17 shows S. aureus (he is on Vancomycin as above) * Likely secondary to malignancy but rule out TB vs necrotizing pneumonia * off Respiratory Isolation 03/10 * Cefepime 1 gm IV Q12H (03/04/17 through present) * Vancomycin 1 gm IV Q24 H (03/10/17 through present) * Clindamycin 600 mg I VQ8H (03/04/17 through 03/09/17) * Metronidazole 500 mg IV Q8H (03/08/17 through 03/09/17) * On Pressor (Phenylephrine) * Hydrocortisone 100 mg IV Q8H * Albumin 25 g IV Q6H x 4 doses given 03/08/17 * LR @ 75 ml/hr * Blood Culture 03/04/17 negative to date * Urine Culture 03/04/17 no growth * HIV Ab is negative * Hepatitis Panel negative * AFB 03/05/17 x 2,03/08/17: preliminary is negative: respiratory isolation discontinued 03/10/17 * PPD on left lower anterior arm is NEGATIVE 03/07/17 * Quanteferon Gold is negative * MRSA Screen is negative * Heme/Onc Dr. Fabienne Pantoja * Palliative Care Nurse Reyna * ID Dr. Wilberto Sanches Status: Acute 3). Anemia * Likely chronic considering his history of alcohol abuse and possible malignancy * Ewelina Pantoja (heme-onc) on the case * Iron level is low: Ferrous Sulfate 300 mg via NG 2x/day (03/07/17) * Reticulocyte count normal at 0.9 * Vitamin B12 elevated above 1000 * Folate normal at 3.5 * F/U Peripheral Smear Status: Chronic 4). Hypophosphotemia and Hypokalemia * KPhos 15mmol IV x 1dose given 03/06/17 * Phos normalized and K have normalized Status: Acute 5). Alcohol Abuse Malnutrition * Banana Bag @ 75 ml/hour once a day * Multivitamin 5ML PO daily * Folic acid 1mg IV daily * Pulmcare via NGT * Low Albumin Status: Chronic 6). Hypercalcemia * This is fluctuating between high and low * Albumin low * Calcitonin Bouton 200 IU SC BID x 6 dose was ordered 03/08/17 however not carried here by pharmacy. * Nephrology recommends Zometa or Pamidronate once GFR improves if Ca remaines elevated Status: Acute 7). Possible CVA * CT Head w/o contrast 03/06/17: chronic bilateral subdural hematomas left larger than right. There is also a very small sliver of a hyperdense hemorrhage within the left sided collection possibly by the larger hypodense subdural component by membrane. The collections exert relatively symmetrical offsetting mass effect with compression of both cerebral hemispheres and ventricular system with no significant midline shift. * CT Head w/o contrast 03/07/17: bilateral acute on chronic subdural collections similar to those seen on prior study 03/06/17, nomral ventricular size, no midline shift * F/U EEG from 03/07/17 * Neurology Dr. Moore * 03/08-->per neurology, prognosis poor Status: Acute 8). Acute Kidney Injury * Nephrology on the case-->help appreciated * Increasing BUN/Cr * Unable to given Calcitonin sq not available in our pharmacy once GFR recovers Status: Acute 9). Stage I Sacral Ulcer * Optifoam Dressing Status: Acute 10). Tobacco Abuse * start Nicotine hour 1 transdermal patch daily * History of heavy tobacco abuse Status: Chronic 11). Prophylaxis * Pulmcare via NGT * Protonix 40 mg IV 1x/day * Low Vitamin D: 50,000 units once a week starting 03/08/17 and end 04/26/17 * NO anticoagulation considering the anemia: Bilateral SCDs * Vitamin C 500mg PO Q12 * Colace 100 mg PO 2x/day Status: Acute
[2017-03-11] MEDS: DEXTROSE 5% IV PRN (08:42)
[2017-03-11] MEDS: WATER IV PRN (08:42)
[2017-03-11] MEDS: PHENYLEPHRINE IV PRN (08:42)
[2017-03-11] MEDS: Propofol 10 mg/ml 1,000 MG/100 ML VIAL IV PRN ×2 (09:15)
[2017-03-11] MEDS: Cefepime IV 1 gm in Dextrose 1 GM/50 ML BAG IVPB SCH ×2 (09:44→21:48)
[2017-03-11] MEDS: Ferrous Sulfate 300 mg/5 mL Liq UD NG SCH ×2 (09:45→17:28)
[2017-03-11] MEDS: Folic Acid 1 MG, Thiamine 100 MG, Multivitamin (MVI) 10 ML in Dextrose 5% In Water 1,00... IV SCH (09:46)
[2017-03-11] MEDS: Lactated Ringer's 1,000 ML IV SCH ×2 (09:46→23:48)
[2017-03-11] MEDS: Multiple Vitamins Oral Solution PO SCH (09:47)
[2017-03-11] MEDS: Vancomycin 1 gm/NS 200 ml 1 GM/200 ML BAG IVPB SCH (11:07)
[2017-03-11 11:24] LABS: BASO # 0.1 K/uL (0.0-0.2); BASO % 0.2 % (0.0-2.0); HEMATOCRIT 32.9 % (35.0-51.0); LYMPH # 2.4 K/uL (1.0-4.3); LYMPH % 5.2 % (20.0-40.0); MEAN CELL VOLUME 81.9 fL (80.0-94.0); MEAN CORPUSCULAR HEMOGLOBIN 25.2 pg (27.0-31.0); MEAN CORPUSCULAR HGB CONC 30.7 g/dL (33.0-37.0); MEAN PLATELET VOLUME 9.1 fL (7.2-11.7); MONO # 0.8 K/uL (0.0-0.8); MONO % 1.7 % (0.0-10.0); NRBC % 0.1 % (0.0-2.0); PLATELET COUNT 282 K/uL (130-400); RED CELL DISTRIBUTION WIDTH 17.3 % (11.5-14.5)
[2017-03-11 11:32] LABS: WHITE BLOOD COUNT 46.5 K/uL (4.8-10.8)
[2017-03-11 11:39] LABS: ARTERIAL BLOOD GAS MODE PRVC; ARTERIAL BLOOD HGB O2 SAT 96.4 % (95.0-98.0); ATERIAL BLOOD GAS PEEP 5; CARBOXYHEMOGLOBIN 2.3 % (0.5-1.5); DRAW SITE RRA; METHEMOGLOBIN 1.3 % (0.0-3.0)
[2017-03-11 11:48] LABS: ALB/GLOB RATIO 0.9 (1.0-2.1); ALKALINE PHOSPHATASE 125 U/L (38-126); ALT/SGPT 31 U/L (21-72); AST/SGOT 21 U/L (17-59); BILIRUBIN,TOTAL 0.5 mg/dL (0.2-1.3); BLOOD UREA NITROGEN 39 mg/dL (9-20); CALCIUM 8.9 mg/dl (8.6-10.4); CARBON DIOXIDE 16 mmol/L (22-30); CHLORIDE 108 mmol/L (98-107); GFR AFRICAN-AMERICAN > 60; GLUCOSE,RANDOM 133 mg/dL (75-110); MAGNESIUM 1.8 mg/dL (1.6-2.3); PHOSPHOROUS 3.9 mg/dL (2.5-4.5); POTASSIUM 5.2 mmol/L (3.6-5.2); SODIUM 130 mmol/L (132-148); TOTAL PROTEIN 4.9 g/dL (6.3-8.3)
[2017-03-11 11:57] LABS: NEUTROPHIL 94 % (50-75); TOTAL CELLS COUNTED 100
--- NOTE | 2017-03-11 12:06 | RAD ---
Chest x-ray single frontal view History pneumonia. Comparison: 03/10/2017 Findings: Lines and tubes in stable position. Improved aeration at the right lung base. Persistent lobular elliptical shaped pleural-based mass with eccentric cavitary changes seen within the right upper to mid lung zone. Persistent cystic bronchiectasis with small bullous changes at the right lung apex. Centrilobular and emphysematous changes in the left upper lobe. Impression: Improved airspace opacification of the right lower lung zone. Otherwise no significant interval change.
--- NOTE | 2017-03-11 14:42 | CP.CCUPN ---
<Beti Bland - Last Filed: 03/11/17 15:01> CCU Subjective - Physician Review Subjective (Free Text): 03/11/17 14:[address] Cool Patient seen and examined at bedside [id number], Patient has left upward gaze and does not respond. No acute events overnight. Patient continues to have a lot of secretions CCU Objective - Vital Signs / Intake & Output Vital Signs (Last 4 hours): Vital Signs Temp Pulse Resp BP Pulse Ox 03/11/17 12:00 97.3 F L 91 H 21 99 03/11/17 11:39 93 H 20 117/78 99 03/11/17 11:11 96 H 21 112/78 99 Intake and Output (Last 8hrs): Intake & Output 03/10/17 03/11/17 03/11/17 22:59 06:59 14:59 Intake Total 1447.4 1236.9 945.7 Output Total 450 590 385 Balance 997.4 646.9 560.7 Weight 111 lb 1.6 oz Intake: IV 0 256 125 Intake, IV Amount 1287.4 930.9 670.7 Right Distal IJ - Distal 300 150 Port Right Distal Port 612 600 550.5 Internal Jugular Right Medial Port 345 160 105 Internal Jugular Right Proximal Port 30.4 20.9 15.2 Internal Jugular Tube Feeding 160 50 50 Other 100 Output: Urine 450 590 385 Urethral (Mercedes) 450 590 385 Emesis 0 Other: # Bowel Movements 0 1 1 - Physical Exam Head: Positive for: Atraumatic, Normocephalic, Abrasion (top of head, heal. no erythema), Other (temporalis atrophy) Pupils: Positive for: Sluggish (Left eye), Other (Right eye dilated 3mm, fixed.) Conjunctiva: Positive for: Normal Mouth: Positive for: Moist Mucous Membranes, Other (intubated) Respiratory/Chest: Positive for: Decreased Breath Sounds (RUL), Rhonchi Cardiovascular: Positive for: Regular Rate and Rhythm, Murmurs, Normal S1, S2, Tachycardic Abdomen: Negative for: Tenderness, Distention, Peritoneal Signs Upper Extremity: Positive for: Normal Inspection, NORMAL PULSES. Negative for: Edema Lower Extremity: Positive for: Normal Inspection, NORMAL PULSES. Negative for: Edema, CALF TENDERNESS Neurological: Positive for: Other (intubated) Skin: Positive for: Warm, Dry Psychiatric: Positive for: Other (intubated) - Medications Active Medications: Active Medications Generic Name Dose Route Start Last Admin Trade Name Freq PRN Reason Stop Dose Admin Albuterol/Ipratropium 3 ml 03/07/17 20:00 03/11/17 13:47 Duoneb 3 Mg/0.5 Mg (3 Ml) Ud INH 3 ml RQ6 JACK Administration Ascorbic Acid 500 mg 03/08/17 10:00 03/11/17 09:47 Vitamin C 500 Mg Tab PO 500 mg Q12H JACK Administration Ferrous Sulfate 300 mg 03/07/17 18:00 03/11/17 09:45 Feosol Liq NG 300 mg BID JACK Administration Hydrocortisone Sodium Succinate 50 mg 03/11/17 11:00 03/11/17 11:09 Solu-Cortef IV Not Given Q8H JACK Cefepime HCl 1 gm in 50 mls @ 100 mls/hr 03/04/17 22:00 03/11/17 09:44 Maxipime Iv 1 Gm Premix IVPB 100 mls/hr Q12 JACK Administration Propofol 1,000 mg in 100 mls @ 0.966 mls/hr 03/05/17 10:56 03/11/17 09:15 Diprivan IV 20 mcg/kg/min .Q24H PRN 3.865 mls/hr TITRATE PER MD ORDER Administration Protocol 5 MCG/KG/MIN Folic Acid 1 mg/ Thiamine HCl 1,011.2 mls @ 75 mls/hr 03/07/17 10:00 09:46 100 mg/ Multivitamins/Vitamin IV 75 mls/hr C 10 ml/ Dextrose DAILY JACK Administration Phenylephrine HCl 60 mg/ 256 mls @ 5.11 mls/hr 03/08/17 18:45 03/11/17 10:00 Dextrose IV 60 mcg/min .Q24H PRN 15.36 mls/hr TITRATE PER MD ORDER Titration Protocol 20 MCG/MIN Lactated Ringer's 1,000 mls @ 75 mls/hr 03/10/17 06:45 03/11/17 09:46 Lactated Ringer's IV Not Given .[id number] JACK Vancomycin/Sodium Chloride 1 gm in 200 mls @ 133.333 mls/hr 03/10/17 10:00 11:07 Vancomycin 1 Gm/Ns 200 Ml IVPB 03/15/17 10:01 133.333 mls/hr Q24H JACK Administration Metoclopramide HCl 10 mg 03/11/17 14:00 03/11/17 13:33 Reglan IVP 03/14/17 14:01 10 mg TID JACK Administration Multivitamins/Vitamin C 5 ml 03/10/17 10:00 03/11/17 09:47 Multi-Delyn Liquid PO Not Given DAILY JACK Nicotine 1 patch 03/11/17 10:00 03/11/17 11:07 Nicoderm Cq TD 1 patch DAILY JACK Administration Pantoprazole Sodium 40 mg 03/05/17 10:00 03/11/17 09:45 Protonix Inj IVP 40 mg DAILY JACK Administration - Patient Studies Lab Studies: Lab Studies 03/11/17 03/11/17 03/11/17 Range/Units 11:35 11:00 11:00 WBC 46.5 H* D (4.8-10.8) K/uL RBC 4.02 L (4.40-5.90) Mil/uL Hgb 10.1 L (12.0-18.0) g/dL Hct 32.9 L (35.0-51.0) % MCV 81.9 (80.0-94.0) fL MCH 25.2 L (27.0-31.0) pg MCHC 30.7 L (33.0-37.0) g/dL RDW 17.3 H (11.5-14.5) % Plt Count 282 (130-400) K/uL MPV 9.1 (7.2-11.7) fL Neut % (Auto) 92.9 H (50.0-75.0) % Lymph % (Auto) 5.2 L (20.0-40.0) % [place] % (Auto) 1.7 (0.0-10.0) % Eos % (Auto) 0.0 (0.0-4.0) % Baso % (Auto) 0.2 (0.0-2.0) % Neut # 43.2 H (1.8-7.0) K/uL Lymph # 2.4 (1.0-4.3) K/uL [place] # 0.8 (0.0-0.8) K/uL Eos # 0.0 (0.0-0.7) K/uL Baso # 0.1 (0.0-0.2) K/uL Neutrophils % (Manual) 94 H (50-75) % Band Neutrophils % 1 (0-2) % Lymphocytes % (Manual) 2 L (20-40) % Monocytes % (Manual) 3 (0-10) % Platelet Estimate Normal (NORMAL) Polychromasia Slight Hypochromasia (manual) Slight Anisocytosis (manual) Slight Enrique Cells Slight Puncture Site Rra pCO2 29 L (35-45) mm/Hg pO2 130 H (80-100) mm/Hg HCO3 16.0 L (21-28) mmol/L ABG pH 7.29 L (7.35-7.45) ABG Total CO2 14.8 L (22-28) mmol/L ABG O2 Saturation 100.0 H (95-98) % ABG Base Excess -11.5 L (-2.0-3.0) mmol/L ABG Hemoglobin 9.7 L (11.7-17.4) g/dL ABG Carboxyhemoglobin 2.3 H (0.5-1.5) % POC ABG HHb (Measured) 0.0 (0.0-5.0) % ABG Methemoglobin 1.3 (0.0-3.0) % Jorge Test Na A-a O2 Difference 119.0 mm/Hg Respiratory Index 0.9 Hgb O2 Saturation 96.4 (95.0-98.0) % Vent Mode Prvc FiO2 40.0 % Tidal Volume 450 PEEP 5 Sodium 130 L (132-148) mmol/L Potassium 5.2 (3.6-5.2) mmol/L Chloride 108 H (98-107) mmol/L Carbon Dioxide 16 L (22-30) mmol/L Anion Gap 11 (10-20) BUN 39 H (9-20) mg/dL Creatinine 1.4 (0.8-1.5) mg/dL Est GFR ( Amer) > 60 Est GFR (Non-Af Amer) 52 POC Glucose (mg/dL) (65-110) mg/dL Random Glucose 133 H (75-110) mg/dL Calcium 8.9 (8.6-10.4) mg/dl Phosphorus 3.9 (2.5-4.5) mg/dL Magnesium 1.8 (1.6-2.3) mg/dL Total Bilirubin 0.5 (0.2-1.3) mg/dL AST 21 (17-59) U/L ALT 31 (21-72) U/L Alkaline Phosphatase 125 (38-126) U/L Total Protein 4.9 L (6.3-8.3) g/dL Albumin 2.3 L (3.5-5.0) g/dL Globulin 2.6 (2.2-3.9) gm/dL Albumin/Globulin Ratio 0.9 L (1.0-2.1) Procalcitonin (0.19-0.49) NG/ML Vancomycin Trough (5.0-10.0) ug/mL TB Test (QFT) Nil IU/mL TB Test Mitogen - Nil IU/mL TB Test TB - Nil IU/mL TB Test (QFT) (Negative) 03/11/17 03/11/17 03/10/17 Range/Units 09:26 09:26 17:32 WBC (4.8-10.8) K/uL RBC (4.40-5.90) Mil/uL Hgb (12.0-18.0) g/dL Hct (35.0-51.0) % MCV (80.0-94.0) fL MCH (27.0-31.0) pg MCHC (33.0-37.0) g/dL RDW (11.5-14.5) % Plt Count (130-400) K/uL MPV (7.2-11.7) fL Neut % (Auto) (50.0-75.0) % Lymph % (Auto) (20.0-40.0) % [place] % (Auto) (0.0-10.0) % Eos % (Auto) (0.0-4.0) % Baso % (Auto) (0.0-2.0) % Neut # (1.8-7.0) K/uL Lymph # (1.0-4.3) K/uL [place] # (0.0-0.8) K/uL Eos # (0.0-0.7) K/uL Baso # (0.0-0.2) K/uL Neutrophils % (Manual) (50-75) % Band Neutrophils % (0-2) % Lymphocytes % (Manual) (20-40) % Monocytes % (Manual) (0-10) % Platelet Estimate (NORMAL) Polychromasia Hypochromasia (manual) Anisocytosis (manual) Enrique Cells Puncture Site pCO2 (35-45) mm/Hg pO2 (80-100) mm/Hg HCO3 (21-28) mmol/L ABG pH (7.35-7.45) ABG Total CO2 (22-28) mmol/L ABG O2 Saturation (95-98) % ABG Base Excess (-2.0-3.0) mmol/L ABG Hemoglobin (11.7-17.4) g/dL ABG Carboxyhemoglobin (0.5-1.5) % POC ABG HHb (Measured) (0.0-5.0) % ABG Methemoglobin (0.0-3.0) % Jorge Test A-a O2 Difference mm/Hg Respiratory Index Hgb O2 Saturation (95.0-98.0) % Vent Mode FiO2 % Tidal Volume PEEP Sodium (132-148) mmol/L Potassium (3.6-5.2) mmol/L Chloride (98-107) mmol/L Carbon Dioxide (22-30) mmol/L Anion Gap (10-20) BUN (9-20) mg/dL Creatinine (0.8-1.5) mg/dL Est GFR ( Amer) Est GFR (Non-Af Amer) POC Glucose (mg/dL) 203 H (65-110) mg/dL Random Glucose (75-110) mg/dL Calcium (8.6-10.4) mg/dl Phosphorus (2.5-4.5) mg/dL Magnesium (1.6-2.3) mg/dL Total Bilirubin (0.2-1.3) mg/dL AST (17-59) U/L ALT (21-72) U/L Alkaline Phosphatase (38-126) U/L Total Protein (6.3-8.3) g/dL Albumin (3.5-5.0) g/dL Globulin (2.2-3.9) gm/dL Albumin/Globulin Ratio (1.0-2.1) Procalcitonin 0.72 H (0.19-0.49) NG/ML Vancomycin Trough 6.2 (5.0-10.0) ug/mL TB Test (QFT) Nil IU/mL TB Test Mitogen - Nil IU/mL TB Test TB - Nil IU/mL TB Test (QFT) (Negative) 03/08/17 Range/Units 08:06 WBC (4.8-10.8) K/uL RBC (4.40-5.90) Mil/uL Hgb (12.0-18.0) g/dL Hct (35.0-51.0) % MCV (80.0-94.0) fL MCH (27.0-31.0) pg MCHC (33.0-37.0) g/dL RDW (11.5-14.5) % Plt Count (130-400) K/uL MPV (7.2-11.7) fL Neut % (Auto) (50.0-75.0) % Lymph % (Auto) (20.0-40.0) % [place] % (Auto) (0.0-10.0) % Eos % (Auto) (0.0-4.0) % Baso % (Auto) (0.0-2.0) % Neut # (1.8-7.0) K/uL Lymph # (1.0-4.3) K/uL [place] # (0.0-0.8) K/uL Eos # (0.0-0.7) K/uL Baso # (0.0-0.2) K/uL Neutrophils % (Manual) (50-75) % Band Neutrophils % (0-2) % Lymphocytes % (Manual) (20-40) % Monocytes % (Manual) (0-10) % Platelet Estimate (NORMAL) Polychromasia Hypochromasia (manual) Anisocytosis (manual) White Cloud Cells Puncture Site pCO2 (35-45) mm/Hg pO2 (80-100) mm/Hg HCO3 (21-28) mmol/L ABG pH (7.35-7.45) ABG Total CO2 (22-28) mmol/L ABG O2 Saturation (95-98) % ABG Base Excess (-2.0-3.0) mmol/L ABG Hemoglobin (11.7-17.4) g/dL ABG Carboxyhemoglobin (0.5-1.5) % POC ABG HHb (Measured) (0.0-5.0) % ABG Methemoglobin (0.0-3.0) % Jorge Test A-a O2 Difference mm/Hg Respiratory Index Hgb O2 Saturation (95.0-98.0) % Vent Mode FiO2 % Tidal Volume PEEP Sodium (132-148) mmol/L Potassium (3.6-5.2) mmol/L Chloride (98-107) mmol/L Carbon Dioxide (22-30) mmol/L Anion Gap (10-20) BUN (9-20) mg/dL Creatinine (0.8-1.5) mg/dL Est GFR ( Amer) Est GFR (Non-Af Amer) POC Glucose (mg/dL) (65-110) mg/dL Random Glucose (75-110) mg/dL Calcium (8.6-10.4) mg/dl Phosphorus (2.5-4.5) mg/dL Magnesium (1.6-2.3) mg/dL Total Bilirubin (0.2-1.3) mg/dL AST (17-59) U/L ALT (21-72) U/L Alkaline Phosphatase (38-126) U/L Total Protein (6.3-8.3) g/dL Albumin (3.5-5.0) g/dL Globulin (2.2-3.9) gm/dL Albumin/Globulin Ratio (1.0-2.1) Procalcitonin (0.19-0.49) NG/ML Vancomycin Trough (5.0-10.0) ug/mL TB Test (QFT) Nil 0.06 IU/mL TB Test Mitogen - Nil 0.61 IU/mL TB Test TB - Nil <0.00 IU/mL TB Test (QFT) Negative (Negative) Laboratory Results - last 24 hr 03/08/17 03/10/17 03/11/17 08:06 17:32 09:26 WBC RBC Hgb Hct MCV MCH MCHC RDW Plt Count MPV Neut % (Auto) Lymph % (Auto) [place] % (Auto) Eos % (Auto) Baso % (Auto) Neut # Lymph # [place] # Eos # Baso # Neutrophils % (Manual) Band Neutrophils % Lymphocytes % (Manual) Monocytes % (Manual) Platelet Estimate Polychromasia Hypochromasia (manual) Anisocytosis (manual) [place] Cells Puncture Site pCO2 pO2 HCO3 ABG pH ABG Total CO2 ABG O2 Saturation ABG Base Excess ABG Hemoglobin ABG Carboxyhemoglobin POC ABG HHb (Measured) ABG Methemoglobin Jorge Test A-a O2 Difference Respiratory Index Hgb O2 Saturation Vent Mode FiO2 Tidal Volume PEEP Sodium Potassium Chloride Carbon Dioxide Anion Gap BUN Creatinine Est GFR ( Amer) Est GFR (Non-Af Amer) POC Glucose (mg/dL) 203 H Random Glucose Calcium Phosphorus Magnesium Total Bilirubin AST ALT Alkaline Phosphatase Total Protein Albumin Globulin Albumin/Globulin Ratio Procalcitonin 0.72 H Vancomycin Trough TB Test (QFT) Nil 0.06 TB Test Mitogen - Nil 0.61 TB Test TB - Nil <0.00 TB Test (QFT) Negative 03/11/17 03/11/17 03/11/17 09:26 11:00 11:00 WBC 46.5 H* D RBC 4.02 L Hgb 10.1 L Hct 32.9 L MCV 81.9 MCH 25.2 L MCHC 30.7 L RDW 17.3 H Plt Count 282 MPV 9.1 Neut % (Auto) 92.9 H Lymph % (Auto) 5.2 L [place] % (Auto) 1.7 Eos % (Auto) 0.0 Baso % (Auto) 0.2 Neut # 43.2 H Lymph # 2.4 [place] # 0.8 Eos # 0.0 Baso # 0.1 Neutrophils % (Manual) 94 H Band Neutrophils % 1 Lymphocytes % (Manual) 2 L Monocytes % (Manual) 3 Platelet Estimate Normal Polychromasia Slight Hypochromasia (manual) Slight Anisocytosis (manual) Slight Enrique Cells Slight Puncture Site pCO2 pO2 HCO3 ABG pH ABG Total CO2 ABG O2 Saturation ABG Base Excess ABG Hemoglobin ABG Carboxyhemoglobin POC ABG HHb (Measured) ABG Methemoglobin Jorge Test A-a O2 Difference Respiratory Index Hgb O2 Saturation Vent Mode FiO2 Tidal Volume PEEP Sodium 130 L Potassium 5.2 Chloride 108 H Carbon Dioxide 16 L Anion Gap 11 BUN 39 H Creatinine 1.4 Est GFR ( Amer) > 60 Est GFR (Non-Af Amer) 52 POC Glucose (mg/dL) Random Glucose 133 H Calcium 8.9 Phosphorus 3.9 Magnesium 1.8 Total Bilirubin 0.5 AST 21 ALT 31 Alkaline Phosphatase 125 Total Protein 4.9 L Albumin 2.3 L Globulin 2.6 Albumin/Globulin Ratio 0.9 L Procalcitonin Vancomycin Trough 6.2 TB Test (QFT) Nil TB Test Mitogen - Nil TB Test TB - Nil TB Test (QFT) 03/11/17 11:35 WBC RBC Hgb Hct MCV MCH MCHC RDW Plt Count MPV Neut % (Auto) Lymph % (Auto) [place] % (Auto) Eos % (Auto) Baso % (Auto) Neut # Lymph # [place] # Eos # Baso # Neutrophils % (Manual) Band Neutrophils % Lymphocytes % (Manual) Monocytes % (Manual) Platelet Estimate Polychromasia Hypochromasia (manual) Anisocytosis (manual) [place] Cells Puncture Site Rra pCO2 29 L pO2 130 H HCO3 16.0 L ABG pH 7.29 L ABG Total CO2 14.8 L ABG O2 Saturation 100.0 H ABG Base Excess -11.5 L ABG Hemoglobin 9.7 L ABG Carboxyhemoglobin 2.3 H POC ABG HHb (Measured) 0.0 ABG Methemoglobin 1.3 Jorge Test Na A-a O2 Difference 119.0 Respiratory Index 0.9 Hgb O2 Saturation 96.4 Vent Mode Prvc FiO2 40.0 Tidal Volume 450 PEEP 5 Sodium Potassium Chloride Carbon Dioxide Anion Gap BUN Creatinine Est GFR ( Amer) Est GFR (Non-Af Amer) POC Glucose (mg/dL) Random Glucose Calcium Phosphorus Magnesium Total Bilirubin AST ALT Alkaline Phosphatase Total Protein Albumin Globulin Albumin/Globulin Ratio Procalcitonin Vancomycin Trough TB Test (QFT) Nil TB Test Mitogen - Nil TB Test TB - Nil TB Test (QFT) Fingerstick Blood Sugar Results: 94 Critical Care Progress Note - Ventilator Checklist Head of Bed 30 Degrees: No Daily Sedation Vacation: No Daily Assessment of Readiness to Wean: No Daily Spontaneous Breathing Trial: No PUD Prophalyxis: No DVT Prophylaxis: No Oral Care with Chlorhexidine Gluconate {CHG}: No - Vent Settings MODE:: PRVC TIDAL VOLUME:: 450 RESP RATE:: 18 FIO2:: 40 PEEP:: 5 Assessment/Plan - Assessment and Plan (Free Text) Assessment: 56 year old cachectic male with no known PMH presenting with cough, loss of weight, confusion and right upper lobe infiltrate with leucocytosis, thrombocytosis, hyponatremia, hypercalcemia and dehydration. Most likely has lung malignancy, r/o pneumonia/lung abscess/fungal infection Plan Neuro: Sedation: propofol 5mcg/kg/min Pain: Tramadol 25mg PO TID PRN Neuro consult: Dr. Dr. Moore Nicotine 21mg/24hr QD Cardio: monitor vitals Phenylephrine 20mcg/min Pulm: 03/11 PRVC 450 TV PEEP5 RR18 [id number] 03/11 11:35 ABG pH 7.29/pO2 130/pCO2 29/HCO3 16 CT Chest: RUL mass 03/11 AFB cultures 03/08, 03/09 Pulmonlogy consult: Dr. [place] Endo: n/a GI: CMP : 03/10 UA: UTI 03/09 Urine culture: Klebsiella Cefepime 1gm IVPB Q12H Renal: I/O: Nephrology consult: Dr. Nassar Heme: H/H 10.1/32.9 Oncology: n/a MSK: n/a ID: f/u AM CBC 03/11 WBC 26.8, 46.5 ID Consult: Dr. Sanches Cefepime 1gm IVPB Q12H Vancomycin 1gm IVPB Q24H Prophylaxis: DVT: Heparin 5000u SC Q8H GI: Protonix 40mg IVP QD Nausea: 03/11 14:00 Reglan 10mg IVP TID, Discontinue 03/14/17 14:01 Fluids: IV fluids LR @75cc/hr Tube feeds initiate 20cc/hr with goal rate @ 40cc/hr Code Status: DNR Dr. Travon Bland, DO PGY1 - Date & Time Date: 03/11/17 Time: 15:02 <Rocky Cool - Last Filed: 03/11/17 18:56> CCU Objective - Vital Signs / Intake & Output Vital Signs (Last 4 hours): Vital Signs Temp Pulse Resp BP Pulse Ox 03/11/17 18:00 87 20 96 03/11/17 17:39 87 22 107/67 97 03/11/17 16:40 80 18 102/72 100 03/11/17 16:00 97.4 F L 03/11/17 15:39 81 18 103/72 98 03/11/17 15:00 89 18 99 Intake and Output (Last 8hrs): Intake & Output 03/11/17 03/11/17 03/11/17 06:59 14:59 22:59 Intake Total 1236.9 1198.5 482 Output Total 590 425 200 Balance 646.9 773.5 282 Weight 111 lb 1.6 oz Intake: IV 256 125 Intake, IV Amount 930.9 853.5 372 Right Distal IJ - Distal 150 Port Right Distal Port 600 700.5 300 Internal Jugular Right Medial Port 160 135 60 Internal Jugular Right Proximal Port 20.9 18 12 Internal Jugular Tube Feeding 50 70 60 Other 150 50 Output: Urine 590 425 200 Urethral (Mercedes) 590 425 200 Other: # Bowel Movements 1 1 - Medications Active Medications: Active Medications Generic Name Dose Route Start Last Admin Trade Name Freq PRN Reason Stop Dose Admin Albuterol/Ipratropium 3 ml 03/07/17 20:00 03/11/17 13:47 Duoneb 3 Mg/0.5 Mg (3 Ml) Ud INH 3 ml RQ6 JACK Administration Ascorbic Acid 500 mg 03/08/17 10:00 03/11/17 09:47 Vitamin C 500 Mg Tab PO 500 mg Q12H JACK Administration Ferrous Sulfate 300 mg 03/07/17 18:00 03/11/17 17:28 Feosol Liq NG 300 mg BID JACK Administration Hydrocortisone Sodium Succinate 50 mg 03/11/17 11:00 03/11/17 18:09 Solu-Cortef IV 50 mg Q8H JACK Administration Cefepime HCl 1 gm in 50 mls @ 100 mls/hr 03/04/17 22:00 03/11/17 09:44 Maxipime Iv 1 Gm Premix IVPB 100 mls/hr Q12 JACK Administration Folic Acid 1 mg/ Thiamine HCl 1,011.2 mls @ 75 mls/hr 03/07/17 10:00 09:46 100 mg/ Multivitamins/Vitamin IV 75 mls/hr C 10 ml/ Dextrose DAILY JACK Administration Phenylephrine HCl 60 mg/ 256 mls @ 5.11 mls/hr 03/08/17 18:45 03/11/17 10:00 Dextrose IV 60 mcg/min .Q24H PRN 15.36 mls/hr TITRATE PER MD ORDER Titration Protocol 20 MCG/MIN Lactated Ringer's 1,000 mls @ 75 mls/hr 03/10/17 06:45 03/11/17 09:46 Lactated Ringer's IV Not Given .[id number] JACK Vancomycin/Sodium Chloride 1 gm in 200 mls @ 133.333 mls/hr 03/10/17 10:00 11:07 Vancomycin 1 Gm/Ns 200 Ml IVPB 03/15/17 10:01 133.333 mls/hr Q24H JACK Administration Propofol 1,000 mg in 100 mls @ 1.512 mls/hr 03/11/17 17:38 03/11/17 09:15 Diprivan IV 10 mcg/kg/min .Q24H PRN 3.024 mls/hr TITRATE PER MD ORDER Administration Protocol 5 MCG/KG/MIN Metoclopramide HCl 10 mg 03/11/17 14:00 03/11/17 17:28 Reglan IVP 03/14/17 14:01 10 mg TID JACK Administration Multivitamins/Vitamin C 5 ml 03/10/17 10:00 03/11/17 09:47 Multi-Delyn Liquid PO Not Given DAILY JACK Nicotine 1 patch 03/11/17 10:00 03/11/17 11:07 Nicoderm Cq TD 1 patch DAILY JACK Administration Pantoprazole Sodium 40 mg 03/05/17 10:00 03/11/17 09:45 Protonix Inj IVP 40 mg DAILY JACK Administration - Patient Studies Lab Studies: Microbiology Studies 03/09/17 Unknown Mycobacterial Culture - Preliminary Other: Please Indicate Lab Studies 03/11/17 03/11/17 03/11/17 Range/Units 11:35 11:00 11:00 WBC 46.5 H* D (4.8-10.8) K/uL RBC 4.02 L (4.40-5.90) Mil/uL Hgb 10.1 L (12.0-18.0) g/dL Hct 32.9 L (35.0-51.0) % MCV 81.9 (80.0-94.0) fL MCH 25.2 L (27.0-31.0) pg MCHC 30.7 L (33.0-37.0) g/dL RDW 17.3 H (11.5-14.5) % Plt Count 282 (130-400) K/uL MPV 9.1 (7.2-11.7) fL Neut % (Auto) 92.9 H (50.0-75.0) % Lymph % (Auto) 5.2 L (20.0-40.0) % [place] % (Auto) 1.7 (0.0-10.0) % Eos % (Auto) 0.0 (0.0-4.0) % Baso % (Auto) 0.2 (0.0-2.0) % Neut # 43.2 H (1.8-7.0) K/uL Lymph # 2.4 (1.0-4.3) K/uL [place] # 0.8 (0.0-0.8) K/uL Eos # 0.0 (0.0-0.7) K/uL Baso # 0.1 (0.0-0.2) K/uL Neutrophils % (Manual) 94 H (50-75) % Band Neutrophils % 1 (0-2) % Lymphocytes % (Manual) 2 L (20-40) % Monocytes % (Manual) 3 (0-10) % Platelet Estimate Normal (NORMAL) Polychromasia Slight Hypochromasia (manual) Slight Anisocytosis (manual) Slight Enrique Cells Slight Puncture Site Rra pCO2 29 L (35-45) mm/Hg pO2 130 H (80-100) mm/Hg HCO3 16.0 L (21-28) mmol/L ABG pH 7.29 L (7.35-7.45) ABG Total CO2 14.8 L (22-28) mmol/L ABG O2 Saturation 100.0 H (95-98) % ABG Base Excess -11.5 L (-2.0-3.0) mmol/L ABG Hemoglobin 9.7 L (11.7-17.4) g/dL ABG Carboxyhemoglobin 2.3 H (0.5-1.5) % POC ABG HHb (Measured) 0.0 (0.0-5.0) % ABG Methemoglobin 1.3 (0.0-3.0) % Jorge Test Na A-a O2 Difference 119.0 mm/Hg Respiratory Index 0.9 Hgb O2 Saturation 96.4 (95.0-98.0) % Vent Mode Prvc FiO2 40.0 % Tidal Volume 450 PEEP 5 Sodium 130 L (132-148) mmol/L Potassium 5.2 (3.6-5.2) mmol/L Chloride 108 H (98-107) mmol/L Carbon Dioxide 16 L (22-30) mmol/L Anion Gap 11 (10-20) BUN 39 H (9-20) mg/dL Creatinine 1.4 (0.8-1.5) mg/dL Est GFR ( Amer) > 60 Est GFR (Non-Af Amer) 52 Random Glucose 133 H (75-110) mg/dL Calcium 8.9 (8.6-10.4) mg/dl Phosphorus 3.9 (2.5-4.5) mg/dL Magnesium 1.8 (1.6-2.3) mg/dL Total Bilirubin 0.5 (0.2-1.3) mg/dL AST 21 (17-59) U/L ALT 31 (21-72) U/L Alkaline Phosphatase 125 (38-126) U/L Total Protein 4.9 L (6.3-8.3) g/dL Albumin 2.3 L (3.5-5.0) g/dL Globulin 2.6 (2.2-3.9) gm/dL Albumin/Globulin Ratio 0.9 L (1.0-2.1) Procalcitonin (0.19-0.49) NG/ML Vancomycin Trough (5.0-10.0) ug/mL 03/11/17 03/11/17 Range/Units 09:26 09:26 WBC (4.8-10.8) K/uL RBC (4.40-5.90) Mil/uL Hgb (12.0-18.0) g/dL Hct (35.0-51.0) % MCV (80.0-94.0) fL MCH (27.0-31.0) pg MCHC (33.0-37.0) g/dL RDW (11.5-14.5) % Plt Count (130-400) K/uL MPV (7.2-11.7) fL Neut % (Auto) (50.0-75.0) % Lymph % (Auto) (20.0-40.0) % [place] % (Auto) (0.0-10.0) % Eos % (Auto) (0.0-4.0) % Baso % (Auto) (0.0-2.0) % Neut # (1.8-7.0) K/uL Lymph # (1.0-4.3) K/uL [place] # (0.0-0.8) K/uL Eos # (0.0-0.7) K/uL Baso # (0.0-0.2) K/uL Neutrophils % (Manual) (50-75) % Band Neutrophils % (0-2) % Lymphocytes % (Manual) (20-40) % Monocytes % (Manual) (0-10) % Platelet Estimate (NORMAL) Polychromasia Hypochromasia (manual) Anisocytosis (manual) White Cloud Cells Puncture Site pCO2 (35-45) mm/Hg pO2 (80-100) mm/Hg HCO3 (21-28) mmol/L ABG pH (7.35-7.45) ABG Total CO2 (22-28) mmol/L ABG O2 Saturation (95-98) % ABG Base Excess (-2.0-3.0) mmol/L ABG Hemoglobin (11.7-17.4) g/dL ABG Carboxyhemoglobin (0.5-1.5) % POC ABG HHb (Measured) (0.0-5.0) % ABG Methemoglobin (0.0-3.0) % Jorge Test A-a O2 Difference mm/Hg Respiratory Index Hgb O2 Saturation (95.0-98.0) % Vent Mode FiO2 % Tidal Volume PEEP Sodium (132-148) mmol/L Potassium (3.6-5.2) mmol/L Chloride (98-107) mmol/L Carbon Dioxide (22-30) mmol/L Anion Gap (10-20) BUN (9-20) mg/dL Creatinine (0.8-1.5) mg/dL Est GFR ( Amer) Est GFR (Non-Af Amer) Random Glucose (75-110) mg/dL Calcium (8.6-10.4) mg/dl Phosphorus (2.5-4.5) mg/dL Magnesium (1.6-2.3) mg/dL Total Bilirubin (0.2-1.3) mg/dL AST (17-59) U/L ALT (21-72) U/L Alkaline Phosphatase (38-126) U/L Total Protein (6.3-8.3) g/dL Albumin (3.5-5.0) g/dL Globulin (2.2-3.9) gm/dL Albumin/Globulin Ratio (1.0-2.1) Procalcitonin 0.72 H (0.19-0.49) NG/ML Vancomycin Trough 6.2 (5.0-10.0) ug/mL Laboratory Results - last 24 hr 03/11/17 03/11/17 03/11/17 09:26 09:26 11:00 WBC 46.5 H* D RBC 4.02 L Hgb 10.1 L Hct 32.9 L MCV 81.9 MCH 25.2 L MCHC 30.7 L RDW 17.3 H Plt Count 282 MPV 9.1 Neut % (Auto) 92.9 H Lymph % (Auto) 5.2 L [place] % (Auto) 1.7 Eos % (Auto) 0.0 Baso % (Auto) 0.2 Neut # 43.2 H Lymph # 2.4 [place] # 0.8 Eos # 0.0 Baso # 0.1 Neutrophils % (Manual) 94 H Band Neutrophils % 1 Lymphocytes % (Manual) 2 L Monocytes % (Manual) 3 Platelet Estimate Normal Polychromasia Slight Hypochromasia (manual) Slight Anisocytosis (manual) Slight White Cloud Cells Slight Puncture Site pCO2 pO2 HCO3 ABG pH ABG Total CO2 ABG O2 Saturation ABG Base Excess ABG Hemoglobin ABG Carboxyhemoglobin POC ABG HHb (Measured) ABG Methemoglobin Jorge Test A-a O2 Difference Respiratory Index Hgb O2 Saturation Vent Mode FiO2 Tidal Volume PEEP Sodium Potassium Chloride Carbon Dioxide Anion Gap BUN Creatinine Est GFR ( Amer) Est GFR (Non-Af Amer) Random Glucose Calcium Phosphorus Magnesium Total Bilirubin AST ALT Alkaline Phosphatase Total Protein Albumin Globulin Albumin/Globulin Ratio Procalcitonin 0.72 H Vancomycin Trough 6.2 03/11/17 03/11/17 11:00 11:35 WBC RBC Hgb Hct MCV MCH MCHC RDW Plt Count MPV Neut % (Auto) Lymph % (Auto) [place] % (Auto) Eos % (Auto) Baso % (Auto) Neut # Lymph # [place] # Eos # Baso # Neutrophils % (Manual) Band Neutrophils % Lymphocytes % (Manual) Monocytes % (Manual) Platelet Estimate Polychromasia Hypochromasia (manual) Anisocytosis (manual) Enrique Cells Puncture Site Rra pCO2 29 L pO2 130 H HCO3 16.0 L ABG pH 7.29 L ABG Total CO2 14.8 L ABG O2 Saturation 100.0 H ABG Base Excess -11.5 L ABG Hemoglobin 9.7 L ABG Carboxyhemoglobin 2.3 H POC ABG HHb (Measured) 0.0 ABG Methemoglobin 1.3 Jorge Test Na A-a O2 Difference 119.0 Respiratory Index 0.9 Hgb O2 Saturation 96.4 Vent Mode Prvc FiO2 40.0 Tidal Volume 450 PEEP 5 Sodium 130 L Potassium 5.2 Chloride 108 H Carbon Dioxide 16 L Anion Gap 11 BUN 39 H Creatinine 1.4 Est GFR ( Amer) > 60 Est GFR (Non-Af Amer) 52 Random Glucose 133 H Calcium 8.9 Phosphorus 3.9 Magnesium 1.8 Total Bilirubin 0.5 AST 21 ALT 31 Alkaline Phosphatase 125 Total Protein 4.9 L Albumin 2.3 L Globulin 2.6 Albumin/Globulin Ratio 0.9 L Procalcitonin Vancomycin Trough Attending/Attestation - Attestation I have personally seen and examined this patient.: Yes I have fully participated in the care of the patient.: Yes I have reviewed all pertinent clinical information: Yes Notes (Text): 03/11/17 18:55 pt is very sick agonal breathing lot of secretions noted continue vent poor prognosis for family meeting in am
--- NOTE | 2017-03-11 15:30 | CP.PCM.PN ---
Subjective - Date & Time of Evaluation Date of Evaluation: 03/11/17 Time of Evaluation: 09:00 - Subjective Subjective: Follow up Nephrology Consultation: Assessment: critical Acute Kidney Injury (N17.9) likely due to low BP/sepsis with shock ? possible some contribution by IV contrast subdural hematoma Hyponatremia, hypokalemia, hypophosphatemia, acidosis severe hypercalcemia (likely due to undiagnosed malignancy) with low Vit D with lung mass (concerning for lung cancer with splenic metastasis) Severe malnourished state chronic Etoh and smoker Plan No acute need for renal replacement therapy ([employer]IAN) at this time. pt DNR, palliative care involved. overall poor prognosis. he is apparently for terminal extubation soon maintain hemodynamics stable. no ACEI/ARB due to JESSI Monitor Input/Output, daily weights and renal function with basic metabolic panel IV fluids as ordered continue with thiamine supplementation serum Ca better on sodium bicarb supplements supplement electrolytes as needed Dose meds/antibiotics for reduced GFR. Avoid fleets enema/magnesium based laxatives. Avoid nephrotoxins/NSAIDs/ iodinated contrast (unless needed emergently) Glycemic control Further work up/management as per primary team Thanks for allowing me to participate in care of your patient. Will follow patient with you. Please call if any Qs. Dr Francisco Blanc Office: [phone] Chief Complaint; unable reason for consult; JESSI and hypercalcemia HPI: Pt is a 56 M with hx of chronic alcoholism and smoking presented with complaints of fall at home. He was found to have severe cachexia, large Rt lung mass and hypercalcemia. Also with low BP, sepsis, requiring pressors meds and renal consult for JESSI. unable to obtain any hx had recent iodinated contrast exposure 02/03/17. noted episodes of low BP. remains on pressor Physical Examination: General Appearance: ill appearing, severly malnourished and cachexic. intubated Vitals reviewed and noted as below Head; Atraumatic, normocephalic ENT: orally intubated EYES: Rt pupil fixed, left sluggish. Sclera is anicteric. Neck; supple no lymphadenopathy, no thyromegaly or bruit Lungs: Increased respiratory rate/effort. Breath sounds decreased at Rt side and with b/l rales + Heart: Increased rate. s1s2 normal. No rub or gallop. Extremities: 1+ edema. No varicose veins Neurological: Patient is intubated Skin: Warm and dry. Normal turgor. No rash. Palpitation: Normal elasticity for age Abdomen: Abdomen is soft. Bowel sounds +. There is no abdominal tenderness, no guarding/rigidity no organomegaly Psych: unable MSK: no joint tenderness or swelling. Digits and nails normal, no deformity : kidney or bladder not palpable Labs/imaging reviewed. Past medical history, past surgical history, family history, social history, allergy reviewed and noted as below Family hx: no hx of CKD. Rest non-contributory Objective - Vital Signs/Intake and Output Vital Signs (last 24 hours): Temp Pulse Resp BP Pulse Ox 97.3 F L 91 H 21 117/78 99 03/11/17 12:00 03/11/17 12:00 03/11/17 12:00 03/11/17 11:39 03/11/17 12:00 Intake and Output: 03/11/17 03/11/17 06:59 18:59 Intake Total 2029.1 945.7 Output Total 840 385 Balance 1189.1 560.7 - Medications Medications: Current Medications Albuterol/Ipratropium (Duoneb 3 Mg/0.5 Mg (3 Ml) Ud) 3 ml INH RQ6 [facility] Last Admin: 03/11/17 13:47 Dose: 3 ml Ascorbic Acid (Vitamin C 500 Mg Tab) 500 mg PO Q12H [facility] Last Admin: 03/11/17 09:47 Dose: 500 mg Ferrous Sulfate (Feosol Liq) 300 mg NG BID [facility] Last Admin: 03/11/17 09:45 Dose: 300 mg Hydrocortisone Sodium Succinate (Solu-Cortef) 50 mg IV Q8H [facility] Last Admin: 03/11/17 11:09 Dose: Not Given Cefepime HCl (Maxipime Iv 1 Gm Premix) 1 gm in 50 mls @ 100 mls/hr IVPB Q12 [facility] Last Admin: 03/11/17 09:44 Dose: 100 mls/hr Propofol (Diprivan) 1,000 mg in 100 mls @ 0.966 mls/hr IV .Q24H PRN; Protocol; 5 MCG/KG/MIN PRN Reason: TITRATE PER MD ORDER Last Admin: 03/11/17 09:15 Dose: 20 mcg/kg/min, 3.865 mls/hr Folic Acid 1 mg/ Thiamine HCl 100 mg/ Multivitamins/Vitamin C 10 ml/ Dextrose 1 ,011.2 mls @ 75 mls/hr IV DAILY [facility] Last Admin: 03/11/17 09:46 Dose: 75 mls/hr Phenylephrine HCl 60 mg/ (Dextrose) 256 mls @ 5.11 mls/hr IV .Q24H PRN; Protocol; 20 MCG/MIN PRN Reason: TITRATE PER MD ORDER Last Titration: 03/11/17 10:00 Dose: 60 mcg/min, 15.36 mls/hr Lactated Ringer's (Lactated Ringer's) 1,000 mls @ 75 mls/hr IV .[id number] [facility] Last Admin: 03/11/17 09:46 Dose: Not Given Vancomycin/Sodium Chloride (Vancomycin 1 Gm/Ns 200 Ml) 1 gm in 200 mls @ 133.333 mls/hr IVPB Q24H [facility] Stop: 03/15/17 10:01 Last Admin: 03/11/17 11:07 Dose: 133.333 mls/hr Metoclopramide HCl (Reglan) 10 mg IVP TID [facility] Stop: 03/14/17 14:01 Last Admin: 03/11/17 13:33 Dose: 10 mg Multivitamins/Vitamin C (Multi-Delyn Liquid) 5 ml PO DAILY [facility] Last Admin: 03/11/17 09:47 Dose: Not Given Nicotine (Nicoderm Cq) 1 patch TD DAILY [facility] Last Admin: 03/11/17 11:07 Dose: 1 patch Pantoprazole Sodium (Protonix Inj) 40 mg IVP DAILY [facility] Last Admin: 03/11/17 09:45 Dose: 40 mg - Labs Labs: 03/11/17 11:00 03/11/17 11:00 PT 14.1 SECONDS (9.7-12.2) H 03/04/17 20:15 INR 1.3 03/04/17 20:15 APTT 35 SECONDS (21-34) H 03/04/17 20:15
[2017-03-12] MEDS: Albuterol-Ipratrop 3 mg / 0.5 (3 ml) UD INH SCH ×4 (01:57→20:11)
--- NOTE | 2017-03-12 09:09 | CP.PCM.PN ---
Subjective - Date & Time of Evaluation Date of Evaluation: 03/12/17 Time of Evaluation: 09:00 - Subjective Subjective: Medical Attending Note: Patient seen and examined at bedside. Patient appears to have agonal breathing at bedside. Patient appears awake but does not follow directions. No family present. Unable ROS secondary clinical condition. Objective - Vital Signs/Intake and Output Vital Signs (last 24 hours): Temp Pulse Resp BP Pulse Ox 97.4 F L 95 H 18 115/73 100 03/12/17 08:00 03/12/17 08:00 03/12/17 08:00 03/12/17 07:39 03/12/17 08:00 Intake and Output: 03/12/17 03/12/17 06:59 18:59 Intake Total 1343.1 159.0 Output Total 625 275 Balance 718.1 -116.0 - Medications Medications: Current Medications Albuterol/Ipratropium (Duoneb 3 Mg/0.5 Mg (3 Ml) Ud) 3 ml INH RQ6 [facility] Last Admin: 03/12/17 07:40 Dose: 3 ml Ascorbic Acid (Vitamin C 500 Mg Tab) 500 mg PO Q12H [facility] Last Admin: 03/11/17 21:47 Dose: 500 mg Ferrous Sulfate (Feosol Liq) 300 mg NG BID [facility] Last Admin: 03/11/17 17:28 Dose: 300 mg Hydrocortisone Sodium Succinate (Solu-Cortef) 50 mg IV Q8H [facility] Last Admin: 03/12/17 02:03 Dose: 50 mg Cefepime HCl (Maxipime Iv 1 Gm Premix) 1 gm in 50 mls @ 100 mls/hr IVPB Q12 [facility] Last Admin: 03/11/17 21:48 Dose: 100 mls/hr Folic Acid 1 mg/ Thiamine HCl 100 mg/ Multivitamins/Vitamin C 10 ml/ Dextrose 1 ,011.2 mls @ 75 mls/hr IV DAILY [facility] Last Admin: 03/11/17 09:46 Dose: 75 mls/hr Phenylephrine HCl 60 mg/ (Dextrose) 256 mls @ 5.11 mls/hr IV .Q24H PRN; Protocol; 20 MCG/MIN PRN Reason: TITRATE PER MD ORDER Last Titration: 03/11/17 10:00 Dose: 60 mcg/min, 15.36 mls/hr Lactated Ringer's (Lactated Ringer's) 1,000 mls @ 75 mls/hr IV .[id number] [facility] Last Admin: 03/11/17 23:48 Dose: 75 mls/hr Vancomycin/Sodium Chloride (Vancomycin 1 Gm/Ns 200 Ml) 1 gm in 200 mls @ 133.333 mls/hr IVPB Q24H [facility] Stop: 03/15/17 10:01 Last Admin: 03/11/17 11:07 Dose: 133.333 mls/hr Propofol (Diprivan) 1,000 mg in 100 mls @ 1.512 mls/hr IV .Q24H PRN; Protocol; 5 MCG/KG/MIN PRN Reason: TITRATE PER MD ORDER Last Admin: 03/11/17 09:15 Dose: 10 mcg/kg/min, 3.024 mls/hr Metoclopramide HCl (Reglan) 10 mg IVP TID [facility] Stop: 03/14/17 14:01 Last Admin: 03/11/17 17:28 Dose: 10 mg Multivitamins/Vitamin C (Multi-Delyn Liquid) 5 ml PO DAILY [facility] Last Admin: 03/11/17 09:47 Dose: Not Given Nicotine (Nicoderm Cq) 1 patch TD DAILY [facility] Last Admin: 03/11/17 11:07 Dose: 1 patch Pantoprazole Sodium (Protonix Inj) 40 mg IVP DAILY [facility] Last Admin: 03/11/17 09:45 Dose: 40 mg - Labs Labs: 03/11/17 11:00 03/11/17 11:00 PT 14.1 SECONDS (9.7-12.2) H 03/04/17 20:15 INR 1.3 03/04/17 20:15 APTT 35 SECONDS (21-34) H 03/04/17 20:15 - Constitutional Appears: Unkempt, Cachectic, Chronically Ill - Head Exam Head Exam: NORMAL INSPECTION Additional comments: abrasions over frontal head intubated on vent - Eye Exam Eye Exam: absent: Nystagmus, Scleral icterus Additional comments: sluggish, reactive - ENT Exam ENT Exam: Mucous Membranes Dry - Respiratory Exam Respiratory Exam: Decreased Breath Sounds, NORMAL BREATHING PATTERN. absent: Stridor - Cardiovascular Exam Cardiovascular Exam: REGULAR RHYTHM, +S1, +S2 - GI/Abdominal Exam GI & Abdominal Exam: Soft, Normal Bowel Sounds. absent: Distended, Firm, Guarding, Rigid, Tenderness, Rebound - Extremities Exam Extremities Exam: Joint Swelling (b/l upper extremities). absent: Pedal Edema - Neurological Exam Neurological Exam: Awake - Skin Skin Exam: Dry, Normal Color, Warm Attending/Attestation - Attestation I have personally seen and examined this patient.: Yes I have fully participated in the care of the patient.: Yes I have reviewed all pertinent clinical information, including history, physical exam and plan: Yes Notes (Text): 1). Acute Respiratory Failure * Patient is intubated and on ventilator * Back on sedation, discussed with ICU in 03/11 evening, patient had agonal breathing, sedation restarted unable to wean. * Further management per ICU Status: Acute 2). Sepsis Right Lung Cavitary Lesion Possible Pneumonia? Cancer? * Criteria: WBC: 41.2, tachycardia * Procalcitonin: 6.05-->0.72 * Chest Xray (03/10): lines and tubes in stable position. Worsening opacification of the right keny-thorax. Persistent lobular ellipitcal shaped pleural based mass with eccentic cavitary changes seen within the right upper to mid lung zone. Persistent cystic bronchiestasis and small bullous changes at the right lung apex. Centrilobular emphysematous changes in the left upper lobe * Sputum Culture 03/05/17 shows S. aureus (he is on Vancomycin as above) * Likely secondary to malignancy but rule out TB vs necrotizing pneumonia * off Respiratory Isolation 03/10 * Cefepime 1 gm IV Q12H (03/04/17 through present) * Vancomycin 1 gm IV Q24 H (03/10/17 through present) * Clindamycin 600 mg I VQ8H (03/04/17 through 03/09/17) * Metronidazole 500 mg IV Q8H (03/08/17 through 03/09/17) * On Pressor (Phenylephrine) * Decreased Hydrocortisone 50 mg IV Q8H * Albumin 25 g IV Q6H x 4 doses given 03/08/17 * LR @ 75 ml/hr * Blood Culture 03/04/17 negative to date * Urine Culture 03/04/17 no growth * HIV Ab is negative * Hepatitis Panel negative * AFB 03/05/17 x 2,03/08/17: preliminary is negative: respiratory isolation discontinued 03/10/17 * PPD on left lower anterior arm is NEGATIVE 03/07/17 * Quanteferon Gold is negative * MRSA Screen is negative * Heme/Onc Dr. Fabienne Pantoja * Palliative Care Nurse Reyna * ID Dr. Wilberto Sanches Status: Acute 3). Anemia * Likely chronic considering his history of alcohol abuse and possible malignancy * Ewelina Pantoja (heme-onc) on the case * Iron level is low: Ferrous Sulfate 300 mg via NG 2x/day (03/07/17) * Reticulocyte count normal at 0.9 * Vitamin B12 elevated above 1000 * Folate normal at 3.5 * F/U Peripheral Smear Status: Chronic 4). Hypophosphotemia and Hypokalemia * KPhos 15mmol IV x 1dose given 03/06/17 * Phos normalized and K have normalized Status: Acute 5). Alcohol Abuse Malnutrition * Banana Bag @ 75 ml/hour once a day * Multivitamin 5ML PO daily * Folic acid 1mg IV daily * Pulmcare via NGT * Low Albumin Status: Chronic 6). Hypercalcemia * This is fluctuating between high and low * Albumin low * Calcitonin [place] 200 IU SC BID x 6 dose was ordered 03/08/17 however not carried here by pharmacy. * Nephrology recommends Zometa or Pamidronate once GFR improves if Ca remaines elevated Status: Acute 7). Possible CVA * CT Head w/o contrast 03/06/17: chronic bilateral subdural hematomas left larger than right. There is also a very small sliver of a hyperdense hemorrhage within the left sided collection possibly by the larger hypodense subdural component by membrane. The collections exert relatively symmetrical offsetting mass effect with compression of both cerebral hemispheres and ventricular system with no significant midline shift. * CT Head w/o contrast 03/07/17: bilateral acute on chronic subdural collections similar to those seen on prior study 03/06/17, nomral ventricular size, no midline shift * F/U EEG from 03/07/17 * Neurology Dr. Moore * 03/08-->per neurology, prognosis poor Status: Acute 8). Acute Kidney Injury * Nephrology on the case-->help appreciated * Increasing BUN/Cr * Unable to given Calcitonin sq not available in our pharmacy once GFR recovers Status: Acute 9). Stage I Sacral Ulcer * Optifoam Dressing Status: Acute 10). Tobacco Abuse * start Nicotine hour 1 transdermal patch daily * History of heavy tobacco abuse Status: Chronic 11). Prophylaxis * Pulmcare via NGT * Protonix 40 mg IV 1x/day * Low Vitamin D: 50,000 units once a week starting 03/08/17 and end 04/26/17 * NO anticoagulation considering the anemia: Bilateral SCDs * Vitamin C 500mg PO Q12 * Colace 100 mg PO 2x/day Status: Acute
[2017-03-12] MEDS: Ferrous Sulfate 300 mg/5 mL Liq UD NG SCH ×2 (09:31→18:09)
[2017-03-12] MEDS: Cefepime IV 1 gm in Dextrose 1 GM/50 ML BAG IVPB SCH ×2 (09:32→21:31)
[2017-03-12] MEDS: Vancomycin 1 gm/NS 200 ml 1 GM/200 ML BAG IVPB SCH (09:33)
[2017-03-12] MEDS: Propofol 10 mg/ml 1,000 MG/100 ML VIAL IV PRN (10:14)
--- NOTE | 2017-03-12 11:18 | CP.CCUPN ---
<Beti Bland - Last Filed: 03/12/17 13:40> CCU Subjective - Physician Review Subjective (Free Text): 03/12/17 13:[address] Espitia Patient seen and examined at bedside and follows commands GCS 10T ([id number]). Patient is mentating better than yesterday. Awaiting family meeting today. CCU Objective - Vital Signs / Intake & Output Vital Signs (Last 4 hours): Vital Signs Temp Pulse Resp BP Pulse Ox 03/12/17 11:00 102 H 21 97 03/12/17 10:39 101 H 17 112/72 100 03/12/17 10:00 103 H 20 100 03/12/17 09:39 100 H 17 102/67 100 03/12/17 09:00 96 H 21 100 03/12/17 08:39 91 H 19 110/71 100 03/12/17 08:00 97.4 F L 95 H 18 100 03/12/17 07:39 97 H 22 115/73 98 Intake and Output (Last 8hrs): Intake & Output 03/11/17 03/12/17 03/12/17 22:59 06:59 14:59 Intake Total 984 841.1 333.5 Output Total 415 410 400 Balance 569 431.1 -66.5 Weight 112 lb 8 oz Intake: IV 100 Intake, IV Amount 794 681.1 213.5 Right Distal IJ - Distal 50 Port Right Distal Port 600 600 200 Internal Jugular Right Medial Port 120 52.6 Internal Jugular Right Proximal Port 24 28.5 13.5 Internal Jugular Tube Feeding 140 160 20 Other 50 Output: Urine 415 410 400 Urethral (Mercedes) 415 410 400 - Physical Exam Head: Positive for: Atraumatic, Normocephalic, Abrasion (top of head, heal. no erythema), Other (temporalis atrophy) Pupils: Positive for: Sluggish (Left eye), Other (Right eye dilated 3mm, fixed.) Conjunctiva: Positive for: Normal Mouth: Positive for: Moist Mucous Membranes, Other (intubated) Respiratory/Chest: Positive for: Decreased Breath Sounds (RUL), Rhonchi Cardiovascular: Positive for: Regular Rate and Rhythm, Murmurs, Normal S1, S2, Tachycardic Abdomen: Negative for: Tenderness, Distention, Peritoneal Signs Upper Extremity: Positive for: Normal Inspection, NORMAL PULSES. Negative for: Edema Lower Extremity: Positive for: Normal Inspection, NORMAL PULSES. Negative for: Edema, CALF TENDERNESS Neurological: Positive for: Other (intubated) Skin: Positive for: Warm, Dry Psychiatric: Positive for: Other (intubated) - Medications Active Medications: Active Medications Generic Name Dose Route Start Last Admin Trade Name Freq PRN Reason Stop Dose Admin Albuterol/Ipratropium 3 ml 03/07/17 20:00 03/12/17 07:40 Duoneb 3 Mg/0.5 Mg (3 Ml) Ud INH 3 ml RQ6 JACK Administration Ascorbic Acid 500 mg 03/08/17 10:00 03/12/17 09:32 Vitamin C 500 Mg Tab PO 500 mg Q12H JACK Administration Ferrous Sulfate 300 mg 03/07/17 18:00 03/12/17 09:31 Feosol Liq NG 300 mg BID JACK Administration Hydrocortisone Sodium Succinate 50 mg 03/11/17 11:00 03/12/17 02:03 Solu-Cortef IV 50 mg Q8H JACK Administration Cefepime HCl 1 gm in 50 mls @ 100 mls/hr 03/04/17 22:00 03/12/17 09:32 Maxipime Iv 1 Gm Premix IVPB 100 mls/hr Q12 JACK Administration Folic Acid 1 mg/ Thiamine HCl 1,011.2 mls @ 75 mls/hr 03/07/17 10:00 09:46 100 mg/ Multivitamins/Vitamin IV 75 mls/hr C 10 ml/ Dextrose DAILY JACK Administration Phenylephrine HCl 60 mg/ 256 mls @ 5.11 mls/hr 03/08/17 18:45 03/11/17 10:00 Dextrose IV 60 mcg/min .Q24H PRN 15.36 mls/hr TITRATE PER MD ORDER Titration Protocol 20 MCG/MIN Lactated Ringer's 1,000 mls @ 75 mls/hr 03/10/17 06:45 03/11/17 23:48 Lactated Ringer's IV 75 mls/hr .[id number] JACK Administration Vancomycin/Sodium Chloride 1 gm in 200 mls @ 133.333 mls/hr 03/10/17 10:00 09:33 Vancomycin 1 Gm/Ns 200 Ml IVPB 03/15/17 10:01 133.333 mls/hr Q24H JACK Administration Propofol 1,000 mg in 100 mls @ 1.512 mls/hr 03/11/17 17:38 03/12/17 10:14 Diprivan IV 15 mcg/kg/min .Q24H PRN 4.535 mls/hr TITRATE PER MD ORDER Administration Protocol 5 MCG/KG/MIN Metoclopramide HCl 10 mg 03/11/17 14:00 03/12/17 09:32 Reglan IVP 03/14/17 14:01 10 mg TID JACK Administration Multivitamins/Vitamin C 5 ml 03/10/17 10:00 03/11/17 09:47 Multi-Delyn Liquid PO Not Given DAILY JACK Nicotine 1 patch 03/11/17 10:00 03/12/17 09:32 Nicoderm Cq TD 1 patch DAILY JACK Administration Pantoprazole Sodium 40 mg 03/05/17 10:00 03/12/17 09:31 Protonix Inj IVP 40 mg DAILY JACK Administration - Patient Studies Lab Studies: Microbiology Studies 03/08/17 09:53 Fungal Culture - Preliminary Trachasp 03/09/17 Unknown Mycobacterial Culture - Preliminary Other: Please Indicate Lab Studies 03/11/17 03/11/17 03/11/17 Range/Units 11:35 11:00 11:00 WBC 46.5 H* D (4.8-10.8) K/uL RBC 4.02 L (4.40-5.90) Mil/uL Hgb 10.1 L (12.0-18.0) g/dL Hct 32.9 L (35.0-51.0) % MCV 81.9 (80.0-94.0) fL MCH 25.2 L (27.0-31.0) pg MCHC 30.7 L (33.0-37.0) g/dL RDW 17.3 H (11.5-14.5) % Plt Count 282 (130-400) K/uL MPV 9.1 (7.2-11.7) fL Neut % (Auto) 92.9 H (50.0-75.0) % Lymph % (Auto) 5.2 L (20.0-40.0) % Rowan % (Auto) 1.7 (0.0-10.0) % Eos % (Auto) 0.0 (0.0-4.0) % Baso % (Auto) 0.2 (0.0-2.0) % Neut # 43.2 H (1.8-7.0) K/uL Lymph # 2.4 (1.0-4.3) K/uL Rowan # 0.8 (0.0-0.8) K/uL Eos # 0.0 (0.0-0.7) K/uL Baso # 0.1 (0.0-0.2) K/uL Neutrophils % (Manual) 94 H (50-75) % Band Neutrophils % 1 (0-2) % Lymphocytes % (Manual) 2 L (20-40) % Monocytes % (Manual) 3 (0-10) % Platelet Estimate Normal (NORMAL) Polychromasia Slight Hypochromasia (manual) Slight Anisocytosis (manual) Slight Crosby Cells Slight Puncture Site Rra pCO2 29 L (35-45) mm/Hg pO2 130 H (80-100) mm/Hg HCO3 16.0 L (21-28) mmol/L ABG pH 7.29 L (7.35-7.45) ABG Total CO2 14.8 L (22-28) mmol/L ABG O2 Saturation 100.0 H (95-98) % ABG Base Excess -11.5 L (-2.0-3.0) mmol/L ABG Hemoglobin 9.7 L (11.7-17.4) g/dL ABG Carboxyhemoglobin 2.3 H (0.5-1.5) % POC ABG HHb (Measured) 0.0 (0.0-5.0) % ABG Methemoglobin 1.3 (0.0-3.0) % Jorge Test Na A-a O2 Difference 119.0 mm/Hg Respiratory Index 0.9 Hgb O2 Saturation 96.4 (95.0-98.0) % Vent Mode Prvc FiO2 40.0 % Tidal Volume 450 PEEP 5 Sodium 130 L (132-148) mmol/L Potassium 5.2 (3.6-5.2) mmol/L Chloride 108 H (98-107) mmol/L Carbon Dioxide 16 L (22-30) mmol/L Anion Gap 11 (10-20) BUN 39 H (9-20) mg/dL Creatinine 1.4 (0.8-1.5) mg/dL Est GFR ( Amer) > 60 Est GFR (Non-Af Amer) 52 Random Glucose 133 H (75-110) mg/dL Calcium 8.9 (8.6-10.4) mg/dl Phosphorus 3.9 (2.5-4.5) mg/dL Magnesium 1.8 (1.6-2.3) mg/dL Total Bilirubin 0.5 (0.2-1.3) mg/dL AST 21 (17-59) U/L ALT 31 (21-72) U/L Alkaline Phosphatase 125 (38-126) U/L Total Protein 4.9 L (6.3-8.3) g/dL Albumin 2.3 L (3.5-5.0) g/dL Globulin 2.6 (2.2-3.9) gm/dL Albumin/Globulin Ratio 0.9 L (1.0-2.1) Procalcitonin (0.19-0.49) NG/ML 03/11/17 Range/Units 09:26 WBC (4.8-10.8) K/uL RBC (4.40-5.90) Mil/uL Hgb (12.0-18.0) g/dL Hct (35.0-51.0) % MCV (80.0-94.0) fL MCH (27.0-31.0) pg MCHC (33.0-37.0) g/dL RDW (11.5-14.5) % Plt Count (130-400) K/uL MPV (7.2-11.7) fL Neut % (Auto) (50.0-75.0) % Lymph % (Auto) (20.0-40.0) % Rowan % (Auto) (0.0-10.0) % Eos % (Auto) (0.0-4.0) % Baso % (Auto) (0.0-2.0) % Neut # (1.8-7.0) K/uL Lymph # (1.0-4.3) K/uL Rowan # (0.0-0.8) K/uL Eos # (0.0-0.7) K/uL Baso # (0.0-0.2) K/uL Neutrophils % (Manual) (50-75) % Band Neutrophils % (0-2) % Lymphocytes % (Manual) (20-40) % Monocytes % (Manual) (0-10) % Platelet Estimate (NORMAL) Polychromasia Hypochromasia (manual) Anisocytosis (manual) Enrique Cells Puncture Site pCO2 (35-45) mm/Hg pO2 (80-100) mm/Hg HCO3 (21-28) mmol/L ABG pH (7.35-7.45) ABG Total CO2 (22-28) mmol/L ABG O2 Saturation (95-98) % ABG Base Excess (-2.0-3.0) mmol/L ABG Hemoglobin (11.7-17.4) g/dL ABG Carboxyhemoglobin (0.5-1.5) % POC ABG HHb (Measured) (0.0-5.0) % ABG Methemoglobin (0.0-3.0) % Jorge Test A-a O2 Difference mm/Hg Respiratory Index Hgb O2 Saturation (95.0-98.0) % Vent Mode FiO2 % Tidal Volume PEEP Sodium (132-148) mmol/L Potassium (3.6-5.2) mmol/L Chloride (98-107) mmol/L Carbon Dioxide (22-30) mmol/L Anion Gap (10-20) BUN (9-20) mg/dL Creatinine (0.8-1.5) mg/dL Est GFR ( Amer) Est GFR (Non-Af Amer) Random Glucose (75-110) mg/dL Calcium (8.6-10.4) mg/dl Phosphorus (2.5-4.5) mg/dL Magnesium (1.6-2.3) mg/dL Total Bilirubin (0.2-1.3) mg/dL AST (17-59) U/L ALT (21-72) U/L Alkaline Phosphatase (38-126) U/L Total Protein (6.3-8.3) g/dL Albumin (3.5-5.0) g/dL Globulin (2.2-3.9) gm/dL Albumin/Globulin Ratio (1.0-2.1) Procalcitonin 0.72 H (0.19-0.49) NG/ML Laboratory Results - last 24 hr 03/11/17 03/11/17 03/11/17 09:26 11:00 11:00 WBC 46.5 H* D RBC 4.02 L Hgb 10.1 L Hct 32.9 L MCV 81.9 MCH 25.2 L MCHC 30.7 L RDW 17.3 H Plt Count 282 MPV 9.1 Neut % (Auto) 92.9 H Lymph % (Auto) 5.2 L Rowan % (Auto) 1.7 Eos % (Auto) 0.0 Baso % (Auto) 0.2 Neut # 43.2 H Lymph # 2.4 Rowan # 0.8 Eos # 0.0 Baso # 0.1 Neutrophils % (Manual) 94 H Band Neutrophils % 1 Lymphocytes % (Manual) 2 L Monocytes % (Manual) 3 Platelet Estimate Normal Polychromasia Slight Hypochromasia (manual) Slight Anisocytosis (manual) Slight Crosby Cells Slight Puncture Site pCO2 pO2 HCO3 ABG pH ABG Total CO2 ABG O2 Saturation ABG Base Excess ABG Hemoglobin ABG Carboxyhemoglobin POC ABG HHb (Measured) ABG Methemoglobin Jorge Test A-a O2 Difference Respiratory Index Hgb O2 Saturation Vent Mode FiO2 Tidal Volume PEEP Sodium 130 L Potassium 5.2 Chloride 108 H Carbon Dioxide 16 L Anion Gap 11 BUN 39 H Creatinine 1.4 Est GFR ( Amer) > 60 Est GFR (Non-Af Amer) 52 Random Glucose 133 H Calcium 8.9 Phosphorus 3.9 Magnesium 1.8 Total Bilirubin 0.5 AST 21 ALT 31 Alkaline Phosphatase 125 Total Protein 4.9 L Albumin 2.3 L Globulin 2.6 Albumin/Globulin Ratio 0.9 L Procalcitonin 0.72 H 03/11/17 11:35 WBC RBC Hgb Hct MCV MCH MCHC RDW Plt Count MPV Neut % (Auto) Lymph % (Auto) Rowan % (Auto) Eos % (Auto) Baso % (Auto) Neut # Lymph # Rowan # Eos # Baso # Neutrophils % (Manual) Band Neutrophils % Lymphocytes % (Manual) Monocytes % (Manual) Platelet Estimate Polychromasia Hypochromasia (manual) Anisocytosis (manual) Enrique Cells Puncture Site Rra pCO2 29 L pO2 130 H HCO3 16.0 L ABG pH 7.29 L ABG Total CO2 14.8 L ABG O2 Saturation 100.0 H ABG Base Excess -11.5 L ABG Hemoglobin 9.7 L ABG Carboxyhemoglobin 2.3 H POC ABG HHb (Measured) 0.0 ABG Methemoglobin 1.3 Jorge Test Na A-a O2 Difference 119.0 Respiratory Index 0.9 Hgb O2 Saturation 96.4 Vent Mode Prvc FiO2 40.0 Tidal Volume 450 PEEP 5 Sodium Potassium Chloride Carbon Dioxide Anion Gap BUN Creatinine Est GFR ( Amer) Est GFR (Non-Af Amer) Random Glucose Calcium Phosphorus Magnesium Total Bilirubin AST ALT Alkaline Phosphatase Total Protein Albumin Globulin Albumin/Globulin Ratio Procalcitonin Fingerstick Blood Sugar Results: 94 Critical Care Progress Note - Ventilator Checklist Head of Bed 30 Degrees: Yes Daily Sedation Vacation: No Daily Assessment of Readiness to Wean: No Daily Spontaneous Breathing Trial: No PUD Prophalyxis: Yes DVT Prophylaxis: Yes Assessment/Plan - Assessment and Plan (Free Text) Assessment: 56 year old cachectic male with no known PMH presenting with cough, loss of weight, confusion and right upper lobe infiltrate with leucocytosis, thrombocytosis, hyponatremia, hypercalcemia and dehydration. Most likely has lung malignancy, r/o pneumonia/lung abscess/fungal infection Plan Neuro: Sedation: propofol 5mcg/kg/min Pain: Tramadol 25mg PO TID PRN Neuro consult: Dr. Dr. Moore Nicotine 21mg/24hr QD Cardio: monitor vitals Phenylephrine 20mcg/min Pulm: 03/11 PRVC 450 TV PEEP5 RR18 [id number] 03/11 11:35 ABG pH 7.29/pO2 130/pCO2 29/HCO3 16 CT Chest: RUL mass 03/11 AFB cultures 03/08, 03/09 Pulmonlogy consult: Dr. Cleveland Endo: n/a GI: CMP : 03/10 UA: UTI 03/09 Urine culture: Klebsiella Cefepime 1gm IVPB Q12H Renal: I/O: Nephrology consult: Dr. Nassar Heme: 03/11 H/H 10.1/32.9 Oncology: n/a MSK: n/a ID:[id number] WBC 26.8, 46.5 ID Consult: Dr. Sanches Cefepime 1gm IVPB Q12H Vancomycin 1gm IVPB Q24H Prophylaxis: DVT: Heparin 5000u SC Q8H GI: Protonix 40mg IVP QD Nausea: 03/11 14:00 Reglan 10mg IVP TID, Discontinue 03/14/17 14:01 Fluids: IV fluids LR @75cc/hr Tube feeds initiate 20cc/hr with goal rate @ 40cc/hr Code Status: DNR Dr. Omkar Bland DO PGY1 - Date & Time Date: 03/12/17 Time: 13:43 <David Espitia - Last Filed: 03/12/17 16:04> CCU Objective - Vital Signs / Intake & Output Vital Signs (Last 4 hours): Vital Signs Temp Pulse Resp BP Pulse Ox 03/12/17 16:00 97.5 F L 99 H 20 99 03/12/17 15:39 100 H 17 122/74 100 03/12/17 15:00 97 H 17 100 03/12/17 14:39 94 H 16 105/70 100 03/12/17 14:00 86 18 100 03/12/17 13:39 95 H 18 86/59 L 100 03/12/17 13:00 103 H 23 99 03/12/17 12:41 104 H 23 118/74 100 Intake and Output (Last 8hrs): Intake & Output 03/12/17 03/12/17 03/12/17 06:59 14:59 22:59 Intake Total 841.1 931.0 219.0 Output Total 410 850 Balance 431.1 81.0 219.0 Weight 112 lb 8 oz Intake: IV 100 Intake, IV Amount 681.1 661.0 159.0 Right Distal Port 600 625 150 Internal Jugular Right Medial Port 52.6 Internal Jugular Right Proximal Port 28.5 36.0 9.0 Internal Jugular Tube Feeding 160 170 60 Output: Urine 410 850 Urethral (Mercedes) 410 850 - Medications Active Medications: Active Medications Generic Name Dose Route Start Last Admin Trade Name Freq PRN Reason Stop Dose Admin Albuterol/Ipratropium 3 ml 03/07/17 20:00 03/12/17 13:16 Duoneb 3 Mg/0.5 Mg (3 Ml) Ud INH 3 ml RQ6 JACK Administration Ascorbic Acid 500 mg 03/08/17 10:00 03/12/17 09:32 Vitamin C 500 Mg Tab PO 500 mg Q12H JACK Administration Ferrous Sulfate 300 mg 03/07/17 18:00 03/12/17 09:31 Feosol Liq NG 300 mg BID JACK Administration Hydrocortisone Sodium Succinate 50 mg 03/11/17 11:00 03/12/17 12:18 Solu-Cortef IV 50 mg Q8H JACK Administration Cefepime HCl 1 gm in 50 mls @ 100 mls/hr 03/04/17 22:00 03/12/17 09:32 Maxipime Iv 1 Gm Premix IVPB 100 mls/hr Q12 JACK Administration Phenylephrine HCl 60 mg/ 256 mls @ 5.11 mls/hr 03/08/17 18:45 03/11/17 10:00 Dextrose IV 60 mcg/min .Q24H PRN 15.36 mls/hr TITRATE PER MD ORDER Titration Protocol 20 MCG/MIN Lactated Ringer's 1,000 mls @ 75 mls/hr 03/10/17 06:45 03/11/17 23:48 Lactated Ringer's IV 75 mls/hr .[id number] JACK Administration Vancomycin/Sodium Chloride 1 gm in 200 mls @ 133.333 mls/hr 03/10/17 10:00 09:33 Vancomycin 1 Gm/Ns 200 Ml IVPB 03/15/17 10:01 133.333 mls/hr Q24H JACK Administration Propofol 1,000 mg in 100 mls @ 1.512 mls/hr 03/11/17 17:38 03/12/17 10:14 Diprivan IV 15 mcg/kg/min .Q24H PRN 4.535 mls/hr TITRATE PER MD ORDER Administration Protocol 5 MCG/KG/MIN Metoclopramide HCl 10 mg 03/11/17 14:00 03/12/17 14:17 Reglan IVP 03/14/17 14:01 10 mg TID JACK Administration Multivitamins/Vitamin C 5 ml 03/10/17 10:00 03/11/17 09:47 Multi-Delyn Liquid PO Not Given DAILY JACK Nicotine 1 patch 03/11/17 10:00 03/12/17 09:32 Nicoderm Cq TD 1 patch DAILY JACK Administration Pantoprazole Sodium 40 mg 03/05/17 10:00 03/12/17 09:31 Protonix Inj IVP 40 mg DAILY JACK Administration - Patient Studies Lab Studies: Microbiology Studies 03/08/17 09:53 Fungal Culture - Preliminary Trachasp 03/09/17 Unknown Mycobacterial Culture - Preliminary Other: Please Indicate Attending/Attestation - Attestation I have personally seen and examined this patient.: Yes I have fully participated in the care of the patient.: Yes I have reviewed all pertinent clinical information: Yes Notes (Text): 03/12/17 16:04 patient seen and examined in the intensive care unit. Possible terminal extubation today Prognosis poor
[2017-03-12] MEDS: Multiple Vitamins Oral Solution PO SCH (12:00)
[2017-03-12] MEDS: Folic Acid 1 MG, Thiamine 100 MG, Multivitamin (MVI) 10 ML in Dextrose 5% In Water 1,00... IV SCH (12:19)
--- NOTE | 2017-03-12 14:38 | CP.PCM.PN ---
Subjective - Date & Time of Evaluation Date of Evaluation: 03/12/17 Time of Evaluation: 14:35 - Subjective Subjective: Follow up Nephrology Consultation: Assessment: critical Acute Kidney Injury (N17.9) likely due to low BP/sepsis with shock ? possible some contribution by IV contrast subdural hematoma Hyponatremia, hypokalemia, hypophosphatemia, acidosis severe hypercalcemia (likely due to undiagnosed malignancy) with low Vit D with lung mass (concerning for lung cancer with splenic metastasis) Severe malnourished state chronic Etoh and smoker Plan pt planned for terminal extubation today no further renal follow up. Thanks for allowing me to participate in care of your patient. Will sign off. Please call if any Qs. d/w icu Dr Francisco Blanc Office: [phone] Chief Complaint; unable reason for consult; JESSI and hypercalcemia HPI: Pt is a 56 M with hx of chronic alcoholism and smoking presented with complaints of fall at home. He was found to have severe cachexia, large Rt lung mass and hypercalcemia. Also with low BP, sepsis, requiring pressors meds and renal consult for JESSI. unable to obtain any hx had recent iodinated contrast exposure 02/03/17. noted episodes of low BP. Physical Examination: General Appearance: ill appearing, severly malnourished and cachexic. intubated Vitals reviewed and noted as below Head; Atraumatic, normocephalic ENT: orally intubated EYES: Rt pupil fixed, left sluggish. Sclera is anicteric. Neck; supple no lymphadenopathy, no thyromegaly or bruit Lungs: Increased respiratory rate/effort. Breath sounds decreased at Rt side and with b/l rales + Heart: Increased rate. s1s2 normal. No rub or gallop. Extremities: 1+ edema. No varicose veins Neurological: Patient is intubated Labs/imaging reviewed. Past medical history, past surgical history, family history, social history, allergy reviewed and noted as below Family hx: no hx of CKD. Rest non-contributory Objective - Vital Signs/Intake and Output Vital Signs (last 24 hours): Temp Pulse Resp BP Pulse Ox 97.4 F L 86 18 86/59 L 100 03/12/17 08:00 03/12/17 14:00 03/12/17 14:00 03/12/17 13:39 03/12/17 14:00 Intake and Output: 03/12/17 03/12/17 06:59 18:59 Intake Total 1343.1 931.0 Output Total 625 850 Balance 718.1 81.0 - Medications Medications: Current Medications Albuterol/Ipratropium (Duoneb 3 Mg/0.5 Mg (3 Ml) Ud) 3 ml INH RQ6 [facility] Last Admin: 03/12/17 13:16 Dose: 3 ml Ascorbic Acid (Vitamin C 500 Mg Tab) 500 mg PO Q12H [facility] Last Admin: 03/12/17 09:32 Dose: 500 mg Ferrous Sulfate (Feosol Liq) 300 mg NG BID [facility] Last Admin: 03/12/17 09:31 Dose: 300 mg Hydrocortisone Sodium Succinate (Solu-Cortef) 50 mg IV Q8H [facility] Last Admin: 03/12/17 12:18 Dose: 50 mg Cefepime HCl (Maxipime Iv 1 Gm Premix) 1 gm in 50 mls @ 100 mls/hr IVPB Q12 [facility] Last Admin: 03/12/17 09:32 Dose: 100 mls/hr Phenylephrine HCl 60 mg/ (Dextrose) 256 mls @ 5.11 mls/hr IV .Q24H PRN; Protocol; 20 MCG/MIN PRN Reason: TITRATE PER MD ORDER Last Titration: 03/11/17 10:00 Dose: 60 mcg/min, 15.36 mls/hr Lactated Ringer's (Lactated Ringer's) 1,000 mls @ 75 mls/hr IV .[id number] [facility] Last Admin: 03/11/17 23:48 Dose: 75 mls/hr Vancomycin/Sodium Chloride (Vancomycin 1 Gm/Ns 200 Ml) 1 gm in 200 mls @ 133.333 mls/hr IVPB Q24H [facility] Stop: 03/15/17 10:01 Last Admin: 03/12/17 09:33 Dose: 133.333 mls/hr Propofol (Diprivan) 1,000 mg in 100 mls @ 1.512 mls/hr IV .Q24H PRN; Protocol; 5 MCG/KG/MIN PRN Reason: TITRATE PER MD ORDER Last Admin: 03/12/17 10:14 Dose: 15 mcg/kg/min, 4.535 mls/hr Metoclopramide HCl (Reglan) 10 mg IVP TID [facility] Stop: 03/14/17 14:01 Last Admin: 03/12/17 14:17 Dose: 10 mg Multivitamins/Vitamin C (Multi-Delyn Liquid) 5 ml PO DAILY [facility] Last Admin: 03/11/17 09:47 Dose: Not Given Nicotine (Nicoderm Cq) 1 patch TD DAILY [facility] Last Admin: 03/12/17 09:32 Dose: 1 patch Pantoprazole Sodium (Protonix Inj) 40 mg IVP DAILY [facility] Last Admin: 03/12/17 09:31 Dose: 40 mg - Labs Labs: 03/11/17 11:00 03/11/17 11:00 PT 14.1 SECONDS (9.7-12.2) H 03/04/17 20:15 INR 1.3 03/04/17 20:15 APTT 35 SECONDS (21-34) H 03/04/17 20:15
[2017-03-12] MEDS: Lactated Ringer's 1,000 ML IV SCH (18:13)
[2017-03-13] MEDS: Lactated Ringer's 1,000 ML IV SCH ×2 (03:01→15:54)
[2017-03-13 07:07] LABS: BASO # 0.2 K/uL (0.0-0.2); BASO % 0.6 % (0.0-2.0); HEMATOCRIT 28.9 % (35.0-51.0); LYMPH % 3.4 % (20.0-40.0); MEAN CELL VOLUME 82.1 fL (80.0-94.0); MEAN CORPUSCULAR HEMOGLOBIN 26.9 pg (27.0-31.0); MEAN CORPUSCULAR HGB CONC 32.8 g/dL (33.0-37.0); MEAN PLATELET VOLUME 8.2 fL (7.2-11.7); MONO # 0.6 K/uL (0.0-0.8); MONO % 2.2 % (0.0-10.0); PLATELET COUNT 211 K/uL (130-400); RED CELL DISTRIBUTION WIDTH 17.2 % (11.5-14.5); WHITE BLOOD COUNT 27.8 K/uL (4.8-10.8)
[2017-03-13 07:40] LABS: ABG ALLEN TEST POS; ABG MECHANICAL RATE 18; ARTERIAL BLOOD GAS MODE PRVC; ATERIAL BLOOD GAS PEEP 5; DRAW SITE LR
[2017-03-13 07:41] LABS: ALKALINE PHOSPHATASE 96 U/L (38-126); ALT/SGPT 13 U/L (21-72); AST/SGOT 19 U/L (17-59); BILIRUBIN,TOTAL 0.4 mg/dL (0.2-1.3); BLOOD UREA NITROGEN 38 mg/dL (9-20); CALCIUM 9.4 mg/dl (8.6-10.4); CARBON DIOXIDE 17 mmol/L (22-30); CHLORIDE 110 mmol/L (98-107); GFR AFRICAN-AMERICAN > 60; GLUCOSE,RANDOM 115 mg/dL (75-110); MAGNESIUM 1.7 mg/dL (1.6-2.3); PHOSPHOROUS 3.3 mg/dL (2.5-4.5); POTASSIUM 4.3 mmol/L (3.6-5.2); SODIUM 130 mmol/L (132-148); TOTAL PROTEIN 4.3 g/dL (6.3-8.3)
[2017-03-13] MEDS: Propofol 10 mg/ml 1,000 MG/100 ML VIAL IV PRN (08:06)
[2017-03-13 08:41] LABS: NEUTROPHIL 98 % (50-75); TOTAL CELLS COUNTED 100
[2017-03-13] MEDS: Cefepime IV 1 gm in Dextrose 1 GM/50 ML BAG IVPB SCH ×2 (09:20→21:04)
[2017-03-13] MEDS: Ferrous Sulfate 300 mg/5 mL Liq UD NG SCH ×2 (09:20→17:10)
[2017-03-13] MEDS: Multiple Vitamins Oral Solution PO SCH (09:20)
--- NOTE | 2017-03-13 09:31 | CP.PCM.PN ---
Subjective - Date & Time of Evaluation Date of Evaluation: 03/13/17 Time of Evaluation: 09:00 - Subjective Subjective: Medical Attending Note: Patient seen and examined. Unable to review ROS secondary to clinical condition. No family present at bedside. Patient is on sedation. Objective - Vital Signs/Intake and Output Vital Signs (last 24 hours): Temp Pulse Resp BP Pulse Ox 97.7 F 106 H 14 100/64 100 03/13/17 08:00 03/13/17 08:00 03/13/17 08:00 03/13/17 07:39 03/13/17 08:00 Intake and Output: 03/13/17 03/13/17 06:59 18:59 Intake Total 1394.0 342 Output Total 1100 200 Balance 294.0 142 - Medications Medications: Current Medications Ascorbic Acid (Vitamin C 500 Mg Tab) 500 mg PO Q12H [facility] Last Admin: 03/13/17 09:22 Dose: 500 mg Ferrous Sulfate (Feosol Liq) 300 mg NG BID [facility] Last Admin: 03/13/17 09:20 Dose: 300 mg Hydrocortisone Sodium Succinate (Solu-Cortef) 50 mg IV Q8H [facility] Last Admin: 03/13/17 03:00 Dose: 50 mg Cefepime HCl (Maxipime Iv 1 Gm Premix) 1 gm in 50 mls @ 100 mls/hr IVPB Q12 [facility] Last Admin: 03/13/17 09:20 Dose: 100 mls/hr Phenylephrine HCl 60 mg/ (Dextrose) 256 mls @ 5.11 mls/hr IV .Q24H PRN; Protocol; 20 MCG/MIN PRN Reason: TITRATE PER MD ORDER Last Titration: 03/11/17 10:00 Dose: 60 mcg/min, 15.36 mls/hr Vancomycin/Sodium Chloride (Vancomycin 1 Gm/Ns 200 Ml) 1 gm in 200 mls @ 133.333 mls/hr IVPB Q24H [facility] Stop: 03/15/17 10:01 Last Admin: 03/12/17 09:33 Dose: 133.333 mls/hr Propofol (Diprivan) 1,000 mg in 100 mls @ 1.512 mls/hr IV .Q24H PRN; Protocol; 5 MCG/KG/MIN PRN Reason: TITRATE PER MD ORDER Last Admin: 03/13/17 08:06 Dose: 15 mcg/kg/min, 4.535 mls/hr Metoclopramide HCl (Reglan) 10 mg IVP TID [facility] Stop: 03/14/17 14:01 Last Admin: 03/13/17 09:21 Dose: 10 mg Multivitamins/Vitamin C (Multi-Delyn Liquid) 5 ml PO DAILY [facility] Last Admin: 03/13/17 09:20 Dose: 5 ml Nicotine (Nicoderm Cq) 1 patch TD DAILY [facility] Last Admin: 03/13/17 09:21 Dose: 1 patch Pantoprazole Sodium (Protonix Inj) 40 mg IVP DAILY [facility] Last Admin: 03/13/17 09:21 Dose: 40 mg - Labs Labs: 03/13/17 07:04 03/13/17 07:04 PT 14.1 SECONDS (9.7-12.2) H 03/04/17 20:15 INR 1.3 03/04/17 20:15 APTT 35 SECONDS (21-34) H 03/04/17 20:15 - Constitutional Appears: Unkempt, Cachectic, Chronically Ill - Head Exam Head Exam: NORMAL INSPECTION Additional comments: abrasions over frontal head - Eye Exam Additional comments: sluggish but reactive - Respiratory Exam Respiratory Exam: Decreased Breath Sounds - Cardiovascular Exam Cardiovascular Exam: REGULAR RHYTHM, +S1, +S2 - GI/Abdominal Exam GI & Abdominal Exam: Soft, Normal Bowel Sounds. absent: Firm, Guarding, Rigid, Tenderness - Extremities Exam Extremities Exam: Joint Swelling (ri) Additional comments: bilateral upper extremity edema - Neurological Exam Neurological Exam: Altered Assessment and Plan - Assessment and Plan (Free Text) Assessment: 1). Acute Respiratory Failure * Patient is intubated and on ventilator * Back on sedation, discussed with ICU in 03/11 evening, patient had agonal breathing, sedation restarted unable to wean. * 03/13: patient is on sedation and intubated * Further management per ICU Status: Acute 2). Sepsis Right Lung Cavitary Lesion Possible Pneumonia? Cancer? * Criteria: WBC: 41.2, tachycardia on admission * 03/13: White count lowered to 27.8 * Procalcitonin: 6.05-->0.72 * Pending chest xray (03/13): pending official read * Chest xray (03/11): lines and tubes in stable position. Improved aeration at right lung base. Persistent lobular elliptical shaped pleural based mass with eccentric caviary changes seen within the right upper to mid lung zone. Persistent cystic bronchiestasis with small bullous changes at the right lung apex. Centrilobular and emphysematous changes in the left upper lobe. * Chest Xray (03/10): lines and tubes in stable position. Worsening opacification of the right keny-thorax. Persistent lobular ellipitcal shaped pleural based mass with eccentic cavitary changes seen within the right upper to mid lung zone. Persistent cystic bronchiestasis and small bullous changes at the right lung apex. Centrilobular emphysematous changes in the left upper lobe * Sputum Culture 03/05/17 shows S. aureus (he is on Vancomycin as above) * Likely secondary to malignancy but rule out TB vs necrotizing pneumonia * off Respiratory Isolation 03/10 * Cefepime 1 gm IV Q12H (03/04/17 through present) * Vancomycin 1 gm IV Q24 H (03/10/17 through present) * Clindamycin 600 mg I VQ8H (03/04/17 through 03/09/17) * Metronidazole 500 mg IV Q8H (03/08/17 through 03/09/17) * Off Pressor (Phenylephrine) 03/11 * Decreased Hydrocortisone 50 mg IV Q8H * Albumin 25 g IV Q6H x 4 doses given 03/08/17 * LR @ 75 ml/hr * Blood Culture 03/04/17 negative to date * Urine Culture 03/04/17 no growth * HIV Ab is negative * Hepatitis Panel negative * AFB 03/05/17 x 2,03/08/17: preliminary is negative: respiratory isolation discontinued 03/10/17 * PPD on left lower anterior arm is NEGATIVE 03/07/17 * Quanteferon Gold is negative * MRSA Screen is negative * Heme/Onc Dr. Fabienne Pantoja * [facility] * ID Dr. Wilberto Sanches Status: Acute 3). Anemia * Likely chronic considering his history of alcohol abuse and possible malignancy * Ewelina Pantoja (heme-onc) on the case * Iron level is low: Ferrous Sulfate 300 mg via NG 2x/day (03/07/17) * Reticulocyte count normal at 0.9 * Vitamin B12 elevated above 1000 * Folate normal at 3.5 * F/U Peripheral Smear Status: Chronic 4). Hypophosphotemia and Hypokalemia * KPhos 15mmol IV x 1dose given 03/06/17 * Phos normalized and K have normalized Status: Acute 5). Alcohol Abuse Malnutrition * Banana Bag @ 75 ml/hour once a day * Multivitamin 5ML PO daily * Folic acid 1mg IV daily * Pulmcare via NGT * Low Albumin Status: Chronic 6). Hypercalcemia * This is fluctuating between high and low * Albumin low * Calcitonin [place] 200 IU SC BID x 6 dose was ordered 03/08/17 however not carried here by pharmacy. * Nephrology recommends Zometa or Pamidronate once GFR improves if Ca remaines elevated Status: Acute 7). Subdural hematoma * CT Head w/o contrast 03/06/17: chronic bilateral subdural hematomas left larger than right. There is also a very small sliver of a hyperdense hemorrhage within the left sided collection possibly by the larger hypodense subdural component by membrane. The collections exert relatively symmetrical offsetting mass effect with compression of both cerebral hemispheres and ventricular system with no significant midline shift. * CT Head w/o contrast 03/07/17: bilateral acute on chronic subdural collections similar to those seen on prior study 03/06/17, normal ventricular size, no midline shift * F/U EEG from 03/07/17 * Neurology Dr. Moore * 03/08-->per neurology, prognosis poor Status: Acute 8). Acute Kidney Injury * Nephrology on the case-->help appreciated * Improving * Unable to given Calcitonin sq not available in our pharmacy once GFR recovers Status: Acute 9). Stage I Sacral Ulcer * Optifoam Dressing Status: Acute 10). Tobacco Abuse * start Nicotine 21/24 hour 1 transdermal patch daily * History of heavy tobacco abuse Status: Chronic 11). Prophylaxis * Pulmcare via NGT * Protonix 40 mg IV 1x/day * Low Vitamin D: 50,000 units once a week starting 03/08/17 and end 04/26/17 * NO anticoagulation considering the anemia: Bilateral SCDs * Vitamin C 500mg PO Q12 * Colace 100 mg PO 2x/day Status: Acute 03/12: Family meeting: Discussed with family this 03/12; including brothers: Holden, Felipe, Chris, Neftali, and Holden's Lilly at bedside. Family spoken with ICU, Dr Espitia, family would like to wait given patient better to them , off pressor, would like few more days with the patient to decide. Holden is the point person for the family. His brothers are having difficult time. I have explained to him, patient appears agonal while on the breathing machine/ intubated. That he has both a subdural, acute renal failure, and persistent leukocytosis from strongly suspected malignancy. Family is aware patient is fighitng off possible cancer, while also being halfway alcohol use, smoking history and malnutrition which also takes a toll on the body as long-term. Will continue to have conversation with patient's brothers. Child Caregiver to come in tonight per request of the family. All questions answered. No decision made.
[2017-03-13] MEDS: Vancomycin 1 gm/NS 200 ml 1 GM/200 ML BAG IVPB SCH (11:39)
--- NOTE | 2017-03-13 13:56 | RAD ---
HISTORY: evaluation r/o pleural effusions COMPARISON: 03/11/2017 FINDINGS: LUNGS: Dense right upper lobe consolidation. This is increased compared to the prior examination. PLEURA: No significant pleural effusion identified, no pneumothorax apparent. CARDIOVASCULAR: ET tube, NG tube and right IJ central venous catheter are unchanged grossly in position. OSSEOUS STRUCTURES: No significant abnormalities. VISUALIZED UPPER ABDOMEN: Normal. OTHER FINDINGS: None. IMPRESSION: Increasing right upper lobe consolidation. Lines and tubes unchanged.
[2017-03-13] MEDS: Albuterol-Ipratrop 3 mg / 0.5 (3 ml) UD INH SCH (19:13)
[2017-03-14] MEDS: Propofol 10 mg/ml 1,000 MG/100 ML VIAL IV PRN ×2 (01:15→16:15)
[2017-03-14] MEDS: Albuterol-Ipratrop 3 mg / 0.5 (3 ml) UD INH SCH ×4 (01:39→19:38)
[2017-03-14 05:31] LABS: ABG ALLEN TEST POS; ABG MECHANICAL RATE 18; ARTERIAL BLOOD GAS MODE PRVC; ARTERIAL BLOOD HGB O2 SAT 95.6 % (95.0-98.0); ATERIAL BLOOD GAS PEEP 5; CARBOXYHEMOGLOBIN 2.3 % (0.5-1.5); DRAW SITE RR; HHB 0.9 % (0.0-5.0); METHEMOGLOBIN 1.2 % (0.0-3.0)
[2017-03-14] MEDS: Lactated Ringer's 1,000 ML IV SCH ×3 (06:05→23:20)
[2017-03-14 07:06] LABS: ALB/GLOB RATIO 0.7 (1.0-2.1); ALKALINE PHOSPHATASE 96 U/L (38-126); ALT/SGPT 19 U/L (21-72); AST/SGOT 13 U/L (17-59); BILIRUBIN,TOTAL 0.4 mg/dL (0.2-1.3); BLOOD UREA NITROGEN 37 mg/dL (9-20); CALCIUM 9.4 mg/dl (8.6-10.4); CARBON DIOXIDE 19 mmol/L (22-30); CHLORIDE 111 mmol/L (98-107); GFR AFRICAN-AMERICAN > 60; GLUCOSE,RANDOM 110 mg/dL (75-110); MAGNESIUM 1.8 mg/dL (1.6-2.3); SODIUM 134 mmol/L (132-148); TOTAL PROTEIN 5.2 g/dL (6.3-8.3)
[2017-03-14 07:18] LABS: BASO % 0.1 % (0.0-2.0); HEMATOCRIT 29.2 % (35.0-51.0); LYMPH # 1.2 K/uL (1.0-4.3); LYMPH % 4.2 % (20.0-40.0); MEAN CORPUSCULAR HEMOGLOBIN 27.4 pg (27.0-31.0); MEAN CORPUSCULAR HGB CONC 32.6 g/dL (33.0-37.0); MEAN PLATELET VOLUME 8.9 fL (7.2-11.7); MONO # 0.5 K/uL (0.0-0.8); MONO % 1.8 % (0.0-10.0); PLATELET COUNT 226 K/uL (130-400); RED CELL DISTRIBUTION WIDTH 17.7 % (11.5-14.5)
[2017-03-14 08:45] LABS: NEUTROPHIL 92 % (50-75); TOTAL CELLS COUNTED 100
--- NOTE | 2017-03-14 08:53 | RAD ---
HISTORY: vent COMPARISON: 03/13/2017. FINDINGS: There is stable position of endotracheal tube terminating 2.5 cm proximal to the megan. The right IJV line terminates at the cavoatrial junction. The nasogastric tube terminates in the stomach. LUNGS: There has been no significant interval change in dense right upper lobe consolidation. The left lung is clear. PLEURA: No significant pleural effusion identified, no pneumothorax apparent. CARDIOVASCULAR: Normal. OSSEOUS STRUCTURES: No significant abnormalities. VISUALIZED UPPER ABDOMEN: Normal. OTHER FINDINGS: None. IMPRESSION: No change in dense right upper lobe consolidation. Stable position of endotracheal tube and right IJV line.
[2017-03-14] MEDS: Cefepime IV 1 gm in Dextrose 1 GM/50 ML BAG IVPB SCH (09:47)
[2017-03-14] MEDS: Vancomycin 1 gm/NS 200 ml 1 GM/200 ML BAG IVPB SCH (09:48)
[2017-03-14] MEDS: Ferrous Sulfate 300 mg/5 mL Liq UD NG SCH ×2 (09:49→17:35)
[2017-03-14] MEDS: Multiple Vitamins Oral Solution PO SCH (09:49)
--- NOTE | 2017-03-14 12:25 | CP.PCM.PN ---
Subjective - Date & Time of Evaluation Date of Evaluation: 03/14/17 Time of Evaluation: 12:22 - Subjective Subjective: Medical Attending Note: Patient see at bedside. Patient appears he is agitated, off sedated, on Cpap trial. No family present at bedside. Objective - Vital Signs/Intake and Output Vital Signs (last 24 hours): Temp Pulse Resp BP Pulse Ox 98.1 F 113 H 21 111/69 99 03/14/17 08:00 03/14/17 11:00 03/14/17 11:00 03/14/17 10:39 03/14/17 11:00 Intake and Output: 03/14/17 03/14/17 06:59 18:59 Intake Total 1564 820 Output Total 860 390 Balance 704 430 - Medications Medications: Current Medications Albuterol/Ipratropium (Duoneb 3 Mg/0.5 Mg (3 Ml) Ud) 3 ml INH RQ6 [facility] Last Admin: 03/14/17 07:38 Dose: 3 ml Ferrous Sulfate (Feosol Liq) 300 mg NG BID [facility] Last Admin: 03/14/17 09:49 Dose: 300 mg Phenylephrine HCl 60 mg/ (Dextrose) 256 mls @ 5.11 mls/hr IV .Q24H PRN; Protocol; 20 MCG/MIN PRN Reason: TITRATE PER MD ORDER Last Titration: 03/11/17 10:00 Dose: 60 mcg/min, 15.36 mls/hr Propofol (Diprivan) 1,000 mg in 100 mls @ 1.512 mls/hr IV .Q24H PRN; Protocol; 5 MCG/KG/MIN PRN Reason: TITRATE PER MD ORDER Last Titration: 03/14/17 11:30 Dose: 0 mcg/kg/min, 0 mls/hr Lactated Ringer's (Lactated Ringer's) 1,000 mls @ 75 mls/hr IV .[id number] [facility] Last Admin: 03/14/17 06:05 Dose: 75 mls/hr Nafcillin Sodium 2 gm/ Sodium (Chloride) 100 mls @ 100 mls/hr IVPB Q6H [facility] Metoclopramide HCl (Reglan) 10 mg IVP TID [facility] Stop: 03/14/17 14:01 Last Admin: 03/14/17 09:49 Dose: 10 mg Multivitamins/Vitamin C (Multi-Delyn Liquid) 5 ml PO DAILY [facility] Last Admin: 03/14/17 09:49 Dose: 5 ml Nicotine (Nicoderm Cq) 1 patch TD DAILY [facility] Last Admin: 03/14/17 09:49 Dose: 1 patch Pantoprazole Sodium (Protonix Inj) 40 mg IVP DAILY [facility] Last Admin: 03/14/17 09:49 Dose: 40 mg - Labs Labs: 03/14/17 06:50 03/14/17 06:50 PT 14.1 SECONDS (9.7-12.2) H 03/04/17 20:15 INR 1.3 03/04/17 20:15 APTT 35 SECONDS (21-34) H 03/04/17 20:15 - Constitutional Appears: Unkempt, Agitated, Cachectic, Chronically Ill - Head Exam Additional comments: abrasions over forehead - Eye Exam Eye Exam: absent: Nystagmus - ENT Exam ENT Exam: absent: TM's Normal Bilaterally - Respiratory Exam Respiratory Exam: Decreased Breath Sounds. absent: Stridor - Cardiovascular Exam Cardiovascular Exam: Tachycardia, +S1, +S2 - GI/Abdominal Exam GI & Abdominal Exam: Soft, Normal Bowel Sounds. absent: Guarding, Rigid, Tenderness, Hyperactive Bowel Sounds, Rebound - Extremities Exam Extremities Exam: absent: Pedal Edema, Tenderness Attending/Attestation - Attestation I have personally seen and examined this patient.: Yes I have fully participated in the care of the patient.: Yes I have reviewed all pertinent clinical information, including history, physical exam and plan: Yes Notes (Text): 1). Acute Respiratory Failure * Patient is intubated and on ventilator * Back on sedation, discussed with ICU in 03/11 evening, patient had agonal breathing, sedation restarted unable to wean. * Further management per ICU Status: Acute 2). Sepsis Right Lung Cavitary Lesion Possible Pneumonia? Cancer? * Criteria: WBC: 29.0, tachycardia * Procalcitonin: 6.05-->0.72 * Chest Xray (03/10): lines and tubes in stable position. Worsening opacification of the right keny-thorax. Persistent lobular ellipitcal shaped pleural based mass with eccentic cavitary changes seen within the right upper to mid lung zone. Persistent cystic bronchiestasis and small bullous changes at the right lung apex. Centrilobular emphysematous changes in the left upper lobe * Sputum Culture 03/05/17 shows S. aureus (he is on Vancomycin as above) * Likely secondary to malignancy but rule out TB vs necrotizing pneumonia * off Respiratory Isolation 03/10 * Cefepime 1 gm IV Q12H (03/04/17-) * Vancomycin 1 gm IV Q24 H (03/10/17-) * Nafcillin 2gm [id number] (active since 03/14/17) * Clindamycin 600 mg I VQ8H (03/04/17 through 03/09/17) * Metronidazole 500 mg IV Q8H (03/08/17 through 03/09/17) * Off Pressor (Phenylephrine) 03/12 * off Hydrocortisone 50 mg IV Q8H 03/14 * Albumin 25 g IV Q6H x 4 doses given 03/08/17 * LR @ 75 ml/hr * Blood Culture 03/04/17 negative to date * Urine Culture 03/04/17 no growth * HIV Ab is negative * Hepatitis Panel negative * AFB 03/05/17 x 2,03/08/17: preliminary is negative: respiratory isolation discontinued 03/10/17 * PPD on left lower anterior arm is NEGATIVE 03/07/17 * Quanteferon Gold is negative * MRSA Screen is negative * Heme/Onc Dr. Fabienne Pantoja * Palliative Care Nurse [facility] * ID Dr. Wilberto Sanches Status: Acute 3). Anemia * Likely chronic considering his history of alcohol abuse and possible malignancy * Ewelina Pantoja (heme-onc) on the case * Iron level is low: Ferrous Sulfate 300 mg via NG 2x/day (03/07/17) * Reticulocyte count normal at 0.9 * Vitamin B12 elevated above 1000 * Folate normal at 3.5 * F/U Peripheral Smear Status: Chronic 4). Hypophosphotemia and Hypokalemia * KPhos 15mmol IV x 1dose given 03/06/17 * Phos normalized and K have normalized Status: Acute 5). Alcohol Abuse Malnutrition * Banana Bag @ 75 ml/hour once a day * Multivitamin 5ML PO daily * Folic acid 1mg IV daily * Pulmcare via NGT * Low Albumin Status: Chronic 6). Hypercalcemia * This is fluctuating between high and low * Albumin low * Calcitonin [place] 200 IU SC BID x 6 dose was ordered 03/08/17 however not carried here by pharmacy. * Nephrology recommends Zometa or Pamidronate once GFR improves if Ca remaines elevated Status: Acute 7). Possible CVA * CT Head w/o contrast 03/06/17: chronic bilateral subdural hematomas left larger than right. There is also a very small sliver of a hyperdense hemorrhage within the left sided collection possibly by the larger hypodense subdural component by membrane. The collections exert relatively symmetrical offsetting mass effect with compression of both cerebral hemispheres and ventricular system with no significant midline shift. * CT Head w/o contrast 03/07/17: bilateral acute on chronic subdural collections similar to those seen on prior study 03/06/17, nomral ventricular size, no midline shift * F/U EEG from 03/07/17 * Neurology Dr. Moore * 03/08-->per neurology, prognosis poor Status: Acute 8). Acute Kidney Injury * Nephrology on the case-->help appreciated * Improving * Unable to given Calcitonin sq not available in our pharmacy once GFR recovers Status: Acute 9). Stage I Sacral Ulcer * Optifoam Dressing * Mercedes d/c. Status: Acute 10). Diarrhea * Patient was on Reglan 10mg IV Q6 (03/11-) d/c * Ordered Stool ova, parasite, culture, and C. Dif toxin Status: Acute 11). Tobacco Abuse * start Nicotine 21/24 hour 1 transdermal patch daily * History of heavy tobacco abuse Status: Chronic 12). Prophylaxis * Pulmcare via NGT * d/c Protonix 40 mg IV 1x/day to prevent C. dif-->switch to Pepcid 20mg IV daily * Bacid 1 tab PO daily * Low Vitamin D: 50,000 units once a week starting 03/08/17 and end 04/26/17 * NO anticoagulation considering the anemia: Bilateral SCDs * Vitamin C 500mg PO Q12 * Colace 100 mg PO 2x/day Status: Acute
[2017-03-14] MEDS: Nafcillin 2 GM in Sodium Chloride 0.9% 100 ML IVPB SCH ×2 (12:29→17:38)
[2017-03-14] MEDS: Lactobacillus Acidophilus 500 MU Cap PO SCH (17:37)
--- NOTE | 2017-03-14 18:36 | CP.CCUPN ---
Addendum entered and electronically signed by Beti Bland DO 03/14/17 18:48: 03/13/17 progress note Original Note: <Beti Bland - Last Filed: 03/14/17 18:34> CCU Subjective - Physician Review Subjective (Free Text): Progress note for Dr. Torres Patient seen and examined at bedside and follows commands GCS 10T ([id number]). Patient is mentating better than yesterday. Patient continues to be able to answer commands to squeeze hands with minimal strength. Patient follows interviewer with his when interviewer is speaking. CCU Objective - Vital Signs / Intake & Output Vital Signs (Last 4 hours): Vital Signs Temp Pulse Resp BP Pulse Ox 03/14/17 18:00 108 H 18 100 03/14/17 17:40 113 H 18 111/64 100 03/14/17 17:00 109 H 16 99 03/14/17 16:39 110 H 18 105/65 99 03/14/17 16:00 97.8 F 112 H 12 98 03/14/17 15:39 113 H 16 102/68 98 03/14/17 15:00 112 H 16 98 03/14/17 14:39 108 H 18 95/60 L 99 Intake and Output (Last 8hrs): Intake & Output 03/14/17 03/14/17 03/14/17 06:59 14:59 22:59 Intake Total 1068 1088 384 Output Total 560 530 260 Balance 508 558 124 Weight 111 lb Intake: IV 100 40 60 Intake, IV Amount 648 648 224 Right Distal Port 600 600 200 Internal Jugular Right Proximal Port 48 48 24 Internal Jugular Oral 200 100 Tube Feeding 320 200 0 Output: Urine 560 530 260 Urethral (Mercedes) 560 530 150 Urine, Voided 110 Other: # Voids Urine, Voided 1 # Bowel Movements 0 0 - Physical Exam Head: Positive for: Atraumatic, Normocephalic, Abrasion (top of head, heal. no erythema), Other (temporalis atrophy) Pupils: Positive for: Sluggish (Left eye), Other (Right eye dilated 3mm, fixed.) Conjunctiva: Positive for: Normal Mouth: Positive for: Moist Mucous Membranes, Other (intubated) Respiratory/Chest: Positive for: Decreased Breath Sounds (RUL), Rhonchi Cardiovascular: Positive for: Regular Rate and Rhythm, Murmurs, Normal S1, S2, Tachycardic Abdomen: Negative for: Tenderness, Distention, Peritoneal Signs Upper Extremity: Positive for: Normal Inspection, NORMAL PULSES. Negative for: Edema Lower Extremity: Positive for: Normal Inspection, NORMAL PULSES. Negative for: Edema, CALF TENDERNESS Neurological: Positive for: Other (intubated) Skin: Positive for: Warm, Dry Psychiatric: Positive for: Other (intubated) - Medications Active Medications: Active Medications Generic Name Dose Route Start Last Admin Trade Name Freq PRN Reason Stop Dose Admin Albuterol/Ipratropium 3 ml 03/13/17 20:00 03/14/17 13:57 Duoneb 3 Mg/0.5 Mg (3 Ml) Ud INH 3 ml RQ6 JACK Administration Famotidine 20 mg 03/15/17 10:00 Pepcid IVP DAILY JACK Ferrous Sulfate 300 mg 03/07/17 18:00 03/14/17 17:35 Feosol Liq NG 300 mg BID JACK Administration Phenylephrine HCl 60 mg/ 256 mls @ 5.11 mls/hr 03/08/17 18:45 03/11/17 10:00 Dextrose IV 60 mcg/min .Q24H PRN 15.36 mls/hr TITRATE PER MD ORDER Titration Protocol 20 MCG/MIN Propofol 1,000 mg in 100 mls @ 1.512 mls/hr 03/11/17 17:38 03/14/17 16:15 Diprivan IV 20 mcg/kg/min .Q24H PRN 6.047 mls/hr TITRATE PER MD ORDER Administration Protocol 5 MCG/KG/MIN Lactated Ringer's 1,000 mls @ 75 mls/hr 03/13/17 16:00 03/14/17 06:05 Lactated Ringer's IV 75 mls/hr .[id number] JACK Administration Nafcillin Sodium 2 gm/ Sodium 100 mls @ 100 mls/hr 03/14/17 12:00 03/14/17 17 :38 Chloride IVPB 100 mls/hr Q6H JACK Administration Lactobacillus Acidophilus 1 cap 03/14/17 18:00 03/14/17 17:37 Bacid Acidophilus PO 1 cap BID JACK Administration Multivitamins/Vitamin C 5 ml 03/10/17 10:00 03/14/17 09:49 Multi-Delyn Liquid PO 5 ml DAILY JACK Administration Nicotine 1 patch 03/11/17 10:00 03/14/17 09:49 Nicoderm Cq TD 1 patch DAILY JACK Administration - Patient Studies Lab Studies: Microbiology Studies 03/05/17 21:58 Mycobacterial Culture - Preliminary Other: Please Indicate Lab Studies 03/14/17 03/14/17 03/14/17 Range/Units 06:50 06:50 05:11 WBC 29.0 H (4.8-10.8) K/uL RBC 3.48 L (4.40-5.90) Mil/uL Hgb 9.5 L (12.0-18.0) g/dL Hct 29.2 L (35.0-51.0) % MCV 84.0 (80.0-94.0) fL MCH 27.4 (27.0-31.0) pg MCHC 32.6 L (33.0-37.0) g/dL RDW 17.7 H (11.5-14.5) % Plt Count 226 (130-400) K/uL MPV 8.9 (7.2-11.7) fL Neut % (Auto) 93.9 H (50.0-75.0) % Lymph % (Auto) 4.2 L (20.0-40.0) % [place] % (Auto) 1.8 (0.0-10.0) % Eos % (Auto) 0.0 (0.0-4.0) % Baso % (Auto) 0.1 (0.0-2.0) % Neut # 27.2 H (1.8-7.0) K/uL Lymph # 1.2 (1.0-4.3) K/uL [place] # 0.5 (0.0-0.8) K/uL Eos # 0.0 (0.0-0.7) K/uL Baso # 0.0 (0.0-0.2) K/uL Neutrophils % (Manual) 92 H (50-75) % Band Neutrophils % 1 (0-2) % Lymphocytes % (Manual) 3 L (20-40) % Monocytes % (Manual) 4 (0-10) % Platelet Estimate Normal (NORMAL) Polychromasia Slight Hypochromasia (manual) Slight Anisocytosis (manual) Slight Puncture Site Rr pCO2 28 L (35-45) mm/Hg pO2 91 (80-100) mm/Hg HCO3 19.8 L (21-28) mmol/L ABG pH 7.40 (7.35-7.45) ABG Total CO2 18.2 L (22-28) mmol/L ABG O2 Saturation 99.1 H (95-98) % ABG Base Excess -6.5 L (-2.0-3.0) mmol/L ABG Hemoglobin 9.5 L (11.7-17.4) g/dL ABG Carboxyhemoglobin 2.3 H (0.5-1.5) % POC ABG HHb (Measured) 0.9 (0.0-5.0) % ABG Methemoglobin 1.2 (0.0-3.0) % Jorge Test Pos A-a O2 Difference 159.0 mm/Hg Respiratory Index 1.7 Hgb O2 Saturation 95.6 (95.0-98.0) % Vent Mode Prvc Mechanical Rate 18 FiO2 40.0 % Tidal Volume 450 PEEP 5 Sodium 134 (132-148) mmol/L Potassium 4.0 (3.6-5.2) mmol/L Chloride 111 H (98-107) mmol/L Carbon Dioxide 19 L (22-30) mmol/L Anion Gap 8 L (10-20) BUN 37 H (9-20) mg/dL Creatinine 1.1 (0.8-1.5) mg/dL Est GFR ( Amer) > 60 Est GFR (Non-Af Amer) > 60 Random Glucose 110 (75-110) mg/dL Calcium 9.4 (8.6-10.4) mg/dl Phosphorus 3.0 (2.5-4.5) mg/dL Magnesium 1.8 (1.6-2.3) mg/dL Total Bilirubin 0.4 (0.2-1.3) mg/dL AST 13 L D (17-59) U/L ALT 19 L D (21-72) U/L Alkaline Phosphatase 96 (38-126) U/L Total Protein 5.2 L (6.3-8.3) g/dL Albumin 2.1 L (3.5-5.0) g/dL Globulin 3.1 (2.2-3.9) gm/dL Albumin/Globulin Ratio 0.7 L (1.0-2.1) Laboratory Results - last 24 hr 03/14/17 03/14/17 03/14/17 05:11 06:50 06:50 WBC 29.0 H RBC 3.48 L Hgb 9.5 L Hct 29.2 L MCV 84.0 MCH 27.4 MCHC 32.6 L RDW 17.7 H Plt Count 226 MPV 8.9 Neut % (Auto) 93.9 H Lymph % (Auto) 4.2 L [place] % (Auto) 1.8 Eos % (Auto) 0.0 Baso % (Auto) 0.1 Neut # 27.2 H Lymph # 1.2 [place] # 0.5 Eos # 0.0 Baso # 0.0 Neutrophils % (Manual) 92 H Band Neutrophils % 1 Lymphocytes % (Manual) 3 L Monocytes % (Manual) 4 Platelet Estimate Normal Polychromasia Slight Hypochromasia (manual) Slight Anisocytosis (manual) Slight Puncture Site Rr pCO2 28 L pO2 91 HCO3 19.8 L ABG pH 7.40 ABG Total CO2 18.2 L ABG O2 Saturation 99.1 H ABG Base Excess -6.5 L ABG Hemoglobin 9.5 L ABG Carboxyhemoglobin 2.3 H POC ABG HHb (Measured) 0.9 ABG Methemoglobin 1.2 Jorge Test Pos A-a O2 Difference 159.0 Respiratory Index 1.7 Hgb O2 Saturation 95.6 Vent Mode Prvc Mechanical Rate 18 FiO2 40.0 Tidal Volume 450 PEEP 5 Sodium 134 Potassium 4.0 Chloride 111 H Carbon Dioxide 19 L Anion Gap 8 L BUN 37 H Creatinine 1.1 Est GFR ( Amer) > 60 Est GFR (Non-Af Amer) > 60 Random Glucose 110 Calcium 9.4 Phosphorus 3.0 Magnesium 1.8 Total Bilirubin 0.4 AST 13 L D ALT 19 L D Alkaline Phosphatase 96 Total Protein 5.2 L Albumin 2.1 L Globulin 3.1 Albumin/Globulin Ratio 0.7 L Fingerstick Blood Sugar Results: 94 Assessment/Plan - Assessment and Plan (Free Text) Assessment: 56 year old cachectic male with no known PMH presenting with cough, loss of weight, confusion and right upper lobe infiltrate with leucocytosis, thrombocytosis, hyponatremia, hypercalcemia and dehydration. Most likely has lung malignancy, r/o pneumonia/lung abscess/fungal infection Plan Neuro: Sedation: propofol 5mcg/kg/min Pain: Tramadol 25mg PO TID PRN Neuro consult: Dr. Dr. Moore Nicotine 21mg/24hr QD Cardio: monitor vitals Phenylephrine 20mcg/min Pulm: 03/11 PRVC 450 TV PEEP5 RR18 [id number]% 03/11 11:35 ABG pH 7.29/pO2 130/pCO2 29/HCO3 16 CT Chest: RUL mass 03/11 AFB cultures 03/08, 03/09 Pulmonlogy consult: Dr. Cleveland Endo: n/a GI: CMP : 03/10 UA: UTI 03/09 Urine culture: Klebsiella Cefepime 1gm IVPB Q12H Renal: I/O: Nephrology consult: Dr. Nassar Heme: 03/11 H/H 10.1/32.9 Oncology: n/a MSK: n/a ID:[id number] WBC 26.8, 46.5 ID Consult: Dr. Sanches Cefepime 1gm IVPB Q12H Vancomycin 1gm IVPB Q24H Prophylaxis: DVT: Heparin 5000u SC Q8H GI: Protonix 40mg IVP QD Nausea: 03/11 14:00 Reglan 10mg IVP TID, Discontinue 03/14/17 14:01 Fluids: IV fluids LR @75cc/hr Tube feeds initiate 20cc/hr with goal rate @ 40cc/hr Code Status: DNR 03/12 Dr. Espitia spoke with family for decision on terminal extubation. Patient's family did not make a decision. will continue to follow Dr. Melissa Bland DO PGY1 - Date & Time Date: 03/13/17 Time: 18:36 <Kevin Torres P - Last Filed: 03/14/17 21:42> CCU Objective - Vital Signs / Intake & Output Vital Signs (Last 4 hours): Vital Signs Temp Pulse Resp BP Pulse Ox 03/14/17 19:49 97.3 F L 107 H 18 121/72 100 03/14/17 19:00 108 H 17 100 03/14/17 18:40 109 H 17 111/69 99 03/14/17 18:00 108 H 18 100 03/14/17 17:40 113 H 18 111/64 100 Intake and Output (Last 8hrs): Intake & Output 03/14/17 03/14/17 03/14/17 06:59 14:59 22:59 Intake Total 1068 1088 692 Output Total 560 530 585 Balance 508 558 107 Weight 111 lb Intake: IV 100 40 60 Intake, IV Amount 648 648 492 Right Distal Port 600 600 450 Internal Jugular Right Proximal Port 48 48 42 Internal Jugular Oral 200 100 Tube Feeding 320 200 40 Output: Urine 560 530 585 Urethral (Mercedes) 560 530 150 Urine, Voided 435 Other: # Voids Urine, Voided 0 # Bowel Movements 0 0 - Medications Active Medications: Active Medications Generic Name Dose Route Start Last Admin Trade Name Freq PRN Reason Stop Dose Admin Albuterol/Ipratropium 3 ml 03/13/17 20:00 03/14/17 19:38 Duoneb 3 Mg/0.5 Mg (3 Ml) Ud INH 3 ml RQ6 JACK Administration Famotidine 20 mg 03/15/17 10:00 Pepcid IVP DAILY JACK Ferrous Sulfate 300 mg 03/07/17 18:00 03/14/17 17:35 Feosol Liq NG 300 mg BID JACK Administration Phenylephrine HCl 60 mg/ 256 mls @ 5.11 mls/hr 03/08/17 18:45 03/11/17 10:00 Dextrose IV 60 mcg/min .Q24H PRN 15.36 mls/hr TITRATE PER MD ORDER Titration Protocol 20 MCG/MIN Propofol 1,000 mg in 100 mls @ 1.512 mls/hr 03/11/17 17:38 03/14/17 16:15 Diprivan IV 20 mcg/kg/min .Q24H PRN 6.047 mls/hr TITRATE PER MD ORDER Administration Protocol 5 MCG/KG/MIN Lactated Ringer's 1,000 mls @ 75 mls/hr 03/13/17 16:00 03/14/17 18:41 Lactated Ringer's IV Not Given .[id number] JACK Nafcillin Sodium 2 gm/ Sodium 100 mls @ 100 mls/hr 03/14/17 12:00 03/14/17 17 :38 Chloride IVPB 100 mls/hr Q6H JACK Administration Lactobacillus Acidophilus 1 cap 03/14/17 18:00 03/14/17 17:37 Bacid Acidophilus PO 1 cap BID JACK Administration Multivitamins/Vitamin C 5 ml 03/10/17 10:00 03/14/17 09:49 Multi-Delyn Liquid PO 5 ml DAILY JACK Administration Nicotine 1 patch 03/11/17 10:00 03/14/17 09:49 Nicoderm Cq TD 1 patch DAILY JACK Administration - Patient Studies Lab Studies: Microbiology Studies 03/05/17 21:58 Mycobacterial Culture - Preliminary Other: Please Indicate Lab Studies 03/14/17 03/14/17 03/14/17 Range/Units 12:24 06:50 06:50 WBC 29.0 H (4.8-10.8) K/uL RBC 3.48 L (4.40-5.90) Mil/uL Hgb 9.5 L (12.0-18.0) g/dL Hct 29.2 L (35.0-51.0) % MCV 84.0 (80.0-94.0) fL MCH 27.4 (27.0-31.0) pg MCHC 32.6 L (33.0-37.0) g/dL RDW 17.7 H (11.5-14.5) % Plt Count 226 (130-400) K/uL MPV 8.9 (7.2-11.7) fL Neut % (Auto) 93.9 H (50.0-75.0) % Lymph % (Auto) 4.2 L (20.0-40.0) % [place] % (Auto) 1.8 (0.0-10.0) % Eos % (Auto) 0.0 (0.0-4.0) % Baso % (Auto) 0.1 (0.0-2.0) % Neut # 27.2 H (1.8-7.0) K/uL Lymph # 1.2 (1.0-4.3) K/uL [place] # 0.5 (0.0-0.8) K/uL Eos # 0.0 (0.0-0.7) K/uL Baso # 0.0 (0.0-0.2) K/uL Neutrophils % (Manual) 92 H (50-75) % Band Neutrophils % 1 (0-2) % Lymphocytes % (Manual) 3 L (20-40) % Monocytes % (Manual) 4 (0-10) % Platelet Estimate Normal (NORMAL) Polychromasia Slight Hypochromasia (manual) Slight Anisocytosis (manual) Slight Puncture Site pCO2 (35-45) mm/Hg pO2 (80-100) mm/Hg HCO3 (21-28) mmol/L ABG pH (7.35-7.45) ABG Total CO2 (22-28) mmol/L ABG O2 Saturation (95-98) % ABG Base Excess (-2.0-3.0) mmol/L ABG Hemoglobin (11.7-17.4) g/dL ABG Carboxyhemoglobin (0.5-1.5) % POC ABG HHb (Measured) (0.0-5.0) % ABG Methemoglobin (0.0-3.0) % Jorge Test A-a O2 Difference mm/Hg Respiratory Index Hgb O2 Saturation (95.0-98.0) % Vent Mode Mechanical Rate FiO2 % Tidal Volume PEEP Sodium 134 (132-148) mmol/L Potassium 4.0 (3.6-5.2) mmol/L Chloride 111 H (98-107) mmol/L Carbon Dioxide 19 L (22-30) mmol/L Anion Gap 8 L (10-20) BUN 37 H (9-20) mg/dL Creatinine 1.1 (0.8-1.5) mg/dL Est GFR ( Amer) > 60 Est GFR (Non-Af Amer) > 60 Random Glucose 110 (75-110) mg/dL Calcium 9.4 (8.6-10.4) mg/dl Phosphorus 3.0 (2.5-4.5) mg/dL Magnesium 1.8 (1.6-2.3) mg/dL Total Bilirubin 0.4 (0.2-1.3) mg/dL AST 13 L D (17-59) U/L ALT 19 L D (21-72) U/L Alkaline Phosphatase 96 (38-126) U/L Total Protein 5.2 L (6.3-8.3) g/dL Albumin 2.1 L (3.5-5.0) g/dL Globulin 3.1 (2.2-3.9) gm/dL Albumin/Globulin Ratio 0.7 L (1.0-2.1) C. difficile Ag & Toxin Negative (NEGATIVE) 03/14/17 Range/Units 05:11 WBC (4.8-10.8) K/uL RBC (4.40-5.90) Mil/uL Hgb (12.0-18.0) g/dL Hct (35.0-51.0) % MCV (80.0-94.0) fL MCH (27.0-31.0) pg MCHC (33.0-37.0) g/dL RDW (11.5-14.5) % Plt Count (130-400) K/uL MPV (7.2-11.7) fL Neut % (Auto) (50.0-75.0) % Lymph % (Auto) (20.0-40.0) % [place] % (Auto) (0.0-10.0) % Eos % (Auto) (0.0-4.0) % Baso % (Auto) (0.0-2.0) % Neut # (1.8-7.0) K/uL Lymph # (1.0-4.3) K/uL [place] # (0.0-0.8) K/uL Eos # (0.0-0.7) K/uL Baso # (0.0-0.2) K/uL Neutrophils % (Manual) (50-75) % Band Neutrophils % (0-2) % Lymphocytes % (Manual) (20-40) % Monocytes % (Manual) (0-10) % Platelet Estimate (NORMAL) Polychromasia Hypochromasia (manual) Anisocytosis (manual) Puncture Site Rr pCO2 28 L (35-45) mm/Hg pO2 91 (80-100) mm/Hg HCO3 19.8 L (21-28) mmol/L ABG pH 7.40 (7.35-7.45) ABG Total CO2 18.2 L (22-28) mmol/L ABG O2 Saturation 99.1 H (95-98) % ABG Base Excess -6.5 L (-2.0-3.0) mmol/L ABG Hemoglobin 9.5 L (11.7-17.4) g/dL ABG Carboxyhemoglobin 2.3 H (0.5-1.5) % POC ABG HHb (Measured) 0.9 (0.0-5.0) % ABG Methemoglobin 1.2 (0.0-3.0) % Jorge Test Pos A-a O2 Difference 159.0 mm/Hg Respiratory Index 1.7 Hgb O2 Saturation 95.6 (95.0-98.0) % Vent Mode Prvc Mechanical Rate 18 FiO2 40.0 % Tidal Volume 450 PEEP 5 Sodium (132-148) mmol/L Potassium (3.6-5.2) mmol/L Chloride (98-107) mmol/L Carbon Dioxide (22-30) mmol/L Anion Gap (10-20) BUN (9-20) mg/dL Creatinine (0.8-1.5) mg/dL Est GFR ( Amer) Est GFR (Non-Af Amer) Random Glucose (75-110) mg/dL Calcium (8.6-10.4) mg/dl Phosphorus (2.5-4.5) mg/dL Magnesium (1.6-2.3) mg/dL Total Bilirubin (0.2-1.3) mg/dL AST (17-59) U/L ALT (21-72) U/L Alkaline Phosphatase (38-126) U/L Total Protein (6.3-8.3) g/dL Albumin (3.5-5.0) g/dL Globulin (2.2-3.9) gm/dL Albumin/Globulin Ratio (1.0-2.1) C. difficile Ag & Toxin (NEGATIVE) Laboratory Results - last 24 hr 03/14/17 03/14/17 03/14/17 05:11 06:50 06:50 WBC 29.0 H RBC 3.48 L Hgb 9.5 L Hct 29.2 L MCV 84.0 MCH 27.4 MCHC 32.6 L RDW 17.7 H Plt Count 226 MPV 8.9 Neut % (Auto) 93.9 H Lymph % (Auto) 4.2 L [place] % (Auto) 1.8 Eos % (Auto) 0.0 Baso % (Auto) 0.1 Neut # 27.2 H Lymph # 1.2 [place] # 0.5 Eos # 0.0 Baso # 0.0 Neutrophils % (Manual) 92 H Band Neutrophils % 1 Lymphocytes % (Manual) 3 L Monocytes % (Manual) 4 Platelet Estimate Normal Polychromasia Slight Hypochromasia (manual) Slight Anisocytosis (manual) Slight Puncture Site Rr pCO2 28 L pO2 91 HCO3 19.8 L ABG pH 7.40 ABG Total CO2 18.2 L ABG O2 Saturation 99.1 H ABG Base Excess -6.5 L ABG Hemoglobin 9.5 L ABG Carboxyhemoglobin 2.3 H POC ABG HHb (Measured) 0.9 ABG Methemoglobin 1.2 Jorge Test Pos A-a O2 Difference 159.0 Respiratory Index 1.7 Hgb O2 Saturation 95.6 Vent Mode Prvc Mechanical Rate 18 FiO2 40.0 Tidal Volume 450 PEEP 5 Sodium 134 Potassium 4.0 Chloride 111 H Carbon Dioxide 19 L Anion Gap 8 L BUN 37 H Creatinine 1.1 Est GFR ( Amer) > 60 Est GFR (Non-Af Amer) > 60 Random Glucose 110 Calcium 9.4 Phosphorus 3.0 Magnesium 1.8 Total Bilirubin 0.4 AST 13 L D ALT 19 L D Alkaline Phosphatase 96 Total Protein 5.2 L Albumin 2.1 L Globulin 3.1 Albumin/Globulin Ratio 0.7 L C. difficile Ag & Toxin 03/14/17 12:24 WBC RBC Hgb Hct MCV MCH MCHC RDW Plt Count MPV Neut % (Auto) Lymph % (Auto) [place] % (Auto) Eos % (Auto) Baso % (Auto) Neut # Lymph # [place] # Eos # Baso # Neutrophils % (Manual) Band Neutrophils % Lymphocytes % (Manual) Monocytes % (Manual) Platelet Estimate Polychromasia Hypochromasia (manual) Anisocytosis (manual) Puncture Site pCO2 pO2 HCO3 ABG pH ABG Total CO2 ABG O2 Saturation ABG Base Excess ABG Hemoglobin ABG Carboxyhemoglobin POC ABG HHb (Measured) ABG Methemoglobin Jorge Test A-a O2 Difference Respiratory Index Hgb O2 Saturation Vent Mode Mechanical Rate FiO2 Tidal Volume PEEP Sodium Potassium Chloride Carbon Dioxide Anion Gap BUN Creatinine Est GFR ( Amer) Est GFR (Non-Af Amer) Random Glucose Calcium Phosphorus Magnesium Total Bilirubin AST ALT Alkaline Phosphatase Total Protein Albumin Globulin Albumin/Globulin Ratio C. difficile Ag & Toxin Negative Attending/Attestation - Attestation I have personally seen and examined this patient.: Yes I have fully participated in the care of the patient.: Yes I have reviewed all pertinent clinical information: Yes Notes (Text): No change in patient's condition, continues to be on vent support, responds when off sedation, patient is edematous, right upper lung lesion is likely malignant, and patient is not candidate for treatment. Need family meeting again to make for decisions regarding his care, we recommend comfort care and terminal extubation.
--- NOTE | 2017-03-14 18:48 | CP.CCUPN ---
CCU Subjective - Physician Review Subjective (Free Text): Progress note for Dr. Eitan Anguiano Patient seen and examined at bedside and is not following commands today. Patient opens eyes to his name GCS 9T ([id number]). Waiting for Palliative care nursing and follow up family meeting 03/14/17 18:50 CCU Objective - Vital Signs / Intake & Output Vital Signs (Last 4 hours): Vital Signs Temp Pulse Resp BP Pulse Ox 03/14/17 18:00 108 H 18 100 03/14/17 17:40 113 H 18 111/64 100 03/14/17 17:00 109 H 16 99 03/14/17 16:39 110 H 18 105/65 99 03/14/17 16:00 97.8 F 112 H 12 98 03/14/17 15:39 113 H 16 102/68 98 03/14/17 15:00 112 H 16 98 Intake and Output (Last 8hrs): Intake & Output 03/14/17 03/14/17 03/14/17 06:59 14:59 22:59 Intake Total 1068 1088 384 Output Total 560 530 260 Balance 508 558 124 Weight 111 lb Intake: IV 100 40 60 Intake, IV Amount 648 648 224 Right Distal Port 600 600 200 Internal Jugular Right Proximal Port 48 48 24 Internal Jugular Oral 200 100 Tube Feeding 320 200 0 Output: Urine 560 530 260 Urethral (Mercedes) 560 530 150 Urine, Voided 110 Other: # Voids Urine, Voided 1 # Bowel Movements 0 0 - Physical Exam Head: Positive for: Atraumatic, Normocephalic, Abrasion (top of head, heal. no erythema), Other (temporalis atrophy) Pupils: Positive for: Sluggish (Left eye), Other (Right eye dilated 3mm, fixed.) Conjunctiva: Positive for: Normal Mouth: Positive for: Moist Mucous Membranes, Other (intubated) Respiratory/Chest: Positive for: Decreased Breath Sounds (RUL), Rhonchi Cardiovascular: Positive for: Regular Rate and Rhythm, Murmurs, Normal S1, S2, Tachycardic Abdomen: Negative for: Tenderness, Distention, Peritoneal Signs Upper Extremity: Positive for: Normal Inspection, NORMAL PULSES. Negative for: Edema Lower Extremity: Positive for: Normal Inspection, NORMAL PULSES. Negative for: Edema, CALF TENDERNESS Neurological: Positive for: Other (intubated) Skin: Positive for: Warm, Dry Psychiatric: Positive for: Other (intubated) - Medications Active Medications: Active Medications Generic Name Dose Route Start Last Admin Trade Name Freq PRN Reason Stop Dose Admin Albuterol/Ipratropium 3 ml 03/13/17 20:00 03/14/17 13:57 Duoneb 3 Mg/0.5 Mg (3 Ml) Ud INH 3 ml RQ6 JACK Administration Famotidine 20 mg 03/15/17 10:00 Pepcid IVP DAILY JACK Ferrous Sulfate 300 mg 03/07/17 18:00 03/14/17 17:35 Feosol Liq NG 300 mg BID JACK Administration Phenylephrine HCl 60 mg/ 256 mls @ 5.11 mls/hr 03/08/17 18:45 03/11/17 10:00 Dextrose IV 60 mcg/min .Q24H PRN 15.36 mls/hr TITRATE PER MD ORDER Titration Protocol 20 MCG/MIN Propofol 1,000 mg in 100 mls @ 1.512 mls/hr 03/11/17 17:38 03/14/17 16:15 Diprivan IV 20 mcg/kg/min .Q24H PRN 6.047 mls/hr TITRATE PER MD ORDER Administration Protocol 5 MCG/KG/MIN Lactated Ringer's 1,000 mls @ 75 mls/hr 03/13/17 16:00 03/14/17 18:41 Lactated Ringer's IV Not Given .[id number] JACK Nafcillin Sodium 2 gm/ Sodium 100 mls @ 100 mls/hr 03/14/17 12:00 03/14/17 17 :38 Chloride IVPB 100 mls/hr Q6H JACK Administration Lactobacillus Acidophilus 1 cap 03/14/17 18:00 03/14/17 17:37 Bacid Acidophilus PO 1 cap BID JACK Administration Multivitamins/Vitamin C 5 ml 03/10/17 10:00 03/14/17 09:49 Multi-Delyn Liquid PO 5 ml DAILY JACK Administration Nicotine 1 patch 03/11/17 10:00 03/14/17 09:49 Nicoderm Cq TD 1 patch DAILY JACK Administration - Patient Studies Lab Studies: Microbiology Studies 03/05/17 21:58 Mycobacterial Culture - Preliminary Other: Please Indicate Lab Studies 03/14/17 03/14/17 03/14/17 Range/Units 06:50 06:50 05:11 WBC 29.0 H (4.8-10.8) K/uL RBC 3.48 L (4.40-5.90) Mil/uL Hgb 9.5 L (12.0-18.0) g/dL Hct 29.2 L (35.0-51.0) % MCV 84.0 (80.0-94.0) fL MCH 27.4 (27.0-31.0) pg MCHC 32.6 L (33.0-37.0) g/dL RDW 17.7 H (11.5-14.5) % Plt Count 226 (130-400) K/uL MPV 8.9 (7.2-11.7) fL Neut % (Auto) 93.9 H (50.0-75.0) % Lymph % (Auto) 4.2 L (20.0-40.0) % [place] % (Auto) 1.8 (0.0-10.0) % Eos % (Auto) 0.0 (0.0-4.0) % Baso % (Auto) 0.1 (0.0-2.0) % Neut # 27.2 H (1.8-7.0) K/uL Lymph # 1.2 (1.0-4.3) K/uL [place] # 0.5 (0.0-0.8) K/uL Eos # 0.0 (0.0-0.7) K/uL Baso # 0.0 (0.0-0.2) K/uL Neutrophils % (Manual) 92 H (50-75) % Band Neutrophils % 1 (0-2) % Lymphocytes % (Manual) 3 L (20-40) % Monocytes % (Manual) 4 (0-10) % Platelet Estimate Normal (NORMAL) Polychromasia Slight Hypochromasia (manual) Slight Anisocytosis (manual) Slight Puncture Site Rr pCO2 28 L (35-45) mm/Hg pO2 91 (80-100) mm/Hg HCO3 19.8 L (21-28) mmol/L ABG pH 7.40 (7.35-7.45) ABG Total CO2 18.2 L (22-28) mmol/L ABG O2 Saturation 99.1 H (95-98) % ABG Base Excess -6.5 L (-2.0-3.0) mmol/L ABG Hemoglobin 9.5 L (11.7-17.4) g/dL ABG Carboxyhemoglobin 2.3 H (0.5-1.5) % POC ABG HHb (Measured) 0.9 (0.0-5.0) % ABG Methemoglobin 1.2 (0.0-3.0) % Jorge Test Pos A-a O2 Difference 159.0 mm/Hg Respiratory Index 1.7 Hgb O2 Saturation 95.6 (95.0-98.0) % Vent Mode Prvc Mechanical Rate 18 FiO2 40.0 % Tidal Volume 450 PEEP 5 Sodium 134 (132-148) mmol/L Potassium 4.0 (3.6-5.2) mmol/L Chloride 111 H (98-107) mmol/L Carbon Dioxide 19 L (22-30) mmol/L Anion Gap 8 L (10-20) BUN 37 H (9-20) mg/dL Creatinine 1.1 (0.8-1.5) mg/dL Est GFR ( Amer) > 60 Est GFR (Non-Af Amer) > 60 Random Glucose 110 (75-110) mg/dL Calcium 9.4 (8.6-10.4) mg/dl Phosphorus 3.0 (2.5-4.5) mg/dL Magnesium 1.8 (1.6-2.3) mg/dL Total Bilirubin 0.4 (0.2-1.3) mg/dL AST 13 L D (17-59) U/L ALT 19 L D (21-72) U/L Alkaline Phosphatase 96 (38-126) U/L Total Protein 5.2 L (6.3-8.3) g/dL Albumin 2.1 L (3.5-5.0) g/dL Globulin 3.1 (2.2-3.9) gm/dL Albumin/Globulin Ratio 0.7 L (1.0-2.1) Laboratory Results - last 24 hr 03/14/17 03/14/17 03/14/17 05:11 06:50 06:50 WBC 29.0 H RBC 3.48 L Hgb 9.5 L Hct 29.2 L MCV 84.0 MCH 27.4 MCHC 32.6 L RDW 17.7 H Plt Count 226 MPV 8.9 Neut % (Auto) 93.9 H Lymph % (Auto) 4.2 L [place] % (Auto) 1.8 Eos % (Auto) 0.0 Baso % (Auto) 0.1 Neut # 27.2 H Lymph # 1.2 [place] # 0.5 Eos # 0.0 Baso # 0.0 Neutrophils % (Manual) 92 H Band Neutrophils % 1 Lymphocytes % (Manual) 3 L Monocytes % (Manual) 4 Platelet Estimate Normal Polychromasia Slight Hypochromasia (manual) Slight Anisocytosis (manual) Slight Puncture Site Rr pCO2 28 L pO2 91 HCO3 19.8 L ABG pH 7.40 ABG Total CO2 18.2 L ABG O2 Saturation 99.1 H ABG Base Excess -6.5 L ABG Hemoglobin 9.5 L ABG Carboxyhemoglobin 2.3 H POC ABG HHb (Measured) 0.9 ABG Methemoglobin 1.2 Jorge Test Pos A-a O2 Difference 159.0 Respiratory Index 1.7 Hgb O2 Saturation 95.6 Vent Mode Prvc Mechanical Rate 18 FiO2 40.0 Tidal Volume 450 PEEP 5 Sodium 134 Potassium 4.0 Chloride 111 H Carbon Dioxide 19 L Anion Gap 8 L BUN 37 H Creatinine 1.1 Est GFR ( Amer) > 60 Est GFR (Non-Af Amer) > 60 Random Glucose 110 Calcium 9.4 Phosphorus 3.0 Magnesium 1.8 Total Bilirubin 0.4 AST 13 L D ALT 19 L D Alkaline Phosphatase 96 Total Protein 5.2 L Albumin 2.1 L Globulin 3.1 Albumin/Globulin Ratio 0.7 L Fingerstick Blood Sugar Results: 94 Assessment/Plan - Assessment and Plan (Free Text) Assessment: 56 year old cachectic male with no known PMH presenting with cough, loss of weight, confusion and right upper lobe infiltrate with leucocytosis, thrombocytosis, hyponatremia, hypercalcemia and dehydration. Most likely has lung malignancy, r/o pneumonia/lung abscess/fungal infection Plan Neuro: Sedation: Propofol 5mcg/kg/min Pain: Tramadol 25mg PO TID PRN Neuro consult: Dr. Dr. Moore Nicotine 21mg/24hr QD Cardio: monitor vitals D5/Phenylephrine 20mcg/min Pulm: 03/11 PRVC 450 TV PEEP5 RR18 [id number]% 03/11 11:35 ABG pH 7.29/pO2 130/pCO2 29/HCO3 16 CT Chest: RUL mass 03/11 AFB cultures 03/08, 03/09 Pulmonlogy consult: Dr. Megha Saldivar 3cc INH RQ6 Endo: n/a GI: CMP : 03/10 UA: UTI 03/09 Urine culture: Klebsiella Cefepime 1gm IVPB Q12H Renal: I/O: Nephrology consult: Dr. Nassar Heme: 03/11 H/H 10.1/32.9 Oncology: n/a MSK: n/a ID:[id number] WBC 26.8, 46.5 ID Consult: Dr. Sanches Cefepime 1gm IVPB Q12H - discontinued 03/14 Vancomycin 1gm IVPB Q24H - discontinued 03/14 Nafcillin 2gm IVPB Q6H Prophylaxis: DVT: Heparin 5000u SC Q8H GI: Pepcid 20mg IVP QD Nausea: 03/11 14:00 Reglan 10mg IVP TID, Discontinue 03/14/17 14:01 Fluids: IV fluids LR @75cc/hr Tube feeds initiate 20cc/hr with goal rate @ 40cc/hr Code Status: DNR 03/12 Dr. Espitia spoke with family for decision on terminal extubation. Patient's family did not make a decision. will continue to follow Dr. Eitan Bland DO PGY1 - Date & Time Date: 03/14/17 Time: 18:50
[2017-03-15] MEDS: Albuterol-Ipratrop 3 mg / 0.5 (3 ml) UD INH SCH ×4 (01:14→19:42)
[2017-03-15 05:45] LABS: ABG ALLEN TEST POS; ABG MECHANICAL RATE 18; ARTERIAL BLOOD GAS MODE PRVC; ARTERIAL BLOOD HGB O2 SAT 95.8 % (95.0-98.0); ATERIAL BLOOD GAS PEEP 5; CARBOXYHEMOGLOBIN 2.2 % (0.5-1.5); DRAW SITE LR; METHEMOGLOBIN 1.1 % (0.0-3.0)
[2017-03-15] MEDS: Nafcillin 2 GM in Sodium Chloride 0.9% 100 ML IVPB SCH ×5 (06:00→23:02)
[2017-03-15] MEDS: Propofol 10 mg/ml 1,000 MG/100 ML VIAL IV PRN (06:17)
[2017-03-15 06:42] LABS: BASO % 0.1 % (0.0-2.0); EOS # 0.2 K/uL (0.0-0.7); EOS % 0.5 % (0.0-4.0); HEMATOCRIT 30.2 % (35.0-51.0); LYMPH # 2.2 K/uL (1.0-4.3); LYMPH % 6.4 % (20.0-40.0); MEAN CELL VOLUME 84.9 fL (80.0-94.0); MEAN CORPUSCULAR HEMOGLOBIN 27.8 pg (27.0-31.0); MEAN CORPUSCULAR HGB CONC 32.7 g/dL (33.0-37.0); MEAN PLATELET VOLUME 8.6 fL (7.2-11.7); MONO # 0.7 K/uL (0.0-0.8); PLATELET COUNT 262 K/uL (130-400); RED CELL DISTRIBUTION WIDTH 19.8 % (11.5-14.5); WHITE BLOOD COUNT 34.5 K/uL (4.8-10.8)
[2017-03-15 07:10] LABS: ALKALINE PHOSPHATASE 88 U/L (38-126); ALT/SGPT 16 U/L (21-72); AST/SGOT 18 U/L (17-59); BILIRUBIN,TOTAL 0.8 mg/dL (0.2-1.3); BLOOD UREA NITROGEN 34 mg/dL (9-20); CALCIUM 9.5 mg/dl (8.6-10.4); CARBON DIOXIDE 19 mmol/L (22-30); CHLORIDE 116 mmol/L (98-107); GFR AFRICAN-AMERICAN > 60; GLUCOSE,RANDOM 77 mg/dL (75-110); MAGNESIUM 1.6 mg/dL (1.6-2.3); PHOSPHOROUS 2.9 mg/dL (2.5-4.5); SODIUM 138 mmol/L (132-148); TOTAL PROTEIN 4.2 g/dL (6.3-8.3)
[2017-03-15] MEDS: Lactated Ringer's 1,000 ML IV SCH (08:03)
[2017-03-15 08:53] LABS: NEUTROPHIL 93 % (50-75); TOTAL CELLS COUNTED 100
--- NOTE | 2017-03-15 09:06 | RAD ---
PROCEDURE: CHEST RADIOGRAPH, 1 VIEW HISTORY: R/o infiltrates COMPARISON: 03/14/2017 FINDINGS: The endotracheal tube terminates 3 cm proximal to the megan. The right IJV line terminates in the SVC. The nasogastric tube terminates in the stomach. LUNGS: No significant interval change in dense right upper lobe consolidation with some elevation in the medial right upper lobe. The left lung is well inflated and clear. PLEURA: Developing small right pleural effusion. No large left pleural effusion. No pneumothorax. CARDIOVASCULAR: Normal. OSSEOUS STRUCTURES: No significant abnormalities. VISUALIZED UPPER ABDOMEN: Normal. OTHER FINDINGS: None. IMPRESSION: No change in dense right upper lobe consolidation and interval development of small right pleural effusion. Stable position of line and tubes.
[2017-03-15] MEDS: Ferrous Sulfate 300 mg/5 mL Liq UD NG SCH ×2 (10:04→17:25)
[2017-03-15] MEDS: Lactobacillus Acidophilus 500 MU Cap PO SCH ×2 (10:06→17:25)
[2017-03-15] MEDS: Multiple Vitamins Oral Solution PO SCH (10:07)
[2017-03-15] MEDS ORDERED: Potassium Chloride 20 mEq 40 MEQ/200 ML BAG IVPB ONE (10:37)
[2017-03-15] MEDS ORDERED: Magnesium Sulfate 1 gm in D5W 1 GM/100 ML BAG IVPB ONE (11:06)
--- NOTE | 2017-03-15 15:38 | CP.CCUPN ---
<Beti Bland - Last Filed: 03/15/17 15:44> CCU Subjective - Physician Review Subjective (Free Text): Progress note for Dr. oTrres Patient seen and examined at bedside and is following commands today. Patient opens eyes to his name GCS 11T ([id number]). Waiting for Palliative care nursing and follow up family meeting. no acute events overnight Critical Care Time Spent (in minutes): 35 CCU Objective - Vital Signs / Intake & Output Vital Signs (Last 4 hours): Vital Signs Temp Pulse Resp BP Pulse Ox 03/15/17 13:00 125 H 14 99 03/15/17 12:35 124 H 19 98/57 L 99 03/15/17 12:00 99.1 F 121 H 28 H 100 Intake and Output (Last 8hrs): Intake & Output 03/15/17 03/15/17 03/15/17 06:59 14:59 22:59 Intake Total 1118 1053 Output Total 545 160 Balance 573 893 Weight 115 lb 0.3 oz Intake: IV 100 Intake, IV Amount 698 703 Right Distal Port 650 575 Internal Jugular Right Medial Port 100 Internal Jugular Right Proximal Port 48 28 Internal Jugular Tube Feeding 320 240 Other 110 Output: Urine 545 160 Urine, Voided 545 160 Stool 0 Other: # Bowel Movements 1 0 - Physical Exam Head: Positive for: Atraumatic, Normocephalic, Abrasion (top of head, heal. no erythema), Other (temporalis atrophy) Pupils: Positive for: Sluggish (Left eye), Other (Right eye dilated 3mm, fixed.) Conjunctiva: Positive for: Normal Mouth: Positive for: Moist Mucous Membranes, Other (intubated) Respiratory/Chest: Positive for: Decreased Breath Sounds (RUL), Rhonchi Cardiovascular: Positive for: Regular Rate and Rhythm, Murmurs, Normal S1, S2, Tachycardic Abdomen: Negative for: Tenderness, Distention, Peritoneal Signs Upper Extremity: Positive for: Normal Inspection, NORMAL PULSES. Negative for: Edema Lower Extremity: Positive for: Normal Inspection, NORMAL PULSES. Negative for: Edema, CALF TENDERNESS Neurological: Positive for: Other (intubated) Skin: Positive for: Warm, Dry Psychiatric: Positive for: Other (intubated) - Medications Active Medications: Active Medications Generic Name Dose Route Start Last Admin Trade Name Freq PRN Reason Stop Dose Admin Albuterol/Ipratropium 3 ml 03/13/17 20:00 03/15/17 13:44 Duoneb 3 Mg/0.5 Mg (3 Ml) Ud INH 3 ml RQ6 JACK Administration Famotidine 20 mg 03/15/17 10:00 03/15/17 10:06 Pepcid IVP 20 mg DAILY JACK Administration Ferrous Sulfate 300 mg 03/07/17 18:00 03/15/17 10:04 Feosol Liq NG 300 mg BID JACK Administration Phenylephrine HCl 60 mg/ 256 mls @ 5.11 mls/hr 03/08/17 18:45 03/11/17 10:00 Dextrose IV 60 mcg/min .Q24H PRN 15.36 mls/hr TITRATE PER MD ORDER Titration Protocol 20 MCG/MIN Propofol 1,000 mg in 100 mls @ 1.512 mls/hr 03/11/17 17:38 03/15/17 06:17 Diprivan IV 20 mcg/kg/min .Q24H PRN 6.047 mls/hr TITRATE PER MD ORDER Administration Protocol 5 MCG/KG/MIN Lactated Ringer's 1,000 mls @ 75 mls/hr 03/13/17 16:00 03/15/17 08:03 Lactated Ringer's IV Not Given .[id number] JACK Nafcillin Sodium 2 gm/ Sodium 100 mls @ 100 mls/hr 03/14/17 12:00 03/15/17 11 :49 Chloride IVPB 100 mls/hr Q6H JACK Administration Lactobacillus Acidophilus 1 cap 03/14/17 18:00 03/15/17 10:06 Bacid Acidophilus PO 1 cap BID JACK Administration Multivitamins/Vitamin C 5 ml 03/10/17 10:00 03/15/17 10:07 Multi-Delyn Liquid PO 5 ml DAILY JACK Administration Nicotine 1 patch 03/11/17 10:00 03/15/17 10:07 Nicoderm Cq TD 1 patch DAILY JACK Administration - Patient Studies Lab Studies: Microbiology Studies 03/14/17 12:23 Ova and Parasite Concentrate Exam - Final Stool Lab Studies 03/15/17 03/15/17 03/15/17 Range/Units 06:28 06:28 05:14 WBC 34.5 H (4.8-10.8) K/uL RBC 3.56 L (4.40-5.90) Mil/uL Hgb 9.9 L (12.0-18.0) g/dL Hct 30.2 L (35.0-51.0) % MCV 84.9 (80.0-94.0) fL MCH 27.8 (27.0-31.0) pg MCHC 32.7 L (33.0-37.0) g/dL RDW 19.8 H (11.5-14.5) % Plt Count 262 (130-400) K/uL MPV 8.6 (7.2-11.7) fL Neut % (Auto) 91.0 H (50.0-75.0) % Lymph % (Auto) 6.4 L (20.0-40.0) % Mercer % (Auto) 2.0 (0.0-10.0) % Eos % (Auto) 0.5 (0.0-4.0) % Baso % (Auto) 0.1 (0.0-2.0) % Neut # 31.3 H (1.8-7.0) K/uL Lymph # 2.2 (1.0-4.3) K/uL Mercer # 0.7 (0.0-0.8) K/uL Eos # 0.2 (0.0-0.7) K/uL Baso # 0.0 (0.0-0.2) K/uL Neutrophils % (Manual) 93 H (50-75) % Lymphocytes % (Manual) 6 L (20-40) % Monocytes % (Manual) 1 (0-10) % Platelet Estimate Normal (NORMAL) Anisocytosis (manual) Moderate Puncture Site Lr pCO2 23 L (35-45) mm/Hg pO2 90 (80-100) mm/Hg HCO3 16.6 L (21-28) mmol/L ABG pH 7.37 (7.35-7.45) ABG Total CO2 14.0 L (22-28) mmol/L ABG O2 Saturation 99.0 H (95-98) % ABG Base Excess -10.7 L (-2.0-3.0) mmol/L ABG Hemoglobin 8.1 L (11.7-17.4) g/dL ABG Carboxyhemoglobin 2.2 H (0.5-1.5) % POC ABG HHb (Measured) 1.0 (0.0-5.0) % ABG Methemoglobin 1.1 (0.0-3.0) % Jorge Test Pos A-a O2 Difference 166.0 mm/Hg Respiratory Index 1.8 Hgb O2 Saturation 95.8 (95.0-98.0) % Vent Mode Prvc Mechanical Rate 18 FiO2 40.0 % Tidal Volume 450 PEEP 5 Sodium 138 (132-148) mmol/L Potassium 3.0 L (3.6-5.2) mmol/L Chloride 116 H (98-107) mmol/L Carbon Dioxide 19 L (22-30) mmol/L Anion Gap 6 L (10-20) BUN 34 H (9-20) mg/dL Creatinine 0.9 (0.8-1.5) mg/dL Est GFR ( Amer) > 60 Est GFR (Non-Af Amer) > 60 Random Glucose 77 (75-110) mg/dL Calcium 9.5 (8.6-10.4) mg/dl Phosphorus 2.9 (2.5-4.5) mg/dL Magnesium 1.6 (1.6-2.3) mg/dL Total Bilirubin 0.8 (0.2-1.3) mg/dL AST 18 (17-59) U/L ALT 16 L (21-72) U/L Alkaline Phosphatase 88 (38-126) U/L Total Protein 4.2 L (6.3-8.3) g/dL Albumin 2.1 L (3.5-5.0) g/dL Globulin 2.1 L (2.2-3.9) gm/dL Albumin/Globulin Ratio 1.0 (1.0-2.1) Stool Leukocytes, Qual (NEGATIVE) C. difficile Ag & Toxin (NEGATIVE) 03/14/17 03/14/17 Range/Units 12:24 12:24 WBC (4.8-10.8) K/uL RBC (4.40-5.90) Mil/uL Hgb (12.0-18.0) g/dL Hct (35.0-51.0) % MCV (80.0-94.0) fL MCH (27.0-31.0) pg MCHC (33.0-37.0) g/dL RDW (11.5-14.5) % Plt Count (130-400) K/uL MPV (7.2-11.7) fL Neut % (Auto) (50.0-75.0) % Lymph % (Auto) (20.0-40.0) % Mercer % (Auto) (0.0-10.0) % Eos % (Auto) (0.0-4.0) % Baso % (Auto) (0.0-2.0) % Neut # (1.8-7.0) K/uL Lymph # (1.0-4.3) K/uL Mercer # (0.0-0.8) K/uL Eos # (0.0-0.7) K/uL Baso # (0.0-0.2) K/uL Neutrophils % (Manual) (50-75) % Lymphocytes % (Manual) (20-40) % Monocytes % (Manual) (0-10) % Platelet Estimate (NORMAL) Anisocytosis (manual) Puncture Site pCO2 (35-45) mm/Hg pO2 (80-100) mm/Hg HCO3 (21-28) mmol/L ABG pH (7.35-7.45) ABG Total CO2 (22-28) mmol/L ABG O2 Saturation (95-98) % ABG Base Excess (-2.0-3.0) mmol/L ABG Hemoglobin (11.7-17.4) g/dL ABG Carboxyhemoglobin (0.5-1.5) % POC ABG HHb (Measured) (0.0-5.0) % ABG Methemoglobin (0.0-3.0) % Jorge Test A-a O2 Difference mm/Hg Respiratory Index Hgb O2 Saturation (95.0-98.0) % Vent Mode Mechanical Rate FiO2 % Tidal Volume PEEP Sodium (132-148) mmol/L Potassium (3.6-5.2) mmol/L Chloride (98-107) mmol/L Carbon Dioxide (22-30) mmol/L Anion Gap (10-20) BUN (9-20) mg/dL Creatinine (0.8-1.5) mg/dL Est GFR ( Amer) Est GFR (Non-Af Amer) Random Glucose (75-110) mg/dL Calcium (8.6-10.4) mg/dl Phosphorus (2.5-4.5) mg/dL Magnesium (1.6-2.3) mg/dL Total Bilirubin (0.2-1.3) mg/dL AST (17-59) U/L ALT (21-72) U/L Alkaline Phosphatase (38-126) U/L Total Protein (6.3-8.3) g/dL Albumin (3.5-5.0) g/dL Globulin (2.2-3.9) gm/dL Albumin/Globulin Ratio (1.0-2.1) Stool Leukocytes, Qual Negative (NEGATIVE) C. difficile Ag & Toxin Negative (NEGATIVE) Laboratory Results - last 24 hr 03/14/17 03/14/17 03/15/17 12:24 12:24 05:14 WBC RBC Hgb Hct MCV MCH MCHC RDW Plt Count MPV Neut % (Auto) Lymph % (Auto) Mercer % (Auto) Eos % (Auto) Baso % (Auto) Neut # Lymph # Mercer # Eos # Baso # Neutrophils % (Manual) Lymphocytes % (Manual) Monocytes % (Manual) Platelet Estimate Anisocytosis (manual) Puncture Site Lr pCO2 23 L pO2 90 HCO3 16.6 L ABG pH 7.37 ABG Total CO2 14.0 L ABG O2 Saturation 99.0 H ABG Base Excess -10.7 L ABG Hemoglobin 8.1 L ABG Carboxyhemoglobin 2.2 H POC ABG HHb (Measured) 1.0 ABG Methemoglobin 1.1 Jorge Test Pos A-a O2 Difference 166.0 Respiratory Index 1.8 Hgb O2 Saturation 95.8 Vent Mode Prvc Mechanical Rate 18 FiO2 40.0 Tidal Volume 450 PEEP 5 Sodium Potassium Chloride Carbon Dioxide Anion Gap BUN Creatinine Est GFR ( Amer) Est GFR (Non-Af Amer) Random Glucose Calcium Phosphorus Magnesium Total Bilirubin AST ALT Alkaline Phosphatase Total Protein Albumin Globulin Albumin/Globulin Ratio Stool Leukocytes, Qual Negative C. difficile Ag & Toxin Negative 03/15/17 03/15/17 06:28 06:28 WBC 34.5 H RBC 3.56 L Hgb 9.9 L Hct 30.2 L MCV 84.9 MCH 27.8 MCHC 32.7 L RDW 19.8 H Plt Count 262 MPV 8.6 Neut % (Auto) 91.0 H Lymph % (Auto) 6.4 L Mercer % (Auto) 2.0 Eos % (Auto) 0.5 Baso % (Auto) 0.1 Neut # 31.3 H Lymph # 2.2 Mercer # 0.7 Eos # 0.2 Baso # 0.0 Neutrophils % (Manual) 93 H Lymphocytes % (Manual) 6 L Monocytes % (Manual) 1 Platelet Estimate Normal Anisocytosis (manual) Moderate Puncture Site pCO2 pO2 HCO3 ABG pH ABG Total CO2 ABG O2 Saturation ABG Base Excess ABG Hemoglobin ABG Carboxyhemoglobin POC ABG HHb (Measured) ABG Methemoglobin Jorge Test A-a O2 Difference Respiratory Index Hgb O2 Saturation Vent Mode Mechanical Rate FiO2 Tidal Volume PEEP Sodium 138 Potassium 3.0 L Chloride 116 H Carbon Dioxide 19 L Anion Gap 6 L BUN 34 H Creatinine 0.9 Est GFR ( Amer) > 60 Est GFR (Non-Af Amer) > 60 Random Glucose 77 Calcium 9.5 Phosphorus 2.9 Magnesium 1.6 Total Bilirubin 0.8 AST 18 ALT 16 L Alkaline Phosphatase 88 Total Protein 4.2 L Albumin 2.1 L Globulin 2.1 L Albumin/Globulin Ratio 1.0 Stool Leukocytes, Qual C. difficile Ag & Toxin Fingerstick Blood Sugar Results: 94 Assessment/Plan - Assessment and Plan (Free Text) Assessment: 56 year old cachectic male with no known PMH presenting with cough, loss of weight, confusion and right upper lobe infiltrate with leucocytosis, thrombocytosis, hyponatremia, hypercalcemia and dehydration. Most likely has lung malignancy, r/o pneumonia/lung abscess/fungal infection Plan Neuro: Sedation: Propofol 5mcg/kg/min Pain: Tramadol 25mg PO TID PRN Neuro consult: Dr. Dr. Moore Nicotine 21mg/24hr QD Cardio: monitor vitals D5/Phenylephrine 20mcg/min Pulm: 03/11 PRVC 450 TV PEEP5 RR18 [id number]% 03/11 11:35 ABG pH 7.29/pO2 130/pCO2 29/HCO3 16 CT Chest: RUL cavitation 03/11 AFB cultures 03/08, 03/09 Pulmonlogy consult: Dr. Megha Saldivar 3cc INH RQ6 Endo: n/a GI: CMP : 03/10 UA: UTI 03/09 Urine culture: Klebsiella Cefepime 1gm IVPB Q12H Renal/electrolytes hyponatremia, hypercalcemia I/O Nephrology consult: Dr. Nassar Heme: thrombocytosis, 03/11 H/H 10.1/32.9 Oncology: n/a MSK: n/a ID:[id number] WBC 26.8, 46.5 ID Consult: Dr. Sanches Cefepime 1gm IVPB Q12H - discontinued 03/14 Vancomycin 1gm IVPB Q24H - discontinued 03/14 Nafcillin 2gm IVPB Q6H Prophylaxis: DVT: Heparin 5000u SC Q8H GI: Pepcid 20mg IVP QD Nausea: 03/11 14:00 Reglan 10mg IVP TID, Discontinue 03/14/17 14:01 Fluids: IV fluids LR @75cc/hr Tube feeds initiate 20cc/hr with goal rate @ 40cc/hr Code Status: DNR 03/12 Dr. Espitia spoke with family for decision on terminal extubation. Patient's family did not make a decision. will continue to follow Dr. Melissa Bland DO PGY1 - Date & Time Date: 03/15/17 Time: 15:39 <Kevin Torres P - Last Filed: 03/15/17 19:14> CCU Objective - Vital Signs / Intake & Output Vital Signs (Last 4 hours): Vital Signs Temp Pulse Resp BP Pulse Ox 03/15/17 17:00 129 H 19 98 03/15/17 16:35 128 H 20 127/79 98 03/15/17 16:00 99.6 F 126 H 20 98 03/15/17 15:35 121 H 24 112/70 98 Intake and Output (Last 8hrs): Intake & Output 03/15/17 03/15/17 03/15/17 06:59 14:59 22:59 Intake Total 1118 1287 234 Output Total 545 185 100 Balance 573 1102 134 Weight 115 lb 0.3 oz Intake: IV 100 Intake, IV Amount 698 857 154 Right Distal Port 650 725 150 Internal Jugular Right Medial Port 100 Internal Jugular Right Proximal Port 48 32 4 Internal Jugular Tube Feeding 320 320 80 Other 110 Output: Urine 545 185 100 Urine, Voided 545 185 100 Stool 0 Other: # Bowel Movements 1 0 0 - Medications Active Medications: Active Medications Generic Name Dose Route Start Last Admin Trade Name Freq PRN Reason Stop Dose Admin Albuterol/Ipratropium 3 ml 03/13/17 20:00 03/15/17 13:44 Duoneb 3 Mg/0.5 Mg (3 Ml) Ud INH 3 ml RQ6 JACK Administration Famotidine 20 mg 03/15/17 10:00 03/15/17 10:06 Pepcid IVP 20 mg DAILY JACK Administration Ferrous Sulfate 300 mg 03/07/17 18:00 03/15/17 17:25 Feosol Liq NG 300 mg BID JACK Administration Phenylephrine HCl 60 mg/ 256 mls @ 5.11 mls/hr 03/08/17 18:45 03/11/17 10:00 Dextrose IV 60 mcg/min .Q24H PRN 15.36 mls/hr TITRATE PER MD ORDER Titration Protocol 20 MCG/MIN Propofol 1,000 mg in 100 mls @ 1.512 mls/hr 03/11/17 17:38 03/15/17 06:17 Diprivan IV 20 mcg/kg/min .Q24H PRN 6.047 mls/hr TITRATE PER MD ORDER Administration Protocol 5 MCG/KG/MIN Lactated Ringer's 1,000 mls @ 75 mls/hr 03/13/17 16:00 03/15/17 08:03 Lactated Ringer's IV Not Given .[id number] JACK Nafcillin Sodium 2 gm/ Sodium 100 mls @ 100 mls/hr 03/14/17 12:00 03/15/17 17 :24 Chloride IVPB 100 mls/hr Q6H JACK Administration Lactobacillus Acidophilus 1 cap 03/14/17 18:00 03/15/17 17:25 Bacid Acidophilus PO 1 cap BID JACK Administration Multivitamins/Vitamin C 5 ml 03/10/17 10:00 03/15/17 10:07 Multi-Delyn Liquid PO 5 ml DAILY JACK Administration Nicotine 1 patch 03/11/17 10:00 03/15/17 10:07 Nicoderm Cq TD 1 patch DAILY JACK Administration - Patient Studies Lab Studies: Microbiology Studies 03/14/17 12:23 Ova and Parasite Concentrate Exam - Final Stool Lab Studies 03/15/17 03/15/17 03/15/17 Range/Units 06:28 06:28 05:14 WBC 34.5 H (4.8-10.8) K/uL RBC 3.56 L (4.40-5.90) Mil/uL Hgb 9.9 L (12.0-18.0) g/dL Hct 30.2 L (35.0-51.0) % MCV 84.9 (80.0-94.0) fL MCH 27.8 (27.0-31.0) pg MCHC 32.7 L (33.0-37.0) g/dL RDW 19.8 H (11.5-14.5) % Plt Count 262 (130-400) K/uL MPV 8.6 (7.2-11.7) fL Neut % (Auto) 91.0 H (50.0-75.0) % Lymph % (Auto) 6.4 L (20.0-40.0) % Mercer % (Auto) 2.0 (0.0-10.0) % Eos % (Auto) 0.5 (0.0-4.0) % Baso % (Auto) 0.1 (0.0-2.0) % Neut # 31.3 H (1.8-7.0) K/uL Lymph # 2.2 (1.0-4.3) K/uL Mercer # 0.7 (0.0-0.8) K/uL Eos # 0.2 (0.0-0.7) K/uL Baso # 0.0 (0.0-0.2) K/uL Neutrophils % (Manual) 93 H (50-75) % Lymphocytes % (Manual) 6 L (20-40) % Monocytes % (Manual) 1 (0-10) % Platelet Estimate Normal (NORMAL) Anisocytosis (manual) Moderate Puncture Site Lr pCO2 23 L (35-45) mm/Hg pO2 90 (80-100) mm/Hg HCO3 16.6 L (21-28) mmol/L ABG pH 7.37 (7.35-7.45) ABG Total CO2 14.0 L (22-28) mmol/L ABG O2 Saturation 99.0 H (95-98) % ABG Base Excess -10.7 L (-2.0-3.0) mmol/L ABG Hemoglobin 8.1 L (11.7-17.4) g/dL ABG Carboxyhemoglobin 2.2 H (0.5-1.5) % POC ABG HHb (Measured) 1.0 (0.0-5.0) % ABG Methemoglobin 1.1 (0.0-3.0) % Jorge Test Pos A-a O2 Difference 166.0 mm/Hg Respiratory Index 1.8 Hgb O2 Saturation 95.8 (95.0-98.0) % Vent Mode Prvc Mechanical Rate 18 FiO2 40.0 % Tidal Volume 450 PEEP 5 Sodium 138 (132-148) mmol/L Potassium 3.0 L (3.6-5.2) mmol/L Chloride 116 H (98-107) mmol/L Carbon Dioxide 19 L (22-30) mmol/L Anion Gap 6 L (10-20) BUN 34 H (9-20) mg/dL Creatinine 0.9 (0.8-1.5) mg/dL Est GFR ( Amer) > 60 Est GFR (Non-Af Amer) > 60 Random Glucose 77 (75-110) mg/dL Calcium 9.5 (8.6-10.4) mg/dl Phosphorus 2.9 (2.5-4.5) mg/dL Magnesium 1.6 (1.6-2.3) mg/dL Total Bilirubin 0.8 (0.2-1.3) mg/dL AST 18 (17-59) U/L ALT 16 L (21-72) U/L Alkaline Phosphatase 88 (38-126) U/L Total Protein 4.2 L (6.3-8.3) g/dL Albumin 2.1 L (3.5-5.0) g/dL Globulin 2.1 L (2.2-3.9) gm/dL Albumin/Globulin Ratio 1.0 (1.0-2.1) Stool Leukocytes, Qual (NEGATIVE) C. difficile Ag & Toxin (NEGATIVE) 03/14/17 03/14/17 Range/Units 12:24 12:24 WBC (4.8-10.8) K/uL RBC (4.40-5.90) Mil/uL Hgb (12.0-18.0) g/dL Hct (35.0-51.0) % MCV (80.0-94.0) fL MCH (27.0-31.0) pg MCHC (33.0-37.0) g/dL RDW (11.5-14.5) % Plt Count (130-400) K/uL MPV (7.2-11.7) fL Neut % (Auto) (50.0-75.0) % Lymph % (Auto) (20.0-40.0) % Mercer % (Auto) (0.0-10.0) % Eos % (Auto) (0.0-4.0) % Baso % (Auto) (0.0-2.0) % Neut # (1.8-7.0) K/uL Lymph # (1.0-4.3) K/uL Mercer # (0.0-0.8) K/uL Eos # (0.0-0.7) K/uL Baso # (0.0-0.2) K/uL Neutrophils % (Manual) (50-75) % Lymphocytes % (Manual) (20-40) % Monocytes % (Manual) (0-10) % Platelet Estimate (NORMAL) Anisocytosis (manual) Puncture Site pCO2 (35-45) mm/Hg pO2 (80-100) mm/Hg HCO3 (21-28) mmol/L ABG pH (7.35-7.45) ABG Total CO2 (22-28) mmol/L ABG O2 Saturation (95-98) % ABG Base Excess (-2.0-3.0) mmol/L ABG Hemoglobin (11.7-17.4) g/dL ABG Carboxyhemoglobin (0.5-1.5) % POC ABG HHb (Measured) (0.0-5.0) % ABG Methemoglobin (0.0-3.0) % Jorge Test A-a O2 Difference mm/Hg Respiratory Index Hgb O2 Saturation (95.0-98.0) % Vent Mode Mechanical Rate FiO2 % Tidal Volume PEEP Sodium (132-148) mmol/L Potassium (3.6-5.2) mmol/L Chloride (98-107) mmol/L Carbon Dioxide (22-30) mmol/L Anion Gap (10-20) BUN (9-20) mg/dL Creatinine (0.8-1.5) mg/dL Est GFR ( Amer) Est GFR (Non-Af Amer) Random Glucose (75-110) mg/dL Calcium (8.6-10.4) mg/dl Phosphorus (2.5-4.5) mg/dL Magnesium (1.6-2.3) mg/dL Total Bilirubin (0.2-1.3) mg/dL AST (17-59) U/L ALT (21-72) U/L Alkaline Phosphatase (38-126) U/L Total Protein (6.3-8.3) g/dL Albumin (3.5-5.0) g/dL Globulin (2.2-3.9) gm/dL Albumin/Globulin Ratio (1.0-2.1) Stool Leukocytes, Qual Negative (NEGATIVE) C. difficile Ag & Toxin Negative (NEGATIVE) Laboratory Results - last 24 hr 03/14/17 03/14/17 03/15/17 12:24 12:24 05:14 WBC RBC Hgb Hct MCV MCH MCHC RDW Plt Count MPV Neut % (Auto) Lymph % (Auto) Mercer % (Auto) Eos % (Auto) Baso % (Auto) Neut # Lymph # Mercer # Eos # Baso # Neutrophils % (Manual) Lymphocytes % (Manual) Monocytes % (Manual) Platelet Estimate Anisocytosis (manual) Puncture Site Lr pCO2 23 L pO2 90 HCO3 16.6 L ABG pH 7.37 ABG Total CO2 14.0 L ABG O2 Saturation 99.0 H ABG Base Excess -10.7 L ABG Hemoglobin 8.1 L ABG Carboxyhemoglobin 2.2 H POC ABG HHb (Measured) 1.0 ABG Methemoglobin 1.1 Jorge Test Pos A-a O2 Difference 166.0 Respiratory Index 1.8 Hgb O2 Saturation 95.8 Vent Mode Prvc Mechanical Rate 18 FiO2 40.0 Tidal Volume 450 PEEP 5 Sodium Potassium Chloride Carbon Dioxide Anion Gap BUN Creatinine Est GFR ( Amer) Est GFR (Non-Af Amer) Random Glucose Calcium Phosphorus Magnesium Total Bilirubin AST ALT Alkaline Phosphatase Total Protein Albumin Globulin Albumin/Globulin Ratio Stool Leukocytes, Qual Negative C. difficile Ag & Toxin Negative 03/15/17 03/15/17 06:28 06:28 WBC 34.5 H RBC 3.56 L Hgb 9.9 L Hct 30.2 L MCV 84.9 MCH 27.8 MCHC 32.7 L RDW 19.8 H Plt Count 262 MPV 8.6 Neut % (Auto) 91.0 H Lymph % (Auto) 6.4 L Mercer % (Auto) 2.0 Eos % (Auto) 0.5 Baso % (Auto) 0.1 Neut # 31.3 H Lymph # 2.2 Mercer # 0.7 Eos # 0.2 Baso # 0.0 Neutrophils % (Manual) 93 H Lymphocytes % (Manual) 6 L Monocytes % (Manual) 1 Platelet Estimate Normal Anisocytosis (manual) Moderate Puncture Site pCO2 pO2 HCO3 ABG pH ABG Total CO2 ABG O2 Saturation ABG Base Excess ABG Hemoglobin ABG Carboxyhemoglobin POC ABG HHb (Measured) ABG Methemoglobin Jorge Test A-a O2 Difference Respiratory Index Hgb O2 Saturation Vent Mode Mechanical Rate FiO2 Tidal Volume PEEP Sodium 138 Potassium 3.0 L Chloride 116 H Carbon Dioxide 19 L Anion Gap 6 L BUN 34 H Creatinine 0.9 Est GFR ( Amer) > 60 Est GFR (Non-Af Amer) > 60 Random Glucose 77 Calcium 9.5 Phosphorus 2.9 Magnesium 1.6 Total Bilirubin 0.8 AST 18 ALT 16 L Alkaline Phosphatase 88 Total Protein 4.2 L Albumin 2.1 L Globulin 2.1 L Albumin/Globulin Ratio 1.0 Stool Leukocytes, Qual C. difficile Ag & Toxin Attending/Attestation - Attestation I have personally seen and examined this patient.: Yes I have fully participated in the care of the patient.: Yes I have reviewed all pertinent clinical information: Yes Notes (Text): No change in patient status, tried CPAP with PS for few hrs, patient became tiered and lethargic when switched to PRVC. Has, anasarca, subdural hematoma, right lung cavity lesion which is most likely malignant, severe malnutrition, alcoholism, depression, failure to thrive and refusal of care prior to hospitalization. Spoke to patient's POA Holden at bedside understands that any further aggressive care is futile and would benefit from comfort care. Brother Holden requested me to be in a family meeting which he would like to make around 7pm on Saturday in coming wk, to make decision on further definitive care of the patient. Continue current supportive care and iv abx, gi, dvt prophylaxis. See orders for detail.
--- NOTE | 2017-03-15 23:38 | CP.PCM.PN ---
Subjective - Date & Time of Evaluation Date of Evaluation: 03/15/17 Time of Evaluation: 16:35 - Subjective Subjective: Medical Attending Note Patient seen and examined. Unable to ROS secondary to clinical condition. Patient is on low sedation and undergoing CPAP trial. Objective - Vital Signs/Intake and Output Vital Signs (last 24 hours): Temp Pulse Resp BP Pulse Ox 97.9 F 134 H 19 129/67 99 03/15/17 20:00 03/15/17 21:00 03/15/17 21:00 03/15/17 20:35 03/15/17 21:00 Intake and Output: 03/15/17 03/16/17 18:59 06:59 Intake Total 1908 345 Output Total 310 50 Balance 1598 295 - Medications Medications: Current Medications Albuterol/Ipratropium (Duoneb 3 Mg/0.5 Mg (3 Ml) Ud) 3 ml INH RQ6 [facility] Last Admin: 03/15/17 19:42 Dose: 3 ml Famotidine (Pepcid) 20 mg IVP DAILY [facility] Last Admin: 03/15/17 10:06 Dose: 20 mg Ferrous Sulfate (Feosol Liq) 300 mg NG BID [facility] Last Admin: 03/15/17 17:25 Dose: 300 mg Phenylephrine HCl 60 mg/ (Dextrose) 256 mls @ 5.11 mls/hr IV .Q24H PRN; Protocol; 20 MCG/MIN PRN Reason: TITRATE PER MD ORDER Last Titration: 03/11/17 10:00 Dose: 60 mcg/min, 15.36 mls/hr Propofol (Diprivan) 1,000 mg in 100 mls @ 1.512 mls/hr IV .Q24H PRN; Protocol; 5 MCG/KG/MIN PRN Reason: TITRATE PER MD ORDER Last Titration: 03/15/17 18:00 Dose: 0 mcg/kg/min, 0 mls/hr Lactated Ringer's (Lactated Ringer's) 1,000 mls @ 75 mls/hr IV .[id number] [facility] Last Admin: 03/15/17 08:03 Dose: Not Given Nafcillin Sodium 2 gm/ Sodium (Chloride) 100 mls @ 100 mls/hr IVPB Q6H [facility] Last Admin: 03/15/17 23:02 Dose: 100 mls/hr Lactobacillus Acidophilus (Bacid Acidophilus) 1 cap PO BID [facility] Last Admin: 03/15/17 17:25 Dose: 1 cap Multivitamins/Vitamin C (Multi-Delyn Liquid) 5 ml PO DAILY [facility] Last Admin: 03/15/17 10:07 Dose: 5 ml Nicotine (Nicoderm Cq) 1 patch TD DAILY [facility] Last Admin: 03/15/17 10:07 Dose: 1 patch - Labs Labs: 03/15/17 06:28 03/15/17 06:28 PT 14.1 SECONDS (9.7-12.2) H 03/04/17 20:15 INR 1.3 03/04/17 20:15 APTT 35 SECONDS (21-34) H 03/04/17 20:15 - Constitutional Appears: Confused, Cachectic, Chronically Ill - Head Exam Head Exam: NORMAL INSPECTION Additional comments: abrasions over the frontal - Eye Exam Additional comments: sluggish but reactive pupils - ENT Exam ENT Exam: Mucous Membranes Dry - Respiratory Exam Respiratory Exam: Decreased Breath Sounds, NORMAL BREATHING PATTERN. absent: Stridor - Cardiovascular Exam Cardiovascular Exam: Tachycardia, +S1, +S2 - GI/Abdominal Exam GI & Abdominal Exam: Soft, Normal Bowel Sounds. absent: Distended, Firm, Guarding, Rigid, Tenderness, Rebound - Extremities Exam Extremities Exam: Joint Swelling, Pedal Edema - Neurological Exam Neurological Exam: Awake. absent: Alert Neuro motor strength exam: Left Upper Extremity: 2/1, Right Upper Extremity: 2/1 , Left Lower Extremity: 2/1, Right Lower Extremity: 2/1 - Skin Skin Exam: Dry, Normal Color, Warm Attending/Attestation - Attestation I have personally seen and examined this patient.: Yes I have fully participated in the care of the patient.: Yes I have reviewed all pertinent clinical information, including history, physical exam and plan: Yes Notes (Text): 1). Acute Respiratory Failure * Patient is intubated and on ventilator * 03/15: on low sedation, on CPAP trial. intubated/vent Status: Acute 2). Sepsis Right Lung Cavitary Lesion Possible Pneumonia? Cancer? * Criteria: WBC: 34.5., tachycardia * Procalcitonin: 6.05-->0.72 * Chest xray (03/15): No change in dense right upper love consolidation and inteval development of small right pleural effusion. Stable position of line and tubes * Sputum Culture 03/05/17 shows S. aureus (he is on Vancomycin as above) * Likely secondary to malignancy but rule out TB vs necrotizing pneumonia * off Respiratory Isolation 03/10 * Cefepime 1 gm IV Q12H (03/04/17-) * Vancomycin 1 gm IV Q24 H (03/10/17-) * Nafcillin 2gm [id number] (active since 03/14/17) * Clindamycin 600 mg I VQ8H (03/04/17 through 03/09/17) * Metronidazole 500 mg IV Q8H (03/08/17 through 03/09/17) * Off Pressor (Phenylephrine) since 03/12 * off Hydrocortisone 50 mg IV Q8H since 03/14 * Albumin 25 g IV Q6H x 4 doses given 03/08/17 * LR @ 75 ml/hr * Blood Culture 03/04/17 negative to date * Urine Culture 03/04/17 no growth * HIV Ab is negative * Hepatitis Panel negative * AFB 03/05/17 x 2,03/08/17: preliminary is negative: respiratory isolation discontinued 03/10/17 * PPD on left lower anterior arm is NEGATIVE 03/07/17 * Quanteferon Gold is negative * MRSA Screen is negative * Heme/Onc Dr. Fabienne Patnoja * [facility] * ID Dr. Wilberto Sanches Status: Acute 3). Anemia * Likely chronic considering his history of alcohol abuse and possible malignancy * Ewelina Pantoja (heme-onc) on the case * Iron level is low: Ferrous Sulfate 300 mg via NG 2x/day (03/07/17) * Reticulocyte count normal at 0.9 * Vitamin B12 elevated above 1000 * Folate normal at 3.5 * F/U Peripheral Smear Status: Chronic 4). Hypophosphotemia and Hypokalemia * KPhos 15mmol IV x 1dose given 03/06/17 * Phos normalized and K have normalized Status: Acute 5). Alcohol Abuse Malnutrition * Banana Bag @ 75 ml/hour once a day * Multivitamin 5ML PO daily * Folic acid 1mg IV daily * Pulmcare via NGT * Low Albumin Status: Chronic 6). Hypercalcemia * This is fluctuating between high and low * Albumin low * Calcitonin [place] 200 IU SC BID x 6 dose was ordered 03/08/17 however not carried here by pharmacy. * Nephrology recommends Zometa or Pamidronate once GFR improves if Ca remaines elevated Status: Acute 7). Subdural Hematomas * CT Head w/o contrast 03/06/17: chronic bilateral subdural hematomas left larger than right. There is also a very small sliver of a hyperdense hemorrhage within the left sided collection possibly by the larger hypodense subdural component by membrane. The collections exert relatively symmetrical offsetting mass effect with compression of both cerebral hemispheres and ventricular system with no significant midline shift. * CT Head w/o contrast 03/07/17: bilateral acute on chronic subdural collections similar to those seen on prior study 03/06/17, nomral ventricular size, no midline shift * F/U EEG from 03/07/17 * Neurology Dr. Moore * 03/08-->per neurology, prognosis poor * 03/15: ICU has ordered repeat CT head Status: Acute 8). Acute Kidney Injury * Nephrology on the case-->help appreciated * Improving * Unable to given Calcitonin sq not available in our pharmacy once GFR recovers * normalized Status: Acute 9). Stage I Sacral Ulcer * Optifoam Dressing * Mercedes d/c. Status: Acute 10). Diarrhea-->resolved * Patient was on Reglan 10mg IV Q6 (03/11-) d/c * Ordered Stool ova and parasite: none, culture, and C. Dif toxin: negative and leukocytes: negative Status: Acute 11). Tobacco Abuse * start Nicotine 21/24 hour 1 transdermal patch daily * History of heavy tobacco abuse Status: Chronic 12). Prophylaxis * Pulmcare via NGT * d/c Protonix 40 mg IV 1x/day to prevent C. dif-->switch to Pepcid 20mg IV daily * Bacid 1 tab PO daily * Low Vitamin D: 50,000 units once a week starting 03/08/17 and end 04/26/17 * NO anticoagulation considering the anemia: Bilateral SCDs * Vitamin C 500mg PO Q12 * Colace 100 mg PO 2x/day * Patient's brother Holden Abarca [phone] and [id number] Sarah Abarca [phone] * POLST in Chart: DNR with limited treatment Status: Acute
[2017-03-16] MEDS: Albuterol-Ipratrop 3 mg / 0.5 (3 ml) UD INH SCH ×4 (02:47→19:56)
[2017-03-16 04:23] LABS: ABG ALLEN TEST POS; ABG MECHANICAL RATE 18; ARTERIAL BLOOD GAS MODE PRVC; ARTERIAL BLOOD HGB O2 SAT 96.2 % (95.0-98.0); ATERIAL BLOOD GAS PEEP 5; CARBOXYHEMOGLOBIN 2.7 % (0.5-1.5); DRAW SITE RR; HHB -0.1 % (0.0-5.0); METHEMOGLOBIN 1.2 % (0.0-3.0)
--- NOTE | 2017-03-16 04:54 | RAD ---
EXAM: XR Chest, 1 View CLINICAL HISTORY: 56 years old, male; Pain; Chest pain; Patient HX: 03-15-17; Additional info: Distress TECHNIQUE: Frontal view of the chest. COMPARISON: DX - CHEST ONE VIEW 2017-03-15 07:14 FINDINGS: Lungs: There is stable patchy consolidation and opacification of the right upper lobe with interval hyperlucency medial to the consolidation cavitation versus pneumatocele cannot be excluded if clinically suspected. Bibasilar right middle lobe and lingular nonspecific infiltrates and consolidation are present, consistent with atelectasis or pneumonia versus edema versus aspiration versus mucous plugging. Pleural space: There are bilateral moderate pleural effusions. No pneumothorax. Heart: Unremarkable. No cardiomegaly. Mediastinum: Unremarkable. Bones/joints: Unremarkable. Tubes, lines and devices: There is right-sided central venous line with tip in the distal SVC. NG tube is in the gastric fundus. The endotracheal tube is above the megan. IMPRESSION: 1. There are bilateral moderate pleural effusions. 2. There is stable patchy consolidation and opacification of the right upper lobe with interval hyperlucency medial to the consolidation cavitation versus pneumatocele cannot be excluded if clinically suspected. 3. Bibasilar right middle lobe and lingular nonspecific infiltrates and consolidation are present, consistent with atelectasis or pneumonia versus edema versus aspiration versus mucous plugging.
[2017-03-16 07:05] LABS: BASO # 0.1 K/uL (0.0-0.2); BASO % 0.3 % (0.0-2.0); EOS # 0.1 K/uL (0.0-0.7); EOS % 0.2 % (0.0-4.0); HEMATOCRIT 28.9 % (35.0-51.0); LYMPH # 1.2 K/uL (1.0-4.3); LYMPH % 4.6 % (20.0-40.0); MEAN CELL VOLUME 87.8 fL (80.0-94.0); MEAN CORPUSCULAR HEMOGLOBIN 27.7 pg (27.0-31.0); MEAN CORPUSCULAR HGB CONC 31.6 g/dL (33.0-37.0); MEAN PLATELET VOLUME 8.8 fL (7.2-11.7); MONO # 0.4 K/uL (0.0-0.8); MONO % 1.4 % (0.0-10.0); PLATELET COUNT 188 K/uL (130-400); RED CELL DISTRIBUTION WIDTH 23.5 % (11.5-14.5); WHITE BLOOD COUNT 26.5 K/uL (4.8-10.8)
[2017-03-16] MEDS: Nafcillin 2 GM in Sodium Chloride 0.9% 100 ML IVPB SCH ×4 (07:30→23:38)
[2017-03-16 07:32] LABS: ALB/GLOB RATIO 0.7 (1.0-2.1); ALKALINE PHOSPHATASE 90 U/L (38-126); ALT/SGPT 21 U/L (21-72); AST/SGOT 38 U/L (17-59); BILIRUBIN,TOTAL 0.9 mg/dL (0.2-1.3); BLOOD UREA NITROGEN 38 mg/dL (9-20); CALCIUM 8.8 mg/dl (8.6-10.4); CARBON DIOXIDE 21 mmol/L (22-30); CHLORIDE 116 mmol/L (98-107); GFR AFRICAN-AMERICAN > 60; GLUCOSE,RANDOM 104 mg/dL (75-110); MAGNESIUM 1.8 mg/dL (1.6-2.3); PHOSPHOROUS 3.8 mg/dL (2.5-4.5); POTASSIUM 4.1 mmol/L (3.6-5.2); SODIUM 141 mmol/L (132-148); TOTAL PROTEIN 5.1 g/dL (6.3-8.3)
--- NOTE | 2017-03-16 08:19 | CP.PCM.PN ---
Subjective - Date & Time of Evaluation Date of Evaluation: 03/16/17 Time of Evaluation: 08:15 - Subjective Subjective: Medical Attending Note: Patient seen and examined this morning. Patient is off sedation and on CPAP. No family present at bedside. Patient is spontaneously moving head but when I say his name he does not respond directly to move. He is severely weak and cachetic. Objective - Vital Signs/Intake and Output Vital Signs (last 24 hours): Temp Pulse Resp BP Pulse Ox 100.1 F H 128 H 15 113/65 94 L 03/16/17 04:00 03/16/17 06:00 03/16/17 05:00 03/16/17 03:54 03/16/17 06:00 Intake and Output: 03/16/17 03/16/17 06:59 18:59 Intake Total 1400 Output Total 80 Balance 1320 - Medications Medications: Current Medications Albuterol/Ipratropium (Duoneb 3 Mg/0.5 Mg (3 Ml) Ud) 3 ml INH RQ6 [facility] Last Admin: 03/16/17 02:47 Dose: Not Given Famotidine (Pepcid) 20 mg IVP DAILY [facility] Last Admin: 03/15/17 10:06 Dose: 20 mg Ferrous Sulfate (Feosol Liq) 300 mg NG BID [facility] Last Admin: 03/15/17 17:25 Dose: 300 mg Phenylephrine HCl 60 mg/ (Dextrose) 256 mls @ 5.11 mls/hr IV .Q24H PRN; Protocol; 20 MCG/MIN PRN Reason: TITRATE PER MD ORDER Last Titration: 03/11/17 10:00 Dose: 60 mcg/min, 15.36 mls/hr Propofol (Diprivan) 1,000 mg in 100 mls @ 1.512 mls/hr IV .Q24H PRN; Protocol; 5 MCG/KG/MIN PRN Reason: TITRATE PER MD ORDER Last Titration: 03/15/17 18:00 Dose: 0 mcg/kg/min, 0 mls/hr Lactated Ringer's (Lactated Ringer's) 1,000 mls @ 75 mls/hr IV .[id number] [facility] Last Admin: 03/15/17 08:03 Dose: Not Given Nafcillin Sodium 2 gm/ Sodium (Chloride) 100 mls @ 100 mls/hr IVPB Q6H [facility] Last Admin: 03/15/17 23:02 Dose: 100 mls/hr Lactobacillus Acidophilus (Bacid Acidophilus) 1 cap PO BID [facility] Last Admin: 03/15/17 17:25 Dose: 1 cap Multivitamins/Vitamin C (Multi-Delyn Liquid) 5 ml PO DAILY [facility] Last Admin: 03/15/17 10:07 Dose: 5 ml Nicotine (Nicoderm Cq) 1 patch TD DAILY [facility] Last Admin: 03/15/17 10:07 Dose: 1 patch - Labs Labs: 03/16/17 06:58 03/16/17 06:58 PT 14.1 SECONDS (9.7-12.2) H 03/04/17 20:15 INR 1.3 03/04/17 20:15 APTT 35 SECONDS (21-34) H 03/04/17 20:15 - Constitutional Appears: Agitated, Cachectic, Chronically Ill - Head Exam Head Exam: NORMAL INSPECTION Additional comments: abrasions over frontal head intubated Prevalon boots mittens - Eye Exam Eye Exam: absent: Nystagmus, Scleral icterus Additional comments: sluggish reactive - ENT Exam ENT Exam: Mucous Membranes Dry - Respiratory Exam Respiratory Exam: Decreased Breath Sounds, NORMAL BREATHING PATTERN. absent: Rales, Stridor - Cardiovascular Exam Cardiovascular Exam: Tachycardia, +S1, +S2 - GI/Abdominal Exam GI & Abdominal Exam: Soft, Normal Bowel Sounds. absent: Distended, Firm, Guarding, Rigid, Tenderness, Rebound - Extremities Exam Extremities Exam: Joint Swelling, Pedal Edema. absent: Tenderness Additional comments: b/l upper and lower extremities pitting - Neurological Exam Neurological Exam: Awake. absent: Alert - Skin Skin Exam: Dry, Normal Color, Warm Assessment and Plan - Assessment and Plan (Free Text) Assessment: 1). Acute Respiratory Failure * Patient is intubated and on ventilator * 03/16: off sedation, on CPAP. intubated/vent Status: Acute 2). Sepsis Right Lung Cavitary Lesion Possible Pneumonia? Cancer? * Criteria: WBC: 26.5.0, tachycardia * Procalcitonin: 6.05-->0.72 * Chest xray (03/16): bilateral moderate pleural effusions. Stable pathcy consolidation and opacification of the right upper love with interval hyperlucency medial to consolidation cavitation versus pneumatocele cannot be excluded if clinically suspected. Bibasilar right middle lobe and lingualr nonspecific infiltrates and conslidation are present, consistent with atelectasis or pneumonia versus edema versus aspiration versus mucous plugging * Sputum Culture 03/05/17 shows S. aureus (he is on Vancomycin as above) * Likely secondary to malignancy but rule out TB vs necrotizing pneumonia * off Respiratory Isolation 03/10 * Cefepime 1 gm IV Q12H (03/04/17-) * Vancomycin 1 gm IV Q24 H (03/10/17-) * Nafcillin 2gm [id number] (active since 03/14/17) * Clindamycin 600 mg I VQ8H (03/04/17 through 03/09/17) * Metronidazole 500 mg IV Q8H (03/08/17 through 03/09/17) * Off Pressor (Phenylephrine) since 03/12 * off Hydrocortisone 50 mg IV Q8H since 03/14 * Albumin 25 g IV Q6H x 4 doses given 03/08/17 * LR @ 75 ml/hr * Blood Culture 03/04/17 negative to date * Urine Culture 03/04/17 no growth * HIV Ab is negative * Hepatitis Panel negative * AFB 03/05/17 x 2,03/08/17: preliminary is negative: respiratory isolation discontinued 03/10/17 * PPD on left lower anterior arm is NEGATIVE 03/07/17 * Quanteferon Gold is negative * MRSA Screen is negative * Heme/Onc Dr. Fabienne Pantoja * Palliative Care Nurse [facility] * ID Dr. Wilberto Sanches Status: Acute 3). Anemia * Likely chronic considering his history of alcohol abuse and possible malignancy * Ewelina Pantoja (heme-onc) on the case * Iron level is low: Ferrous Sulfate 300 mg via NG 2x/day (03/07/17) * Reticulocyte count normal at 0.9 * Vitamin B12 elevated above 1000 * Folate normal at 3.5 * F/U Peripheral Smear Status: Chronic 4). Hypophosphotemia and Hypokalemia * KPhos 15mmol IV x 1dose given 03/06/17 * Phos normalized and K have normalized Status: Acute 5). Alcohol Abuse Malnutrition * Banana Bag @ 75 ml/hour once a day * Multivitamin 5ML PO daily * Folic acid 1mg IV daily * Pulmcare via NGT * Low Albumin Status: Chronic 6). Hypercalcemia * This is fluctuating between high and low * Albumin low * Calcitonin [place] 200 IU SC BID x 6 dose was ordered 03/08/17 however not carried here by pharmacy. * Nephrology recommends Zometa or Pamidronate once GFR improves if Ca remaines elevated Status: Acute 7). Subdural Hematomas * CT Head w/o contrast 03/06/17: chronic bilateral subdural hematomas left larger than right. There is also a very small sliver of a hyperdense hemorrhage within the left sided collection possibly by the larger hypodense subdural component by membrane. The collections exert relatively symmetrical offsetting mass effect with compression of both cerebral hemispheres and ventricular system with no significant midline shift. * CT Head w/o contrast 03/07/17: bilateral acute on chronic subdural collections similar to those seen on prior study 03/06/17, nomral ventricular size, no midline shift * F/U EEG from 03/07/17 * Neurology Dr. Moore * 03/08-->per neurology, prognosis poor * 03/16: pending read from repeat CT head ordered yesterday Status: Acute 8). Acute Kidney Injury * Nephrology on the case-->help appreciated * Improving * Unable to given Calcitonin sq not available in our pharmacy once GFR recovers * normalized Status: Acute 9). Stage I Sacral Ulcer * Optifoam Dressing * Mercedes d/c. Status: Acute 10). Diarrhea-->resolved * Patient was on Reglan 10mg IV Q6 (03/11-) d/c * Ordered Stool ova and parasite: none, culture, and C. Dif toxin: negative and leukocytes: negative Status: Acute 11). Tobacco Abuse * start Nicotine 21/24 hour 1 transdermal patch daily * History of heavy tobacco abuse Status: Chronic 12). Prophylaxis * Pulmcare via NGT * d/c Protonix 40 mg IV 1x/day to prevent C. dif-->switch to Pepcid 20mg IV daily * Bacid 1 tab PO daily * Low Vitamin D: 50,000 units once a week starting 03/08/17 and end 04/26/17 * NO anticoagulation considering the anemia: Bilateral SCDs * Vitamin C 500mg PO Q12 * Colace 100 mg PO 2x/day * Patient's brother Holden Abarca [phone] and [id number] Sarah Abarca [phone] * Attempted to call Holden to provide update but left to voicemail 03/16 will attempt to call in afternoon; Discussed with colleague,Dr Torres in regards to conversation last night. * POLST in Chart: DNR with limited treatment Status: Acute
[2017-03-16 08:50] LABS: NEUTROPHIL 88 % (50-75); TOTAL CELLS COUNTED 100
[2017-03-16] MEDS: Lactobacillus Acidophilus 500 MU Cap PO SCH ×2 (09:53→18:58)
[2017-03-16] MEDS: Ferrous Sulfate 300 mg/5 mL Liq UD NG SCH (09:53)
[2017-03-16] MEDS: Multiple Vitamins Oral Solution PO SCH (09:57)
--- NOTE | 2017-03-16 14:52 | CP.CCUPN ---
CCU Subjective - Physician Review Events Since Last Encounter (Free Text): 03/16/17 14:50 Patient with a severe pneumonia, possibly right lung mass unclear Acute respiratory failure, on ventilator. Patient is having no fever now, tolerating the CPAP today. Patient is more awake and responding. Currently on antibiotic. No fever today Tolerating the feeding Vital signs reviewed No neck vein distention noted Reduce air entry in right lung CVS regular heart sound, no murmur noted Abdomen soft, nontender. Extremities no pedal edema [employer]ILD [employer] alert awake oriented -3, no functional neurological deficit Chest x-ray no new changes, labs included Improving WBC Assessment and recommendation: 56-year-old male with necrotizing pneumonia admitted with acute respiratory distress. On ventilator. We'll continue the weaning process. CPAP trial, SIMV trial. We'll try to wean the possible CCU Objective - Vital Signs / Intake & Output Vital Signs (Last 4 hours): Vital Signs Pulse Resp BP Pulse Ox 03/16/17 11:17 113 H 14 100/60 100 Intake and Output (Last 8hrs): Intake & Output 03/15/17 03/16/17 03/16/17 22:59 06:59 14:59 Intake Total 1086 915 340 Output Total 205 0 Balance 881 915 340 Weight 117 lb Intake: IV 10 Intake, IV Amount 656 675 300 Right Distal Port 550 675 300 Internal Jugular Right Medial Port 100 Internal Jugular Right Proximal Port 6 Internal Jugular Tube Feeding 320 240 40 Other 100 Output: Urine 205 Urine, Voided 205 Stool 0 Other: # Bowel Movements 0 - Physical Exam Head: Positive for: Atraumatic, Normocephalic, Abrasion (top of head, heal. no erythema), Other (temporalis atrophy) Pupils: Positive for: Sluggish (Left eye), Other (Right eye dilated 3mm, fixed.) Conjunctiva: Positive for: Normal Mouth: Positive for: Moist Mucous Membranes, Other (intubated) Respiratory/Chest: Positive for: Decreased Breath Sounds (RUL), Rhonchi Cardiovascular: Positive for: Regular Rate and Rhythm, Murmurs, Normal S1, S2, Tachycardic Abdomen: Negative for: Tenderness, Distention, Peritoneal Signs Upper Extremity: Positive for: Normal Inspection, NORMAL PULSES. Negative for: Edema Lower Extremity: Positive for: Normal Inspection, NORMAL PULSES. Negative for: Edema, CALF TENDERNESS Neurological: Positive for: Other (intubated) Skin: Positive for: Warm, Dry Psychiatric: Positive for: Other (intubated) - Medications Active Medications: Active Medications Generic Name Dose Route Start Last Admin Trade Name Freq PRN Reason Stop Dose Admin Albuterol/Ipratropium 3 ml 03/13/17 20:00 03/16/17 13:52 Duoneb 3 Mg/0.5 Mg (3 Ml) Ud INH 3 ml RQ6 JACK Administration Famotidine 20 mg 03/15/17 10:00 03/16/17 09:53 Pepcid IVP 20 mg DAILY JACK Administration Phenylephrine HCl 60 mg/ 256 mls @ 5.11 mls/hr 03/08/17 18:45 03/11/17 10:00 Dextrose IV 60 mcg/min .Q24H PRN 15.36 mls/hr TITRATE PER MD ORDER Titration Protocol 20 MCG/MIN Propofol 1,000 mg in 100 mls @ 1.512 mls/hr 03/11/17 17:38 03/15/17 18:00 Diprivan IV 0 mcg/kg/min .Q24H PRN 0 mls/hr TITRATE PER MD ORDER Titration Protocol 5 MCG/KG/MIN Nafcillin Sodium 2 gm/ Sodium 100 mls @ 100 mls/hr 03/14/17 12:00 03/16/17 13 :00 Chloride IVPB 100 mls/hr Q6H JACK Administration Lactobacillus Acidophilus 1 cap 03/14/17 18:00 03/16/17 09:53 Bacid Acidophilus PO 1 cap BID JACK Administration Multivitamins/Vitamin C 5 ml 03/10/17 10:00 03/16/17 09:57 Multi-Delyn Liquid PO 5 ml DAILY JACK Administration Nicotine 1 patch 03/11/17 10:00 03/16/17 12:00 Nicoderm Cq TD 1 patch DAILY JACK Administration - Patient Studies Lab Studies: Microbiology Studies 03/08/17 11:26 Mycobacterial Culture - Preliminary Other: Please Indicate 03/05/17 21:58 Mycobacterial Culture - Preliminary Other: Please Indicate 03/14/17 12:23 Ova and Parasite Concentrate Exam - Final Stool Lab Studies 03/16/17 03/16/17 03/16/17 Range/Units 11:33 06:58 06:58 WBC 26.5 H (4.8-10.8) K/uL RBC 3.29 L (4.40-5.90) Mil/uL Hgb 9.1 L (12.0-18.0) g/dL Hct 28.9 L (35.0-51.0) % MCV 87.8 D (80.0-94.0) fL MCH 27.7 (27.0-31.0) pg MCHC 31.6 L (33.0-37.0) g/dL RDW 23.5 H (11.5-14.5) % Plt Count 188 (130-400) K/uL MPV 8.8 (7.2-11.7) fL Neut % (Auto) 93.5 H (50.0-75.0) % Lymph % (Auto) 4.6 L (20.0-40.0) % [place] % (Auto) 1.4 (0.0-10.0) % Eos % (Auto) 0.2 (0.0-4.0) % Baso % (Auto) 0.3 (0.0-2.0) % Neut # 24.8 H (1.8-7.0) K/uL Lymph # 1.2 (1.0-4.3) K/uL [place] # 0.4 (0.0-0.8) K/uL Eos # 0.1 (0.0-0.7) K/uL Baso # 0.1 (0.0-0.2) K/uL Neutrophils % (Manual) 88 H (50-75) % Band Neutrophils % 4 H (0-2) % Lymphocytes % (Manual) 4 L (20-40) % Monocytes % (Manual) 4 (0-10) % Platelet Estimate Normal (NORMAL) Polychromasia Slight Hypochromasia (manual) Slight Poikilocytosis (manual Slight Basophilic Stippling Slight Anisocytosis (manual) Moderate Puncture Site pCO2 (35-45) mm/Hg pO2 (80-100) mm/Hg HCO3 (21-28) mmol/L ABG pH (7.35-7.45) ABG Total CO2 (22-28) mmol/L ABG O2 Saturation (95-98) % ABG Base Excess (-2.0-3.0) mmol/L ABG Hemoglobin (11.7-17.4) g/dL ABG Carboxyhemoglobin (0.5-1.5) % POC ABG HHb (Measured) (0.0-5.0) % ABG Methemoglobin (0.0-3.0) % Jorge Test A-a O2 Difference mm/Hg Respiratory Index Hgb O2 Saturation (95.0-98.0) % Vent Mode Mechanical Rate FiO2 % Tidal Volume PEEP Sodium 141 (132-148) mmol/L Potassium 4.1 (3.6-5.2) mmol/L Chloride 116 H (98-107) mmol/L Carbon Dioxide 21 L (22-30) mmol/L Anion Gap 8 L (10-20) BUN 38 H (9-20) mg/dL Creatinine 1.0 (0.8-1.5) mg/dL Est GFR ( Amer) > 60 Est GFR (Non-Af Amer) > 60 POC Glucose (mg/dL) 100 (65-110) mg/dL Random Glucose 104 (75-110) mg/dL Calcium 8.8 (8.6-10.4) mg/dl Phosphorus 3.8 (2.5-4.5) mg/dL Magnesium 1.8 (1.6-2.3) mg/dL Total Bilirubin 0.9 (0.2-1.3) mg/dL AST 38 (17-59) U/L ALT 21 D (21-72) U/L Alkaline Phosphatase 90 (38-126) U/L Total Protein 5.1 L (6.3-8.3) g/dL Albumin 2.0 L (3.5-5.0) g/dL Globulin 3.1 (2.2-3.9) gm/dL Albumin/Globulin Ratio 0.7 L (1.0-2.1) 03/16/17 Range/Units 04:19 WBC (4.8-10.8) K/uL RBC (4.40-5.90) Mil/uL Hgb (12.0-18.0) g/dL Hct (35.0-51.0) % MCV (80.0-94.0) fL MCH (27.0-31.0) pg MCHC (33.0-37.0) g/dL RDW (11.5-14.5) % Plt Count (130-400) K/uL MPV (7.2-11.7) fL Neut % (Auto) (50.0-75.0) % Lymph % (Auto) (20.0-40.0) % [place] % (Auto) (0.0-10.0) % Eos % (Auto) (0.0-4.0) % Baso % (Auto) (0.0-2.0) % Neut # (1.8-7.0) K/uL Lymph # (1.0-4.3) K/uL [place] # (0.0-0.8) K/uL Eos # (0.0-0.7) K/uL Baso # (0.0-0.2) K/uL Neutrophils % (Manual) (50-75) % Band Neutrophils % (0-2) % Lymphocytes % (Manual) (20-40) % Monocytes % (Manual) (0-10) % Platelet Estimate (NORMAL) Polychromasia Hypochromasia (manual) Poikilocytosis (manual Basophilic Stippling Anisocytosis (manual) Puncture Site Rr pCO2 48 H (35-45) mm/Hg pO2 214 H (80-100) mm/Hg HCO3 18.4 L (21-28) mmol/L ABG pH 7.21 L (7.35-7.45) ABG Total CO2 20.7 L (22-28) mmol/L ABG O2 Saturation 100.1 H (95-98) % ABG Base Excess -8.4 L (-2.0-3.0) mmol/L ABG Hemoglobin 9.5 L (11.7-17.4) g/dL ABG Carboxyhemoglobin 2.7 H (0.5-1.5) % POC ABG HHb (Measured) -0.1 L (0.0-5.0) % ABG Methemoglobin 1.2 (0.0-3.0) % Jorge Test Pos A-a O2 Difference 439.0 mm/Hg Respiratory Index 2.1 Hgb O2 Saturation 96.2 (95.0-98.0) % Vent Mode Prvc Mechanical Rate 18 FiO2 100.0 % Tidal Volume 450 PEEP 5 Sodium (132-148) mmol/L Potassium (3.6-5.2) mmol/L Chloride (98-107) mmol/L Carbon Dioxide (22-30) mmol/L Anion Gap (10-20) BUN (9-20) mg/dL Creatinine (0.8-1.5) mg/dL Est GFR ( Amer) Est GFR (Non-Af Amer) POC Glucose (mg/dL) (65-110) mg/dL Random Glucose (75-110) mg/dL Calcium (8.6-10.4) mg/dl Phosphorus (2.5-4.5) mg/dL Magnesium (1.6-2.3) mg/dL Total Bilirubin (0.2-1.3) mg/dL AST (17-59) U/L ALT (21-72) U/L Alkaline Phosphatase (38-126) U/L Total Protein (6.3-8.3) g/dL Albumin (3.5-5.0) g/dL Globulin (2.2-3.9) gm/dL Albumin/Globulin Ratio (1.0-2.1) Laboratory Results - last 24 hr 03/16/17 03/16/17 03/16/17 04:19 06:58 06:58 WBC 26.5 H RBC 3.29 L Hgb 9.1 L Hct 28.9 L MCV 87.8 D MCH 27.7 MCHC 31.6 L RDW 23.5 H Plt Count 188 MPV 8.8 Neut % (Auto) 93.5 H Lymph % (Auto) 4.6 L [place] % (Auto) 1.4 Eos % (Auto) 0.2 Baso % (Auto) 0.3 Neut # 24.8 H Lymph # 1.2 [place] # 0.4 Eos # 0.1 Baso # 0.1 Neutrophils % (Manual) 88 H Band Neutrophils % 4 H Lymphocytes % (Manual) 4 L Monocytes % (Manual) 4 Platelet Estimate Normal Polychromasia Slight Hypochromasia (manual) Slight Poikilocytosis (manual Slight Basophilic Stippling Slight Anisocytosis (manual) Moderate Puncture Site Rr pCO2 48 H pO2 214 H HCO3 18.4 L ABG pH 7.21 L ABG Total CO2 20.7 L ABG O2 Saturation 100.1 H ABG Base Excess -8.4 L ABG Hemoglobin 9.5 L ABG Carboxyhemoglobin 2.7 H POC ABG HHb (Measured) -0.1 L ABG Methemoglobin 1.2 Jorge Test Pos A-a O2 Difference 439.0 Respiratory Index 2.1 Hgb O2 Saturation 96.2 Vent Mode Prvc Mechanical Rate 18 FiO2 100.0 Tidal Volume 450 PEEP 5 Sodium 141 Potassium 4.1 Chloride 116 H Carbon Dioxide 21 L Anion Gap 8 L BUN 38 H Creatinine 1.0 Est GFR ( Amer) > 60 Est GFR (Non-Af Amer) > 60 POC Glucose (mg/dL) Random Glucose 104 Calcium 8.8 Phosphorus 3.8 Magnesium 1.8 Total Bilirubin 0.9 AST 38 ALT 21 D Alkaline Phosphatase 90 Total Protein 5.1 L Albumin 2.0 L Globulin 3.1 Albumin/Globulin Ratio 0.7 L 03/16/17 11:33 WBC RBC Hgb Hct MCV MCH MCHC RDW Plt Count MPV Neut % (Auto) Lymph % (Auto) [place] % (Auto) Eos % (Auto) Baso % (Auto) Neut # Lymph # [place] # Eos # Baso # Neutrophils % (Manual) Band Neutrophils % Lymphocytes % (Manual) Monocytes % (Manual) Platelet Estimate Polychromasia Hypochromasia (manual) Poikilocytosis (manual Basophilic Stippling Anisocytosis (manual) Puncture Site pCO2 pO2 HCO3 ABG pH ABG Total CO2 ABG O2 Saturation ABG Base Excess ABG Hemoglobin ABG Carboxyhemoglobin POC ABG HHb (Measured) ABG Methemoglobin Jorge Test A-a O2 Difference Respiratory Index Hgb O2 Saturation Vent Mode Mechanical Rate FiO2 Tidal Volume PEEP Sodium Potassium Chloride Carbon Dioxide Anion Gap BUN Creatinine Est GFR ( Amer) Est GFR (Non-Af Amer) POC Glucose (mg/dL) 100 Random Glucose Calcium Phosphorus Magnesium Total Bilirubin AST ALT Alkaline Phosphatase Total Protein Albumin Globulin Albumin/Globulin Ratio Fingerstick Blood Sugar Results: 94
[2017-03-17] MEDS: Albuterol-Ipratrop 3 mg / 0.5 (3 ml) UD INH SCH ×4 (03:04→19:54)
[2017-03-17] MEDS: Nafcillin 2 GM in Sodium Chloride 0.9% 100 ML IVPB SCH ×3 (05:08→17:03)
[2017-03-17 06:17] LABS: ABG ALLEN TEST POS; ABG MECHANICAL RATE 14; ARTERIAL BLOOD GAS MODE SIMV/PS; ARTERIAL BLOOD HGB O2 SAT 96.9 % (95.0-98.0); ATERIAL BLOOD GAS PEEP 5; CARBOXYHEMOGLOBIN 2.4 % (0.5-1.5); DRAW SITE RR; HHB 0.1 % (0.0-5.0); METHEMOGLOBIN 0.6 % (0.0-3.0)
[2017-03-17 07:01] LABS: BASO % 0.2 % (0.0-2.0); EOS # 0.1 K/uL (0.0-0.7); EOS % 0.8 % (0.0-4.0); HEMATOCRIT 25.8 % (35.0-51.0); LYMPH # 2.3 K/uL (1.0-4.3); LYMPH % 14.2 % (20.0-40.0); MEAN CELL VOLUME 87.9 fL (80.0-94.0); MEAN CORPUSCULAR HEMOGLOBIN 28.1 pg (27.0-31.0); MEAN PLATELET VOLUME 8.8 fL (7.2-11.7); MONO # 0.6 K/uL (0.0-0.8); MONO % 3.5 % (0.0-10.0); RED CELL DISTRIBUTION WIDTH 25.6 % (11.5-14.5)
[2017-03-17 07:14] LABS: ALB/GLOB RATIO 0.8 (1.0-2.1); ALKALINE PHOSPHATASE 102 U/L (38-126); ALT/SGPT 21 U/L (21-72); AST/SGOT 16 U/L (17-59); BILIRUBIN,TOTAL 1.1 mg/dL (0.2-1.3); BLOOD UREA NITROGEN 43 mg/dL (9-20); CALCIUM 8.5 mg/dl (8.6-10.4); CARBON DIOXIDE 21 mmol/L (22-30); CHLORIDE 117 mmol/L (98-107); GFR AFRICAN-AMERICAN > 60; GLUCOSE,RANDOM 120 mg/dL (75-110); MAGNESIUM 1.9 mg/dL (1.6-2.3); PHOSPHOROUS 3.3 mg/dL (2.5-4.5); POTASSIUM 3.6 mmol/L (3.6-5.2); SODIUM 143 mmol/L (132-148); TOTAL PROTEIN 4.7 g/dL (6.3-8.3)
--- NOTE | 2017-03-17 08:04 | CT ---
PROCEDURE: CT HEAD WITHOUT CONTRAST. HISTORY: f/u of subdural hematoma COMPARISON: 03/07/2017 TECHNIQUE: Axial computed tomography images were obtained through the head/brain without intravenous contrast. Radiation dose: Total exam DLP = 2133.6 mGy-cm. This CT exam was performed using one or more of the following dose reduction techniques: Automated exposure control, adjustment of the mA and/or kV according to patient size, and/or use of iterative reconstruction technique. FINDINGS: HEMORRHAGE: No intracranial hemorrhage. BRAIN: Extra-axial fluid collections, bilateral approximately symmetrical subdural hygromas. No significant interval change compared to the prior examination(s). VENTRICLES: Unremarkable. No hydrocephalus. CALVARIUM: Unremarkable. PARANASAL SINUSES: Opacification left maxillary sinus likely a combination of acute and chronic sinusitis MASTOID AIR CELLS: Unremarkable as visualized. No inflammatory changes. OTHER FINDINGS: None. IMPRESSION: No acute intracranial abnormalities. No significant findings to account for the clinical presentation. No significant interval change compared to the prior examination(s). Concordant results (preliminary interpretation) provided by [employer]. Procedure Completed: 21:11 Preliminary ([facility]) Report: Dictated and Authenticated: 21:50 Final Interpretation: 07:59 03/17/2017
--- NOTE | 2017-03-17 09:20 | RAD ---
HISTORY: follow up COMPARISON: 03/16/2017 FINDINGS: The endotracheal tube, right IJV line and nasogastric tube are in stable position. LUNGS: There is redemonstration of dense right upper lobe opacity with aeration in the medial aspect of the right upper lobe. The left lung is clear. PLEURA: No significant pleural effusion identified, no pneumothorax apparent. CARDIOVASCULAR: Normal. OSSEOUS STRUCTURES: No significant abnormalities. VISUALIZED UPPER ABDOMEN: Normal. OTHER FINDINGS: None. IMPRESSION: No change in right upper lobe consolidation versus loculated pleural effusion. Stable position of support line and tubes.
[2017-03-17] MEDS: Lactobacillus Acidophilus 500 MU Cap PO SCH ×2 (09:27→17:02)
[2017-03-17] MEDS: Multiple Vitamins Oral Solution PO SCH (09:27)
--- NOTE | 2017-03-17 16:13 | CP.CCUPN ---
CCU Subjective - Physician Review Events Since Last Encounter (Free Text): 03/17/17 16:12 Patient with a severe pneumonia, possibly right lung mass unclear Acute respiratory failure, on ventilator. Patient is having no fever now, tolerating the SIMV but mild tachypneic Patient is more awake and responding. Currently on antibiotic. No fever today Tolerating the feeding Vital signs reviewed No neck vein distention noted Reduce air entry in right lung CVS regular heart sound, no murmur noted Abdomen soft, nontender. 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 On ventilator. We'll continue the weaning process. CPAP trial, SIMV trial. We'll try to wean the possible CCU Objective - Vital Signs / Intake & Output Vital Signs (Last 4 hours): Vital Signs Pulse Resp BP Pulse Ox 03/17/17 16:00 124 H 18 100 03/17/17 15:19 116 H 16 115/73 100 03/17/17 15:00 119 H 16 100 03/17/17 14:19 120 H 18 117/72 99 03/17/17 14:00 122 H 17 98 03/17/17 13:19 125 H 16 117/71 99 03/17/17 13:00 126 H 19 99 03/17/17 12:19 119 H 19 120/72 99 Intake and Output (Last 8hrs): Intake & Output 03/17/17 03/17/17 03/17/17 06:59 14:59 22:59 Intake Total 500 600 100 Balance 500 600 100 Weight 117 lb 8 oz Intake: Intake, IV Amount 100 100 Right Distal Port 100 Internal Jugular Right Proximal Port 100 Internal Jugular Tube Feeding 400 400 100 Other 100 - Physical Exam Head: Positive for: Atraumatic, Normocephalic, Abrasion (top of head, heal. no erythema), Other (temporalis atrophy) Pupils: Positive for: Sluggish (Left eye), Other (Right eye dilated 3mm, fixed.) Conjunctiva: Positive for: Normal Mouth: Positive for: Moist Mucous Membranes, Other (intubated) Respiratory/Chest: Positive for: Decreased Breath Sounds (RUL), Rhonchi Cardiovascular: Positive for: Regular Rate and Rhythm, Murmurs, Normal S1, S2, Tachycardic Abdomen: Negative for: Tenderness, Distention, Peritoneal Signs Upper Extremity: Positive for: Normal Inspection, NORMAL PULSES. Negative for: Edema Lower Extremity: Positive for: Normal Inspection, NORMAL PULSES. Negative for: Edema, CALF TENDERNESS Neurological: Positive for: Other (intubated) Skin: Positive for: Warm, Dry Psychiatric: Positive for: Other (intubated) - Medications Active Medications: Active Medications Generic Name Dose Route Start Last Admin Trade Name Freq PRN Reason Stop Dose Admin Albuterol/Ipratropium 3 ml 03/13/17 20:00 03/17/17 13:19 Duoneb 3 Mg/0.5 Mg (3 Ml) Ud INH 3 ml RQ6 JACK Administration Famotidine 20 mg 03/15/17 10:00 03/17/17 09:27 Pepcid IVP 20 mg DAILY JACK Administration Phenylephrine HCl 60 mg/ 256 mls @ 5.11 mls/hr 03/08/17 18:45 03/11/17 10:00 Dextrose IV 60 mcg/min .Q24H PRN 15.36 mls/hr TITRATE PER MD ORDER Titration Protocol 20 MCG/MIN Propofol 1,000 mg in 100 mls @ 1.512 mls/hr 03/11/17 17:38 03/15/17 18:00 Diprivan IV 0 mcg/kg/min .Q24H PRN 0 mls/hr TITRATE PER MD ORDER Titration Protocol 5 MCG/KG/MIN Nafcillin Sodium 2 gm/ Sodium 100 mls @ 100 mls/hr 03/14/17 12:00 03/17/17 13 :02 Chloride IVPB 100 mls/hr Q6H JACK Administration Lactobacillus Acidophilus 1 cap 03/14/17 18:00 03/17/17 09:27 Bacid Acidophilus PO 1 cap BID JACK Administration Multivitamins/Vitamin C 5 ml 03/10/17 10:00 03/17/17 09:27 Multi-Delyn Liquid PO 5 ml DAILY JACK Administration Nicotine 1 patch 03/11/17 10:00 03/17/17 09:27 Nicoderm Cq TD 1 patch DAILY JACK Administration - Patient Studies Lab Studies: Microbiology Studies 03/14/17 12:24 Stool Culture - Final Stool NO SALMONELLA, SHIGELLA OR CAMPYLOBACTER ISOLATED. Lab Studies 03/17/17 03/17/17 03/17/17 Range/Units 06:51 06:50 05:21 WBC 16.0 H (4.8-10.8) K/uL RBC 2.94 L (4.40-5.90) Mil/uL Hgb 8.3 L (12.0-18.0) g/dL Hct 25.8 L (35.0-51.0) % MCV 87.9 (80.0-94.0) fL MCH 28.1 (27.0-31.0) pg MCHC 32.0 L (33.0-37.0) g/dL RDW 25.6 H (11.5-14.5) % Plt Count 189 (130-400) K/uL MPV 8.8 (7.2-11.7) fL Neut % (Auto) 81.3 H (50.0-75.0) % Lymph % (Auto) 14.2 L (20.0-40.0) % [place] % (Auto) 3.5 (0.0-10.0) % Eos % (Auto) 0.8 (0.0-4.0) % Baso % (Auto) 0.2 (0.0-2.0) % Neut # 13.0 H (1.8-7.0) K/uL Lymph # 2.3 (1.0-4.3) K/uL [place] # 0.6 (0.0-0.8) K/uL Eos # 0.1 (0.0-0.7) K/uL Baso # 0.0 (0.0-0.2) K/uL Puncture Site Rr pCO2 37 (35-45) mm/Hg pO2 114 H (80-100) mm/Hg HCO3 20.8 L (21-28) mmol/L ABG pH 7.34 L (7.35-7.45) ABG Total CO2 21.1 L (22-28) mmol/L ABG O2 Saturation 99.9 H (95-98) % ABG Base Excess -5.3 L (-2.0-3.0) mmol/L ABG Hemoglobin 8.4 L (11.7-17.4) g/dL ABG Carboxyhemoglobin 2.4 H (0.5-1.5) % POC ABG HHb (Measured) 0.1 (0.0-5.0) % ABG Methemoglobin 0.6 (0.0-3.0) % Jorge Test Pos A-a O2 Difference 125.0 mm/Hg Respiratory Index 1.1 Hgb O2 Saturation 96.9 (95.0-98.0) % Vent Mode Simv/ps Mechanical Rate 14 FiO2 40.0 % Tidal Volume 450 PEEP 5 Pressure Support 12 Sodium 143 (132-148) mmol/L Potassium 3.6 (3.6-5.2) mmol/L Chloride 117 H (98-107) mmol/L Carbon Dioxide 21 L (22-30) mmol/L Anion Gap 8 L (10-20) BUN 43 H (9-20) mg/dL Creatinine 1.1 (0.8-1.5) mg/dL Est GFR ( Amer) > 60 Est GFR (Non-Af Amer) > 60 Random Glucose 120 H (75-110) mg/dL Calcium 8.5 L (8.6-10.4) mg/dl Phosphorus 3.3 (2.5-4.5) mg/dL Magnesium 1.9 (1.6-2.3) mg/dL Total Bilirubin 1.1 (0.2-1.3) mg/dL AST 16 L D (17-59) U/L ALT 21 (21-72) U/L Alkaline Phosphatase 102 (38-126) U/L Total Protein 4.7 L (6.3-8.3) g/dL Albumin 2.0 L (3.5-5.0) g/dL Globulin 2.7 (2.2-3.9) gm/dL Albumin/Globulin Ratio 0.8 L (1.0-2.1) Laboratory Results - last 24 hr 03/17/17 03/17/17 03/17/17 05:21 06:50 06:51 WBC 16.0 H RBC 2.94 L Hgb 8.3 L Hct 25.8 L MCV 87.9 MCH 28.1 MCHC 32.0 L RDW 25.6 H Plt Count 189 MPV 8.8 Neut % (Auto) 81.3 H Lymph % (Auto) 14.2 L [place] % (Auto) 3.5 Eos % (Auto) 0.8 Baso % (Auto) 0.2 Neut # 13.0 H Lymph # 2.3 [place] # 0.6 Eos # 0.1 Baso # 0.0 Puncture Site Rr pCO2 37 pO2 114 H HCO3 20.8 L ABG pH 7.34 L ABG Total CO2 21.1 L ABG O2 Saturation 99.9 H ABG Base Excess -5.3 L ABG Hemoglobin 8.4 L ABG Carboxyhemoglobin 2.4 H POC ABG HHb (Measured) 0.1 ABG Methemoglobin 0.6 Jorge Test Pos A-a O2 Difference 125.0 Respiratory Index 1.1 Hgb O2 Saturation 96.9 Vent Mode Simv/ps Mechanical Rate 14 FiO2 40.0 Tidal Volume 450 PEEP 5 Pressure Support 12 Sodium 143 Potassium 3.6 Chloride 117 H Carbon Dioxide 21 L Anion Gap 8 L BUN 43 H Creatinine 1.1 Est GFR ( Amer) > 60 Est GFR (Non-Af Amer) > 60 Random Glucose 120 H Calcium 8.5 L Phosphorus 3.3 Magnesium 1.9 Total Bilirubin 1.1 AST 16 L D ALT 21 Alkaline Phosphatase 102 Total Protein 4.7 L Albumin 2.0 L Globulin 2.7 Albumin/Globulin Ratio 0.8 L Fingerstick Blood Sugar Results: 94
--- NOTE | 2017-03-17 20:52 | CP.PCM.PN ---
Subjective - Date & Time of Evaluation Date of Evaluation: 03/17/17 Time of Evaluation: 08:30 - Subjective Subjective: Medical Attending Note: Patient seen and examined. Patient is off sedation, on PRVC SIMV. Patient is intubated. Unable to ROS secondary to clinical condition. Patient is turning his head, unclear if he is responding to his name. He does not nod when asked to. He cannot move his extremities when asked to but will randomly moved them. Attempted to call Holden, patient's brother this morning again[facility] Objective - Vital Signs/Intake and Output Vital Signs (last 24 hours): Temp Pulse Resp BP Pulse Ox 99.4 F 116 H 16 102/58 L 98 03/17/17 20:00 03/17/17 20:19 03/17/17 20:19 03/17/17 20:19 03/17/17 20:19 Intake and Output: 03/17/17 03/18/17 18:59 06:59 Intake Total 950 50 Balance 950 50 - Medications Medications: Current Medications Albuterol/Ipratropium (Duoneb 3 Mg/0.5 Mg (3 Ml) Ud) 3 ml INH RQ6 JACK Last Admin: 03/17/17 19:54 Dose: 3 ml Famotidine (Pepcid) 20 mg IVP DAILY [facility] Last Admin: 03/17/17 09:27 Dose: 20 mg Phenylephrine HCl 60 mg/ (Dextrose) 256 mls @ 5.11 mls/hr IV .Q24H PRN; Protocol; 20 MCG/MIN PRN Reason: TITRATE PER MD ORDER Last Titration: 03/11/17 10:00 Dose: 60 mcg/min, 15.36 mls/hr Propofol (Diprivan) 1,000 mg in 100 mls @ 1.512 mls/hr IV .Q24H PRN; Protocol; 5 MCG/KG/MIN PRN Reason: TITRATE PER MD ORDER Last Titration: 03/15/17 18:00 Dose: 0 mcg/kg/min, 0 mls/hr Nafcillin Sodium 2 gm/ Sodium (Chloride) 100 mls @ 100 mls/hr IVPB Q6H [facility] Last Admin: 03/17/17 17:03 Dose: 100 mls/hr Lactobacillus Acidophilus (Bacid Acidophilus) 1 cap PO BID JACK Last Admin: 03/17/17 17:02 Dose: 1 cap Multivitamins/Vitamin C (Multi-Delyn Liquid) 5 ml PO DAILY JACK Last Admin: 03/17/17 09:27 Dose: 5 ml Nicotine (Nicoderm Cq) 1 patch TD DAILY [facility] Last Admin: 03/17/17 09:27 Dose: 1 patch - Labs Labs: 03/17/17 06:50 03/17/17 06:51 PT 14.1 SECONDS (9.7-12.2) H 03/04/17 20:15 INR 1.3 03/04/17 20:15 APTT 35 SECONDS (21-34) H 03/04/17 20:15 - Constitutional Appears: Cachectic, Chronically Ill - Head Exam Head Exam: NORMAL INSPECTION Additional comments: abrasion over forehead - Eye Exam Eye Exam: absent: Nystagmus, Scleral icterus - Respiratory Exam Respiratory Exam: Decreased Breath Sounds - Cardiovascular Exam Cardiovascular Exam: Tachycardia, +S1, +S2 - GI/Abdominal Exam GI & Abdominal Exam: Soft, Normal Bowel Sounds. absent: Distended, Firm, Guarding, Rigid, Tenderness, Rebound - Extremities Exam Extremities Exam: Joint Swelling, Pedal Edema. absent: Tenderness Additional comments: prevalon boots - Neurological Exam Neurological Exam: Awake Additional comments: unable to follow commands attempted to call out his name but he blinks - Skin Skin Exam: Dry, Normal Color, Warm Assessment and Plan - Assessment and Plan (Free Text) Assessment: 1). Acute Respiratory Failure * Patient is intubated and on ventilator * 03/16: off sedation, on CPAP. intubated/vent * 03/17: off sedation, on PRVC Simv at bedside. ICU attempted to wean patient * There is pending family meeting for Saturday with Holden. Patient's brothers (Chris and Felipe) having difficult time. Decision to be determined then. Status: Acute 2). Sepsis Right Lung Cavitary Lesion Possible Pneumonia? Cancer? * Criteria: WBC: 16.0, tachycardia * Procalcitonin: 6.05-->0.72 * Chest xray (03/16): bilateral moderate pleural effusions. Stable pathcy consolidation and opacification of the right upper love with interval hyperlucency medial to consolidation cavitation versus pneumatocele cannot be excluded if clinically suspected. Bibasilar right middle lobe and lingualr nonspecific infiltrates and conslidation are present, consistent with atelectasis or pneumonia versus edema versus aspiration versus mucous plugging * Sputum Culture 03/05/17 shows S. aureus (he is on Vancomycin as above) * Likely secondary to malignancy but rule out TB vs necrotizing pneumonia * off Respiratory Isolation 03/10 * Cefepime 1 gm IV Q12H (03/04/17-) * Vancomycin 1 gm IV Q24 H (03/10/17-) * Nafcillin 2gm [id number] (active since 03/14/17) * Clindamycin 600 mg I VQ8H (03/04/17 through 03/09/17) * Metronidazole 500 mg IV Q8H (03/08/17 through 03/09/17) * Off Pressor (Phenylephrine) since 03/12 * off Hydrocortisone 50 mg IV Q8H since 03/14 * Albumin 25 g IV Q6H x 4 doses given 03/08/17 * LR @ 75 ml/hr * Blood Culture 03/04/17 negative to date * Urine Culture 03/04/17 no growth * HIV Ab is negative * Hepatitis Panel negative * AFB 03/05/17 x 2,03/08/17: preliminary is negative: respiratory isolation discontinued 03/10/17 * PPD on left lower anterior arm is NEGATIVE 03/07/17 * Quanteferon Gold is negative * MRSA Screen is negative * Heme/Onc Dr. Fabienne Pantoja * Palliative Care Nurse Ob[place]arro * ID Dr. Wilberto Sanches Status: Acute 3). Anemia * Likely chronic considering his history of alcohol abuse and possible malignancy * Ewelina Pantoja (heme-onc) on the case * Iron level is low: Ferrous Sulfate 300 mg via NG 2x/day (03/07/17) * Reticulocyte count normal at 0.9 * Vitamin B12 elevated above 1000 * Folate normal at 3.5 * F/U Peripheral Smear Status: Chronic 4). Hypophosphotemia and Hypokalemia * KPhos 15mmol IV x 1dose given 03/06/17 * Phos normalized and K have normalized Status: Acute 5). Alcohol Abuse Malnutrition * Banana Bag @ 75 ml/hour once a day * Multivitamin 5ML PO daily * Folic acid 1mg IV daily * Pulmcare via NGT * Low Albumin Status: Chronic 6). Hypercalcemia * This is fluctuating between high and low * Albumin low * Calcitonin [place] 200 IU SC BID x 6 dose was ordered 03/08/17 however not carried here by pharmacy. * Nephrology recommends Zometa or Pamidronate once GFR improves if Ca remaines elevated Status: Acute 7). Subdural Hematomas * CT Head w/o contrast 03/06/17: chronic bilateral subdural hematomas left larger than right. There is also a very small sliver of a hyperdense hemorrhage within the left sided collection possibly by the larger hypodense subdural component by membrane. The collections exert relatively symmetrical offsetting mass effect with compression of both cerebral hemispheres and ventricular system with no significant midline shift. * CT Head w/o contrast 03/07/17: bilateral acute on chronic subdural collections similar to those seen on prior study 03/06/17, normal ventricular size, no midline shift * F/U EEG from 03/07/17 * Neurology Dr. Moore * 03/08-->per neurology, prognosis poor * 03/17: No acute change from 03/07/17 in regards to subdural collection Status: Acute 8). Acute Kidney Injury-->Resolved * Nephrology on the case-->help appreciated * Improving * Unable to given Calcitonin sq not available in our pharmacy once GFR recovers * normalized Status: Acute 9). Stage I Sacral Ulcer * Optifoam Dressing * Mercedes d/c. Status: Acute 10). Diarrhea-->resolved * Patient was on Reglan 10mg IV Q6 (03/11-) d/c * Ordered Stool ova and parasite: none, culture, and C. Dif toxin: negative and leukocytes: negative Status: Acute 11). Tobacco Abuse * start Nicotine hour 1 transdermal patch daily * History of heavy tobacco abuse Status: Chronic 12). Prophylaxis * Pulmcare via NGT * d/c Protonix 40 mg IV 1x/day to prevent C. dif-->switch to Pepcid 20mg IV daily * Bacid 1 tab PO daily * Low Vitamin D: 50,000 units once a week starting 03/08/17 and end 04/26/17 * NO anticoagulation considering the anemia: Bilateral SCDs * Vitamin C 500mg PO Q12 * Colace 100 mg PO 2x/day * Patient's brother Holden Abarca [phone] and [id number] Sarah Abarca [phone] * Attempted to call Holden to provide update but left to voicemail 03/16; ; Discussed with colleague,Dr Torres in regards to conversation two nights. pending family meeting for Saturday. * POLST in Chart: DNR with limited treatment Status: Acute
[2017-03-18] MEDS: Nafcillin 2 GM in Sodium Chloride 0.9% 100 ML IVPB SCH ×5 (00:18→23:44)
[2017-03-18] MEDS: Albuterol-Ipratrop 3 mg / 0.5 (3 ml) UD INH SCH ×4 (02:46→20:31)
[2017-03-18 06:18] LABS: ABG ALLEN TEST POS; ABG MECHANICAL RATE 14; ARTERIAL BLOOD GAS MODE SIMV/PS; ARTERIAL BLOOD HGB O2 SAT 96.6 % (95.0-98.0); ATERIAL BLOOD GAS PEEP 5; CARBOXYHEMOGLOBIN 2.7 % (0.5-1.5); DRAW SITE RR; HHB -0.1 % (0.0-5.0); METHEMOGLOBIN 0.8 % (0.0-3.0)
[2017-03-18 06:28] LABS: BASO # 0.1 K/uL (0.0-0.2); BASO % 0.4 % (0.0-2.0); EOS # 0.1 K/uL (0.0-0.7); EOS % 0.5 % (0.0-4.0); HEMATOCRIT 26.1 % (35.0-51.0); LYMPH % 14.3 % (20.0-40.0); MEAN CELL VOLUME 88.8 fL (80.0-94.0); MEAN CORPUSCULAR HEMOGLOBIN 26.9 pg (27.0-31.0); MEAN CORPUSCULAR HGB CONC 30.3 g/dL (33.0-37.0); MEAN PLATELET VOLUME 8.2 fL (7.2-11.7); MONO # 0.6 K/uL (0.0-0.8); MONO % 4.5 % (0.0-10.0); RED CELL DISTRIBUTION WIDTH 26.6 % (11.5-14.5); WHITE BLOOD COUNT 13.8 K/uL (4.8-10.8)
[2017-03-18 06:43] LABS: BLOOD UREA NITROGEN 49 mg/dL (9-20); CARBON DIOXIDE 23 mmol/L (22-30); CHLORIDE 119 mmol/L (98-107); GFR AFRICAN-AMERICAN > 60; GLUCOSE,RANDOM 91 mg/dL (75-110); POTASSIUM 3.8 mmol/L (3.6-5.2); SODIUM 146 mmol/L (132-148)
[2017-03-18] MEDS: Lactobacillus Acidophilus 500 MU Cap PO SCH ×2 (09:31→17:18)
[2017-03-18] MEDS: Multiple Vitamins Oral Solution PO SCH (09:31)
[2017-03-18] MEDS ORDERED: Sodium Chloride 0.9% 500 ML IV ONE (09:41)
--- NOTE | 2017-03-18 09:53 | RAD ---
HISTORY: Follow Mechanical ventilation/lung mass COMPARISON: 03/17/2017. FINDINGS: The endotracheal tube terminates 1.5 cm proximal to the megan. The nasogastric tube terminates in the stomach. The right IJV line terminates at the cavoatrial junction. LUNGS: There is interval worsening of dense homogeneous opacity in the right lung. The left lung is clear. PLEURA: Small right pleural effusion, no pneumothorax apparent. CARDIOVASCULAR: Normal. OSSEOUS STRUCTURES: There is erosion of the lateral 4th rib. VISUALIZED UPPER ABDOMEN: Normal. OTHER FINDINGS: None. IMPRESSION: . Worsening consolidation versus loculated effusion in the right lung and erosion of the right lateral rib. Findings are very concerning for pleural based mass with metastasis in the rib. 2. Stable position of endotracheal tube, nasogastric tube and right IJV line.
[2017-03-18] MEDS: WATER IV PRN (10:19)
[2017-03-18] MEDS: PHENYLEPHRINE IV PRN (10:19)
[2017-03-18] MEDS: DEXTROSE 5% IV PRN (10:19)
--- NOTE | 2017-03-18 10:32 | CP.PCM.PN ---
Subjective - Date & Time of Evaluation Date of Evaluation: 03/18/17 Time of Evaluation: 10:20 - Subjective Subjective: Hospitalist Progress Note Patient was seen and examined at 10:20 AM 03/18/17 ICU Bed 7. 56 year old male who was brought into ER via EMS on 03/04/17 after he fell at home. Upon arrival to the ER he was found to be confused, cachectic, hypoxic. CT Head showed age indeterminate ischemic changes in righ basal ganglia, acute on chronic subdural collection on left, subdural hygroma on the right. CT Chest showed large cavitary RUL mass with infiltrative/invasion on chest wall and destruction of adjacent ribs consistent with malignancy, right hilar and mediastinal adenopathy. CT Abdomen/Pelvis showed RUL mass with nodular opacities , RML and RLL suspicious for malignancy, splenic lesions possibly metastatic. His respiratory status shortly before exam on 03/05/17 declined and he was intubated by the ICU Team after informing patient's brother Holden Abarca and [id number] Sarah Abarca [phone], both of whom requested that patient be FULL CODE for the time being. Poor prognosis based upon current patient status and workup was explained to both Holden and Sarah 03/05/17. Holden spoke with Palliative Care Nurse Reyna and patient was subsequently made DNR with Limited Treatment (IV antibiotics and non-invasive positive airway pressure) as per POL, a copy of which is in patient chart. EEG was performed 03/07/17 and results are pending. PPD read on 03/07/17 was negative. Sputum for AFB 03/05/17 x2, 03/08/17, are negative. Quanteferon GOLD is negative. Therefore respiratory isolation was discontinued 03/10/17. Primary Decision Maker Holden Abarca and they are planning another family meeting evening. ROS is NOT possible as patient is nonresponsive and intubated. Exam: General: intubated and on vent, cachectic appearance HEENT: Abrasions present on the frontal scalp, Bilateral Pupils are equal and sluggishly reactive to light, Nasal turbinates are dry, NO cervical lymphadenopathy, NO thyromegaly, Poor Dentition Cardio: NS1 and NS2, NO M/R/G however limited due to loud course breath sounds Resp: Course breath sounds diffusely GI: BSx4, soft, ND, NO HSM Ext: Pulses are strong and equal, (+) Pitting Edema involving the entire Bilateral LE, Capillary Refill is 2 seconds Neuro: NOT possible due to current patient state Skin: Nonblanchable erythema sacral base Assessment and Plan: 1). Acute Respiratory Failure Patient is intubated and on ventilator Status: Acute 2). Right Lung Cavitary Lesion with Sepsis Likely secondary to malignancy He was on Cefepime, Vancomcyin, Clindamycin, Metronidazole Currently he is on Naficillin 2 gm IV Q6H (03/14/17) Phenylephrine 20 mcg/in was restarted 03/18/17 secondary to Hypotension along with 1 500 ml NS bolus Albumin 25 g IV Q6H x 4 doses given 03/08/17 Blood Culture 03/04/17 x 2 are Negative Urine Culture 03/04/17 no growth HIV Ab is negative Hepatitis Panel negative Sputum Culture 03/05/17 shows S. aureus (he was treated with Vancomycin through 03/14/17)) AFB 03/05/17 x 2,03/08/17: preliminary is negative: respiratory isolation discontinued 03/10/17 PPD on left lower anterior arm is NEGATIVE 03/07/17 Quanteferon Gold is negative MRSA Screen is negative Heme/Onc Dr. Fabienne Pantoja Palliative Care Nurse Obradovic ID Dr. Wilberto Sanches Status: Acute 3). Anemia Likely chronic considering his history of alcohol abuse Iron level is low: Ferrous Sulfate 300 mg via NG 2x/day Reticulocyte count normal at 0.9 Vitamin B12 elevated above 1000 Folate normal at 3.5 Status: Chronic 4). Hypophosphotemia and Hypokalemia Phos normalized and K have normalized Status: Acute 5). [facility] Status: Chronic 6). Hypercalcemia This is fluctuating between high and low Secondary to Lung CA? Calcitonin [place] 200 IU SC BID x 6 dose was ordered 03/08/17 however not carried here by pharmacy. Nephrology recommends Zometa or Pamidronate once GFR improves if Ca remaines elevated Status: Acute 7). Possible CVA CT Head w/o contrast 03/06/17: chronic bilateral subdural hematomas left larger than right. There is also a very small sliver of a hyperdense hemorrhage within the left sided collection possibly by the larger hypodense subdural component by membrane. The collections exert relatively symmetrical offsetting mass effect with compression of both cerebral hemispheres and ventricular system with no significant midline shift. Neurology Dr. Moore EEG ordered 03/18/17 as NO report available for the one that was supposedly done 2 weeks ago Status: Acute 8). Acute Kidney Injury Could this be secondary to the consistently low blood pressure despite Pheylephrine Drip? Could this be secondary to contrast from the CT Abdomen/Pelvis performed on admission? Nephrology Status: Acute 9). Stage I Sacral Ulcer Optifoam Dressing Status: Acute 10). Diarrhea Ova and Parasite, C. diff toxin, and Stool Culture 03/14/17 negative As of 03/18/17 he is continuing to have this 10). Prophylaxis Pulmcare via NGT Pepcid 20 mg IV 1x/day Low Vitamin D: 50,000 units once a week starting 03/08/17 and end 04/26/17 NO anticoagulation considering the anemia: Bilateral SCDs Bacid 1 cap NG 2x/day MVI 5ml PO 1x/day Status: Acute F/U Venous Dopplers Bilateral LE 03/16/17 Poor prognosis explained to both brother Holden Abarca (cell: [phone]) and other family members by myself as well as other members of health care team. Holden Abarca to have another family meeting on evening of 03/19/17. Obed Anguiano D.O. Objective - Vital Signs/Intake and Output Vital Signs (last 24 hours): Temp Pulse Resp BP Pulse Ox 99 F 112 H 20 74/56 L 98 03/18/17 04:00 03/18/17 07:19 03/18/17 10:19 03/18/17 10:19 03/18/17 10:19 Intake and Output: 03/18/17 03/18/17 06:59 18:59 Intake Total 815 55 Output Total 550 0 Balance 265 55 - Medications Medications: Current Medications Albuterol/Ipratropium (Duoneb 3 Mg/0.5 Mg (3 Ml) Ud) 3 ml INH RQ6 JACK Last Admin: 03/18/17 08:28 Dose: 3 ml Famotidine (Pepcid) 20 mg IVP DAILY JACK Last Admin: 03/18/17 09:31 Dose: 20 mg Phenylephrine HCl 60 mg/ (Dextrose) 256 mls @ 5.11 mls/hr IV .Q24H PRN; Protocol; 20 MCG/MIN PRN Reason: TITRATE PER MD ORDER Last Admin: 03/18/17 10:19 Dose: 60 mcg/min, 15.36 mls/hr Propofol (Diprivan) 1,000 mg in 100 mls @ 1.512 mls/hr IV .Q24H PRN; Protocol; 5 MCG/KG/MIN PRN Reason: TITRATE PER MD ORDER Last Titration: 03/15/17 18:00 Dose: 0 mcg/kg/min, 0 mls/hr Nafcillin Sodium 2 gm/ Sodium (Chloride) 100 mls @ 100 mls/hr IVPB Q6H [facility] Last Admin: 03/18/17 06:08 Dose: 100 mls/hr Lactobacillus Acidophilus (Bacid Acidophilus) 1 cap PO BID JACK Last Admin: 03/18/17 09:31 Dose: 1 cap Multivitamins/Vitamin C (Multi-Delyn Liquid) 5 ml PO DAILY [facility] Last Admin: 03/18/17 09:31 Dose: 5 ml Nicotine (Nicoderm Cq) 1 patch TD DAILY [facility] Last Admin: 03/18/17 09:31 Dose: 1 patch - Labs Labs: 03/18/17 06:22 03/18/17 06:26 PT 14.1 SECONDS (9.7-12.2) H 03/04/17 20:15 INR 1.3 03/04/17 20:15 APTT 35 SECONDS (21-34) H 03/04/17 20:15
[2017-03-18] MEDS: Ferrous Sulfate 300 mg/5 mL Liq UD NG SCH (17:18)
--- NOTE | 2017-03-18 17:27 | CP.CCUPN ---
CCU Subjective - Physician Review Events Since Last Encounter (Free Text): 03/18/17 17:27 Patient with a severe pneumonia, possibly right lung mass unclear Acute respiratory failure, on ventilator. Patient is having no fever now, tolerating the SIMV but mild tachypneic Patient is more awake and responding. Currently on antibiotic. No fever today Tolerating the feeding Vital signs reviewed No neck vein distention noted Reduce air entry in right lung CVS regular heart sound, no murmur noted Abdomen soft, nontender. Extremities no pedal edema [employer] patient is alert and awake Chest x-ray no new changes, labs included Improving WBC Assessment and recommendation: 56-year-old male with necrotizing pneumonia admitted with acute respiratory distress. On ventilator. We'll continue the weaning process. CPAP trial, SIMV trial. We'll try to wean the possible CCU Objective - Vital Signs / Intake & Output Vital Signs (Last 4 hours): Vital Signs Temp Pulse Resp BP Pulse Ox 03/18/17 16:00 98.2 F 96 H 20 92/54 L 100 03/18/17 15:00 98 H 19 92/53 L 100 03/18/17 14:00 96 H 21 84/63 L 100 Intake and Output (Last 8hrs): Intake & Output 03/18/17 03/18/17 03/18/17 06:59 14:59 22:59 Intake Total 615 1101 72.5 Output Total 400 0 500 Balance 215 1101 -427.5 Weight 114 lb 4.8 oz Intake: IV 6 Intake, IV Amount 200 655 17.5 Right Distal Port 200 600 Internal Jugular Right Medial Port 55 17.5 Internal Jugular Tube Feeding 415 440 55 Output: Urine 400 0 500 Urine, Voided 400 0 500 Other: # Bowel Movements 0 0 - Physical Exam Head: Positive for: Atraumatic, Normocephalic, Abrasion (top of head, heal. no erythema), Other (temporalis atrophy) Pupils: Positive for: Sluggish (Left eye), Other (Right eye dilated 3mm, fixed.) Conjunctiva: Positive for: Normal Mouth: Positive for: Moist Mucous Membranes, Other (intubated) Respiratory/Chest: Positive for: Decreased Breath Sounds (RUL), Rhonchi Cardiovascular: Positive for: Regular Rate and Rhythm, Murmurs, Normal S1, S2, Tachycardic Abdomen: Negative for: Tenderness, Distention, Peritoneal Signs Upper Extremity: Positive for: Normal Inspection, NORMAL PULSES. Negative for: Edema Lower Extremity: Positive for: Normal Inspection, NORMAL PULSES. Negative for: Edema, CALF TENDERNESS Neurological: Positive for: Other (intubated) Skin: Positive for: Warm, Dry Psychiatric: Positive for: Other (intubated) - Medications Active Medications: Active Medications Generic Name Dose Route Start Last Admin Trade Name Freq PRN Reason Stop Dose Admin Acetaminophen 650 mg 03/18/17 12:29 Tylenol 650mg/20.3ml Solution Ud NG Q6 PRN Fever >100.4 F Albuterol/Ipratropium 3 ml 03/13/17 20:00 03/18/17 13:23 Duoneb 3 Mg/0.5 Mg (3 Ml) Ud INH 3 ml RQ6 JACK Administration Ergocalciferol 1 cap 03/22/17 10:45 Drisdol 50,000 Intl Units Cap PO Q7D JACK Famotidine 20 mg 03/15/17 10:00 03/18/17 09:31 Pepcid IVP 20 mg DAILY JACK Administration Ferrous Sulfate 300 mg 03/18/17 18:00 03/18/17 17:18 Feosol Liq NG 300 mg BID JACK Administration Phenylephrine HCl 60 mg/ 256 mls @ 5.11 mls/hr 03/08/17 18:45 03/18/17 12:17 Dextrose IV 30 mcg/min .Q24H PRN 7.68 mls/hr TITRATE PER MD ORDER Titration Protocol 20 MCG/MIN Propofol 1,000 mg in 100 mls @ 1.512 mls/hr 03/11/17 17:38 03/15/17 18:00 Diprivan IV 0 mcg/kg/min .Q24H PRN 0 mls/hr TITRATE PER MD ORDER Titration Protocol 5 MCG/KG/MIN Nafcillin Sodium 2 gm/ Sodium 100 mls @ 100 mls/hr 03/14/17 12:00 03/18/17 17 :16 Chloride IVPB 100 mls/hr Q6H JACK Administration Lactobacillus Acidophilus 1 cap 03/14/17 18:00 03/18/17 17:18 Bacid Acidophilus PO 1 cap BID JACK Administration Multivitamins/Vitamin C 5 ml 03/10/17 10:00 03/18/17 09:31 Multi-Delyn Liquid PO 5 ml DAILY JACK Administration Nicotine 1 patch 03/11/17 10:00 03/18/17 09:31 Nicoderm Cq TD 1 patch DAILY JACK Administration - Patient Studies Lab Studies: Microbiology Studies 03/09/17 Unknown Mycobacterial Culture - Preliminary Other: Please Indicate Lab Studies 03/18/17 03/18/17 03/18/17 Range/Units 06:26 06:22 05:17 WBC 13.8 H (4.8-10.8) K/uL RBC 2.94 L (4.40-5.90) Mil/uL Hgb 7.9 L (12.0-18.0) g/dL Hct 26.1 L (35.0-51.0) % MCV 88.8 (80.0-94.0) fL MCH 26.9 L (27.0-31.0) pg MCHC 30.3 L (33.0-37.0) g/dL RDW 26.6 H (11.5-14.5) % Plt Count 219 (130-400) K/uL MPV 8.2 (7.2-11.7) fL Neut % (Auto) 80.3 H (50.0-75.0) % Lymph % (Auto) 14.3 L (20.0-40.0) % [place] % (Auto) 4.5 (0.0-10.0) % Eos % (Auto) 0.5 (0.0-4.0) % Baso % (Auto) 0.4 (0.0-2.0) % Neut # 11.0 H (1.8-7.0) K/uL Lymph # 2.0 (1.0-4.3) K/uL [place] # 0.6 (0.0-0.8) K/uL Eos # 0.1 (0.0-0.7) K/uL Baso # 0.1 (0.0-0.2) K/uL Puncture Site Rr pCO2 39 (35-45) mm/Hg pO2 125 H (80-100) mm/Hg HCO3 21.5 (21-28) mmol/L ABG pH 7.34 L (7.35-7.45) ABG Total CO2 22.2 (22-28) mmol/L ABG O2 Saturation 100.1 H (95-98) % ABG Base Excess -4.4 L (-2.0-3.0) mmol/L ABG Hemoglobin 7.7 L (11.7-17.4) g/dL ABG Carboxyhemoglobin 2.7 H (0.5-1.5) % POC ABG HHb (Measured) -0.1 L (0.0-5.0) % ABG Methemoglobin 0.8 (0.0-3.0) % Jorge Test Pos A-a O2 Difference 111.0 mm/Hg Respiratory Index 0.9 Hgb O2 Saturation 96.6 (95.0-98.0) % Vent Mode Simv/ps Mechanical Rate 14 FiO2 40.0 % Tidal Volume 450 PEEP 5 Pressure Support 12 Sodium 146 (132-148) mmol/L Potassium 3.8 (3.6-5.2) mmol/L Chloride 119 H (98-107) mmol/L Carbon Dioxide 23 (22-30) mmol/L Anion Gap 8 L (10-20) BUN 49 H (9-20) mg/dL Creatinine 1.2 (0.8-1.5) mg/dL Est GFR ( Amer) > 60 Est GFR (Non-Af Amer) > 60 Random Glucose 91 (75-110) mg/dL Calcium 8.0 L (8.6-10.4) mg/dl Laboratory Results - last 24 hr 03/18/17 03/18/17 03/18/17 05:17 06:22 06:26 WBC 13.8 H RBC 2.94 L Hgb 7.9 L Hct 26.1 L MCV 88.8 MCH 26.9 L MCHC 30.3 L RDW 26.6 H Plt Count 219 MPV 8.2 Neut % (Auto) 80.3 H Lymph % (Auto) 14.3 L [place] % (Auto) 4.5 Eos % (Auto) 0.5 Baso % (Auto) 0.4 Neut # 11.0 H Lymph # 2.0 [place] # 0.6 Eos # 0.1 Baso # 0.1 Puncture Site Rr pCO2 39 pO2 125 H HCO3 21.5 ABG pH 7.34 L ABG Total CO2 22.2 ABG O2 Saturation 100.1 H ABG Base Excess -4.4 L ABG Hemoglobin 7.7 L ABG Carboxyhemoglobin 2.7 H POC ABG HHb (Measured) -0.1 L ABG Methemoglobin 0.8 Jorge Test Pos A-a O2 Difference 111.0 Respiratory Index 0.9 Hgb O2 Saturation 96.6 Vent Mode Simv/ps Mechanical Rate 14 FiO2 40.0 Tidal Volume 450 PEEP 5 Pressure Support 12 Sodium 146 Potassium 3.8 Chloride 119 H Carbon Dioxide 23 Anion Gap 8 L BUN 49 H Creatinine 1.2 Est GFR ( Amer) > 60 Est GFR (Non-Af Amer) > 60 Random Glucose 91 Calcium 8.0 L Fingerstick Blood Sugar Results: 94
[2017-03-19] MEDS: Nafcillin 2 GM in Sodium Chloride 0.9% 100 ML IVPB SCH ×3 (05:03→17:26)
[2017-03-19 06:21] LABS: ABG ALLEN TEST POS; ABG MECHANICAL RATE 14; ARTERIAL BLOOD GAS MODE SIMV/PS; ARTERIAL BLOOD HGB O2 SAT 96.3 % (95.0-98.0); ATERIAL BLOOD GAS PEEP 5; CARBOXYHEMOGLOBIN 2.7 % (0.5-1.5); DRAW SITE RR; HHB 0.1 % (0.0-5.0); METHEMOGLOBIN 0.8 % (0.0-3.0)
[2017-03-19 06:32] LABS: BASO # 0.2 K/uL (0.0-0.2); BASO % 1.2 % (0.0-2.0); EOS # 0.2 K/uL (0.0-0.7); EOS % 1.2 % (0.0-4.0); HEMATOCRIT 23.6 % (35.0-51.0); LYMPH # 2.7 K/uL (1.0-4.3); LYMPH % 19.9 % (20.0-40.0); MEAN CELL VOLUME 88.5 fL (80.0-94.0); MEAN CORPUSCULAR HEMOGLOBIN 27.4 pg (27.0-31.0); MEAN PLATELET VOLUME 8.4 fL (7.2-11.7); MONO # 0.5 K/uL (0.0-0.8); MONO % 3.9 % (0.0-10.0); RED CELL DISTRIBUTION WIDTH 25.6 % (11.5-14.5); WHITE BLOOD COUNT 13.4 K/uL (4.8-10.8)
[2017-03-19 06:49] LABS: BLOOD UREA NITROGEN 53 mg/dL (9-20); CALCIUM 7.5 mg/dl (8.6-10.4); CARBON DIOXIDE 21 mmol/L (22-30); CHLORIDE 123 mmol/L (98-107); GFR AFRICAN-AMERICAN > 60; GLUCOSE,RANDOM 89 mg/dL (75-110); POTASSIUM 3.5 mmol/L (3.6-5.2); SODIUM 147 mmol/L (132-148)
[2017-03-19] MEDS: Lactobacillus Acidophilus 500 MU Cap PO SCH ×2 (09:04→17:26)
[2017-03-19] MEDS: Ferrous Sulfate 300 mg/5 mL Liq UD NG SCH ×2 (09:04→17:26)
[2017-03-19] MEDS: Multiple Vitamins Oral Solution PO SCH (09:35)
--- NOTE | 2017-03-19 10:11 | RAD ---
HISTORY: Follow Mechanical ventilation/lung mass COMPARISON: 03/18/2017 0736 hours FINDINGS: LUNGS: A large 11 x 7 mm masslike opacity in the right mid to upper lung zone suggested with contiguous right rib destruction findings strongly suspicious for underlying malignancy. PLEURA: No significant pleural effusion identified, no pneumothorax apparent. CARDIOVASCULAR: Normal heart size. Right paratracheal opacity -concomitant lymphadenopathy here suspect OSSEOUS STRUCTURES: Right rib lytic destruction from right suspect pulmonary malignant mass VISUALIZED UPPER ABDOMEN: Normal. OTHER FINDINGS: The endotracheal tube terminates 1.5 cm proximal to the megan. The nasogastric tube terminates in the stomach. The right IJV line terminates at the cavoatrial junction. 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
--- NOTE | 2017-03-19 11:06 | CP.PCM.PN ---
Subjective - Date & Time of Evaluation Date of Evaluation: 03/19/17 Time of Evaluation: 11:00 - Subjective Subjective: Hospitalist Progress Note Patient was seen and examined at 11:00 AM 03/19/17 ICU Bed 7. 56 year old male who was brought into ER via EMS on 03/04/17 after he fell at home. Upon arrival to the ER he was found to be confused, cachectic, hypoxic. CT Head showed age indeterminate ischemic changes in righ basal ganglia, acute on chronic subdural collection on left, subdural hygroma on the right. CT Chest showed large cavitary RUL mass with infiltrative/invasion on chest wall and destruction of adjacent ribs consistent with malignancy, right hilar and mediastinal adenopathy. CT Abdomen/Pelvis showed RUL mass with nodular opacities , RML and RLL suspicious for malignancy, splenic lesions possibly metastatic. His respiratory status shortly before exam on 03/05/17 declined and he was intubated by the ICU Team after informing patient's brother Holden Abarca and [id number] Sarah Abarca [phone], both of whom requested that patient be FULL CODE for the time being. Poor prognosis based upon current patient status and workup was explained to both Holden and Sarah 03/05/17. Holden spoke with Palliative Care Nurse Reyna and patient was subsequently made DNR with Limited Treatment (IV antibiotics and non-invasive positive airway pressure) as per POL, a copy of which is in patient chart. EEG was performed 03/07/17 and results are pending. PPD read on 03/07/17 was negative. Sputum for AFB 03/05/17 x2, 03/08/17, are negative. Quanteferon GOLD is negative. Therefore respiratory isolation was discontinued 03/10/17. Primary Decision Maker Holden Rima and they are planning another family meeting evening with Dr. Torres. ROS is NOT possible as patient is nonresponsive and intubated. Exam: General: intubated and on vent, cachectic appearance, more awake today but does not follow commands and does not nod his head "yes"/"no" to questioning HEENT: Abrasions present on the frontal scalp, Bilateral Pupils are equal and sluggishly reactive to light, Nasal turbinates are dry, NO cervical lymphadenopathy, NO thyromegaly, Poor Dentition Cardio: NS1 and NS2, NO M/R/G however limited due to loud course breath sounds Resp: Course breath sounds diffusely GI: BSx4, soft, ND, NO HSM Ext: Pulses are strong and equal, (+) Pitting Edema involving the entire Bilateral LE, Capillary Refill is 2 seconds Neuro: NOT possible due to current patient state Skin: Nonblanchable erythema sacral base Assessment and Plan: 1). Acute Respiratory Failure Patient is intubated and on ventilator Status: Acute 2). Right Lung Cavitary Lesion with Sepsis Likely secondary to malignancy He was on Cefepime, Vancomcyin, Clindamycin, Metronidazole Currently he is on Naficillin 2 gm IV Q6H (03/14/17) Phenylephrine was restarted 03/18/17 secondary to Hypotension: Currently it is running at 30 mcg/min Albumin 25 g IV Q6H x 4 doses given 03/08/17 Blood Culture 03/04/17 x 2 are Negative Urine Culture 03/04/17 no growth HIV Ab is negative Hepatitis Panel negative Sputum Culture 03/05/17 shows S. aureus (he was treated with Vancomycin through 03/14/17)) AFB 03/05/17 x 2,03/08/17: preliminary is negative: respiratory isolation discontinued 03/10/17 PPD on left lower anterior arm is NEGATIVE 03/07/17 Quanteferon Gold is negative MRSA Screen is negative Heme/Onc Dr. Fabienne Pantoja Palliative Care Nurse Obradtrice ID Dr. Wilberto Sanches Status: Acute 3). Anemia Likely chronic considering his history of alcohol abuse Iron level is low: Ferrous Sulfate 300 mg via NG 2x/day Reticulocyte count normal at 0.9 Vitamin B12 elevated above 1000 Folate normal at 3.5 HgB/Hct is declining and at 7.3/23.6 as of 03/19/17 Status: Chronic 4). Hypophosphotemia and Hypokalemia Phos normalized and K have normalized Status: Acute 5). Alcohol Abuse Currently on Pulare NGT Status: Chronic 6). Hypercalcemia This is fluctuating between high and low Secondary to Lung CA? Calcitonin [place] 200 IU SC BID x 6 dose was ordered 03/08/17 however not carried here by pharmacy. Nephrology recommends Zometa or Pamidronate once GFR improves if Ca remaines elevated Status: Acute 7). Possible CVA CT Head w/o contrast 03/06/17: chronic bilateral subdural hematomas left larger than right. There is also a very small sliver of a hyperdense hemorrhage within the left sided collection possibly by the larger hypodense subdural component by membrane. The collections exert relatively symmetrical offsetting mass effect with compression of both cerebral hemispheres and ventricular system with no significant midline shift. Neurology Dr. Moore EEG ordered 03/18/17 as NO report available for the one that was supposedly done 2 weeks ago Status: Acute 8). Acute Kidney Injury Could this be secondary to the consistently low blood pressure despite Pheylephrine Drip? Could this be secondary to contrast from the CT Abdomen/Pelvis performed on admission? Nephrology Status: Acute 9). Stage I Sacral Ulcer Optifoam Dressing Status: Acute 10). Diarrhea Ova and Parasite, C. diff toxin, and Stool Culture 03/14/17 negative As of 03/19/17 he is continuing to have this 11). Prophylaxis Pulmcare via NGT Pepcid 20 mg IV 1x/day Low Vitamin D: 50,000 units once a week starting 03/08/17 and end 04/26/17 NO anticoagulation considering the anemia: Bilateral SCDs Bacid 1 cap NG 2x/day MVI 5ml PO 1x/day Status: Acute F/U Venous Dopplers Bilateral LE 03/16/17: Still NOT done as of 03/19/17 and Nursing Communication placed to make sure that it is done 03/19/17 Poor prognosis explained to both brother Holden Abarca (cell: [phone]) and other family members by myself as well as other members of health care team. Holden Abarca to have another family meeting on evening of 03/19/17. Obed Anguiano D.O. Objective - Vital Signs/Intake and Output Vital Signs (last 24 hours): Temp Pulse Resp BP Pulse Ox 99.0 F 113 H 25 H 91/58 L 100 03/19/17 08:00 03/19/17 10:15 03/19/17 10:15 03/19/17 10:15 03/19/17 10:15 Intake and Output: 03/19/17 03/19/17 06:59 18:59 Intake Total 950.0 350.0 Output Total 550 130 Balance 400.0 220.0 - Medications Medications: Current Medications Acetaminophen (Tylenol 650mg/20.3ml Solution Ud) 650 mg NG Q6 PRN PRN Reason: Fever >100.4 F Ergocalciferol (Drisdol 50,000 Intl Units Cap) 1 cap PO Q7D [facility] Famotidine (Pepcid) 20 mg IVP DAILY [facility] Last Admin: 03/19/17 09:06 Dose: 20 mg Ferrous Sulfate (Feosol Liq) 300 mg NG BID [facility] Last Admin: 03/19/17 09:04 Dose: 300 mg Phenylephrine HCl 60 mg/ (Dextrose) 256 mls @ 5.11 mls/hr IV .Q24H PRN; Protocol; 20 MCG/MIN PRN Reason: TITRATE PER MD ORDER Last Titration: 03/18/17 12:17 Dose: 30 mcg/min, 7.68 mls/hr Propofol (Diprivan) 1,000 mg in 100 mls @ 1.512 mls/hr IV .Q24H PRN; Protocol; 5 MCG/KG/MIN PRN Reason: TITRATE PER MD ORDER Last Titration: 03/15/17 18:00 Dose: 0 mcg/kg/min, 0 mls/hr Nafcillin Sodium 2 gm/ Sodium (Chloride) 100 mls @ 100 mls/hr IVPB Q6H [facility] Last Admin: 03/19/17 05:03 Dose: 100 mls/hr Potassium Chloride 20 meq/ (Sodium Chloride) 110 mls @ 50 mls/hr IV ONCE ONE Stop: 03/19/17 11:26 Last Admin: 03/19/17 09:16 Dose: 50 mls/hr Lactobacillus Acidophilus (Bacid Acidophilus) 1 cap PO BID [facility] Last Admin: 03/19/17 09:04 Dose: 1 cap Multivitamins/Vitamin C (Multi-Delyn Liquid) 5 ml PO DAILY [facility] Last Admin: 03/19/17 09:35 Dose: 5 ml Nicotine (Nicoderm Cq) 1 patch TD DAILY [facility] Last Admin: 03/19/17 09:06 Dose: 1 patch - Labs Labs: 03/19/17 06:24 03/19/17 06:25 PT 14.1 SECONDS (9.7-12.2) H 03/04/17 20:15 INR 1.3 03/04/17 20:15 APTT 35 SECONDS (21-34) H 03/04/17 20:15
[2017-03-19] MEDS: Acetaminophen 650mg/20.3ml solution UD NG PRN (11:57)
--- NOTE | 2017-03-19 13:15 | CP.CCUPN ---
<Beti Bland - Last Filed: 03/19/17 13:16> CCU Subjective - Physician Review Subjective (Free Text): 03/19/17 13:[address] Espitia Patient seen and examined at bedside. Patient moves left arm to command. GCS 11T [id number]. Family meeting for tonight at 7pm with Dr. Torres CCU Objective - Vital Signs / Intake & Output Vital Signs (Last 4 hours): Vital Signs Temp Pulse Resp BP Pulse Ox 03/19/17 12:15 84/48 L 03/19/17 12:14 108 H 22 100 03/19/17 12:00 100.4 F H 03/19/17 11:57 100.4 F H 03/19/17 11:15 107 H 21 91/56 L 100 03/19/17 10:15 113 H 25 H 91/58 L 100 03/19/17 09:15 109 H 21 90/54 L 100 Intake and Output (Last 8hrs): Intake & Output 03/18/17 03/19/17 03/19/17 22:59 06:59 14:59 Intake Total 602.5 700.0 705.0 Output Total 2050 400 190 Balance -1447.5 300.0 515.0 Weight 115 lb Intake: IV 130 Intake, IV Amount 62.5 260.0 245.0 Right Distal Port 200 200 Internal Jugular Right Medial Port 62.5 60.0 45.0 Internal Jugular Tube Feeding 440 440 330 Other 100 Output: Urine 2050 400 190 Urethral (Mercedes) 1550 400 190 Urine, Voided 500 - Physical Exam Head: Positive for: Atraumatic, Normocephalic, Abrasion (top of head, heal. no erythema), Other (temporalis atrophy) Pupils: Positive for: Sluggish (Left eye), Other (Right eye dilated 3mm, fixed.) Conjunctiva: Positive for: Normal Mouth: Positive for: Moist Mucous Membranes, Other (intubated) Respiratory/Chest: Positive for: Decreased Breath Sounds (RUL), Rhonchi Cardiovascular: Positive for: Regular Rate and Rhythm, Murmurs, Normal S1, S2, Tachycardic Abdomen: Negative for: Tenderness, Distention, Peritoneal Signs Upper Extremity: Positive for: Normal Inspection, NORMAL PULSES. Negative for: Edema Lower Extremity: Positive for: Normal Inspection, NORMAL PULSES. Negative for: Edema, CALF TENDERNESS Neurological: Positive for: Other (intubated) Skin: Positive for: Warm, Dry Psychiatric: Positive for: Other (intubated) - Medications Active Medications: Active Medications Generic Name Dose Route Start Last Admin Trade Name Freq PRN Reason Stop Dose Admin Acetaminophen 650 mg 03/18/17 12:29 03/19/17 11:57 Tylenol 650mg/20.3ml Solution Ud NG 650 mg Q6 PRN Administration Fever >100.4 F Ergocalciferol 1 cap 03/22/17 10:45 Drisdol 50,000 Intl Units Cap PO Q7D JACK Famotidine 20 mg 03/15/17 10:00 03/19/17 09:06 Pepcid IVP 20 mg DAILY JACK Administration Ferrous Sulfate 300 mg 03/18/17 18:00 03/19/17 09:04 Feosol Liq NG 300 mg BID JACK Administration Phenylephrine HCl 60 mg/ 256 mls @ 5.11 mls/hr 03/08/17 18:45 03/19/17 13:02 Dextrose IV 50 mcg/min .Q24H PRN 12.79 mls/hr TITRATE PER MD ORDER Titration Protocol 20 MCG/MIN Propofol 1,000 mg in 100 mls @ 1.512 mls/hr 03/11/17 17:38 03/15/17 18:00 Diprivan IV 0 mcg/kg/min .Q24H PRN 0 mls/hr TITRATE PER MD ORDER Titration Protocol 5 MCG/KG/MIN Nafcillin Sodium 2 gm/ Sodium 100 mls @ 100 mls/hr 03/14/17 12:00 03/19/17 11 :58 Chloride IVPB 100 mls/hr Q6H JACK Administration Lactobacillus Acidophilus 1 cap 03/14/17 18:00 03/19/17 09:04 Bacid Acidophilus PO 1 cap BID JACK Administration Multivitamins/Vitamin C 5 ml 03/10/17 10:00 03/19/17 09:35 Multi-Delyn Liquid PO 5 ml DAILY JACK Administration Nicotine 1 patch 03/11/17 10:00 03/19/17 09:06 Nicoderm Cq TD 1 patch DAILY [facility] Administration - Patient Studies Lab Studies: Microbiology Studies 03/09/17 Unknown Mycobacterial Culture - Preliminary Other: Please Indicate Lab Studies 1203/19/17 03/19/17 Range/Units 06:25 06:24 05:02 WBC 13.4 H (4.8-10.8) K/uL RBC 2.67 L (4.40-5.90) Mil/uL Hgb 7.3 L (12.0-18.0) g/dL Hct 23.6 L (35.0-51.0) % MCV 88.5 (80.0-94.0) fL MCH 27.4 (27.0-31.0) pg MCHC 31.0 L (33.0-37.0) g/dL RDW 25.6 H (11.5-14.5) % Plt Count 236 (130-400) K/uL MPV 8.4 (7.2-11.7) fL Neut % (Auto) 73.8 (50.0-75.0) % Lymph % (Auto) 19.9 L (20.0-40.0) % [place] % (Auto) 3.9 (0.0-10.0) % Eos % (Auto) 1.2 (0.0-4.0) % Baso % (Auto) 1.2 (0.0-2.0) % Neut # 9.9 H (1.8-7.0) K/uL Lymph # 2.7 (1.0-4.3) K/uL [place] # 0.5 (0.0-0.8) K/uL Eos # 0.2 (0.0-0.7) K/uL Baso # 0.2 (0.0-0.2) K/uL Puncture Site Rr pCO2 31 L (35-45) mm/Hg pO2 133 H (80-100) mm/Hg HCO3 21.9 (21-28) mmol/L ABG pH 7.42 (7.35-7.45) ABG Total CO2 21.1 L (22-28) mmol/L ABG O2 Saturation 99.9 H (95-98) % ABG Base Excess -3.9 L (-2.0-3.0) mmol/L ABG Hemoglobin 7.3 L (11.7-17.4) g/dL ABG Carboxyhemoglobin 2.7 H (0.5-1.5) % POC ABG HHb (Measured) 0.1 (0.0-5.0) % ABG Methemoglobin 0.8 (0.0-3.0) % Jorge Test Pos A-a O2 Difference 113.0 mm/Hg Respiratory Index 0.8 Hgb O2 Saturation 96.3 (95.0-98.0) % Vent Mode Simv/ps Mechanical Rate 14 FiO2 40.0 % Tidal Volume 450 PEEP 5 Pressure Support 12 Sodium 147 (132-148) mmol/L Potassium 3.5 L (3.6-5.2) mmol/L Chloride 123 H (98-107) mmol/L Carbon Dioxide 21 L (22-30) mmol/L Anion Gap 6 L (10-20) BUN 53 H (9-20) mg/dL Creatinine 1.2 (0.8-1.5) mg/dL Est GFR ( Amer) > 60 Est GFR (Non-Af Amer) > 60 Random Glucose 89 (75-110) mg/dL Calcium 7.5 L (8.6-10.4) mg/dl Laboratory Results - last 24 hr 03/19/17 03/19/17 03/19/17 05:02 06:24 06:25 WBC 13.4 H RBC 2.67 L Hgb 7.3 L Hct 23.6 L MCV 88.5 MCH 27.4 MCHC 31.0 L RDW 25.6 H Plt Count 236 MPV 8.4 Neut % (Auto) 73.8 Lymph % (Auto) 19.9 L [place] % (Auto) 3.9 Eos % (Auto) 1.2 Baso % (Auto) 1.2 Neut # 9.9 H Lymph # 2.7 [place] # 0.5 Eos # 0.2 Baso # 0.2 Puncture Site Rr pCO2 31 L pO2 133 H HCO3 21.9 ABG pH 7.42 ABG Total CO2 21.1 L ABG O2 Saturation 99.9 H ABG Base Excess -3.9 L ABG Hemoglobin 7.3 L ABG Carboxyhemoglobin 2.7 H POC ABG HHb (Measured) 0.1 ABG Methemoglobin 0.8 Jorge Test Pos A-a O2 Difference 113.0 Respiratory Index 0.8 Hgb O2 Saturation 96.3 Vent Mode Simv/ps Mechanical Rate 14 FiO2 40.0 Tidal Volume 450 PEEP 5 Pressure Support 12 Sodium 147 Potassium 3.5 L Chloride 123 H Carbon Dioxide 21 L Anion Gap 6 L BUN 53 H Creatinine 1.2 Est GFR ( Amer) > 60 Est GFR (Non-Af Amer) > 60 Random Glucose 89 Calcium 7.5 L Fingerstick Blood Sugar Results: 94 Assessment/Plan - Assessment and Plan (Free Text) Assessment: 56 year old cachectic male with no known PMH presenting with cough, loss of weight, confusion and right upper lobe infiltrate with leucocytosis, thrombocytosis, hyponatremia, hypercalcemia and dehydration. Most likely has lung malignancy, r/o pneumonia/lung abscess/fungal infection Plan Neuro: Sedation: Propofol 5mcg/kg/min Pain: Tramadol 25mg PO TID PRN Neuro consult: Dr. Dr. Moore Nicotine 21mg/24hr QD Cardio: monitor vitals D5/Phenylephrine 20mcg/min Pulm: 03/11 PRVC 450 TV PEEP5 RR18 [id number]% 03/11 11:35 ABG pH 7.29/pO2 130/pCO2 29/HCO3 16 CT Chest: RUL cavitation 03/11 AFB cultures 03/08, 03/09 03/20 CXR worsening consolidation or effusion in right lung and erosion of right lateral rib. findings are concerning for pleural based mass with metastasis in rib. 03/19 CXR clearer than yesterday. right pulmonary mass with contiguous right rib destruction probable right peritracheal lymphadenopathy Pulmonlogy consult: Dr. Megha Saldivar 3cc INH RQ6 Endo: n/a GI: CMP : 03/10 UA: UTI 03/09 Urine culture: Klebsiella Cefepime 1gm IVPB Q12H Renal/electrolytes hyponatremia, hypercalcemia I/O Nephrology consult: Dr. Nassar Heme: thrombocytosis, 03/11 H/H 10.1/32.9 03/19 Oncology: n/a MSK: n/a ID: ID Consult: Dr. Sanches Cefepime 1gm IVPB Q12H - discontinued 03/14 Vancomycin 1gm IVPB Q24H - discontinued 03/14 Nafcillin 2gm IVPB Q6H Prophylaxis: DVT: Heparin 5000u SC Q8H GI: Pepcid 20mg IVP QD Nausea: 03/11 14:00 Reglan 10mg IVP TID, Discontinue 03/14/17 14:01 Fluids: IV fluids LR @75cc/hr Tube feeds initiate 20cc/hr with goal rate @ 40cc/hr Code Status: DNR 03/12 Dr. Espitia spoke with family for decision on terminal extubation. Patient's family did not make a decision. will continue to follow 03/19 Dr. Torres to speak to family about terminal extubation at 19:[address] Omkar Bland DO PGY1 - Date & Time Date: 03/19/17 Time: 13:19 <David Espitia - Last Filed: 03/19/17 15:08> CCU Objective - Vital Signs / Intake & Output Vital Signs (Last 4 hours): Vital Signs Temp Pulse Resp BP Pulse Ox 03/19/17 12:15 84/48 L 03/19/17 12:14 108 H 22 100 03/19/17 12:00 100.4 F H 03/19/17 11:57 100.4 F H 03/19/17 11:15 107 H 21 91/56 L 100 Intake and Output (Last 8hrs): Intake & Output 03/19/17 03/19/17 03/19/17 06:59 14:59 22:59 Intake Total 700.0 707.0 Output Total 400 190 Balance 300.0 517.0 Weight 115 lb Intake: IV 132 Intake, IV Amount 260.0 245.0 Right Distal Port 200 200 Internal Jugular Right Medial Port 60.0 45.0 Internal Jugular Tube Feeding 440 330 Output: Urine 400 190 Urethral (Mercedes) 400 190 - Medications Active Medications: Active Medications Generic Name Dose Route Start Last Admin Trade Name Freq PRN Reason Stop Dose Admin Acetaminophen 650 mg 03/18/17 12:29 03/19/17 11:57 Tylenol 650mg/20.3ml Solution Ud NG 650 mg Q6 PRN Administration Fever >100.4 F Ergocalciferol 1 cap 03/22/17 10:45 Drisdol 50,000 Intl Units Cap PO Q7D JACK Famotidine 20 mg 03/15/17 10:00 03/19/17 09:06 Pepcid IVP 20 mg DAILY JACK Administration Ferrous Sulfate 300 mg 03/18/17 18:00 03/19/17 09:04 Feosol Liq NG 300 mg BID JACK Administration Phenylephrine HCl 60 mg/ 256 mls @ 5.11 mls/hr 03/08/17 18:45 03/19/17 13:20 Dextrose IV 60 mcg/min .Q24H PRN 15.36 mls/hr TITRATE PER MD ORDER Titration Protocol 20 MCG/MIN Propofol 1,000 mg in 100 mls @ 1.512 mls/hr 03/11/17 17:38 03/15/17 18:00 Diprivan IV 0 mcg/kg/min .Q24H PRN 0 mls/hr TITRATE PER MD ORDER Titration Protocol 5 MCG/KG/MIN Nafcillin Sodium 2 gm/ Sodium 100 mls @ 100 mls/hr 03/14/17 12:00 03/19/17 11 :58 Chloride IVPB 100 mls/hr Q6H JACK Administration Lactobacillus Acidophilus 1 cap 03/14/17 18:00 03/19/17 09:04 Bacid Acidophilus PO 1 cap BID JACK Administration Multivitamins/Vitamin C 5 ml 03/10/17 10:00 03/19/17 09:35 Multi-Delyn Liquid PO 5 ml DAILY JACK Administration Nicotine 1 patch 03/11/17 10:00 03/19/17 09:06 Nicoderm Cq TD 1 patch DAILY [facility] Administration - Patient Studies Lab Studies: Microbiology Studies 03/09/17 Unknown Mycobacterial Culture - Preliminary Other: Please Indicate Lab Studies 03/19/17 03/19/17 03/19/17 Range/Units 06:25 06:24 05:02 WBC 13.4 H (4.8-10.8) K/uL RBC 2.67 L (4.40-5.90) Mil/uL Hgb 7.3 L (12.0-18.0) g/dL Hct 23.6 L (35.0-51.0) % MCV 88.5 (80.0-94.0) fL MCH 27.4 (27.0-31.0) pg MCHC 31.0 L (33.0-37.0) g/dL RDW 25.6 H (11.5-14.5) % Plt Count 236 (130-400) K/uL MPV 8.4 (7.2-11.7) fL Neut % (Auto) 73.8 (50.0-75.0) % Lymph % (Auto) 19.9 L (20.0-40.0) % [place] % (Auto) 3.9 (0.0-10.0) % Eos % (Auto) 1.2 (0.0-4.0) % Baso % (Auto) 1.2 (0.0-2.0) % Neut # 9.9 H (1.8-7.0) K/uL Lymph # 2.7 (1.0-4.3) K/uL [place] # 0.5 (0.0-0.8) K/uL Eos # 0.2 (0.0-0.7) K/uL Baso # 0.2 (0.0-0.2) K/uL Puncture Site Rr pCO2 31 L (35-45) mm/Hg pO2 133 H (80-100) mm/Hg HCO3 21.9 (21-28) mmol/L ABG pH 7.42 (7.35-7.45) ABG Total CO2 21.1 L (22-28) mmol/L ABG O2 Saturation 99.9 H (95-98) % ABG Base Excess -3.9 L (-2.0-3.0) mmol/L ABG Hemoglobin 7.3 L (11.7-17.4) g/dL ABG Carboxyhemoglobin 2.7 H (0.5-1.5) % POC ABG HHb (Measured) 0.1 (0.0-5.0) % ABG Methemoglobin 0.8 (0.0-3.0) % Jorge Test Pos A-a O2 Difference 113.0 mm/Hg Respiratory Index 0.8 Hgb O2 Saturation 96.3 (95.0-98.0) % Vent Mode Simv/ps Mechanical Rate 14 FiO2 40.0 % Tidal Volume 450 PEEP 5 Pressure Support 12 Sodium 147 (132-148) mmol/L Potassium 3.5 L (3.6-5.2) mmol/L Chloride 123 H (98-107) mmol/L Carbon Dioxide 21 L (22-30) mmol/L Anion Gap 6 L (10-20) BUN 53 H (9-20) mg/dL Creatinine 1.2 (0.8-1.5) mg/dL Est GFR ( Amer) > 60 Est GFR (Non-Af Amer) > 60 Random Glucose 89 (75-110) mg/dL Calcium 7.5 L (8.6-10.4) mg/dl Laboratory Results - last 24 hr 03/19/17 03/19/17 03/19/17 05:02 06:24 06:25 WBC 13.4 H RBC 2.67 L Hgb 7.3 L Hct 23.6 L MCV 88.5 MCH 27.4 MCHC 31.0 L RDW 25.6 H Plt Count 236 MPV 8.4 Neut % (Auto) 73.8 Lymph % (Auto) 19.9 L [place] % (Auto) 3.9 Eos % (Auto) 1.2 Baso % (Auto) 1.2 Neut # 9.9 H Lymph # 2.7 [place] # 0.5 Eos # 0.2 Baso # 0.2 Puncture Site Rr pCO2 31 L pO2 133 H HCO3 21.9 ABG pH 7.42 ABG Total CO2 21.1 L ABG O2 Saturation 99.9 H ABG Base Excess -3.9 L ABG Hemoglobin 7.3 L ABG Carboxyhemoglobin 2.7 H POC ABG HHb (Measured) 0.1 ABG Methemoglobin 0.8 Jorge Test Pos A-a O2 Difference 113.0 Respiratory Index 0.8 Hgb O2 Saturation 96.3 Vent Mode Simv/ps Mechanical Rate 14 FiO2 40.0 Tidal Volume 450 PEEP 5 Pressure Support 12 Sodium 147 Potassium 3.5 L Chloride 123 H Carbon Dioxide 21 L Anion Gap 6 L BUN 53 H Creatinine 1.2 Est GFR ( Amer) > 60 Est GFR (Non-Af Amer) > 60 Random Glucose 89 Calcium 7.5 L Attending/Attestation - Attestation I have personally seen and examined this patient.: Yes I have fully participated in the care of the patient.: Yes I have reviewed all pertinent clinical information: Yes Notes (Text): 03/19/17 15:08 patient seen and examined in the intensive care unit. Case discussed with house staff in the morning. No change in patient condition Family meeting today Continue present treatment
[2017-03-19] MEDS: PHENYLEPHRINE IV PRN (16:48)
[2017-03-19] MEDS: WATER IV PRN (16:48)
[2017-03-19] MEDS: DEXTROSE 5% IV PRN (16:48)
[2017-03-20] MEDS: Nafcillin 2 GM in Sodium Chloride 0.9% 100 ML IVPB SCH ×4 (00:59→17:06)
[2017-03-20] MEDS: PHENYLEPHRINE IV PRN ×2 (04:53→16:23)
[2017-03-20] MEDS: DEXTROSE 5% IV PRN ×2 (04:53→16:23)
[2017-03-20] MEDS: WATER IV PRN ×2 (04:53→16:23)
[2017-03-20 06:18] LABS: ABG ALLEN TEST POS; ABG MECHANICAL RATE 14; ARTERIAL BLOOD GAS MODE SIMV; ATERIAL BLOOD GAS PEEP 5; CARBOXYHEMOGLOBIN 2.1 % (0.5-1.5); DRAW SITE RT RADIAL; HHB 0.6 % (0.0-5.0); METHEMOGLOBIN 1.3 % (0.0-3.0)
[2017-03-20 06:34] LABS: BASO # 0.2 K/uL (0.0-0.2); BASO % 1.3 % (0.0-2.0); EOS # 0.2 K/uL (0.0-0.7); EOS % 1.2 % (0.0-4.0); HEMATOCRIT 23.2 % (35.0-51.0); LYMPH # 3.1 K/uL (1.0-4.3); LYMPH % 20.4 % (20.0-40.0); MEAN CELL VOLUME 88.7 fL (80.0-94.0); MEAN CORPUSCULAR HEMOGLOBIN 27.3 pg (27.0-31.0); MEAN CORPUSCULAR HGB CONC 30.8 g/dL (33.0-37.0); MEAN PLATELET VOLUME 8.5 fL (7.2-11.7); MONO # 0.6 K/uL (0.0-0.8); MONO % 4.2 % (0.0-10.0); RED CELL DISTRIBUTION WIDTH 26.8 % (11.5-14.5); WHITE BLOOD COUNT 15.1 K/uL (4.8-10.8)
[2017-03-20 07:04] LABS: CALCIUM 7.2 mg/dl (8.6-10.4); POTASSIUM 3.9 mmol/L (3.6-5.2)
--- NOTE | 2017-03-20 07:17 | CP.PCM.PN ---
Subjective - Date & Time of Evaluation Date of Evaluation: 03/19/17 Time of Evaluation: 19:40 - Subjective Subjective: Attended the family meeting with Holden and 2 brother present, at the time of the conversation patient was off sedation on SIMV, about 70 mcg of phenylephrine , patient was able to eye contact and communicated by nodding head with the family. Seeing in this condition they wanted him to have chance to fight with that what they meant that eventually pt be extubated or trached but off vent, then he could get chemo for suspected lung cancer and he may pull through. I explained the family that through out the hospitalization the patient had waxing and waning course, some days patient is more awake others not, some day needing lot vent support others less, off and on pressor, severe 3rd spacing showing severe malnutrition, and being on vent not only with this but has lung lession which is very high probability huge malignant right lung tumor. I explained the family despite being in the hospital the patient is clinically not very different from the time he came in, also attempts are made every day to wean him but has not been successful but once extubated even does not guarantee as patient has had waxing and waning course. I also explained family that every time he is on this hospital bed it's both physical and mental severe pain with he having tubes in his mouth, throat, penis , rectum, patient is either sedated or unable to move from the bed, blood works , abg, cleaning, bed sores are painful, recurrent trial of breathing when he gets tired is also severe exertion for him. Since the clinical condition has not changed in last 2 wks, it is very possible the patient will have to go through all this pain untill he is made comfortable or he fights the clinical condition including lung lesion. Since the likely garcia of second is very less the patient may while being in pain and I tried to make realize the brothers the trade off for his fighting chance is putting him through this severe trauma, where at least we can make him feel better rather fight. The family understood the discussion, requested still more time, want to discuss with my Colleague today again around 5:30 pm and also with other consultants to get everybodys opinion. The codes status is still DNR, decision regarding further definitive care still not taken. Nursing was informed about the conversation. Objective - Vital Signs/Intake and Output Vital Signs (last 24 hours): Temp Pulse Resp BP Pulse Ox 98.5 F 86 17 90/50 L 100 03/20/17 04:00 03/20/17 05:00 03/20/17 05:00 03/20/17 04:53 03/20/17 05:00 Intake and Output: 03/19/17 03/20/17 18:59 06:59 Intake Total 1340.3 1103.5 Output Total 310 300 Balance 1030.3 803.5 - Medications Medications: Current Medications Acetaminophen (Tylenol 650mg/20.3ml Solution Ud) 650 mg NG Q6 PRN PRN Reason: Fever >100.4 F Last Admin: 03/19/17 11:57 Dose: 650 mg Ergocalciferol (Drisdol 50,000 Intl Units Cap) 1 cap PO Q7D [facility] Famotidine (Pepcid) 20 mg IVP DAILY [facility] Last Admin: 03/19/17 09:06 Dose: 20 mg Ferrous Sulfate (Feosol Liq) 300 mg NG BID [facility] Last Admin: 03/19/17 17:26 Dose: 300 mg Phenylephrine HCl 60 mg/ (Dextrose) 256 mls @ 5.11 mls/hr IV .Q24H PRN; Protocol; 20 MCG/MIN PRN Reason: TITRATE PER MD ORDER Last Admin: 03/20/17 04:53 Dose: 100 mcg/min, 25.6 mls/hr Propofol (Diprivan) 1,000 mg in 100 mls @ 1.512 mls/hr IV .Q24H PRN; Protocol; 5 MCG/KG/MIN PRN Reason: TITRATE PER MD ORDER Last Titration: 03/15/17 18:00 Dose: 0 mcg/kg/min, 0 mls/hr Nafcillin Sodium 2 gm/ Sodium (Chloride) 100 mls @ 100 mls/hr IVPB Q6H [facility] Last Admin: 03/20/17 04:59 Dose: 100 mls/hr Lactobacillus Acidophilus (Bacid Acidophilus) 1 cap PO BID [facility] Last Admin: 03/19/17 17:26 Dose: 1 cap Multivitamins/Vitamin C (Multi-Delyn Liquid) 5 ml PO DAILY [facility] Last Admin: 03/19/17 09:35 Dose: 5 ml Nicotine (Nicoderm Cq) 1 patch TD DAILY [facility] Last Admin: 03/19/17 09:06 Dose: 1 patch - Labs Labs: 03/20/17 06:23 03/19/17 06:25 PT 14.1 SECONDS (9.7-12.2) H 03/04/17 20:15 INR 1.3 03/04/17 20:15 APTT 35 SECONDS (21-34) H 03/04/17 20:15
--- NOTE | 2017-03-20 08:23 | PN ---
DATE: 03/20/2017 TIME OF EVALUATION: 07:20 a.m. NEUROLOGICAL PROBLEM: Metabolic versus hypoxic encephalopathy. PHYSICAL EXAMINATION: VITAL SIGNS: Blood pressure 105/68, mean arterial pressure of 80, respiratory rate on vent 17, temperature afebrile with pulse rate of 98. NEUROLOGIC: The patient is more awake. Good visual cue. He moves right more than his left side. Right leg is externally rotated. Responds to pain appropriately. Some movement is decreased on his left side to compare with the right side. Though, his presenting right leg was externally rotated. The patient seems to be quadriparetic with left side weakness more than his right side. Rest of the examination which was unchanged to compare with the previous examination. ASSESSMENT AND PLAN: The patient's did have an MRI of the brain which was done on 03/06/2017 shows bilateral acute and subacute process of subdural collection of the fluid noted without any shift. The patient is terminally ill. The patient's status lifted to do not resuscitate status. Continue the supportive care at present. No further workup is needed from Neurology. Bhavesh Moore MD
--- NOTE | 2017-03-20 08:42 | CP.CCUPN ---
<Beti Bland - Last Filed: 03/20/17 13:35> CCU Subjective - Physician Review Subjective (Free Text): 03/20/17 09:[address] Espitia Patient seen and examined at bedside and is following commands today. Patient opens eyes to his name GCS 11T ([id number]). Family spoke with Dr. Torres last night: Holden and 2 brothers were present. It was discussed the waxing and waning nature of the patient's health status and in the unlikely event that patient will be able to wean off the vent, patient would likely not be able to tolerate chemotherapy. Family wanted more time to decide. Dr. Obed Anguiano will be meeting 5:30pm today to discuss further. Critical Care Time Spent (in minutes): 35 CCU Objective - Vital Signs / Intake & Output Vital Signs (Last 4 hours): Vital Signs Pulse Resp BP Pulse Ox 03/20/17 08:15 88 20 90/52 L 100 03/20/17 08:00 91 H 17 100 03/20/17 07:15 97 H 14 99/58 L 100 03/20/17 07:00 98 H 13 100 03/20/17 06:15 103 H 17 105/68 100 03/20/17 06:00 102 H 92 L 03/20/17 05:15 93 H 15 83/45 L 100 03/20/17 05:00 86 17 100 03/20/17 04:53 88 21 90/50 L 100 Intake and Output (Last 8hrs): Intake & Output 03/19/17 03/20/17 03/20/17 22:59 06:59 14:59 Intake Total 785.5 896 80 Output Total 170 260 50 Balance 615.5 636 30 Weight 113 lb Intake: IV 118 256 Intake, IV Amount 227.5 200 25 Right Distal Port 100 Internal Jugular Right Medial Port 127.5 200 25 Internal Jugular Tube Feeding 440 440 55 Output: Urine 170 260 50 Urethral (Mercedes) 170 260 50 Other: # Bowel Movements 1 - Physical Exam Head: Positive for: Atraumatic, Normocephalic, Abrasion (top of head, heal. no erythema), Other (temporalis atrophy) Pupils: Positive for: Other (Right eye dilated 3mm, fixed.) Conjunctiva: Positive for: Normal Mouth: Positive for: Moist Mucous Membranes, Other (intubated) Respiratory/Chest: Positive for: Decreased Breath Sounds (RUL), Rhonchi Cardiovascular: Positive for: Regular Rate and Rhythm, Murmurs, Normal S1, S2, Tachycardic Abdomen: Negative for: Tenderness, Distention, Peritoneal Signs Upper Extremity: Positive for: Normal Inspection, NORMAL PULSES. Negative for: Edema Lower Extremity: Positive for: Normal Inspection, NORMAL PULSES. Negative for: Edema, CALF TENDERNESS Neurological: Positive for: Other (intubated). Negative for: GCS=15 (GCS 11T) Skin: Positive for: Warm, Dry Psychiatric: Positive for: Other (intubated) - Medications Active Medications: Active Medications Generic Name Dose Route Start Last Admin Trade Name Freq PRN Reason Stop Dose Admin Acetaminophen 650 mg 03/18/17 12:29 03/19/17 11:57 Tylenol 650mg/20.3ml Solution Ud NG 650 mg Q6 PRN Administration Fever >100.4 F Ergocalciferol 1 cap 03/22/17 10:45 Drisdol 50,000 Intl Units Cap PO Q7D JACK Famotidine 20 mg 03/15/17 10:00 03/19/17 09:06 Pepcid IVP 20 mg DAILY JACK Administration Ferrous Sulfate 300 mg 03/18/17 18:00 03/19/17 17:26 Feosol Liq NG 300 mg BID JACK Administration Phenylephrine HCl 60 mg/ 256 mls @ 5.11 mls/hr 03/08/17 18:45 03/20/17 04:53 Dextrose IV 100 mcg/min .Q24H PRN 25.6 mls/hr TITRATE PER MD ORDER Administration Protocol 20 MCG/MIN Propofol 1,000 mg in 100 mls @ 1.512 mls/hr 03/11/17 17:38 03/15/17 18:00 Diprivan IV 0 mcg/kg/min .Q24H PRN 0 mls/hr TITRATE PER MD ORDER Titration Protocol 5 MCG/KG/MIN Nafcillin Sodium 2 gm/ Sodium 100 mls @ 100 mls/hr 03/14/17 12:00 03/20/17 04 :59 Chloride IVPB 100 mls/hr Q6H JACK Administration Lactobacillus Acidophilus 1 cap 03/14/17 18:00 03/19/17 17:26 Bacid Acidophilus PO 1 cap BID JACK Administration Multivitamins/Vitamin C 5 ml 03/10/17 10:00 03/19/17 09:35 Multi-Delyn Liquid PO 5 ml DAILY JACK Administration Nicotine 1 patch 03/11/17 10:00 03/19/17 09:06 Lalo Cq TD 1 patch DAILY JACK Administration - Patient Studies Lab Studies: Lab Studies 03/20/17 03/20/17 03/20/17 Range/Units 06:23 06:23 05:01 WBC 15.1 H (4.8-10.8) K/uL RBC 2.61 L (4.40-5.90) Mil/uL Hgb 7.1 L (12.0-18.0) g/dL Hct 23.2 L (35.0-51.0) % MCV 88.7 (80.0-94.0) fL MCH 27.3 (27.0-31.0) pg MCHC 30.8 L (33.0-37.0) g/dL RDW 26.8 H (11.5-14.5) % Plt Count 262 (130-400) K/uL MPV 8.5 (7.2-11.7) fL Neut % (Auto) 72.9 (50.0-75.0) % Lymph % (Auto) 20.4 (20.0-40.0) % [place] % (Auto) 4.2 (0.0-10.0) % Eos % (Auto) 1.2 (0.0-4.0) % Baso % (Auto) 1.3 (0.0-2.0) % Neut # 11.0 H (1.8-7.0) K/uL Lymph # 3.1 (1.0-4.3) K/uL [place] # 0.6 (0.0-0.8) K/uL Eos # 0.2 (0.0-0.7) K/uL Baso # 0.2 (0.0-0.2) K/uL Puncture Site Rt radial pCO2 35 (35-45) mm/Hg pO2 152 H (80-100) mm/Hg HCO3 21.0 (21-28) mmol/L ABG pH 7.36 (7.35-7.45) ABG Total CO2 20.9 L (22-28) mmol/L ABG O2 Saturation 99.4 H (95-98) % ABG Base Excess -5.1 L (-2.0-3.0) mmol/L ABG Hemoglobin 7.0 L (11.7-17.4) g/dL ABG Carboxyhemoglobin 2.1 H (0.5-1.5) % POC ABG HHb (Measured) 0.6 (0.0-5.0) % ABG Methemoglobin 1.3 (0.0-3.0) % Jorge Test Pos A-a O2 Difference 89.0 mm/Hg Respiratory Index 0.6 Hgb O2 Saturation 96.0 (95.0-98.0) % Vent Mode Simv Mechanical Rate 14 FiO2 40.0 % Tidal Volume 450 PEEP 5 Pressure Support 12 Crit Value Called To Md kobe soto Crit Value Called By R [employer] Crit Value Read Back Y Blood Gas Notified Time 625 Sodium 147 (132-148) mmol/L Potassium 3.9 (3.6-5.2) mmol/L Chloride 123 H (98-107) mmol/L Carbon Dioxide 20 L (22-30) mmol/L Anion Gap 8 L (10-20) BUN 61 H (9-20) mg/dL Creatinine 1.5 (0.8-1.5) mg/dL Est GFR ( Amer) 58 Est GFR (Non-Af Amer) 48 Random Glucose 87 (75-110) mg/dL Calcium 7.2 L (8.6-10.4) mg/dl Laboratory Results - last 24 hr 03/20/17 03/20/17 03/20/17 05:01 06:23 06:23 WBC 15.1 H RBC 2.61 L Hgb 7.1 L Hct 23.2 L MCV 88.7 MCH 27.3 MCHC 30.8 L RDW 26.8 H Plt Count 262 MPV 8.5 Neut % (Auto) 72.9 Lymph % (Auto) 20.4 [place] % (Auto) 4.2 Eos % (Auto) 1.2 Baso % (Auto) 1.3 Neut # 11.0 H Lymph # 3.1 [place] # 0.6 Eos # 0.2 Baso # 0.2 Puncture Site Rt radial pCO2 35 pO2 152 H HCO3 21.0 ABG pH 7.36 ABG Total CO2 20.9 L ABG O2 Saturation 99.4 H ABG Base Excess -5.1 L ABG Hemoglobin 7.0 L ABG Carboxyhemoglobin 2.1 H POC ABG HHb (Measured) 0.6 ABG Methemoglobin 1.3 Jorge Test Pos A-a O2 Difference 89.0 Respiratory Index 0.6 Hgb O2 Saturation 96.0 Vent Mode Simv Mechanical Rate 14 FiO2 40.0 Tidal Volume 450 PEEP 5 Pressure Support 12 Crit Value Called To Md kobe soto Crit Value Called By R [employer] Crit Value Read Back Y Blood Gas Notified Time 625 Sodium 147 Potassium 3.9 Chloride 123 H Carbon Dioxide 20 L Anion Gap 8 L BUN 61 H Creatinine 1.5 Est GFR ( Amer) 58 Est GFR (Non-Af Amer) 48 Random Glucose 87 Calcium 7.2 L Fingerstick Blood Sugar Results: 94 Assessment/Plan - Assessment and Plan (Free Text) Assessment: 56 year old cachectic male with no known PMH presenting with cough, loss of weight, confusion and right upper lobe infiltrate with leucocytosis, thrombocytosis, hyponatremia, hypercalcemia and dehydration. Most likely has lung malignancy, r/o pneumonia/lung abscess/fungal infection Plan Neuro: Sedation: Propofol 5mcg/kg/min Pain: Tramadol 25mg PO TID PRN Neuro consult: Dr. Dr. Moore Nicotine 21mg/24hr QD Cardio: monitor vitals D5/Phenylephrine 20mcg/min Pulm: 03/11 PRVC 450 TV PEEP5 RR18 [id number]% 03/11 11:35 ABG pH 7.29/pO2 130/pCO2 29/HCO3 16 CT Chest: RUL cavitation 03/11 AFB cultures 03/08, 03/09 Pulmonlogy consult: Dr. Megha Saldivar 3cc INH RQ6 Endo: n/a GI: CMP : 03/10 UA: UTI 03/09 Urine culture: Klebsiella Cefepime 1gm IVPB Q12H Renal/electrolytes hyponatremia, hypercalcemia, resolved I/O Nephrology consult: Dr. Nassar Heme: thrombocytosis, 03/11 H/H 10.1/32.9 Oncology: n/a MSK: n/a ID:[id number] WBC 26.8, 46.5 ID Consult: Dr. Sanches Cefepime 1gm IVPB Q12H - discontinued 03/14 Vancomycin 1gm IVPB Q24H - discontinued 03/14 Nafcillin 2gm IVPB Q6H Prophylaxis: DVT: Heparin 5000u SC Q8H GI: Pepcid 20mg IVP QD Nausea: 03/11 14:00 Reglan 10mg IVP TID, Discontinue 03/14/17 14:01 Fluids: IV fluids LR @75cc/hr Tube feeds initiate 20cc/hr with goal rate @ 40cc/hr Code Status: DNR 03/12 Dr. Espitia spoke with family for decision on terminal extubation. Patient's family did not make a decision. will continue to follow 03/19 continued CPAP trials. 19:00 Patient's family spoke with Dr. Torres. Unable to complete decision. Will discuss tomorrow with Dr. Obed Anguiano. 03/20 family meeting 17:[address] Rica Anguiano for possible terminal extubation. discussed with Dr. Omkar Bland DO PGY1 - Date & Time Date: 03/20/17 Time: 13:35 <David Espitia - Last Filed: 03/20/17 16:42> CCU Objective - Vital Signs / Intake & Output Vital Signs (Last 4 hours): Vital Signs Pulse Resp BP Pulse Ox 03/20/17 16:23 88 22 92/49 L 100 03/20/17 15:07 89 22 85/51 L 100 03/20/17 15:00 90 21 100 03/20/17 14:15 106 H 23 103/59 L 100 03/20/17 14:00 101 H 20 100 03/20/17 13:15 97 H 20 100/62 100 03/20/17 13:00 97 H 19 100 Intake and Output (Last 8hrs): Intake & Output 03/20/17 03/20/17 03/20/17 06:59 14:59 22:59 Intake Total 896 996 80 Output Total 260 260 30 Balance 636 736 50 Weight 113 lb Intake: IV 256 256 Intake, IV Amount 200 200 25 Right Medial Port 200 200 25 Internal Jugular Tube Feeding 440 440 55 Other 100 Output: Urine 260 260 30 Urethral (Mercedes) 260 260 30 Other: # Bowel Movements 1 - Medications Active Medications: Active Medications Generic Name Dose Route Start Last Admin Trade Name Freq PRN Reason Stop Dose Admin Acetaminophen 650 mg 03/18/17 12:29 03/19/17 11:57 Tylenol 650mg/20.3ml Solution Ud NG 650 mg Q6 PRN Administration Fever >100.4 F Ergocalciferol 1 cap 03/22/17 10:45 Drisdol 50,000 Intl Units Cap PO Q7D JACK Famotidine 20 mg 03/15/17 10:00 03/20/17 09:06 Pepcid IVP 20 mg DAILY JACK Administration Ferrous Sulfate 300 mg 03/18/17 18:00 03/20/17 09:06 Feosol Liq NG 300 mg BID JACK Administration Phenylephrine HCl 60 mg/ 256 mls @ 5.11 mls/hr 03/08/17 18:45 03/20/17 16:23 Dextrose IV 100 mcg/min .Q24H PRN 25.6 mls/hr TITRATE PER MD ORDER Administration Protocol 20 MCG/MIN Propofol 1,000 mg in 100 mls @ 1.512 mls/hr 03/11/17 17:38 03/15/17 18:00 Diprivan IV 0 mcg/kg/min .Q24H PRN 0 mls/hr TITRATE PER MD ORDER Titration Protocol 5 MCG/KG/MIN Nafcillin Sodium 2 gm/ Sodium 100 mls @ 100 mls/hr 03/14/17 12:00 03/20/17 11 :11 Chloride IVPB 100 mls/hr Q6H JACK Administration Lactobacillus Acidophilus 1 cap 03/14/17 18:00 03/20/17 09:06 Bacid Acidophilus PO 1 cap BID JACK Administration Multivitamins/Vitamin C 5 ml 03/10/17 10:00 03/20/17 09:07 Multi-Delyn Liquid PO 5 ml DAILY JACK Administration Nicotine 1 patch 03/11/17 10:00 03/20/17 09:06 Nicoderm Cq TD 1 patch DAILY JACK Administration Vitamin A 1 ea 03/20/17 12:00 03/20/17 12:05 Vitamin A & D Oint Ud Foilpak TOP 1 ea BID JACK Administration - Patient Studies Lab Studies: Lab Studies 03/20/17 03/20/17 03/20/17 Range/Units 06:23 06:23 05:01 WBC 15.1 H (4.8-10.8) K/uL RBC 2.61 L (4.40-5.90) Mil/uL Hgb 7.1 L (12.0-18.0) g/dL Hct 23.2 L (35.0-51.0) % MCV 88.7 (80.0-94.0) fL MCH 27.3 (27.0-31.0) pg MCHC 30.8 L (33.0-37.0) g/dL RDW 26.8 H (11.5-14.5) % Plt Count 262 (130-400) K/uL MPV 8.5 (7.2-11.7) fL Neut % (Auto) 72.9 (50.0-75.0) % Lymph % (Auto) 20.4 (20.0-40.0) % [place] % (Auto) 4.2 (0.0-10.0) % Eos % (Auto) 1.2 (0.0-4.0) % Baso % (Auto) 1.3 (0.0-2.0) % Neut # 11.0 H (1.8-7.0) K/uL Lymph # 3.1 (1.0-4.3) K/uL [place] # 0.6 (0.0-0.8) K/uL Eos # 0.2 (0.0-0.7) K/uL Baso # 0.2 (0.0-0.2) K/uL Puncture Site Rt radial pCO2 35 (35-45) mm/Hg pO2 152 H (80-100) mm/Hg HCO3 21.0 (21-28) mmol/L ABG pH 7.36 (7.35-7.45) ABG Total CO2 20.9 L (22-28) mmol/L ABG O2 Saturation 99.4 H (95-98) % ABG Base Excess -5.1 L (-2.0-3.0) mmol/L ABG Hemoglobin 7.0 L (11.7-17.4) g/dL ABG Carboxyhemoglobin 2.1 H (0.5-1.5) % POC ABG HHb (Measured) 0.6 (0.0-5.0) % ABG Methemoglobin 1.3 (0.0-3.0) % Jorge Test Pos A-a O2 Difference 89.0 mm/Hg Respiratory Index 0.6 Hgb O2 Saturation 96.0 (95.0-98.0) % Vent Mode Simv Mechanical Rate 14 FiO2 40.0 % Tidal Volume 450 PEEP 5 Pressure Support 12 Crit Value Called To Md kobe soto Crit Value Called By R [employer] Crit Value Read Back Y Blood Gas Notified Time 625 Sodium 147 (132-148) mmol/L Potassium 3.9 (3.6-5.2) mmol/L Chloride 123 H (98-107) mmol/L Carbon Dioxide 20 L (22-30) mmol/L Anion Gap 8 L (10-20) BUN 61 H (9-20) mg/dL Creatinine 1.5 (0.8-1.5) mg/dL Est GFR ( Amer) 58 Est GFR (Non-Af Amer) 48 Random Glucose 87 (75-110) mg/dL Calcium 7.2 L (8.6-10.4) mg/dl Laboratory Results - last 24 hr 03/20/17 03/20/17 03/20/17 05:01 06:23 06:23 WBC 15.1 H RBC 2.61 L Hgb 7.1 L Hct 23.2 L MCV 88.7 MCH 27.3 MCHC 30.8 L RDW 26.8 H Plt Count 262 MPV 8.5 Neut % (Auto) 72.9 Lymph % (Auto) 20.4 [place] % (Auto) 4.2 Eos % (Auto) 1.2 Baso % (Auto) 1.3 Neut # 11.0 H Lymph # 3.1 [place] # 0.6 Eos # 0.2 Baso # 0.2 Puncture Site Rt radial pCO2 35 pO2 152 H HCO3 21.0 ABG pH 7.36 ABG Total CO2 20.9 L ABG O2 Saturation 99.4 H ABG Base Excess -5.1 L ABG Hemoglobin 7.0 L ABG Carboxyhemoglobin 2.1 H POC ABG HHb (Measured) 0.6 ABG Methemoglobin 1.3 Jorge Test Pos A-a O2 Difference 89.0 Respiratory Index 0.6 Hgb O2 Saturation 96.0 Vent Mode Simv Mechanical Rate 14 FiO2 40.0 Tidal Volume 450 PEEP 5 Pressure Support 12 Crit Value Called To Md kobe soto Crit Value Called By R [employer] Crit Value Read Back Y Blood Gas Notified Time 625 Sodium 147 Potassium 3.9 Chloride 123 H Carbon Dioxide 20 L Anion Gap 8 L BUN 61 H Creatinine 1.5 Est GFR ( Amer) 58 Est GFR (Non-Af Amer) 48 Random Glucose 87 Calcium 7.2 L Attending/Attestation - Attestation I have personally seen and examined this patient.: Yes I have fully participated in the care of the patient.: Yes I have reviewed all pertinent clinical information: Yes Notes (Text): 03/20/17 16:39 patient seen and examined in the intensive care unit. Case discussed with house staff in the morning. Patient remained intubated Family meeting yesterday with Dr. Saavedra And requesting for tracheostomy Continue present treatment for now Prognosis poor and its futile to get trach and PEG for the pt
[2017-03-20] MEDS: Ferrous Sulfate 300 mg/5 mL Liq UD NG SCH ×2 (09:06→17:06)
[2017-03-20] MEDS: Lactobacillus Acidophilus 500 MU Cap PO SCH ×2 (09:06→17:06)
[2017-03-20] MEDS: Multiple Vitamins Oral Solution PO SCH (09:07)
--- NOTE | 2017-03-20 10:03 | CP.PCM.PN ---
Subjective - Date & Time of Evaluation Date of Evaluation: 03/20/17 Time of Evaluation: 10:00 - Subjective Subjective: Hospitalist Progress Note Patient was seen and examined at 10:00 AM 03/20/17 ICU Bed 7. 56 year old male who was brought into ER via EMS on 03/04/17 after he fell at home. Upon arrival to the ER he was found to be confused, cachectic, hypoxic. CT Head showed age indeterminate ischemic changes in righ basal ganglia, acute on chronic subdural collection on left, subdural hygroma on the right. CT Chest showed large cavitary RUL mass with infiltrative/invasion on chest wall and destruction of adjacent ribs consistent with malignancy, right hilar and mediastinal adenopathy. CT Abdomen/Pelvis showed RUL mass with nodular opacities , RML and RLL suspicious for malignancy, splenic lesions possibly metastatic. His respiratory status shortly before exam on 03/05/17 declined and he was intubated by the ICU Team after informing patient's brother Holden Abarca and chgaho-pr-ioi Sarah Abarca [phone], both of whom requested that patient be FULL CODE for the time being. Poor prognosis based upon current patient status and workup was explained to both Holden and Sarah 03/05/17. Holden spoke with Palliative Care Nurse Reyna and patient was subsequently made DNR with Limited Treatment (IV antibiotics and non-invasive positive airway pressure) as per POL, a copy of which is in patient chart. EEG was performed 03/07/17 and results are pending. PPD read on 03/07/17 was negative. Sputum for AFB 03/05/17 x2, 03/08/17, are negative. Quanteferon GOLD is negative. Therefore respiratory isolation was discontinued 03/10/17. Primary Decision Maker Holden Abarca and family meeting meeting was held with Dr. Torres on 03/19/17 evening and family is awaiting to decide on the extent to which they want to continue current management. Please Dr. Torres's note for his discussion with them. ROS is NOT possible as patient is nonresponsive and intubated. Exam: General: intubated and on vent, cachectic appearance, more awake today but does not follow commands and does not nod his head "yes"/"no" to questioning HEENT: Abrasions present on the frontal scalp, Bilateral Pupils are equal and sluggishly reactive to light, Nasal turbinates are dry, NO cervical lymphadenopathy, NO thyromegaly, Poor Dentition Cardio: NS1 and NS2, NO M/R/G however limited due to loud course breath sounds Resp: Course breath sounds diffusely GI: BSx4, soft, ND, NO HSM Ext: Pulses are strong and equal, (+) Pitting Edema involving the entire Bilateral LE, Capillary Refill is 2 seconds Neuro: NOT possible due to current patient state Skin: Nonblanchable erythema sacral base Assessment and Plan: 1). Acute Respiratory Failure Patient is intubated and on ventilator Status: Acute 2). Right Lung Cavitary Lesion with Sepsis Likely secondary to malignancy He was on Cefepime, Vancomcyin, Clindamycin, Metronidazole Currently he is on Naficillin 2 gm IV Q6H (03/14/17) Phenylephrine was restarted 03/18/17 secondary to Hypotension: Currently it is running at 25 mcg/min Albumin 25 g IV Q6H x 4 doses given 03/08/17 Blood Culture 03/04/17 x 2 are Negative Urine Culture 03/04/17 no growth HIV Ab is negative Hepatitis Panel negative Sputum Culture 03/05/17 shows S. aureus (he was treated with Vancomycin through 03/14/17)) AFB 03/05/17 x 2,03/08/17: preliminary is negative: respiratory isolation discontinued 03/10/17 PPD on left lower anterior arm is NEGATIVE 03/07/17 Quanteferon Gold is negative MRSA Screen is negative Heme/Onc Dr. Fabienne Pantoja Palliative Care Nurse Obradovic ID Dr. Wilberto Sanches Status: Acute 3). Anemia Likely chronic considering his history of alcohol abuse Iron level is low: Ferrous Sulfate 300 mg via NG 2x/day Reticulocyte count normal at 0.9 Vitamin B12 elevated above 1000 Folate normal at 3.5 HgB/Hct is declining and at 7.1/23.2 as of 03/20/17 Status: Chronic 4). Hypophosphotemia and Hypokalemia Phos normalized and K have normalized Status: Acute 5). Alcohol Abuse Currently on [facility] NGT Status: Chronic 6). Hypercalcemia This is fluctuating between high and low Secondary to Lung CA? Calcitonin [place] 200 IU SC BID x 6 dose was ordered 03/08/17 however not carried here by pharmacy. Nephrology recommends Zometa or Pamidronate once GFR improves if Ca remaines elevated Status: Acute 7). Possible CVA CT Head w/o contrast 03/06/17: chronic bilateral subdural hematomas left larger than right. There is also a very small sliver of a hyperdense hemorrhage within the left sided collection possibly by the larger hypodense subdural component by membrane. The collections exert relatively symmetrical offsetting mass effect with compression of both cerebral hemispheres and ventricular system with no significant midline shift. Neurology Dr. Moore Status: Acute 8). Acute Kidney Injury Could this be secondary to the consistently low blood pressure despite Pheylephrine Drip? Could this be secondary to contrast from the CT Abdomen/Pelvis performed on admission? Nephrology This too is continuing to worsen Status: Acute 9). Stage I Sacral Ulcer Optifoam Dressing Status: Acute 10). Diarrhea Ova and Parasite, C. diff toxin, and Stool Culture 03/14/17 negative As of 03/19/17 he is continuing to have this 11). Prophylaxis Pulmcare via NGT Pepcid 20 mg IV 1x/day Low Vitamin D: 50,000 units once a week starting 03/08/17 and end 04/26/17 NO anticoagulation considering the anemia: Bilateral SCDs Bacid 1 cap NG 2x/day MVI 5ml PO 1x/day Status: Acute Venous Dopplers Bilateral LE 03/16/17: NO DVTs noted Over the course of this patient's hospital stay, poor prognosis explained to both brother Holden Abarca (cell: [phone]) and other family members by myself as well as other members of health care team. 03/20/17: I went over again the poor prognosis for this patient with Brother Felipe/Bill and his Lili who were at bedside. I explained to them, after they requested the possibility of placing a Trach, that this would not cure the patient, not bring him back to his former self, and in my medical opinion prolong his and cause suffering considering the above. Obed Anguiano D.O. Objective - Vital Signs/Intake and Output Vital Signs (last 24 hours): Temp Pulse Resp BP Pulse Ox 98.6 F 89 20 90/52 L 100 03/20/17 08:00 03/20/17 09:00 03/20/17 09:00 03/20/17 08:15 03/20/17 09:00 Intake and Output: 03/20/17 03/20/17 06:59 18:59 Intake Total 1183.5 340 Output Total 350 110 Balance 833.5 230 - Medications Medications: Current Medications Acetaminophen (Tylenol 650mg/20.3ml Solution Ud) 650 mg NG Q6 PRN PRN Reason: Fever >100.4 F Last Admin: 03/19/17 11:57 Dose: 650 mg Ergocalciferol (Drisdol 50,000 Intl Units Cap) 1 cap PO Q7D [facility] Famotidine (Pepcid) 20 mg IVP DAILY [facility] Last Admin: 03/20/17 09:06 Dose: 20 mg Ferrous Sulfate (Feosol Liq) 300 mg NG BID JACK Last Admin: 03/20/17 09:06 Dose: 300 mg Phenylephrine HCl 60 mg/ (Dextrose) 256 mls @ 5.11 mls/hr IV .Q24H PRN; Protocol; 20 MCG/MIN PRN Reason: TITRATE PER MD ORDER Last Admin: 03/20/17 04:53 Dose: 100 mcg/min, 25.6 mls/hr Propofol (Diprivan) 1,000 mg in 100 mls @ 1.512 mls/hr IV .Q24H PRN; Protocol; 5 MCG/KG/MIN PRN Reason: TITRATE PER MD ORDER Last Titration: 03/15/17 18:00 Dose: 0 mcg/kg/min, 0 mls/hr Nafcillin Sodium 2 gm/ Sodium (Chloride) 100 mls @ 100 mls/hr IVPB Q6H [facility] Last Admin: 03/20/17 04:59 Dose: 100 mls/hr Lactobacillus Acidophilus (Bacid Acidophilus) 1 cap PO BID JACK Last Admin: 03/20/17 09:06 Dose: 1 cap Multivitamins/Vitamin C (Multi-Delyn Liquid) 5 ml PO DAILY [facility] Last Admin: 03/20/17 09:07 Dose: 5 ml Nicotine (Nicoderm Cq) 1 patch TD DAILY [facility] Last Admin: 03/20/17 09:06 Dose: 1 patch - Labs Labs: 03/20/17 06:23 03/20/17 06:23 PT 14.1 SECONDS (9.7-12.2) H 03/04/17 20:15 INR 1.3 03/04/17 20:15 APTT 35 SECONDS (21-34) H 03/04/17 20:15
--- NOTE | 2017-03-20 10:21 | RAD ---
HISTORY: Follow up Pneumonia COMPARISON: 03/19/2017 FINDINGS: LUNGS: Large rounded opacity in upper right keny thorax grossly unchanged. No left-sided opacity. PLEURA: Minimal blunting of right costophrenic angle may reflect small pleural effusion or pleural thickening. The left costophrenic angle is clear. There is no pneumothorax. CARDIOVASCULAR: ET tube, NG tube and right IJ central venous catheter are unchanged. Normal heart size. No congestive change. OSSEOUS STRUCTURES: No significant abnormalities. VISUALIZED UPPER ABDOMEN: Normal. OTHER FINDINGS: None. IMPRESSION: Stable large opacity upper right keny thorax. Possible small right pleural effusion. Lines and tubes unchanged.
--- NOTE | 2017-03-20 10:26 | VASCLAB ---
PROCEDURE: Upper Extremity Venous Duplex Exam HISTORY: Swelling of limb PRIORS: None. TECHNIQUE: Bilateral upper extremity, internal jugular, subclavian, axillary, brachial, ulnar, radial, basilic and upper cephalic veins were evaluated. Flow was assessed with color Doppler, compressibility, assessment of phasic flow and augmentation response. Report prepared by MILE Cantrell, RVT FINDINGS: RIGHT: 1. Internal Jugular: 1.1. Compressibility - Fully compressible: Thrombus - None : Flow - Phasic: Augmentation -Normal: Reflux - None. 2. Subclavian: 2.1. Compressibility - Fully compressible: Thrombus - None : Flow - Phasic: Augmentation -Normal: Reflux - None. 3. Axillary: 3.1. Compressibility - Fully compressible: Thrombus - None : Flow - Phasic: Augmentation -Normal: Reflux - None. 4. Brachial: 4.1. Compressibility - Fully compressible: Thrombus - None: Flow - Phasic: Augmentation -Normal: Reflux - None. 5. Ulnar: 5.1. Compressibility - Fully compressible: Thrombus - None: Flow - Phasic: Augmentation -Normal: Reflux - None. 6. Radial: 6.1. Compressibility - Fully compressible: Thrombus - None: Flow - Phasic: Augmentation - Normal: Reflux - None. 7. Cephalic: 7.1. Compressibility - Fully compressible: Thrombus - None: Flow - Phasic: Augmentation -Normal: Reflux - None. 8. Basilic: 8.1. Compressibility - Fully compressible: Thrombus - None: Flow - Phasic: Augmentation -Normal: Reflux - None. LEFT: 1. Internal Jugular: 1.1. Compressibility - Fully compressible: Thrombus - None : Flow - Phasic: Augmentation -Normal: Reflux - None. 2. Subclavian: 2.1. Compressibility - Fully compressible: Thrombus - None : Flow - Phasic: Augmentation -Normal: Reflux - None. 3. Axillary: 3.1. Compressibility - Fully compressible: Thrombus - None : Flow - Phasic: Augmentation -Normal: Reflux - None. 4. Brachial: 4.1. Compressibility - Fully compressible: Thrombus - None: Flow - Phasic: Augmentation -Normal: Reflux - None. 5. Ulnar: 5.1. Compressibility - Fully compressible: Thrombus - None: Flow - Phasic: Augmentation -Normal: Reflux - None. 6. Radial: 6.1. Compressibility - Fully compressible: Thrombus - None: Flow - Phasic: Augmentation - Normal: Reflux - None. 7. Cephalic: 7.1. Compressibility - Fully compressible: Thrombus - None: Flow - Phasic: Augmentation -Normal: Reflux - None. 8. Basilic: 8.1. Compressibility - Partial: Thrombus - Acute: Flow - Absent : Augmentation -None: Reflux - None. OTHER FINDINGS: Right: None. Left: None. IMPRESSION: Right: No evidence of deep or superficial vein thrombosis of the right upper extremity with excellent venous flow. Left: Acute thrombosis of the left basilic vein with severe reduction of the venous return. No evidence of deep vein thrombosis of the right upper extremity with excellent venous flow. VIKTOR Bazzi notified about the findings.
--- NOTE | 2017-03-20 10:26 | VASCLAB ---
PROCEDURE: Lower Extremity Venous Duplex Exam. HISTORY: Swelling of limb PRIORS: None. TECHNIQUE: Bilateral common femoral, femoral, popliteal and posterior tibial, peroneal and great saphenous veins were evaluated. Flow was assessed with color Doppler, compressibility, assessment of phasic flow and augmentation response. Report prepared by Frankie Hopkins, MILE, RVT FINDINGS: RIGHT: 1. Common Femoral Vein: 1.1. Compressibility - Fully compressible: Thrombus - None : Flow - Phasic: Augmentation -Normal: Reflux - None. 2. Femoral Vein: 2.1. Compressibility - Fully compressible: Thrombus - None : Flow - Phasic: Augmentation -Normal: Reflux - None. 3. Popliteal Vein: 3.1. Compressibility - Fully compressible: Thrombus - None : Flow - Phasic: Augmentation -Normal: Reflux - None. 4. Posterior Tibial Vein: 4.1. Compressibility - Fully compressible: Thrombus - None: Flow - Phasic: Augmentation -Normal: Reflux - None. 5. Peroneal Vein: 5.1. Compressibility - Fully compressible: Thrombus - None: Flow - Phasic: Augmentation -Normal: Reflux - None. 6. Great Saphenous Vein: 6.1. Compressibility - Fully compressible: Thrombus - None: Flow - Phasic: Augmentation - Normal: Reflux - None. LEFT: 1. Common Femoral Vein: 1.1. Compressibility - Fully compressible: Thrombus - None: Flow - Phasic: Augmentation -Normal: Reflux - None. 2. Femoral Vein: 2.1. Compressibility - Fully compressible: Thrombus - None: Flow - Phasic: Augmentation -Normal: Reflux - None. 3. Popliteal Vein: 3.1. Compressibility - Fully compressible: Thrombus - None : Flow - Phasic: Augmentation -Normal: Reflux - None. 4. Posterior Tibial Vein: 4.1. Compressibility - Fully compressible: Thrombus - None: Flow - Phasic: Augmentation -Normal: Reflux - None. 5. Peroneal Vein: 5.1. Compressibility - Fully compressible: Thrombus - None: Flow - Phasic: Augmentation -Normal: Reflux - None. 6. Great Saphenous Vein: 6.1. Compressibility - Fully compressible: Thrombus - None: Flow - Phasic: Augmentation - Normal: Reflux - None. OTHER FINDINGS: Right: None significant. Left: None significant. IMPRESSION: Right: No evidence of deep or superficial vein thrombosis of the right lower extremity. Normal valve function noted of the right side. Left: No evidence of deep or superficial vein thrombosis of the left lower extremity. Normal valve function noted of the left side.
--- NOTE | 2017-03-20 12:00 | CP.PCM.PN ---
Subjective - Date & Time of Evaluation Date of Evaluation: 03/20/17 Time of Evaluation: 10:00 - Subjective Subjective: Patient alert and makes eye contacts Objective - Vital Signs/Intake and Output Vital Signs (last 24 hours): Temp Pulse Resp BP Pulse Ox 98.6 F 104 H 17 124/72 99 03/20/17 08:00 03/20/17 11:15 03/20/17 11:15 03/20/17 11:15 03/20/17 11:15 Intake and Output: 03/20/17 03/20/17 06:59 18:59 Intake Total 1183.5 500 Output Total 350 165 Balance 833.5 335 - Medications Medications: Current Medications Acetaminophen (Tylenol 650mg/20.3ml Solution Ud) 650 mg NG Q6 PRN PRN Reason: Fever >100.4 F Last Admin: 03/19/17 11:57 Dose: 650 mg Ergocalciferol (Drisdol 50,000 Intl Units Cap) 1 cap PO Q7D [facility] Famotidine (Pepcid) 20 mg IVP DAILY [facility] Last Admin: 03/20/17 09:06 Dose: 20 mg Ferrous Sulfate (Feosol Liq) 300 mg NG BID [facility] Last Admin: 03/20/17 09:06 Dose: 300 mg Phenylephrine HCl 60 mg/ (Dextrose) 256 mls @ 5.11 mls/hr IV .Q24H PRN; Protocol; 20 MCG/MIN PRN Reason: TITRATE PER MD ORDER Last Admin: 03/20/17 04:53 Dose: 100 mcg/min, 25.6 mls/hr Propofol (Diprivan) 1,000 mg in 100 mls @ 1.512 mls/hr IV .Q24H PRN; Protocol; 5 MCG/KG/MIN PRN Reason: TITRATE PER MD ORDER Last Titration: 03/15/17 18:00 Dose: 0 mcg/kg/min, 0 mls/hr Nafcillin Sodium 2 gm/ Sodium (Chloride) 100 mls @ 100 mls/hr IVPB Q6H [facility] Last Admin: 03/20/17 11:11 Dose: 100 mls/hr Lactobacillus Acidophilus (Bacid Acidophilus) 1 cap PO BID [facility] Last Admin: 03/20/17 09:06 Dose: 1 cap Multivitamins/Vitamin C (Multi-Delyn Liquid) 5 ml PO DAILY [facility] Last Admin: 03/20/17 09:07 Dose: 5 ml Nicotine (Nicoderm Cq) 1 patch TD DAILY [facility] Last Admin: 03/20/17 09:06 Dose: 1 patch - Labs Labs: 03/20/17 06:23 03/20/17 06:23 PT 14.1 SECONDS (9.7-12.2) H 03/04/17 20:15 INR 1.3 03/04/17 20:15 APTT 35 SECONDS (21-34) H 03/04/17 20:15 - Constitutional Appears: Chronically Ill - Head Exam Head Exam: ATRAUMATIC, NORMAL INSPECTION, NORMOCEPHALIC - Eye Exam Eye Exam: EOMI, Normal appearance, PERRL Pupil Exam: NORMAL ACCOMODATION, PERRL - ENT Exam ENT Exam: Mucous Membranes Moist, Normal Exam Additional comments: ETT - Neck Exam Neck Exam: Full ROM, Normal Inspection - Respiratory Exam Additional comments: On MV - Cardiovascular Exam Cardiovascular Exam: Tachycardia, REGULAR RHYTHM - GI/Abdominal Exam GI & Abdominal Exam: Soft, Diminished Bowel Sounds - Rectal Exam Rectal Exam: Deferred - Exam Additional comments: Mercedes - Extremities Exam Extremities Exam: Normal Inspection - Back Exam Back Exam: NORMAL INSPECTION - Neurological Exam Neurological Exam: Alert Neuro motor strength exam: Left Upper Extremity: 2/1, Right Upper Extremity: 2/1 , Left Lower Extremity: 2/1, Right Lower Extremity: 2/1 - Psychiatric Exam Psychiatric exam: Flat Affect - Skin Skin Exam: Pallor Assessment and Plan - Assessment and Plan (Free Text) Assessment: Patient seen and examined in bed, still on MV support, able to make eye contacts and fallow simple commends. Patient has been intubated since the admission and has not tolerated the weaning trials. Per report, Doctor Melissa met with brother Holden last night when goals of care discussed. Clinical presentation reviewed and all factors affecting quality of life and prognosis such as large right lung mass and dependence of MV. The trach was suggested as the only option . Today I spoke with Holden over the phone. I stated my concerns regarding quality of life issues. Holden agreed but also admitted having a hope, since the patient was making an eye contact with him yesterday. I reviewed prons and cons of having a trach and the need for PEG to go with it. Holden stayed firm that magnus would want to give his brother another chance. These was shared with Doctor Clyde Anguiano who will discuss the possibility of trach creation with Doctor Omkar. Impression * This is a very sick man , diagnosed with large right lung mas, and is on MV support * Family has been debating for 2 weeks now on goals of care * Brother Holden has decided on further aggressive interventions such as trach insertion * Patient is still not able to advocate for him self due to condition and his wishes for the end of life care are not known Suggestion * Further decision about the trach placement should depend on patient's overall condition and readiness to tolerate the procedure * We will need to respect family's wishes and also to promote patient's safety.
[2017-03-20] MEDS: Vitamins A & D Oint UD Foilpak TOP SCH ×2 (12:05→17:06)
[2017-03-21] MEDS: Nafcillin 2 GM in Sodium Chloride 0.9% 100 ML IVPB SCH ×4 (00:16→17:10)
[2017-03-21] MEDS: PHENYLEPHRINE IV PRN ×2 (02:48→12:32)
[2017-03-21] MEDS: DEXTROSE 5% IV PRN ×2 (02:48→12:32)
[2017-03-21] MEDS: WATER IV PRN ×2 (02:48→12:32)
[2017-03-21 05:36] LABS: ABG ALLEN TEST POS; ABG MECHANICAL RATE 14; ARTERIAL BLOOD GAS MODE SIMV/PS; ARTERIAL BLOOD HGB O2 SAT 89.2 % (95.0-98.0); ATERIAL BLOOD GAS PEEP 5; DRAW SITE RR; HHB 6.9 % (0.0-5.0); METHEMOGLOBIN 0.9 % (0.0-3.0)
[2017-03-21 06:17] LABS: BASO # 0.2 K/uL (0.0-0.2); BASO % 0.9 % (0.0-2.0); EOS # 0.2 K/uL (0.0-0.7); HEMATOCRIT 26.8 % (35.0-51.0); LYMPH # 6.5 K/uL (1.0-4.3); LYMPH % 26.5 % (20.0-40.0); MEAN CELL VOLUME 90.1 fL (80.0-94.0); MEAN CORPUSCULAR HEMOGLOBIN 27.3 pg (27.0-31.0); MEAN CORPUSCULAR HGB CONC 30.3 g/dL (33.0-37.0); MEAN PLATELET VOLUME 8.8 fL (7.2-11.7); MONO # 0.9 K/uL (0.0-0.8); MONO % 3.7 % (0.0-10.0); RED CELL DISTRIBUTION WIDTH 26.2 % (11.5-14.5); WHITE BLOOD COUNT 24.6 K/uL (4.8-10.8)
[2017-03-21 06:32] LABS: ALB/GLOB RATIO 0.7 (1.0-2.1); BILIRUBIN,TOTAL 1.1 mg/dL (0.2-1.3); CALCIUM 7.4 mg/dl (8.6-10.4); PHOSPHOROUS 4.4 mg/dL (2.5-4.5); POTASSIUM 4.5 mmol/L (3.6-5.2); TOTAL PROTEIN 4.9 g/dL (6.3-8.3)
[2017-03-21] MEDS: Acetaminophen 650mg/20.3ml solution UD NG PRN (07:24)
--- NOTE | 2017-03-21 07:47 | CP.CCUPN ---
<Beti Bland - Last Filed: 03/21/17 12:26> CCU Subjective - Physician Review Subjective (Free Text): 03/21/17 07:[address] Ellison Patient seen and examined at bedside. No acute events overnight. Patient continues to open eyes to his name and opens spontaneously as well GCS 11T ( [id number]). Nay Orellana spoke with Holden RODRIGUEZ and he stated he wanted to try aggressive measures such as a trach. Critical Care Time Spent (in minutes): 35 CCU Objective - Vital Signs / Intake & Output Vital Signs (Last 4 hours): Vital Signs Temp Pulse Resp BP Pulse Ox 03/21/17 07:24 100.9 F H 03/21/17 07:20 100.9 F H 03/21/17 07:07 119 H 24 99/60 L 97 03/21/17 07:00 116 H 16 96 03/21/17 06:07 115 H 22 85/49 L 95 03/21/17 06:00 108 H 25 H 93 L 03/21/17 05:07 115 H 13 93/57 L 93 L 03/21/17 05:00 112 H 21 95 03/21/17 04:07 117 H 26 H 90/56 L 92 L 03/21/17 04:00 98.4 F 120 H 17 93 L Intake and Output (Last 8hrs): Intake & Output 03/20/17 03/21/17 03/21/17 22:59 06:59 14:59 Intake Total 740 886 80 Output Total 240 315 25 Balance 500 571 55 Weight 116 lb Intake: IV 256 Intake, IV Amount 200 200 25 Right Medial Port 200 200 25 Internal Jugular Tube Feeding 440 430 55 Other 100 Output: Urine 240 295 25 Urethral (Mercedes) 240 295 25 Stool 20 - Physical Exam Head: Positive for: Atraumatic, Normocephalic, Abrasion (top of head, heal. no erythema), Other (temporalis atrophy) Pupils: Positive for: Other (Right eye dilated 3mm, fixed.) Conjunctiva: Positive for: Normal Mouth: Positive for: Moist Mucous Membranes, Other (intubated) Respiratory/Chest: Positive for: Decreased Breath Sounds (RUL), Rhonchi Cardiovascular: Positive for: Regular Rate and Rhythm, Murmurs, Normal S1, S2, Tachycardic Abdomen: Negative for: Tenderness, Distention, Peritoneal Signs Upper Extremity: Positive for: Normal Inspection, NORMAL PULSES. Negative for: Edema Lower Extremity: Positive for: Normal Inspection, NORMAL PULSES. Negative for: Edema, CALF TENDERNESS Neurological: Positive for: Other (intubated). Negative for: GCS=15 (GCS 11T) Skin: Positive for: Warm, Dry Psychiatric: Positive for: Other (intubated) - Medications Active Medications: Active Medications Generic Name Dose Route Start Last Admin Trade Name Freq PRN Reason Stop Dose Admin Acetaminophen 650 mg 03/18/17 12:29 03/21/17 07:24 Tylenol 650mg/20.3ml Solution Ud NG 650 mg Q6 PRN Administration Fever >100.4 F Ergocalciferol 1 cap 03/22/17 10:45 Drisdol 50,000 Intl Units Cap PO Q7D JACK Famotidine 20 mg 03/15/17 10:00 03/20/17 09:06 Pepcid IVP 20 mg DAILY JACK Administration Ferrous Sulfate 300 mg 03/18/17 18:00 03/20/17 17:06 Feosol Liq NG 300 mg BID JACK Administration Phenylephrine HCl 60 mg/ 256 mls @ 5.11 mls/hr 03/08/17 18:45 03/21/17 02:48 Dextrose IV 100 mcg/min .Q24H PRN 25.6 mls/hr TITRATE PER MD ORDER Administration Protocol 20 MCG/MIN Propofol 1,000 mg in 100 mls @ 1.512 mls/hr 03/11/17 17:38 03/15/17 18:00 Diprivan IV 0 mcg/kg/min .Q24H PRN 0 mls/hr TITRATE PER MD ORDER Titration Protocol 5 MCG/KG/MIN Nafcillin Sodium 2 gm/ Sodium 100 mls @ 100 mls/hr 03/14/17 12:00 03/21/17 06 :03 Chloride IVPB 100 mls/hr Q6H JACK Administration Lactobacillus Acidophilus 1 cap 03/14/17 18:00 03/20/17 17:06 Bacid Acidophilus PO 1 cap BID JACK Administration Multivitamins/Vitamin C 5 ml 03/10/17 10:00 03/20/17 09:07 Multi-Delyn Liquid PO 5 ml DAILY JACK Administration Nicotine 1 patch 03/11/17 10:00 03/20/17 09:06 Nicoderm Cq TD 1 patch DAILY JACK Administration Vitamin A 1 ea 03/20/17 12:00 03/20/17 17:06 Vitamin A & D Oint Ud Foilpak TOP 1 ea BID JACK Administration - Patient Studies Lab Studies: Lab Studies 03/21/17 03/21/17 03/21/17 Range/Units 06:05 06:05 05:13 WBC 24.6 H D (4.8-10.8) K/uL RBC 2.98 L (4.40-5.90) Mil/uL Hgb 8.1 L (12.0-18.0) g/dL Hct 26.8 L (35.0-51.0) % MCV 90.1 (80.0-94.0) fL MCH 27.3 (27.0-31.0) pg MCHC 30.3 L (33.0-37.0) g/dL RDW 26.2 H (11.5-14.5) % Plt Count 374 D (130-400) K/uL MPV 8.8 (7.2-11.7) fL Neut % (Auto) 67.9 (50.0-75.0) % Lymph % (Auto) 26.5 (20.0-40.0) % Camas % (Auto) 3.7 (0.0-10.0) % Eos % (Auto) 1.0 (0.0-4.0) % Baso % (Auto) 0.9 (0.0-2.0) % Neut # 16.7 H (1.8-7.0) K/uL Lymph # 6.5 H (1.0-4.3) K/uL Camas # 0.9 H (0.0-0.8) K/uL Eos # 0.2 (0.0-0.7) K/uL Baso # 0.2 (0.0-0.2) K/uL Puncture Site Rr pCO2 50 H (35-45) mm/Hg pO2 51 L (80-100) mm/Hg HCO3 18.9 L (21-28) mmol/L ABG pH 7.21 L (7.35-7.45) ABG Total CO2 21.5 L (22-28) mmol/L ABG O2 Saturation 92.8 L (95-98) % ABG Base Excess -7.6 L (-2.0-3.0) mmol/L ABG Hemoglobin 8.5 L (11.7-17.4) g/dL ABG Carboxyhemoglobin 3.0 H (0.5-1.5) % POC ABG HHb (Measured) 6.9 H (0.0-5.0) % ABG Methemoglobin 0.9 (0.0-3.0) % Jorge Test Pos A-a O2 Difference 172.0 mm/Hg Respiratory Index 3.4 Hgb O2 Saturation 89.2 L (95.0-98.0) % Vent Mode Simv/ps Mechanical Rate 14 FiO2 40.0 % Tidal Volume 450 PEEP 5 Pressure Support 12 Sodium 146 (132-148) mmol/L Potassium 4.5 (3.6-5.2) mmol/L Chloride 119 H (98-107) mmol/L Carbon Dioxide 20 L (22-30) mmol/L Anion Gap 12 (10-20) BUN 65 H (9-20) mg/dL Creatinine 1.9 H (0.8-1.5) mg/dL Est GFR ( Amer) 44 Est GFR (Non-Af Amer) 37 Random Glucose 97 (75-110) mg/dL Calcium 7.4 L (8.6-10.4) mg/dl Phosphorus 4.4 (2.5-4.5) mg/dL Magnesium 2.0 (1.6-2.3) mg/dL Total Bilirubin 1.1 (0.2-1.3) mg/dL AST 31 (17-59) U/L ALT 21 (21-72) U/L Alkaline Phosphatase 103 (38-126) U/L Total Protein 4.9 L (6.3-8.3) g/dL Albumin 2.0 L (3.5-5.0) g/dL Globulin 2.8 (2.2-3.9) gm/dL Albumin/Globulin Ratio 0.7 L (1.0-2.1) Laboratory Results - last 24 hr 03/21/17 03/21/17 03/21/17 05:13 06:05 06:05 WBC 24.6 H D RBC 2.98 L Hgb 8.1 L Hct 26.8 L MCV 90.1 MCH 27.3 MCHC 30.3 L RDW 26.2 H Plt Count 374 D MPV 8.8 Neut % (Auto) 67.9 Lymph % (Auto) 26.5 Camas % (Auto) 3.7 Eos % (Auto) 1.0 Baso % (Auto) 0.9 Neut # 16.7 H Lymph # 6.5 H Camas # 0.9 H Eos # 0.2 Baso # 0.2 Puncture Site Rr pCO2 50 H pO2 51 L HCO3 18.9 L ABG pH 7.21 L ABG Total CO2 21.5 L ABG O2 Saturation 92.8 L ABG Base Excess -7.6 L ABG Hemoglobin 8.5 L ABG Carboxyhemoglobin 3.0 H POC ABG HHb (Measured) 6.9 H ABG Methemoglobin 0.9 Jorge Test Pos A-a O2 Difference 172.0 Respiratory Index 3.4 Hgb O2 Saturation 89.2 L Vent Mode Simv/ps Mechanical Rate 14 FiO2 40.0 Tidal Volume 450 PEEP 5 Pressure Support 12 Sodium 146 Potassium 4.5 Chloride 119 H Carbon Dioxide 20 L Anion Gap 12 BUN 65 H Creatinine 1.9 H Est GFR ( Amer) 44 Est GFR (Non-Af Amer) 37 Random Glucose 97 Calcium 7.4 L Phosphorus 4.4 Magnesium 2.0 Total Bilirubin 1.1 AST 31 ALT 21 Alkaline Phosphatase 103 Total Protein 4.9 L Albumin 2.0 L Globulin 2.8 Albumin/Globulin Ratio 0.7 L Fingerstick Blood Sugar Results: 94 Assessment/Plan - Assessment and Plan (Free Text) Assessment: 56 year old cachectic male with no known PMH presenting with cough, loss of weight, confusion and right upper lobe infiltrate with leucocytosis, thrombocytosis, hyponatremia, hypercalcemia and dehydration. Most likely has lung malignancy, r/o pneumonia/lung abscess/fungal infection Plan Neuro: Sedation: Propofol 5mcg/kg/min Pain: Tramadol 25mg PO TID PRN Neuro consult: Dr. Dr. Moore Nicotine 21mg/24hr QD Cardio: monitor vitals 03/19 D5/phenylephrine 30mcg/min, increased (see below) 03/20 D5/Phenylephrine 100mcg/min Pulm: 03/11 11:35 ABG pH 7.29/pO2 130/pCO2 29/HCO3 16, PRVC 450 TV PEEP5 RR18 [id number]% 03/21 05:13 ABG pH 7.21, pO2 51, pCO2 50, HCO3 18.9, Simv/PS TV 450, RR 14, PEEP 5, PS 12, FiO2 40%, CT Chest: RUL cavitation 03/11 AFB cultures 03/08, 03/09 negative 03/05 MSSA sputum culture Pulmonlogy consult: Dr. Megha Saldivar 3cc INH RQ6 Endo: n/a GI: CMP : 03/10 UA: UTI 03/09 Urine culture: Klebsiella Cefepime 1gm IVPB Q12H, discontinued Renal/electrolytes hyponatremia, hypercalcemia, resolved I/O Nephrology consult: Dr. Nassar Heme: f/u H/H Oncology: n/a MSK: n/a ID:[id number] WBC 26.8, 46.5 ID Consult: Dr. Sanches Cefepime 1gm IVPB Q12H - discontinued 03/14 Vancomycin 1gm IVPB Q24H - discontinued 03/14 Nafcillin 2gm IVPB Q6H Prophylaxis: DVT: Heparin 5000u SC Q8H, discontinued due to anemia GI: Pepcid 20mg IVP QD Nausea: 03/11 14:00 Reglan 10mg IVP TID, Discontinue 03/14/17 14:01 Fluids: IV fluids LR @75cc/hr Tube feeds initiate 20cc/hr with goal rate @ 40cc/hr Code Status: DNR 03/12 Dr. Espitia spoke with family for decision on terminal extubation. Patient's family did not make a decision. will continue to follow 03/19 continued CPAP trials. 19:00 Patient's family spoke with Dr. Torres. Unable to complete decision. Will discuss tomorrow with Dr. Obed Anguiano. 03/20 family meeting 17:[address] Rica Anguiano for possible terminal extubation. discussed with Dr. Espitia. JENNIFER spoke with Nay Orellana and Holden (JENNIFER) mentioned having hope because the patient opened his eyes and looked at Holden. Patients brother wants further aggressive measures such as Trach and PEG, which is seen as futile measures of care for this patient because prognosis for patient is poor Discussed with Dr. Scot Bland DO PGY1 - Date & Time Date: 03/21/17 Time: 07:47 <Latef,Tien M - Last Filed: 03/21/17 18:07> CCU Objective - Vital Signs / Intake & Output Vital Signs (Last 4 hours): Vital Signs Temp Pulse Resp BP Pulse Ox 03/21/17 17:02 111 H 15 71/25 L 100 03/21/17 17:00 112 H 19 100 03/21/17 16:02 107 H 13 91/40 L 100 03/21/17 16:00 98.3 F 106 H 10 L 100 03/21/17 15:02 107 H 15 88/49 L 100 03/21/17 15:00 107 H 15 100 03/21/17 14:07 107 H 15 83/46 L 100 Intake and Output (Last 8hrs): Intake & Output 03/21/17 03/21/17 03/21/17 06:59 14:59 22:59 Intake Total 886 1096 310 Output Total 315 140 5 Balance 571 956 305 Weight 116 lb Intake: IV 256 256 Intake, IV Amount 200 300 175 Right Distal Port 100 100 Internal Jugular Right Medial Port 200 200 75 Internal Jugular Tube Feeding 430 440 55 Other 100 80 Output: Urine 295 140 5 Urethral (Mercedes) 295 140 5 Stool 20 - Medications Active Medications: Active Medications Generic Name Dose Route Start Last Admin Trade Name Freq PRN Reason Stop Dose Admin Acetaminophen 650 mg 03/18/17 12:29 03/21/17 07:24 Tylenol 650mg/20.3ml Solution Ud NG 650 mg Q6 PRN Administration Fever >100.4 F Ergocalciferol 1 cap 03/22/17 10:45 Drisdol 50,000 Intl Units Cap PO Q7D JACK Famotidine 20 mg 03/15/17 10:00 03/21/17 09:05 Pepcid IVP 20 mg DAILY JACK Administration Ferrous Sulfate 300 mg 03/18/17 18:00 03/21/17 17:11 Feosol Liq NG 300 mg BID JACK Administration Phenylephrine HCl 60 mg/ 256 mls @ 5.11 mls/hr 03/08/17 18:45 03/21/17 12:32 Dextrose IV 100 mcg/min .Q24H PRN 25.6 mls/hr TITRATE PER MD ORDER Administration Protocol 20 MCG/MIN Propofol 1,000 mg in 100 mls @ 1.512 mls/hr 03/11/17 17:38 03/15/17 18:00 Diprivan IV 0 mcg/kg/min .Q24H PRN 0 mls/hr TITRATE PER MD ORDER Titration Protocol 5 MCG/KG/MIN Nafcillin Sodium 2 gm/ Sodium 100 mls @ 100 mls/hr 03/14/17 12:00 03/21/17 17 :10 Chloride IVPB 100 mls/hr Q6H JACK Administration Morphine Sulfate 250 mg/ 250 mls @ 2 mls/hr 03/21/17 17:23 Sodium Chloride IV 03/22/17 17:22 .Q24H ONE Protocol Lactobacillus Acidophilus 1 cap 03/14/17 18:00 03/21/17 17:11 Bacid Acidophilus PO 1 cap BID JACK Administration Multivitamins/Vitamin C 5 ml 03/10/17 10:00 03/21/17 09:05 Multi-Delyn Liquid PO 5 ml DAILY JACK Administration Nicotine 1 patch 03/11/17 10:00 03/21/17 09:06 Nicoderm Cq TD 1 patch DAILY JACK Administration Vitamin A 1 ea 03/20/17 12:00 03/21/17 18:06 Vitamin A & D Oint Ud Foilpak TOP 1 ea BID JACK Administration - Patient Studies Lab Studies: Microbiology Studies 03/05/17 21:58 Mycobacterial Culture - Preliminary Other: Please Indicate 03/08/17 09:53 Fungal Culture - Final Trachasp Maria Esther Lusitaniae Lab Studies 03/21/17 03/21/17 03/21/17 Range/Units 06:05 06:05 05:13 WBC 24.6 H D (4.8-10.8) K/uL RBC 2.98 L (4.40-5.90) Mil/uL Hgb 8.1 L (12.0-18.0) g/dL Hct 26.8 L (35.0-51.0) % MCV 90.1 (80.0-94.0) fL MCH 27.3 (27.0-31.0) pg MCHC 30.3 L (33.0-37.0) g/dL RDW 26.2 H (11.5-14.5) % Plt Count 374 D (130-400) K/uL MPV 8.8 (7.2-11.7) fL Neut % (Auto) 67.9 (50.0-75.0) % Lymph % (Auto) 26.5 (20.0-40.0) % Camas % (Auto) 3.7 (0.0-10.0) % Eos % (Auto) 1.0 (0.0-4.0) % Baso % (Auto) 0.9 (0.0-2.0) % Neut # 16.7 H (1.8-7.0) K/uL Lymph # 6.5 H (1.0-4.3) K/uL Camas # 0.9 H (0.0-0.8) K/uL Eos # 0.2 (0.0-0.7) K/uL Baso # 0.2 (0.0-0.2) K/uL Differential Comment Puncture Site Rr pCO2 50 H (35-45) mm/Hg pO2 51 L (80-100) mm/Hg HCO3 18.9 L (21-28) mmol/L ABG pH 7.21 L (7.35-7.45) ABG Total CO2 21.5 L (22-28) mmol/L ABG O2 Saturation 92.8 L (95-98) % ABG Base Excess -7.6 L (-2.0-3.0) mmol/L ABG Hemoglobin 8.5 L (11.7-17.4) g/dL ABG Carboxyhemoglobin 3.0 H (0.5-1.5) % POC ABG HHb (Measured) 6.9 H (0.0-5.0) % ABG Methemoglobin 0.9 (0.0-3.0) % Jorge Test Pos A-a O2 Difference 172.0 mm/Hg Respiratory Index 3.4 Hgb O2 Saturation 89.2 L (95.0-98.0) % Vent Mode Simv/ps Mechanical Rate 14 FiO2 40.0 % Tidal Volume 450 PEEP 5 Pressure Support 12 Sodium 146 (132-148) mmol/L Potassium 4.5 (3.6-5.2) mmol/L Chloride 119 H (98-107) mmol/L Carbon Dioxide 20 L (22-30) mmol/L Anion Gap 12 (10-20) BUN 65 H (9-20) mg/dL Creatinine 1.9 H (0.8-1.5) mg/dL Est GFR ( Amer) 44 Est GFR (Non-Af Amer) 37 Random Glucose 97 (75-110) mg/dL Calcium 7.4 L (8.6-10.4) mg/dl Phosphorus 4.4 (2.5-4.5) mg/dL Magnesium 2.0 (1.6-2.3) mg/dL Total Bilirubin 1.1 (0.2-1.3) mg/dL AST 31 (17-59) U/L ALT 21 (21-72) U/L Alkaline Phosphatase 103 (38-126) U/L Total Protein 4.9 L (6.3-8.3) g/dL Albumin 2.0 L (3.5-5.0) g/dL Globulin 2.8 (2.2-3.9) gm/dL Albumin/Globulin Ratio 0.7 L (1.0-2.1) Laboratory Results - last 24 hr 03/21/17 03/21/17 03/21/17 05:13 06:05 06:05 WBC 24.6 H D RBC 2.98 L Hgb 8.1 L Hct 26.8 L MCV 90.1 MCH 27.3 MCHC 30.3 L RDW 26.2 H Plt Count 374 D MPV 8.8 Neut % (Auto) 67.9 Lymph % (Auto) 26.5 Camas % (Auto) 3.7 Eos % (Auto) 1.0 Baso % (Auto) 0.9 Neut # 16.7 H Lymph # 6.5 H Camas # 0.9 H Eos # 0.2 Baso # 0.2 Differential Comment Puncture Site Rr pCO2 50 H pO2 51 L HCO3 18.9 L ABG pH 7.21 L ABG Total CO2 21.5 L ABG O2 Saturation 92.8 L ABG Base Excess -7.6 L ABG Hemoglobin 8.5 L ABG Carboxyhemoglobin 3.0 H POC ABG HHb (Measured) 6.9 H ABG Methemoglobin 0.9 Jorge Test Pos A-a O2 Difference 172.0 Respiratory Index 3.4 Hgb O2 Saturation 89.2 L Vent Mode Simv/ps Mechanical Rate 14 FiO2 40.0 Tidal Volume 450 PEEP 5 Pressure Support 12 Sodium 146 Potassium 4.5 Chloride 119 H Carbon Dioxide 20 L Anion Gap 12 BUN 65 H Creatinine 1.9 H Est GFR ( Amer) 44 Est GFR (Non-Af Amer) 37 Random Glucose 97 Calcium 7.4 L Phosphorus 4.4 Magnesium 2.0 Total Bilirubin 1.1 AST 31 ALT 21 Alkaline Phosphatase 103 Total Protein 4.9 L Albumin 2.0 L Globulin 2.8 Albumin/Globulin Ratio 0.7 L Attending/Attestation - Attestation I have personally seen and examined this patient.: Yes I have fully participated in the care of the patient.: Yes I have reviewed all pertinent clinical information: Yes Notes (Text): 03/21/17 18:06 Today: February The Patient was seen and examined at the bedside, Medical records reviewed, and management issues were discussed and formulated with the house staff. I have reviewed all the relevant clinical, laboratory, hemodynamic, radiographic data and medications Events reviewed Pain issues, skin care, head of the bed elevation, glycemic control were addressed. Agree with above resident's assessment and treatment plans of care as transcribed in Dr. Bland note. Family meeting today to discuss goals of care
[2017-03-21] MEDS: Multiple Vitamins Oral Solution PO SCH (09:05)
[2017-03-21] MEDS: Ferrous Sulfate 300 mg/5 mL Liq UD NG SCH ×2 (09:05→17:11)
[2017-03-21] MEDS: Vitamins A & D Oint UD Foilpak TOP SCH ×2 (09:06→18:06)
[2017-03-21] MEDS: Lactobacillus Acidophilus 500 MU Cap PO SCH ×2 (09:07→17:11)
[2017-03-21 11:16] VITALS: O2SAT 100
--- NOTE | 2017-03-21 12:37 | CP.PCM.PN ---
Subjective - Date & Time of Evaluation Date of Evaluation: 03/21/17 Time of Evaluation: 12:30 - Subjective Subjective: Hospitalist Progress Note Patient was seen and examined at 12:30 PM 03/21/17 ICU Bed 7. 56 year old male who was brought into ER via EMS on 03/04/17 after he fell at home. Upon arrival to the ER he was found to be confused, cachectic, hypoxic. CT Head showed age indeterminate ischemic changes in righ basal ganglia, acute on chronic subdural collection on left, subdural hygroma on the right. CT Chest showed large cavitary RUL mass with infiltrative/invasion on chest wall and destruction of adjacent ribs consistent with malignancy, right hilar and mediastinal adenopathy. CT Abdomen/Pelvis showed RUL mass with nodular opacities , RML and RLL suspicious for malignancy, splenic lesions possibly metastatic. His respiratory status shortly before exam on 03/05/17 declined and he was intubated by the ICU Team after informing patient's brother Holden Abarca and [id number] Sarah Abarca [phone], both of whom requested that patient be FULL CODE for the time being. Poor prognosis based upon current patient status and workup was explained to both Holden and Sarah 03/05/17. Holden spoke with Palliative Care Nurse Reyna and patient was subsequently made DNR with Limited Treatment (IV antibiotics and non-invasive positive airway pressure) as per POL, a copy of which is in patient chart. EEG was performed 03/07/17 and results are pending. PPD read on 03/07/17 was negative. Sputum for AFB 03/05/17 x2, 03/08/17, are negative. Quanteferon GOLD is negative. Therefore respiratory isolation was discontinued 03/10/17. Primary Decision Maker Holden Abarca and family meeting meeting was held with Dr. Torres on 03/19/17. Please Dr. Torres's note for his discussion with them. Palliative Care Nurse Reyna spoke with Holden Abarca earlier on 03/21/17 and he would like Trach. I called Holden 03/21/17 and explained to him that the patient would likely pass soon considering the Agonal breathing and lack of rise in blood pressure despite Phenylephrine running at 100 mcg/min. I stressed to him that he and or other family members should come as soon as possible. He stated that he would be here today 03/21/17 at 5 PM and will likely decide on Terminal Extubation. ROS is NOT possible as patient is nonresponsive and intubated. Exam: General: intubated and on vent, cachectic appearance, more awake today but does not follow commands and does not nod his head "yes"/"no" to questioning HEENT: Abrasions present on the frontal scalp, Bilateral Pupils are equal and sluggishly reactive to light, Nasal turbinates are dry, NO cervical lymphadenopathy, NO thyromegaly, Poor Dentition Cardio: NS1 and NS2, NO M/R/G however limited due to loud course breath sounds Resp: Course breath sounds diffusely GI: BSx4, soft, ND, NO HSM Ext: Pulses are strong and equal, (+) Pitting Edema involving the entire Bilateral UE and LE, Capillary Refill is 2 seconds Neuro: NOT possible due to current patient state Skin: Nonblanchable erythema sacral base Assessment and Plan: 1). Acute Respiratory Failure Patient is intubated and on ventilator Status: Acute 2). Right Lung Cavitary Lesion with Sepsis Likely secondary to malignancy He was on Cefepime, Vancomcyin, Clindamycin, Metronidazole Currently he is on Naficillin 2 gm IV Q6H (03/14/17) Phenylephrine was restarted 03/18/17 secondary to Hypotension: Currently running at 100 mcg/min Albumin 25 g IV Q6H x 4 doses given 03/08/17 Blood Culture 03/04/17 x 2 are Negative Urine Culture 03/04/17 no growth HIV Ab is negative Hepatitis Panel negative Sputum Culture 03/05/17 shows S. aureus (he was treated with Vancomycin through 03/14/17)) AFB 03/05/17 x 2,03/08/17: preliminary is negative: respiratory isolation discontinued 03/10/17 PPD on left lower anterior arm is NEGATIVE 03/07/17 Quanteferon Gold is negative MRSA Screen is negative Heme/Onc Dr. Fabienne Pantoja Palliative Care Nurse Obradtrice ID Dr. Wilberto Sanches Status: Acute 3). Anemia Likely chronic considering his history of alcohol abuse Iron level is low: Ferrous Sulfate 300 mg via NG 2x/day Reticulocyte count normal at 0.9 Vitamin B12 elevated above 1000 Folate normal at 3.5 HgB/Hct is declining Status: Chronic 4). Hypophosphotemia and Hypokalemia Phos normalized and K have normalized Status: Acute 5). Alcohol Abuse Currently on Pulmcare NGT Status: Chronic 6). Hypercalcemia This is fluctuating between high and low Secondary to Lung CA? Calcitonin Arverne 200 IU SC BID x 6 dose was ordered 03/08/17 however not carried here by pharmacy. Nephrology recommends Zometa or Pamidronate once GFR improves if Ca remaines elevated Status: Acute 7). Possible CVA CT Head w/o contrast 03/06/17: chronic bilateral subdural hematomas left larger than right. There is also a very small sliver of a hyperdense hemorrhage within the left sided collection possibly by the larger hypodense subdural component by membrane. The collections exert relatively symmetrical offsetting mass effect with compression of both cerebral hemispheres and ventricular system with no significant midline shift. Neurology Dr. Moore Status: Acute 8). Acute Kidney Injury Could this be secondary to the consistently low blood pressure despite Pheylephrine Drip? Could this be secondary to contrast from the CT Abdomen/Pelvis performed on admission? Nephrology This too is continuing to worsen Status: Acute 9). Stage I Sacral Ulcer Optifoam Dressing Status: Acute 10). Diarrhea Ova and Parasite, C. diff toxin, and Stool Culture 03/14/17 negative As of 03/19/17 he is continuing to have this 11). Prophylaxis Pulmcare via NGT Pepcid 20 mg IV 1x/day Low Vitamin D: 50,000 units once a week starting 03/08/17 and end 04/26/17 NO anticoagulation considering the anemia: Bilateral SCDs Bacid 1 cap NG 2x/day MVI 5ml PO 1x/day Status: Acute Venous Dopplers Bilateral LE 03/16/17: NO DVTs noted Over the course of this patient's hospital stay, poor prognosis explained to both brother Holden Abarca (cell: [phone]) and other family members by myself as well as other members of health care team. 03/20/17: I went over again the poor prognosis for this patient with Brother Felipe/Bill and his Lili who were at bedside. I explained to them, after they requested the possibility of placing a Trach, that this would not cure the patient, not bring him back to his former self, and in my medical opinion prolong his and cause suffering considering the above. 03/21/17: I spoke with Holden 03/20/17 and explained to him that the patient would likely pass soon considering the Agonal breathing and lack of rise in blood pressure despite Phenylephrine running at 100 mcg/min. I stressed to him that he and or other family members should come as soon as possible. He stated that he would be here today 03/20/17 at 5 PM and will likely decide on Terminal Extubation. Obed Anguiano D.O. Objective - Vital Signs/Intake and Output Vital Signs (last 24 hours): Temp Pulse Resp BP Pulse Ox 98.6 F 106 H 16 84/38 L 100 03/21/17 09:00 03/21/17 12:32 03/21/17 12:32 03/21/17 12:32 03/21/17 12:32 Intake and Output: 03/21/17 03/21/17 06:59 18:59 Intake Total 1206 796 Output Total 425 130 Balance 781 666 - Medications Medications: Current Medications Acetaminophen (Tylenol 650mg/20.3ml Solution Ud) 650 mg NG Q6 PRN PRN Reason: Fever >100.4 F Last Admin: 03/21/17 07:24 Dose: 650 mg Ergocalciferol (Drisdol 50,000 Intl Units Cap) 1 cap PO Q7D JACK Famotidine (Pepcid) 20 mg IVP DAILY [facility] Last Admin: 03/21/17 09:05 Dose: 20 mg Ferrous Sulfate (Feosol Liq) 300 mg NG BID [facility] Last Admin: 03/21/17 09:05 Dose: 300 mg Phenylephrine HCl 60 mg/ (Dextrose) 256 mls @ 5.11 mls/hr IV .Q24H PRN; Protocol; 20 MCG/MIN PRN Reason: TITRATE PER MD ORDER Last Admin: 03/21/17 12:32 Dose: 100 mcg/min, 25.6 mls/hr Propofol (Diprivan) 1,000 mg in 100 mls @ 1.512 mls/hr IV .Q24H PRN; Protocol; 5 MCG/KG/MIN PRN Reason: TITRATE PER MD ORDER Last Titration: 03/15/17 18:00 Dose: 0 mcg/kg/min, 0 mls/hr Nafcillin Sodium 2 gm/ Sodium (Chloride) 100 mls @ 100 mls/hr IVPB Q6H JACK Last Admin: 03/21/17 11:48 Dose: 100 mls/hr Lactobacillus Acidophilus (Bacid Acidophilus) 1 cap PO BID JACK Last Admin: 03/21/17 09:07 Dose: 1 cap Multivitamins/Vitamin C (Multi-Delyn Liquid) 5 ml PO DAILY JACK Last Admin: 03/21/17 09:05 Dose: 5 ml Nicotine (Nicoderm Cq) 1 patch TD DAILY JACK Last Admin: 03/21/17 09:06 Dose: 1 patch Vitamin A (Vitamin A & D Oint Ud Foilpak) 1 ea TOP BID JACK Last Admin: 03/21/17 09:06 Dose: 1 ea - Labs Labs: 03/21/17 06:05 03/21/17 06:05 PT 14.1 SECONDS (9.7-12.2) H 03/04/17 20:15 INR 1.3 03/04/17 20:15 APTT 35 SECONDS (21-34) H 03/04/17 20:15
[2017-03-21 17:47] VITALS: TEMP 98.3
--- NOTE | 2017-03-21 18:25 | CP.PCM.PCO ---
Physician Communication Note - Physician Communication Note Physician Communication Note: Please see above
[2017-03-21 19:24] VITALS: BP 67/33; PULSE 112; RESP 15
[2017-03-21] MEDS ORDERED: Morphine Sulfate 250 MG in Dextrose 5% In Water 240 ML IV ONE (19:26)
--- NOTE | 2017-03-21 20:22 | CP.PCM.PRO ---
Pronouncement of Note - Clinical Findings Physical Exam: No Response Verbal/Painful Stimuli, Absent Peripheral Pulses{ Carotid & Femoral}, Absent Heart & Breath Sounds, No Pupillary Light Reflex, No Corneal Reflex, Pupils Fixed & Dilated, Absence of Vital Signs - Pronouncement Time Time of Pronouncement of : 19:40 - Notifications Pronouncement Notifications: Family Notified, Atending Notified Director [employer] Notified: Yes - Autopsy Autopsy Requested: Yes
[2017-03-22] MEDS ORDERED: Ergocalciferol 50,000 Intl Units Cap PO SCH (10:45)
== END 2017-03-21 20:00 | DRG 870 ==
LOC: C.ER 19:22 → C.9I 21:58
PROVIDERS: ADMIT Internal Medicine; ATTEND Internal Medicine
PROC: 5A1955Z Respiratory Ventilation, Greater than 96 Consecutive Hours (ICD-10-PCS; principal; 2017-03-05)
PROC: 0BH17EZ Insertion of Endotracheal Airway into Trachea, Via Natural or Artificial Opening (ICD-10-PCS; 2017-03-05)
PROC: 02HV33Z Insertion of Infusion Device into Superior Vena Cava, Percutaneous Approach (ICD-10-PCS; 2017-03-05)
PROC: B548ZZA Ultrasonography of Superior Vena Cava, Guidance (ICD-10-PCS; 2017-03-05)
PROC: 3E043XZ Introduction of Vasopressor into Central Vein, Percutaneous Approach (ICD-10-PCS; 2017-03-05)
DX: A41.9 Sepsis, unspecified organism (principal); J96.01 Acute respiratory failure with hypoxia; E43 Unspecified severe protein-calorie malnutrition; J85.0 Gangrene and necrosis of lung; J18.9 Pneumonia, unspecified organism; J43.9 Emphysema, unspecified; R64 Cachexia; E87.2 Acidosis; N17.9 Acute kidney failure, unspecified; L89.151 Pressure ulcer of sacral region, stage 1; I95.9 Hypotension, unspecified; S06.5X9A Traumatic subdural hemorrhage with loss of consciousness of unspecified duration, initial encounter; C34.11 Malignant neoplasm of upper lobe, right bronchus or lung; C78.89 Secondary malignant neoplasm of other digestive organs; D68.9 Coagulation defect, unspecified; E87.1 Hypo-osmolality and hyponatremia; G81.94 Hemiplegia, unspecified affecting left nondominant side; I82.612 Acute embolism and thrombosis of superficial veins of left upper extremity; E83.39 Other disorders of phosphorus metabolism; E83.52 Hypercalcemia; D63.8 Anemia in other chronic diseases classified elsewhere; D18.1 Lymphangioma, any site; F17.210 Nicotine dependence, cigarettes, uncomplicated; E87.6 Hypokalemia; E86.0 Dehydration; F10.20 Alcohol dependence, uncomplicated; R62.7 Adult failure to thrive; Z51.5 Encounter for palliative care; Z66 Do not resuscitate; F32.9 Major depressive disorder, single episode, unspecified; R19.7 Diarrhea, unspecified; Z78.9 Other specified health status; W19.XXXA Unspecified fall, initial encounter; Y92.009 Unspecified place in unspecified non-institutional (private) residence as the place of occurrence of the external cause